=== PATIENT | female | born 1975 | race Caucasian/White ===

== ENCOUNTER 2017-01-12 17:29 | Inpatient (IN) | payer BC ==
[2017-01-12] VITALS (7 sets, daily range): BP systolic 95–117; BP diastolic 56–73
[~2017-01-12] VITALS: Ht 172.7 cm; Wt 85.5 kg
[~2017-01-12 17:29] MED LIST: ACDPT PO; ALPR.25T PO; AMOX1TAB63 PO; EST.1TD TD; FAMO20TA5 PO; HYDR-1231 PO; HYDR-3714 PO; HYDR1TAB PO; IBP800T PO; NAPR220C11 PO; NEURONTIN; OMEPRAZOLE; ONDA8TAB13 PO; OSLT75CRX PO; PREDNISONE; SERT50TA PO; TOPIRAMATE; TRAM50TA2 PO; ZOLOFT PO
[2017-01-12 17:46] LABS: BASOPHILS % (AUTO) 0 % (0-10); EOSINOPHILS # (AUTO) 0.2 10^3/uL (0.0-0.3); EOSINOPHILS % (AUTO) 2 % (0-10); LYMPHOCYTES # (AUTO) 2.9 X 10^3 (1.0-4.0); LYMPHOCYTES % (AUTO) 36 % (12-44); MEAN CORPUSCULAR HEMOGLOBIN 31 PG (25-34); MEAN CORPUSCULAR HGB CONC 34 G/DL (32-36); MEAN CORPUSCULAR VOLUME 91 FL (80-99); MONOCYTES # (AUTO) 0.5 X 10^3 (0.0-1.0); MONOCYTES % (AUTO) 6 % (0-12); NEUTROPHILS # (AUTO) 4.4 X 10^3 (1.8-7.8); NEUTROPHILS % (AUTO) 56 % (42-75); PLATELET COUNT 253 10^3/uL (130-400); RED BLOOD COUNT 4.07 10^6/uL (4.35-5.85); RED CELL DISTRIBUTION WIDTH 12.2 % (10.0-14.5); WHITE BLOOD COUNT 7.9 10^3/uL (4.3-11.0)
--- NOTE | 2017-01-12 17:55 | ED Trauma-Multisystem ---
General Chief Complaint: Trauma EMS/Air Arrival Activat Stated Complaint: SUICIDAL/NECK INJ Source of Information: Patient, EMS Exam Limitations: No Limitations History of Present Illness Time Seen by Provider: 17:30 Initial Comments Here by EMS with report of overdose and attempted hanging. Apparently the patient was found by her daughter with an electrical cord around her neck and barely breathing. She did take a cord of her neck. EMS was summoned. Patient was breathing afterwards but became increasingly drowsy. EMS did arrive and administered 2 mg of Narcan after patient was noted to have overdosed on up to 50 hydrocodone tablets of 5/325 and 10/325 doses. Patient states she was trying to end her pain. She was breathing better afterwards. Patient states that she was going to hang herself with the electrical cord but neither cord wouldn't hold said that she tried to tie tightly around her neck. This is how she was found. Patient states that she did not actually hang herself. There are no significant rene to her neck currently. Denies other injury. Occurred: Just Prior to Arrival (430 p.m.) Severity: Severe Associated Symptoms (Fall): No Abdominal Pain, No Chest Pain, Confusion, No Nausea/Vomiting, No Neck Pain, No Shortness of Air Allergies and Home Medications Allergies Coded Allergies: fluconazole (Verified Allergy, Mild, 07/05/12) morphine (Verified Allergy, Mild, 07/05/12) Uncoded Allergies: TAPE (Allergy, Mild, 07/05/12) Home Medications Alprazolam 0.25 Mg Tablet, 1 TAB PO HS PRN for ANXIETY, #0 (Reported) Hydrocodone Bit/Acetaminophen 1 Tab Tablet, 1 TAB PO Q6H PRN for PAIN, #10 Prescribed by: EARL MICHELLE on 01/06/15 0446 [Neurontin] , (Reported) [Omeprazole] , (Reported) [Prednisone] , (Reported) [Topiramate] , (Reported) [Zoloft] , 50 MG PO DAILY, (Reported) Constitutional: see HPI, No chills, No fever Eyes: No Symptoms Reported Ears: No Symptoms Reported Nose: No Symptoms Reported Mouth: No Symptoms Reported Throat: See HPI, No Hoarse, No Muffled, No Neck Stiffness Respiratory: no symptoms reported, No dyspnea on exertion, No short of breath, No wheezing Cardiovascular: No Symptoms Reported Gastrointestinal: no symptoms reported Genitourinary: no symptoms reported Skin: see HPI, No change in color, lesions (abrasions to the left arm) Psychiatric/Neurological: Anxiety, Depressed, Emotional Problems All Other Systems Reviewed Negative Unless Noted: Yes Past Ljhjprt-Qacvck-Qbatkz Hx Patient Social History Alcohol Use: Occasionally Uses Recreational Drug Use: No Smoking Status: Never a Smoker Immunizations Up To Date Date of Influenza Vaccine: Mar 15, 2014 Seasonal Allergies Seasonal Allergies: No Surgeries HX Surgeries: Yes (D AND C) Surgeries: Section, Gallbladder, Hysterectomy, Oophorectomy Respiratory Hx Respiratory Disorders: No Cardiovascular Hx Cardiac Disorders: No Cardiac Disorders: High Cholesterol Neurological Hx Neurological Disorders: Yes Neurological Disorders: Headaches /Migraines, Meningitis Reproductive System Hx Reproductive Disorders: Yes (CPP) Sexually Transmitted Disease: No 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 Genitourinary Hx Genitourinary Disorders: No Gastrointestinal Hx Gastrointestinal Disorders: Yes Gastrointestinal Disorders: Gall Bladder Disease Musculoskeletal Hx Musculoskeletal Disorders: No Endocrine Hx Endocrine Disorders: No HEENT HX ENT Disorders: No Loss of Vision: Denies Hearing Impairment: Denies Cancer Hx Cancer: No Psychosocial Hx Psychiatric Problems: Yes Behavioral Health Disorders: Suicide Attempts, Depression Integumentary HX Skin/Integumentary Disorder: No Blood Transfusions Hx Blood Disorders: Yes Adverse Reaction to a Blood Tr: No Reviewed Nursing Assessment Reviewed/Agree w Nursing PMH: Yes Family Medical History Significant Family History: No Pertinent Family Hx Family Medial History: Patient reports no known family medical history. Physical Exam General Appearance: No Apparent Distress, WD/WN Head: No Evidence of Injury Eyes: Bilateral Eye EOMI, Bilateral Eye Other (bilateral pupils 8 mm and unresponsive), Bilateral Eye PERRL Ears, Nose, Throat: No Evidence of ENT Injury, No Dental Injury Neck: Full Range of Motion, Normal Inspection, Non Tender, Supple Cardiovascular: Regular Rate, Rhythm, No Murmur Respiratory: Lungs Clear, Normal Breath Sounds Gastrointestinal: Non Tender, Soft Back: Normal Inspection, No CVA Tenderness, No Vertebral Tenderness Extremity: Normal Range of Motion, Non Tender Neurologic/Psychiatric: Alert, Oriented x3 Skin: Normal Color, Warm/Dry, Other (2 linear scratches to the left forearm. Initially there was a little bit of redness to the left side of the neck in a linear fashion that quickly resolved.) Epifanio Coma Score Best Eye Response (Epifanio): (4) Open Spontaneously Best Verbal Response (Barry): (5) Oriented Best Motor Response (Barry): (6) Obeys Commands Progress/Results/Core Measures Results/Orders Lab Results Laboratory Tests Test 01/12/17 17:34 01/12/17 18:09 Range/Units White Blood Count 7.9 4.3-11.0 10^3/uL Red Blood Count 4.07 L 4.35-5.85 10^6/uL Hemoglobin 12.7 11.5-16.0 G/DL Hematocrit 37 35-52 % Mean Corpuscular Volume 91 80-99 FL Mean Corpuscular Hemoglobin 31 25-34 PG Mean Corpuscular Hemoglobin Concent 34 32-36 G/DL Red Cell Distribution Width 12.2 10.0-14.5 % Platelet Count 253 130-400 10^3/uL Mean Platelet Volume 11.0 H 7.4-10.4 FL Neutrophils (%) (Auto) 56 42-75 % Lymphocytes (%) (Auto) 36 12-44 % Monocytes (%) (Auto) 6 0-12 % Eosinophils (%) (Auto) 2 0-10 % Basophils (%) (Auto) 0 0-10 % Neutrophils # (Auto) 4.4 1.8-7.8 X 10^3 Lymphocytes # (Auto) 2.9 1.0-4.0 X 10^3 Monocytes # (Auto) 0.5 0.0-1.0 X 10^3 Eosinophils # (Auto) 0.2 0.0-0.3 10^3/uL Basophils # (Auto) 0.0 0.0-0.1 10^3/uL Sodium Level 143 135-145 MMOL/L Potassium Level 3.6 3.6-5.0 MMOL/L Chloride Level 115 H 98-107 MMOL/L Carbon Dioxide Level 20 L 21-32 MMOL/L Anion Gap 8 5-14 MMOL/L Blood Urea Nitrogen 15 7-18 MG/DL Creatinine 0.82 0.60-1.30 MG/DL Estimat Glomerular Filtration Rate > 60 BUN/Creatinine Ratio 18 Glucose Level 93 70-105 MG/DL Calcium Level 8.4 L 8.5-10.1 MG/DL Magnesium Level 1.9 1.8-2.4 MG/DL Total Bilirubin 0.3 0.1-1.0 MG/DL Aspartate Amino Transf (AST/SGOT) 13 5-34 U/L Alanine Aminotransferase (ALT/SGPT) 15 0-55 U/L Alkaline Phosphatase 68 40-136 U/L Total Protein 6.6 6.4-8.2 GM/DL Albumin 3.8 3.2-4.5 GM/DL Amylase Level 47 25-125 U/L Lipase 21 8-78 U/L Serum Test, Qualitative NEGATIVE NEGATIVE Salicylates Level < 5.0 L 5.0-20.0 MG/DL Acetaminophen Level 54 *H 10-30 UG/ML Serum Alcohol < 10 <10 MG/DL Urine Color YELLOW Urine Clarity CLEAR Urine pH 7 5-9 Urine Specific [place] 1.005 L 1.016-1.022 Urine Protein NEGATIVE NEGATIVE Urine Glucose (UA) NEGATIVE NEGATIVE Urine Ketones NEGATIVE NEGATIVE Urine Nitrite NEGATIVE NEGATIVE Urine Bilirubin NEGATIVE NEGATIVE Urine Urobilinogen NORMAL NORMAL MG/DL Urine Leukocyte Esterase NEGATIVE NEGATIVE Urine RBC (Auto) NEGATIVE NEGATIVE Urine RBC NONE /HPF Urine WBC NONE /HPF Urine Squamous Epithelial Cells RARE /HPF Urine Crystals NONE /LPF Urine Bacteria FEW H /HPF Urine Casts NONE /LPF Urine Mucus NEGATIVE /LPF Urine Culture Indicated NO Urine Opiates Screen POSITIVE H NEGATIVE Urine Oxycodone Screen NEGATIVE NEGATIVE Urine Methadone Screen NEGATIVE NEGATIVE Urine Propoxyphene Screen NEGATIVE NEGATIVE Urine Barbiturates Screen NEGATIVE NEGATIVE Ur Tricyclic Antidepressants Screen NEGATIVE NEGATIVE Urine Phencyclidine Screen NEGATIVE NEGATIVE Urine Amphetamines Screen POSITIVE H NEGATIVE Urine Methamphetamines Screen NEGATIVE NEGATIVE Urine Benzodiazepines Screen NEGATIVE NEGATIVE Urine Cocaine Screen NEGATIVE NEGATIVE Urine Cannabinoids Screen NEGATIVE NEGATIVE My Orders Orders - ELIANE AGUDELO MD Acetaminophen (01/12/17 17:34) Alcohol (01/12/17 17:34) Amylase (01/12/17 17:34) Cbc With Automated Diff (01/12/17 17:34) Comprehensive Metabolic Panel (01/12/17 17:34) Drug Screen Stat (Urine) (01/12/17 17:34) Hcg,Qualitative Serum (01/12/17 17:34) Lipase (01/12/17 17:34) Magnesium (01/12/17 17:34) Salicylate (01/12/17 17:34) Ua Culture If Indicated (01/12/17 17:34) Chest 1 View, Ap/Pa Only (01/12/17 17:34) Ekg Tracing (01/12/17 17:34) Monitor-Rhythm Ecg Trace Only (01/12/17 17:34) Progress Note : Progress Note Seen and evaluated on arrival by EMS. Type II activation due to report of possible hanging. It does not appear that she actually hung herself but we will get trauma consult. I did discuss the case with Dr. Go at 1734. He will see patient in the ER. 1809: Labs reviewed. Dr. Go evaluating patient and will see patient in consult. 1830: I did discuss the case with Dr. Salazar and she accepts patient for admission. Dr. Go did see the patient in consult and has signed off as it does not appear that she hung herself. Dr. Salazar does accept the patient for admission, inpatient status. Patient will require 4 hour Tylenol level which will need to be drawn at 2030 tonight. Poison control will need to be contacted for further guidance. Patient may need Mucomyst dosing per poison control recommendations. Dr. Salazar agrees with plan. Family agrees with plan. ECG Initial ECG Impression Date: Jan 12, 2017 Initial ECG Impression Time: 17:57 Initial ECG Rate: 68 Initial ECG Rhythm: Normal Sinus Initial ECG Intervals: Normal Initial ECG Impression: Normal Initial ECG Comparisson: No Previous ECG Available Comment Sinus rhythm with normal axis. No evidence of ST elevation [place]. No previous available for comparison. Interpreted by me. Diagnostic Imaging Diagonstic Imaging: Xray Plain Films/CT/US/NM/MRI: chest Comments NAME: DOMINIQUE DENNEY [facility] REC#: [id number] PT STATUS: REG ER : 1975 PHYSICIAN: ELIANE AGUDELO MD ADMIT DATE: 01/12/17/ER Signed Date of Exam: 01/12/17 CHEST 1 VIEW, AP/PA ONLY INDICATION: Trauma. TECHNIQUE: Single view chest 5:54 PM. CORRELATION STUDY: 01/06/2015 FINDINGS: The heart size, mediastinal configuration and pulmonary vascularity are within normal limits. The lungs are clear with no consolidating infiltrate. There is no significant effusion or pneumothorax. IMPRESSION: 1. Stable, negative portable chest. Dictated by: Dictated on workstation # [id number] Dict: 01/12/17 1800 Trans: 01/12/17 1800 Interpreted by: HUSSAIN BUCKLEY DO Electronically signed by: HUSSAIN BUCKLEY DO 01/12/17 1800 Departure Communication Time/Spoke to Admitting Phy: 18:30 Time/Spoke to Consulting Physi: 17:34 Impression Impression: Primary Impression: Overdose by acetaminophen Qualified Codes: T39.1X2A - Poisoning by 4-aminophenol derivatives, intentional self-harm, initial encounter Additional Impressions: Overdose of opiate or related narcotic Qualified Codes: T40.602A - Poisoning by unspecified narcotics, intentional self-harm, initial encounter Suicide Qualified Codes: X83.8XXA - Intentional self-harm by other specified means, initial encounter Disposition: ADMITTED INPATIENT Condition: Stable Decision to Admit Reason: Admit from ER (General) Decision to Admit/Date: Jan 12, 2017 Time/Decision to Admit Time: 18:30 Departure-Patient Inst. Referrals: TRUNG KHAN DO (PCP) Primary Care Physician TIMBO GUILLEN (Family) Primary Care Physician ELIANE AGUDELO MD Jan 12, 2017 17:55
--- NOTE | 2017-01-12 18:03 | Diagnostic Imaging Report ---
INDICATION: Trauma. TECHNIQUE: Single view chest 5:54 PM. CORRELATION STUDY: 01/06/2015 FINDINGS: The heart size, mediastinal configuration and pulmonary vascularity are within normal limits. The lungs are clear with no consolidating infiltrate. There is no significant effusion or pneumothorax. IMPRESSION: 1. Stable, negative portable chest. Dictated by: Dictated on workstation # [id number]
[2017-01-12 18:05] LABS: ALANINE AMINOTRANSFERASE 15 U/L (0-55); ALBUMIN 3.8 GM/DL (3.2-4.5); ALCOHOL < 10 MG/DL (<10); AMYLASE 47 U/L (25-125); ANION GAP 8 MMOL/L (5-14); ASPARTATE AMINO TRANSFERASE 13 U/L (5-34); BILIRUBIN,TOTAL 0.3 MG/DL (0.1-1.0); BLOOD UREA NITROGEN 15 MG/DL (7-18); BUN/CREATININE RATIO 18; CALCIUM 8.4 MG/DL (8.5-10.1); CARBON DIOXIDE 20 MMOL/L (21-32); CHLORIDE 115 MMOL/L (98-107); CREATININE SERUM 0.82 MG/DL (0.60-1.30); GFR ESTIMATED > 60; GLUCOSE 93 MG/DL (70-105); LIPASE 21 U/L (8-78); MAGNESIUM 1.9 MG/DL (1.8-2.4); POTASSIUM 3.6 MMOL/L (3.6-5.0); SALICYLATE < 5.0 MG/DL (5.0-20.0); SODIUM 143 MMOL/L (135-145); TOTAL PROTEIN 6.6 GM/DL (6.4-8.2)
[2017-01-12 18:07] LABS: ACETAMINOPHEN 54 UG/ML (10-30)
[2017-01-12 18:16] LABS: BILIRUBIN,URINE NEGATIVE (NEGATIVE); KETONES,URINE NEGATIVE (NEGATIVE); LEUKOCYTE ESTERASE ,URINE NEGATIVE (NEGATIVE); NITRITE,URINE NEGATIVE (NEGATIVE); PH,URINE 7 (5-9); PROTEIN,URINE NEGATIVE (NEGATIVE); UROBILINOGEN,URINE NORMAL (NORMAL)
[2017-01-12 18:22] LABS: SQUAMOUS EPITHELIAL CELL,UR RARE /HPF
--- NOTE | 2017-01-12 18:40 | Consultation ---
History of Present Illness History of Present Illness Patient Consulted On(ines/time) 01/12/17 18:32 Date Seen by Provider: Jan 12, 2017 Time Seen by Provider: 18:32 History of Present Illness CC: Attempted suicide. Seen and evaluated in the Emergency Department. Patient is a 41 year old female who attempted suicide by taking " a lot of pain pills". She was using it to take away the pain for attempting to hang herself. Patient states she placed wire around her neck but realized it was going to likely break so then tried to make it tighter. She states she continued to take pain medication to continue to try and take away the pain. She was found in bed and brought by EMS to Emergency dept. At time of EMS arrival she was reported as unresponsive which she was given Narcan. In the ER she is alert and oriented. GCS 15. She had chest xray with no acute findings. On physical exam there are no signs of any trauma. Patient with family at bedside. Allergies and Home Medications Allergies Coded Allergies: fluconazole (Verified Allergy, Mild, 07/05/12) morphine (Verified Allergy, Mild, 07/05/12) Uncoded Allergies: TAPE (Allergy, Mild, 07/05/12) Home Medications Alprazolam 0.25 Mg Tablet, 1 TAB PO HS PRN for ANXIETY, #0 (Reported) Hydrocodone Bit/Acetaminophen 1 Tab Tablet, 1 TAB PO Q6H PRN for PAIN, #10 Prescribed by: EARL MICHELLE on 01/06/15 0446 [Neurontin] , (Reported) [Omeprazole] , (Reported) [Prednisone] , (Reported) [Topiramate] , (Reported) [Zoloft] , 50 MG PO DAILY, (Reported) Past Bmjmjbt-Weaglp-Jpxatt Hx Patient Social History Alcohol Use: Occasionally Uses Recreational Drug Use: No Smoking Status: Never a Smoker Recent Foreign Travel: No Contact w/Someone Who Travel: No Recent Infectious Disease Expo: No Immunizations Up To Date Date of Influenza Vaccine: Mar 15, 2014 Seasonal Allergies Seasonal Allergies: No Surgeries HX Surgeries: Yes (D AND C) Surgeries: Section, Gallbladder, Hysterectomy, Oophorectomy Respiratory Hx Respiratory Disorders: No Cardiovascular Hx Cardiac Disorders: No Cardiac Disorders: High Cholesterol Neurological Hx Neurological Disorders: Yes Neurological Disorders: Headaches /Migraines, Meningitis Reproductive System Hx Reproductive Disorders: Yes (CPP) Sexually Transmitted Disease: 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 Genitourinary Hx Genitourinary Disorders: No Gastrointestinal Hx Gastrointestinal Disorders: Yes Gastrointestinal Disorders: Gall Bladder Disease Musculoskeletal Hx Musculoskeletal Disorders: No Endocrine Hx Endocrine Disorders: No HEENT HX ENT Disorders: No Loss of Vision: Denies Hearing Impairment: Denies Cancer Hx Cancer: No Psychosocial Hx Psychiatric Problems: Yes Behavioral Health Disorders: Depression Integumentary HX Skin/Integumentary Disorder: No Blood Transfusions Hx Blood Disorders: Yes Adverse Reaction to a Blood Tr: No Family Medical History Significant Family History: No Pertinent Family Hx Family Medial History: Patient reports no known family medical history. Review of Systems-General Constitutional: no symptoms reported EENTM: no symptoms reported Respiratory: no symptoms reported Cardiovascular: no symptoms reported Gastrointestinal: no symptoms reported Genitourinary: no symptoms reported Musculoskeletal: no symptoms reported Skin: no symptoms reported Psychiatric/Neurological: Depressed Physical Exam-General Problems Physical Exam Vital Signs Capillary Refill : General Appearance: no apparent distress HEENT: PERRL/EOMI, normal ENT inspection Neck: non-tender, full range of motion, supple, normal inspection Respiratory: no respiratory distress, no accessory muscle use Cardiovascular: regular rate, rhythm Gastrointestinal: non tender, soft, no organomegaly, no pulsatile mass Rectal: deferred Back: normal inspection, no CVA tenderness, no vertebral tenderness Extremities: non-tender, normal inspection 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, no motor/sensory deficits, alert, oriented x 3, depressed affect Skin: normal color, warm/dry Data Review Labs Laboratory Tests 01/12/17 17:34: White Blood Count 7.9, Red Blood Count 4.07L, Hemoglobin 12.7, Hematocrit 37, Mean Corpuscular Volume 91, Mean Corpuscular Hemoglobin 31, Mean Corpuscular Hemoglobin Concent 34, Red Cell Distribution Width 12.2, Platelet Count 253, Mean Platelet Volume 11.0H, Neutrophils (%) (Auto) 56, Lymphocytes (%) (Auto) 36 , Monocytes (%) (Auto) 6, Eosinophils (%) (Auto) 2, Basophils (%) (Auto) 0, Neutrophils # (Auto) 4.4, Lymphocytes # (Auto) 2.9, Monocytes # (Auto) 0.5, Eosinophils # (Auto) 0.2, Basophils # (Auto) 0.0, Sodium Level 143, Potassium Level 3.6, Chloride Level 115H, Carbon Dioxide Level 20L, Anion Gap 8, Blood Urea Nitrogen 15, Creatinine 0.82, Estimat Glomerular Filtration Rate > 60, BUN/ Creatinine Ratio 18, Glucose Level 93, Calcium Level 8.4L, Magnesium Level 1.9, Total Bilirubin 0.3, Aspartate Amino Transf (AST/SGOT) 13, Alanine Aminotransferase (ALT/SGPT) 15, Alkaline Phosphatase 68, Total Protein 6.6, Albumin 3.8, Amylase Level 47, Lipase 21, Serum Test, Qualitative NEGATIVE, Salicylates Level < 5.0L, Acetaminophen Level 54*H, Serum Alcohol < 10 01/12/17 18:09: Urine Color YELLOW, Urine Clarity CLEAR, Urine pH 7, Urine Specific [place] 1.005L, Urine Protein NEGATIVE, Urine Glucose (UA) NEGATIVE, Urine Ketones NEGATIVE, Urine Nitrite NEGATIVE, Urine Bilirubin NEGATIVE, Urine Urobilinogen NORMAL, Urine Leukocyte Esterase NEGATIVE, Urine RBC (Auto) NEGATIVE, Urine RBC NONE, Urine WBC NONE, Urine Squamous Epithelial Cells RARE, Urine Crystals NONE , Urine Bacteria FEWH, Urine Casts NONE, Urine Mucus NEGATIVE, Urine Culture Indicated NO, Urine Opiates Screen POSITIVEH, Urine Oxycodone Screen NEGATIVE, Urine Methadone Screen NEGATIVE, Urine Propoxyphene Screen NEGATIVE, Urine Barbiturates Screen NEGATIVE, Ur Tricyclic Antidepressants Screen NEGATIVE, Urine Phencyclidine Screen NEGATIVE, Urine Amphetamines Screen POSITIVEH, Urine Methamphetamines Screen NEGATIVE, Urine Benzodiazepines Screen NEGATIVE, Urine Cocaine Screen NEGATIVE, Urine Cannabinoids Screen NEGATIVE Assessment/Plan Assessment/Plan Assessment/Plan suicide attempt, elevated acetaminophen level no physical signs of attempt by hanging patient being admitted to medicine to ICU no surgical issues will sign off, call if needed. RYDER MONIQUE DO Jan 12, 2017 18:40
[2017-01-12] MEDS: CATHETER FLUSH 10 ML SYR IV PRN (21:09)
[2017-01-12] MEDS: NS IV 1000 ML 1,000 ML IV SCH (21:09)
[2017-01-13] VITALS (22 sets, daily range): BP systolic 99–137; BP diastolic 57–81
[2017-01-13 04:12] LABS: BASOPHILS % (AUTO) 0 % (0-10); EOSINOPHILS % (AUTO) 0 % (0-10); LYMPHOCYTES # (AUTO) 1.3 X 10^3 (1.0-4.0); LYMPHOCYTES % (AUTO) 18 % (12-44); MEAN CORPUSCULAR HEMOGLOBIN 31 PG (25-34); MEAN CORPUSCULAR HGB CONC 33 G/DL (32-36); MEAN CORPUSCULAR VOLUME 92 FL (80-99); MEAN PLATELET VOLUME 11.3 FL (7.4-10.4); MONOCYTES # (AUTO) 0.1 X 10^3 (0.0-1.0); MONOCYTES % (AUTO) 2 % (0-12); NEUTROPHILS # (AUTO) 5.8 X 10^3 (1.8-7.8); NEUTROPHILS % (AUTO) 80 % (42-75); PLATELET COUNT 234 10^3/uL (130-400); RED BLOOD COUNT 4.05 10^6/uL (4.35-5.85); RED CELL DISTRIBUTION WIDTH 12.2 % (10.0-14.5); WHITE BLOOD COUNT 7.2 10^3/uL (4.3-11.0)
[2017-01-13 04:33] LABS: ALANINE AMINOTRANSFERASE 152 U/L (0-55); ALBUMIN 3.7 GM/DL (3.2-4.5); ANION GAP 8 MMOL/L (5-14); ASPARTATE AMINO TRANSFERASE 156 U/L (5-34); BILIRUBIN,TOTAL 0.6 MG/DL (0.1-1.0); BLOOD UREA NITROGEN 16 MG/DL (7-18); BUN/CREATININE RATIO 20; CALCIUM 8.3 MG/DL (8.5-10.1); CARBON DIOXIDE 19 MMOL/L (21-32); CHLORIDE 114 MMOL/L (98-107); GFR ESTIMATED > 60; GLUCOSE 108 MG/DL (70-105); MAGNESIUM 2.2 MG/DL (1.8-2.4); PHOSPHORUS 3.5 MG/DL (2.3-4.7); POTASSIUM 4.1 MMOL/L (3.6-5.0); SODIUM 141 MMOL/L (135-145); TOTAL PROTEIN 6.4 GM/DL (6.4-8.2)
[2017-01-13] MEDS: MAGNESIUM 1 GM/100 ML IVPB 100 ML IV SCH (06:14)
[2017-01-13] MEDS: POTASSIUM CL 10MEQ/50ML IVPB 50 ML IV SCH (06:14)
[2017-01-13] MEDS: KCL 20 MEQ TAB (K-DUR) PO SCH (06:14)
[2017-01-13] MEDS ORDERED: ACETYLCYSTEINE IV ONE ×6 (07:00→12:00)
[2017-01-13] MEDS ORDERED: D5W IV ONE ×6 (07:00→12:00)
[2017-01-13] MEDS ORDERED: NS IV 1000 ML 1,000 ML IV SCH (08:00)
--- NOTE | 2017-01-13 08:04 | Diagnostic Imaging Report ---
CHEST 1 VIEW, AP/PA ONLY Indication: Dyspnea Comparison: 01/12/2017 Findings: No focal airspace disease in the visualized lungs. Please note that the posterior lower lobes are poorly evaluated by portable radiography. No pleural effusion or pneumothorax. Normal cardiomediastinal silhouette. Impression: No acute cardiopulmonary process by portable radiography. Dictated by: Dictated on workstation # [id number]
[2017-01-13] MEDS: ONDANSETRON 4 MG/2 ML (SDV) Z0FRAN IVP PRN ×3 (08:11→22:56)
[2017-01-13] MEDS: CATHETER FLUSH 10 ML SYR IV PRN ×2 (08:11→22:56)
[2017-01-13 08:14] LABS: INR 1.1 (0.8-1.4); PROTHROMBIN TIME PATIENT 14.3 SEC (12.2-14.7)
[2017-01-13 08:18] LABS: ALANINE AMINOTRANSFERASE 146 U/L (0-55); ASPARTATE AMINO TRANSFERASE 120 U/L (5-34)
[2017-01-13] MEDS ORDERED: GABA600T2 PO (08:49)
[2017-01-13] MEDS ORDERED: TOPI100T11 PO ×2 (08:49→08:59)
[2017-01-13] MEDS ORDERED: MILN100T PO (08:49)
[2017-01-13] MEDS ORDERED: SERT25TA5 PO (08:49)
[2017-01-13] MEDS ORDERED: INDO50CA PO (08:49)
[2017-01-13] MEDS ORDERED: AMPH20CA PO (08:49)
[2017-01-13] MEDS ORDERED: ESTR1TAB27 PO (09:01)
[2017-01-13] MEDS ORDERED: OMEP40CA36 PO (09:01)
[2017-01-13] MEDS ORDERED: CYAN500T2 PO (09:01)
[2017-01-13] MEDS ORDERED: CYAN100088 PO (09:02)
[2017-01-13] MEDS ORDERED: PROMETHAZINE INJ 25 MG/ML (PHENERGAN) AMP IVP PRN (09:15)
[2017-01-13] MEDS: NS IV 1000 ML 1,000 ML IV SCH (10:09)
--- NOTE | 2017-01-13 10:28 | History & Physicial (CHS) ---
HPI History of Present Illness: History provided by patient and her . They report that yesterday they arrived home around 4 pm and after that, Jaida's states she and other family members found notes written to them by the patient indicating self-harm and she had locked herself in her bedroom, they went in and found her and called EMS. She was minimally responsive but did improve with narcan. She states she took about 50 hydrocodone/acetaminophen, some were hers and a few were her 's. She took her other home medications that day as scheduled and denies taking any extra. She also tied a cord around her neck with the intent of strangling herself. She has had suicidal ideation in the past but has not been this serious. She was just released from an inpatient Psychiatric hospitalization in November. She does not answer questions as to how she feels about not succeeding in harming herself or if she is still wanting to harm herself, but does say she would like to go back to [place] where she was prior. Exam Limitations: clinical condition Date seen by provider: Jan 13, 2017 Time Seen by Provider: 09:10 Attending Physician Elizabeth Salazar MD PCP Janet Meng DO Consult Date of Admission Jan 12, 2017 at 6:30 pm Home Medications Home Medications Reviewed patient Home Medication Reconciliation Form Allergies Coded Allergies: fluconazole (Verified Allergy, Mild, 07/05/12) morphine (Verified Allergy, Mild, 07/05/12) Uncoded Allergies: TAPE (Allergy, Mild, 07/05/12) [id number] Hx Patient Social History Alcohol Use: Occasionally Uses Recreational Drug Use: No Smoking Status: Never a Smoker Recent Foreign Travel: No Contact w/other who traveled: No Recent Infectious Disease Expo: No Physical Abuse Screen: No Sexual Abuse: No Immunizations Up To Date Date of Influenza Vaccine: Mar 15, 2014 Past Medical History PMHx: Depression Fibromyalgia GERD Chronic headaches ADHD PSurgHx: Hysterectomy Oophorectomy Appendectomy Cholecystectomy Ureter stretching Family Medical History Significant Family History: No Pertinent Family Hx Family History: Patient reports no known family medical history. Review of Systems (CHC) Constitutional: No fever EENTM: no symptoms reported Respiratory: no symptoms reported Cardiovascular: no symptoms reported Gastrointestinal: abdominal pain, nausea, vomiting Genitourinary: no symptoms reported Musculoskeletal: muscle pain Skin: no symptoms reported Psychiatric/Neurological: See HPI Reviewed Test Results Reviewed Test Results Lab Laboratory Tests Test 01/12/17 17:34 01/12/17 18:09 01/12/17 20:26 01/12/17 22:26 Range/Units White Blood Count 7.9 4.3-11.0 10^3/uL Red Blood Count 4.07 L 4.35-5.85 10^6/uL Hemoglobin 12.7 11.5-16.0 G/DL Hematocrit 37 35-52 % Mean Corpuscular Volume 91 80-99 FL Mean Corpuscular Hemoglobin 31 25-34 PG Mean Corpuscular Hemoglobin Concent 34 32-36 G/DL Red Cell Distribution Width 12.2 10.0-14.5 % Platelet Count 253 130-400 10^3/uL Mean Platelet Volume 11.0 H 7.4-10.4 FL Neutrophils (%) (Auto) 56 42-75 % Lymphocytes (%) (Auto) 36 12-44 % Monocytes (%) (Auto) 6 0-12 % Eosinophils (%) (Auto) 2 0-10 % Basophils (%) (Auto) 0 0-10 % Neutrophils # (Auto) 4.4 1.8-7.8 X 10^3 Lymphocytes # (Auto) 2.9 1.0-4.0 X 10^3 Monocytes # (Auto) 0.5 0.0-1.0 X 10^3 Eosinophils # (Auto) 0.2 0.0-0.3 10^3/uL Basophils # (Auto) 0.0 0.0-0.1 10^3/uL Sodium Level 143 135-145 MMOL/L Potassium Level 3.6 3.6-5.0 MMOL/L Chloride Level 115 H 98-107 MMOL/L Carbon Dioxide Level 20 L 21-32 MMOL/L Anion Gap 8 5-14 MMOL/L Blood Urea Nitrogen 15 7-18 MG/DL Creatinine 0.82 0.60-1.30 MG/DL Estimat Glomerular Filtration Rate > 60 BUN/Creatinine Ratio 18 Glucose Level 93 70-105 MG/DL Calcium Level 8.4 L 8.5-10.1 MG/DL Magnesium Level 1.9 1.8-2.4 MG/DL Total Bilirubin 0.3 0.1-1.0 MG/DL Aspartate Amino Transf (AST/SGOT) 13 5-34 U/L Alanine Aminotransferase (ALT/SGPT) 15 0-55 U/L Alkaline Phosphatase 68 40-136 U/L Total Protein 6.6 6.4-8.2 GM/DL Albumin 3.8 3.2-4.5 GM/DL Amylase Level 47 25-125 U/L Lipase 21 8-78 U/L Serum Test, Qualitative NEGATIVE NEGATIVE Salicylates Level < 5.0 L 5.0-20.0 MG/DL Acetaminophen Level 54 *H 81 #*H 93 #*H 10-30 UG/ML Serum Alcohol < 10 <10 MG/DL Urine Color YELLOW Urine Clarity CLEAR Urine pH 7 5-9 Urine Specific [place] 1.005 L 1.016-1.022 Urine Protein NEGATIVE NEGATIVE Urine Glucose (UA) NEGATIVE NEGATIVE Urine Ketones NEGATIVE NEGATIVE Urine Nitrite NEGATIVE NEGATIVE Urine Bilirubin NEGATIVE NEGATIVE Urine Urobilinogen NORMAL NORMAL MG/DL Urine Leukocyte Esterase NEGATIVE NEGATIVE Urine RBC (Auto) NEGATIVE NEGATIVE Urine RBC NONE /HPF Urine WBC NONE /HPF Urine Squamous Epithelial Cells RARE /HPF Urine Crystals NONE /LPF Urine Bacteria FEW H /HPF Urine Casts NONE /LPF Urine Mucus NEGATIVE /LPF Urine Culture Indicated NO Urine Opiates Screen POSITIVE H NEGATIVE Urine Oxycodone Screen NEGATIVE NEGATIVE Urine Methadone Screen NEGATIVE NEGATIVE Urine Propoxyphene Screen NEGATIVE NEGATIVE Urine Barbiturates Screen NEGATIVE NEGATIVE Ur Tricyclic Antidepressants Screen NEGATIVE NEGATIVE Urine Phencyclidine Screen NEGATIVE NEGATIVE Urine Amphetamines Screen POSITIVE H NEGATIVE Urine Methamphetamines Screen NEGATIVE NEGATIVE Urine Benzodiazepines Screen NEGATIVE NEGATIVE Urine Cocaine Screen NEGATIVE NEGATIVE Urine Cannabinoids Screen NEGATIVE NEGATIVE Test 01/13/17 00:46 01/13/17 03:45 01/13/17 07:55 Range/Units Acetaminophen Level 96 #*H 84 #*H 10-30 UG/ML White Blood Count 7.2 4.3-11.0 10^3/uL Red Blood Count 4.05 L 4.35-5.85 10^6/uL Hemoglobin 12.4 11.5-16.0 G/DL Hematocrit 37 35-52 % Mean Corpuscular Volume 92 80-99 FL Mean Corpuscular Hemoglobin 31 25-34 PG Mean Corpuscular Hemoglobin Concent 33 32-36 G/DL Red Cell Distribution Width 12.2 10.0-14.5 % Platelet Count 234 130-400 10^3/uL Mean Platelet Volume 11.3 H 7.4-10.4 FL Neutrophils (%) (Auto) 80 H 42-75 % Lymphocytes (%) (Auto) 18 12-44 % Monocytes (%) (Auto) 2 0-12 % Eosinophils (%) (Auto) 0 0-10 % Basophils (%) (Auto) 0 0-10 % Neutrophils # (Auto) 5.8 1.8-7.8 X 10^3 Lymphocytes # (Auto) 1.3 1.0-4.0 X 10^3 Monocytes # (Auto) 0.1 0.0-1.0 X 10^3 Eosinophils # (Auto) 0.0 0.0-0.3 10^3/uL Basophils # (Auto) 0.0 0.0-0.1 10^3/uL Sodium Level 141 135-145 MMOL/L Potassium Level 4.1 3.6-5.0 MMOL/L Chloride Level 114 H 98-107 MMOL/L Carbon Dioxide Level 19 L 21-32 MMOL/L Anion Gap 8 5-14 MMOL/L Blood Urea Nitrogen 16 7-18 MG/DL Creatinine 0.80 0.60-1.30 MG/DL Estimat Glomerular Filtration Rate > 60 BUN/Creatinine Ratio 20 Glucose Level 108 H 70-105 MG/DL Calcium Level 8.3 L 8.5-10.1 MG/DL Phosphorus Level 3.5 2.3-4.7 MG/DL Magnesium Level 2.2 1.8-2.4 MG/DL Total Bilirubin 0.6 0.1-1.0 MG/DL Aspartate Amino Transf (AST/SGOT) 156 H 120 H 5-34 U/L Alanine Aminotransferase (ALT/SGPT) 152 H 146 H 0-55 U/L Alkaline Phosphatase 90 40-136 U/L Total Protein 6.4 6.4-8.2 GM/DL Albumin 3.7 3.2-4.5 GM/DL Prothrombin Time 14.3 12.2-14.7 SEC INR Comment 1.1 0.8-1.4 Physical Exam-(CHC) Physical Exam Vital Signs VS - Last 72 Hours, by Label 01/12/17 01/12/17 01/12/17 01/12/17 18:40 19:00 19:12 19:30 Temp 97.9 Pulse 67 73 78 68 Resp 18 14 12 B/P (MAP) 117/60 111/63 Pulse Ox 100 97 99 O2 Delivery Room Air Room Air Room Air 01/12/17 01/12/17 01/12/17 01/12/17 20:00 20:30 21:00 22:00 Pulse 79 73 82 71 Resp 20 10 8 7 B/P (MAP) 95/56 107/65 107/68 111/69 Pulse Ox 94 93 95 97 O2 Delivery Room Air Room Air Room Air Room Air 01/12/17 01/12/17 01/13/17 01/13/17 22:25 23:00 00:00 01:00 Pulse 85 59 61 Resp 12 7 7 B/P (MAP) 110/73 112/78 122/76 Pulse Ox 98 100 100 100 O2 Delivery Room Air Room Air Room Air Room Air 01/13/17 01/13/17 01/13/17 01/13/17 01:00 02:00 02:00 02:35 Temp 98.0 Pulse 61 59 Resp 9 B/P (MAP) 114/73 Pulse Ox 100 100 O2 Delivery Room Air Room Air 01/13/17 01/13/17 01/13/17 01/13/17 03:00 04:00 05:00 06:00 Pulse 58 111 70 67 Resp 10 19 8 9 B/P (MAP) 106/69 110/69 99/59 100/65 Pulse Ox 100 99 100 100 O2 Delivery Room Air Room Air Room Air Room Air 01/13/17 01/13/17 01/13/17 06:46 07:00 08:00 Temp 97.2 Pulse 72 B/P (MAP) Pulse Ox 100 O2 Delivery Room Air Room Air Capillary Refill : Less Than 3 Seconds General Appearance: mild distress Respiratory: lungs clear, normal breath sounds Cardiovascular: regular rate, rhythm, no murmur Extremities: no pedal edema Neurologic/Psychiatric: alert, other (flat affect) Skin: normal color, warm/dry Assessment/Plan Assessment/Plan Admission Dx Intentional overdose Depression Fibromyalgia ADHD Plan Intentional overdose- with hydrocodone/apap -Acetaminophen levels followed and discussed with poison control, did not cross threshold for treatment, but this am had new elevation in AST/ALT, so N acetylcysteine started per protocol -Repeat LFTs decreasing, will recheck in 4 hours -Plan for re-admission to [place] when medically stable, probably tomorrow afternoon Depression- resume home sertraline, inpatient Psych recommendations as noted above Fibromyalgia- resume home gabapentin, indomethacin and milnapracin -Hold topiramate given already multi-drug regimen and to avoid oversedation ADHD- started on adderall at last Psych hospitalization, hold for now DVT ppx- SCDs Diagnosis/Problems: Clinical Quality Measures DVT/VTE Risk/Contraindication: Risk Factor Score Per Nursin RFS Level Per Nursing on Admit: 1=Low/No VTE PPX Copy Copies To 1: DARYL Nicole BETHANY N MD Jan 13, 2017 10:28 am
[2017-01-13 12:55] LABS: ACETAMINOPHEN 26 UG/ML (10-30); ALANINE AMINOTRANSFERASE 122 U/L (0-55); ALBUMIN 3.4 GM/DL (3.2-4.5); ANION GAP 9 MMOL/L (5-14); ASPARTATE AMINO TRANSFERASE 80 U/L (5-34); BILIRUBIN,TOTAL 0.4 MG/DL (0.1-1.0); BLOOD UREA NITROGEN 14 MG/DL (7-18); BUN/CREATININE RATIO 20; CALCIUM 7.6 MG/DL (8.5-10.1); CARBON DIOXIDE 19 MMOL/L (21-32); CHLORIDE 113 MMOL/L (98-107); CREATININE SERUM 0.71 MG/DL (0.60-1.30); GFR ESTIMATED > 60; GLUCOSE 135 MG/DL (70-105); POTASSIUM 3.3 MMOL/L (3.6-5.0); SODIUM 141 MMOL/L (135-145); TOTAL PROTEIN 5.9 GM/DL (6.4-8.2)
[2017-01-13] MEDS: CYANOCOBALAMIN 500 MCG TAB (VITAMIN B-12) PO SCH (14:12)
[2017-01-13] MEDS: GABAPENTIN 600 MG (NEURONTIN) TAB PO SCH ×2 (14:13→21:52)
[2017-01-13] MEDS: SERTRALINE 50 MG (ZOLOFT) TABLET PO SCH (14:13)
[2017-01-13] MEDS ORDERED: NON-FORMULARY MEDICATION 1 EA EA (Milnacipran HCl (Savella) 100 MG) PO SCH (21:00)
[2017-01-13] MEDS: INDOMETHACIN 25 MG (INDOCIN) CAP PO SCH (21:52)
[2017-01-14] VITALS (16 sets, daily range): BP systolic 102–124; BP diastolic 61–90
[2017-01-14 05:34] LABS: BASOPHILS % (AUTO) 1 % (0-10); EOSINOPHILS # (AUTO) 0.1 10^3/uL (0.0-0.3); EOSINOPHILS % (AUTO) 1 % (0-10); LYMPHOCYTES # (AUTO) 3.1 X 10^3 (1.0-4.0); LYMPHOCYTES % (AUTO) 36 % (12-44); MEAN CORPUSCULAR HEMOGLOBIN 31 PG (25-34); MEAN CORPUSCULAR HGB CONC 34 G/DL (32-36); MEAN CORPUSCULAR VOLUME 91 FL (80-99); MEAN PLATELET VOLUME 10.6 FL (7.4-10.4); MONOCYTES # (AUTO) 0.5 X 10^3 (0.0-1.0); MONOCYTES % (AUTO) 5 % (0-12); NEUTROPHILS % (AUTO) 57 % (42-75); PLATELET COUNT 267 10^3/uL (130-400); RED BLOOD COUNT 3.99 10^6/uL (4.35-5.85); RED CELL DISTRIBUTION WIDTH 12.7 % (10.0-14.5); WHITE BLOOD COUNT 8.6 10^3/uL (4.3-11.0)
[2017-01-14 05:42] LABS: INR 1.2 (0.8-1.4); PROTHROMBIN TIME PATIENT 14.6 SEC (12.2-14.7)
[2017-01-14 05:52] LABS: MAGNESIUM 1.9 MG/DL (1.8-2.4); PHOSPHORUS 1.3 MG/DL (2.3-4.7)
[2017-01-14 05:53] LABS: ALANINE AMINOTRANSFERASE 83 U/L (0-55); ALBUMIN 3.3 GM/DL (3.2-4.5); ANION GAP 9 MMOL/L (5-14); ASPARTATE AMINO TRANSFERASE 35 U/L (5-34); BILIRUBIN,TOTAL 0.3 MG/DL (0.1-1.0); BLOOD UREA NITROGEN 7 MG/DL (7-18); BUN/CREATININE RATIO 10; CALCIUM 8.1 MG/DL (8.5-10.1); CARBON DIOXIDE 18 MMOL/L (21-32); CHLORIDE 116 MMOL/L (98-107); CREATININE SERUM 0.73 MG/DL (0.60-1.30); GFR ESTIMATED > 60; GLUCOSE 100 MG/DL (70-105); POTASSIUM 2.9 MMOL/L (3.6-5.0); SODIUM 143 MMOL/L (135-145); TOTAL PROTEIN 5.7 GM/DL (6.4-8.2)
[2017-01-14] MEDS: MAGNESIUM 1 GM/100 ML IVPB 100 ML IV SCH (05:59)
[2017-01-14 06:04] LABS: ACETAMINOPHEN < 10 UG/ML (10-30)
[2017-01-14] MEDS: NS IV 1000 ML 1,000 ML IV SCH ×2 (06:23→11:35)
[2017-01-14] MEDS: KCL 20 MEQ TAB (K-DUR) PO SCH (06:24)
[2017-01-14] MEDS: POTASSIUM CL 10MEQ/50ML IVPB 50 ML IV SCH ×6 (06:25→11:08)
[2017-01-14] MEDS ORDERED: PANTOPRAZOLE 40 MG (PROTONIX) TAB PO SCH (07:00)
[2017-01-14] MEDS: ONDANSETRON 4 MG/2 ML (SDV) Z0FRAN IVP PRN (07:41)
[2017-01-14] MEDS ORDERED: ESTRADIOL 1 MG TAB (ESTRACE) PO SCH (09:00)
--- NOTE | 2017-01-14 11:30 | Discharge Summary ---
Diagnosis/Chief Complaint Date of Admission Jan 12, 2017 at 18:30 Date of Discharge Jan 14, 2017 Admission Diagnosis Admission Diagnosis Intentional overdose Depression Fibromyalgia ADHD Discharge Diagnosis Intentional overdose- with hydrocodone/apap -Acetaminophen levels followed and discussed with poison control, did not cross threshold for treatment, but this am had new elevation in AST/ALT, so N acetylcysteine started per protocol -LFTs continued to decrease (AST normal and ALT near normal) and acetaminophen level <10 on morning of d/c -Plan for re-admission to [place] now that medically stable Depression- resume home sertraline, inpatient Psych recommendations as noted above Fibromyalgia- resume home gabapentin, indomethacin and milnapracin -Held topiramate given already multi-drug regimen and to avoid oversedation ADHD- started on adderall at last Psych hospitalization, held for now Hypokalemia- replaced Chief Complaint/HPI Chief Complaint/HPI History provided by patient and her . They report that yesterday they arrived home around 4 pm and after that, Jaida's states she and other family members found notes written to them by the patient indicating self-harm and she had locked herself in her bedroom, they went in and found her and called EMS. She was minimally responsive but did improve with narcan. She states she took about 50 hydrocodone/acetaminophen, some were hers and a few were her 's. She took her other home medications that day as scheduled and denies taking any extra. She also tied a cord around her neck with the intent of strangling herself. She has had suicidal ideation in the past but has not been this serious. She was just released from an inpatient Psychiatric hospitalization in November. She does not answer questions as to how she feels about not succeeding in harming herself or if she is still wanting to harm herself, but does say she would like to go back to [place] where she was prior. Discharge Summary-Simple/Stand Consultations Discharge Physical Examination Allergies: Coded Allergies: fluconazole (Verified Allergy, Mild, 07/05/12) morphine (Verified Allergy, Mild, 07/05/12) Uncoded Allergies: TAPE (Allergy, Mild, 07/05/12) Vitals & I&Os Vital Sign - Last 12Hours Date Time Temp Pulse Resp B/P (MAP) Pulse Ox O2 Delivery O2 Flow Rate FiO2 01/14/17 10:00 93 10 123/76 98 Room Air 01/14/17 07:45 99.7 Intake and Output 01/14/17 00:00 Intake Total 880 ml Output Total 1800 ml Balance -920 ml General Appearance: Alert, No Acute Distress Respiratory: Clear to Auscultation, Normal Air Movement Cardiovascular: Regular Rate, No Murmurs Abdominal: Normal Bowel Sounds, Soft, No Tenderness Psych/Mental Status: Other (affect flat) Hospital Course See final discharge diagnosis. Labs Laboratory Tests Test 01/12/17 17:34 01/12/17 18:09 01/12/17 20:26 01/12/17 22:26 Range/Units White Blood Count 7.9 4.3-11.0 10^3/uL Red Blood Count 4.07 L 4.35-5.85 10^6/uL Hemoglobin 12.7 11.5-16.0 G/DL Hematocrit 37 35-52 % Mean Corpuscular Volume 91 80-99 FL Mean Corpuscular Hemoglobin 31 25-34 PG Mean Corpuscular Hemoglobin Concent 34 32-36 G/DL Red Cell Distribution Width 12.2 10.0-14.5 % Platelet Count 253 130-400 10^3/uL Mean Platelet Volume 11.0 H 7.4-10.4 FL Neutrophils (%) (Auto) 56 42-75 % Lymphocytes (%) (Auto) 36 12-44 % Monocytes (%) (Auto) 6 0-12 % Eosinophils (%) (Auto) 2 0-10 % Basophils (%) (Auto) 0 0-10 % Neutrophils # (Auto) 4.4 1.8-7.8 X 10^3 Lymphocytes # (Auto) 2.9 1.0-4.0 X 10^3 Monocytes # (Auto) 0.5 0.0-1.0 X 10^3 Eosinophils # (Auto) 0.2 0.0-0.3 10^3/uL Basophils # (Auto) 0.0 0.0-0.1 10^3/uL Sodium Level 143 135-145 MMOL/L Potassium Level 3.6 3.6-5.0 MMOL/L Chloride Level 115 H 98-107 MMOL/L Carbon Dioxide Level 20 L 21-32 MMOL/L Anion Gap 8 5-14 MMOL/L Blood Urea Nitrogen 15 7-18 MG/DL Creatinine 0.82 0.60-1.30 MG/DL Estimat Glomerular Filtration Rate > 60 BUN/Creatinine Ratio 18 Glucose Level 93 70-105 MG/DL Calcium Level 8.4 L 8.5-10.1 MG/DL Magnesium Level 1.9 1.8-2.4 MG/DL Total Bilirubin 0.3 0.1-1.0 MG/DL Aspartate Amino Transf (AST/SGOT) 13 5-34 U/L Alanine Aminotransferase (ALT/SGPT) 15 0-55 U/L Alkaline Phosphatase 68 40-136 U/L Total Protein 6.6 6.4-8.2 GM/DL Albumin 3.8 3.2-4.5 GM/DL Amylase Level 47 25-125 U/L Lipase 21 8-78 U/L Serum Test, Qualitative NEGATIVE NEGATIVE Salicylates Level < 5.0 L 5.0-20.0 MG/DL Acetaminophen Level 54 *H 81 #*H 93 #*H 10-30 UG/ML Serum Alcohol < 10 <10 MG/DL Urine Color YELLOW Urine Clarity CLEAR Urine pH 7 5-9 Urine Specific [place] 1.005 L 1.016-1.022 Urine Protein NEGATIVE NEGATIVE Urine Glucose (UA) NEGATIVE NEGATIVE Urine Ketones NEGATIVE NEGATIVE Urine Nitrite NEGATIVE NEGATIVE Urine Bilirubin NEGATIVE NEGATIVE Urine Urobilinogen NORMAL NORMAL MG/DL Urine Leukocyte Esterase NEGATIVE NEGATIVE Urine RBC (Auto) NEGATIVE NEGATIVE Urine RBC NONE /HPF Urine WBC NONE /HPF Urine Squamous Epithelial Cells RARE /HPF Urine Crystals NONE /LPF Urine Bacteria FEW H /HPF Urine Casts NONE /LPF Urine Mucus NEGATIVE /LPF Urine Culture Indicated NO Urine Opiates Screen POSITIVE H NEGATIVE Urine Oxycodone Screen NEGATIVE NEGATIVE Urine Methadone Screen NEGATIVE NEGATIVE Urine Propoxyphene Screen NEGATIVE NEGATIVE Urine Barbiturates Screen NEGATIVE NEGATIVE Ur Tricyclic Antidepressants Screen NEGATIVE NEGATIVE Urine Phencyclidine Screen NEGATIVE NEGATIVE Urine Amphetamines Screen POSITIVE H NEGATIVE Urine Methamphetamines Screen NEGATIVE NEGATIVE Urine Benzodiazepines Screen NEGATIVE NEGATIVE Urine Cocaine Screen NEGATIVE NEGATIVE Urine Cannabinoids Screen NEGATIVE NEGATIVE Test 01/13/17 00:46 01/13/17 03:45 01/13/17 07:55 01/13/17 12:15 Range/Units Acetaminophen Level 96 #*H 84 #*H 26 10-30 UG/ML White Blood Count 7.2 4.3-11.0 10^3/uL Red Blood Count 4.05 L 4.35-5.85 10^6/uL Hemoglobin 12.4 11.5-16.0 G/DL Hematocrit 37 35-52 % Mean Corpuscular Volume 92 80-99 FL Mean Corpuscular Hemoglobin 31 25-34 PG Mean Corpuscular Hemoglobin Concent 33 32-36 G/DL Red Cell Distribution Width 12.2 10.0-14.5 % Platelet Count 234 130-400 10^3/uL Mean Platelet Volume 11.3 H 7.4-10.4 FL Neutrophils (%) (Auto) 80 H 42-75 % Lymphocytes (%) (Auto) 18 12-44 % Monocytes (%) (Auto) 2 0-12 % Eosinophils (%) (Auto) 0 0-10 % Basophils (%) (Auto) 0 0-10 % Neutrophils # (Auto) 5.8 1.8-7.8 X 10^3 Lymphocytes # (Auto) 1.3 1.0-4.0 X 10^3 Monocytes # (Auto) 0.1 0.0-1.0 X 10^3 Eosinophils # (Auto) 0.0 0.0-0.3 10^3/uL Basophils # (Auto) 0.0 0.0-0.1 10^3/uL Sodium Level 141 141 135-145 MMOL/L Potassium Level 4.1 3.3 L 3.6-5.0 MMOL/L Chloride Level 114 H 113 H 98-107 MMOL/L Carbon Dioxide Level 19 L 19 L 21-32 MMOL/L Anion Gap 8 9 5-14 MMOL/L Blood Urea Nitrogen 16 14 7-18 MG/DL Creatinine 0.80 0.71 0.60-1.30 MG/DL Estimat Glomerular Filtration Rate > 60 > 60 BUN/Creatinine Ratio 20 20 Glucose Level 108 H 135 H 70-105 MG/DL Calcium Level 8.3 L 7.6 L 8.5-10.1 MG/DL Phosphorus Level 3.5 2.3-4.7 MG/DL Magnesium Level 2.2 1.8-2.4 MG/DL Total Bilirubin 0.6 0.4 0.1-1.0 MG/DL Aspartate Amino Transf (AST/SGOT) 156 H 120 H 80 H 5-34 U/L Alanine Aminotransferase (ALT/SGPT) 152 H 146 H 122 H 0-55 U/L Alkaline Phosphatase 90 74 40-136 U/L Total Protein 6.4 5.9 L 6.4-8.2 GM/DL Albumin 3.7 3.4 3.2-4.5 GM/DL Prothrombin Time 14.3 12.2-14.7 SEC INR Comment 1.1 0.8-1.4 Test 01/14/17 05:20 Range/Units White Blood Count 8.6 4.3-11.0 10^3/uL Red Blood Count 3.99 L 4.35-5.85 10^6/uL Hemoglobin 12.2 11.5-16.0 G/DL Hematocrit 36 35-52 % Mean Corpuscular Volume 91 80-99 FL Mean Corpuscular Hemoglobin 31 25-34 PG Mean Corpuscular Hemoglobin Concent 34 32-36 G/DL Red Cell Distribution Width 12.7 10.0-14.5 % Platelet Count 267 130-400 10^3/uL Mean Platelet Volume 10.6 H 7.4-10.4 FL Neutrophils (%) (Auto) 57 42-75 % Lymphocytes (%) (Auto) 36 12-44 % Monocytes (%) (Auto) 5 0-12 % Eosinophils (%) (Auto) 1 0-10 % Basophils (%) (Auto) 1 0-10 % Neutrophils # (Auto) 5.0 1.8-7.8 X 10^3 Lymphocytes # (Auto) 3.1 1.0-4.0 X 10^3 Monocytes # (Auto) 0.5 0.0-1.0 X 10^3 Eosinophils # (Auto) 0.1 0.0-0.3 10^3/uL Basophils # (Auto) 0.0 0.0-0.1 10^3/uL Prothrombin Time 14.6 12.2-14.7 SEC INR Comment 1.2 0.8-1.4 Sodium Level 143 135-145 MMOL/L Potassium Level 2.9 L 3.6-5.0 MMOL/L Chloride Level 116 H 98-107 MMOL/L Carbon Dioxide Level 18 L 21-32 MMOL/L Anion Gap 9 5-14 MMOL/L Blood Urea Nitrogen 7 7-18 MG/DL Creatinine 0.73 0.60-1.30 MG/DL Estimat Glomerular Filtration Rate > 60 BUN/Creatinine Ratio 10 Glucose Level 100 70-105 MG/DL Calcium Level 8.1 L 8.5-10.1 MG/DL Phosphorus Level 1.3 L 2.3-4.7 MG/DL Magnesium Level 1.9 1.8-2.4 MG/DL Total Bilirubin 0.3 0.1-1.0 MG/DL Aspartate Amino Transf (AST/SGOT) 35 H 5-34 U/L Alanine Aminotransferase (ALT/SGPT) 83 H 0-55 U/L Alkaline Phosphatase 67 40-136 U/L Total Protein 5.7 L 6.4-8.2 GM/DL Albumin 3.3 3.2-4.5 GM/DL Acetaminophen Level < 10 L 10-30 UG/ML Discharge Instructions to patient/family Please see electonic discharge instructions given to patient. Discharge Medications Reviewed and agree with Discharge Medication list on patient's Discharge Instruction sheet Clinical Quality Measures DVT/VTE Risk/Contraindication: Risk Factor Score Per Nursin RFS Level Per Nursing on Admit: 1=Low/No VTE PPX WESLEY CRUZ MD Jan 14, 2017 11:30
[2017-01-14] MEDS: INDOMETHACIN 25 MG (INDOCIN) CAP PO SCH (11:33)
[2017-01-14] MEDS: SERTRALINE 50 MG (ZOLOFT) TABLET PO SCH (11:34)
[2017-01-14] MEDS: GABAPENTIN 600 MG (NEURONTIN) TAB PO SCH (11:34)
[2017-01-14] MEDS: CYANOCOBALAMIN 500 MCG TAB (VITAMIN B-12) PO SCH (11:34)
[2017-01-14 12:09] LABS: ALANINE AMINOTRANSFERASE 87 U/L (0-55); ALBUMIN 3.8 GM/DL (3.2-4.5); ANION GAP 8 MMOL/L (5-14); ASPARTATE AMINO TRANSFERASE 32 U/L (5-34); BILIRUBIN,TOTAL 0.3 MG/DL (0.1-1.0); BLOOD UREA NITROGEN 5 MG/DL (7-18); BUN/CREATININE RATIO 6; CALCIUM 8.6 MG/DL (8.5-10.1); CARBON DIOXIDE 20 MMOL/L (21-32); CHLORIDE 116 MMOL/L (98-107); CREATININE SERUM 0.77 MG/DL (0.60-1.30); GFR ESTIMATED > 60; GLUCOSE 108 MG/DL (70-105); POTASSIUM 3.5 MMOL/L (3.6-5.0); SODIUM 144 MMOL/L (135-145); TOTAL PROTEIN 6.7 GM/DL (6.4-8.2)
--- NOTE | 2017-01-14 14:24 | Discharge Instructions ---
Discharge [facility] Discharge Medications Continued Medications: Cyanocobalamin (Vitamin B-12) (B-12) 1,000 Mcg Tablet 1000 MCG PO DAILY, TAB Dextroamphetamine/Amphetamine (Dextroamp-Amphet ER 20 mg Cap) 20 Mg Cap.er.24h 20 MG PO DAILY, CAP Estradiol (Estrace Tablet) 1 Mg Tablet 1 MG PO DAILY, TAB Gabapentin (Gabapentin) 600 Mg Tablet 600 MG PO TID, TAB Indomethacin (Indomethacin) 50 Mg Capsule 50 MG PO BID, CAP Milnacipran HCl (Savella) 100 Mg Tablet 100 MG PO BID, TAB Omeprazole (Omeprazole) 40 Mg Capsule.dr 40 MG PO DAILY, CAP Sertraline HCl (Sertraline HCl) 25 Mg Tablet 25 MG PO DAILY, TAB Topiramate (Topiramate) 100 Mg Tablet 100 MG PO DAILY, TAB Topiramate (Topiramate) 100 Mg Tablet 200 MG PO HS, TAB TAKES 2 (100MG) TABLETS Patient Instructions Goal/Follow Up Appt: Follow up at [facility] within a week after discharge from [place]. Activity & Diet Discharge Diet: No Restrictions Activity as Tolerated: Yes Copy Copies To 1: DARYL Nicole BETHANY N MD Jan 14, 2017 14:24
== END 2017-01-14 16:00 | DRG 918 ==
LOC: EDUNIT# 17:29 → ER 17:30 → ICU 18:30
PROVIDERS: ADMIT Family Medicine; ATTEND Family Medicine
DX: T40.2X2A Poisoning by other opioids, intentional self-harm, initial encounter (principal); F32.9 Major depressive disorder, single episode, unspecified; M79.7 Fibromyalgia; F90.9 Attention-deficit hyperactivity disorder, unspecified type; E87.6 Hypokalemia
CPT/HCPCS: 36415; 71010; 80053; 80306; 80320; 80329; 81000; 82150; 83690; 83735; 84100; 84450; 84460; 84703; 85025; 85610; 87081; 93005; 93041; 94760

== ENCOUNTER 2017-03-28 17:35 | Emergency (ER) | payer BC ==
[~2017-03-28] VITALS: Ht 172.7 cm; Wt 81.6 kg
[~2017-03-28 17:35] MED LIST changes: +AMPH20CA PO; +CYAN100088 PO; +CYAN500T2 PO; +ESTR1TAB27 PO; +GABA600T2 PO; +INDO50CA PO; +MILN100T PO; +OMEP40CA36 PO; +SERT25TA5 PO; +TOPI100T11 PO
--- OUTSIDE RECORDS SUMMARY | 2017-03-28 17:41 | XMS REPORT ---
Author TIMBO Doe Organization [employer] Address Unknown Phone Unavailable Care Team Providers Care Test Preparer Name Role Phone TIMBO GUILLEN CP Unavailable Allergies No Known Allergies Problems Problem Type Condition Code Onset Dates Condition Status Problem Depression F32.9 Active Problem Pseudotumor cerebri G93.2 Active Problem Fibromyalgia M79.7 Active Problem GERD (gastroesophageal reflux disease) K21.9 Active Problem Obesity E66.9 Active Problem Chronic headaches R51 Active Problem GERD with apnea K21.9 Active Medications Medication Code System Code Instructions Start Date End Date Status Dosage Phentermine HCl [facility] [address]-58 37.5 MG Orally Once a day Mar 26, 2015 1 tablet Omeprazole [facility] [id number] 40 TAKE ONE CAPSULE BY MOUTH DAILY Neurontin [facility] [id number] 300 TAKE ONE CAPSULE BY MOUTH THREE TIMES A DAY Savella [facility] [id number] 50 Orally Twice a day 1 tablet Topamax [facility] [address]-63 100 MG Orally Twice a day September 09, 2014 1 Tablet PO in am and 2 tablets at NOC Diamox Sequels [facility] [address]-19 500 MG Orally Once a day 1 capsule Hydrocodone-Acetaminophen [facility] [address]-73 5-325 MG Orally 3 times a day 1 tablet as needed Indomethacin [facility] [address]-89 50 MG Orally Twice a day 1 capsule with food Vital Signs Date/Time: October 12, 2015 Blood Pressure Systolic 114 mmHg Weight 208.6 lbs Height 68 in BMI 31.71 Index Blood Pressure Diastolic 78 mmHg Results No Known Results Summary Purpose [employer] Submission
--- OUTSIDE RECORDS SUMMARY | 2017-03-28 17:41 | XMS REPORT ---
Author TIMBO Doe [facility] [employer] Address Unknown Phone Unavailable Care Team Providers Care Service Center Specialist Name Role Phone TIMBO GUILLEN CP Unavailable Allergies No Known Allergies Problems Problem Type Condition Code Onset Dates Condition Status Problem Obesity E66.9 Active Problem Fibromyalgia M79.7 Active Problem Depression F32.9 Active Problem Urinary retention R33.9 Active Problem GERD with apnea K21.9 Active Problem GERD (gastroesophageal reflux disease) K21.9 Active Problem Pseudotumor cerebri G93.2 Active Problem Chronic headaches R51 Active Medications No Known Medications Results No Known Results Summary Purpose [employer] Submission
--- OUTSIDE RECORDS SUMMARY | 2017-03-28 17:41 | XMS REPORT ---
Author TIMBO Doe [facility] [employer] Address Unknown Phone Unavailable Care Team Providers Care Game Author Name Role Phone TIMBO GUILLEN CP Unavailable Allergies No Known Allergies Problems Problem Type Condition Code Onset Dates Condition Status Problem GERD (gastroesophageal reflux disease) K21.9 Active Problem Obesity E66.9 Active Problem Urinary retention R33.9 Active Problem Fibromyalgia M79.7 Active Problem Excess skin of abdominal wall L98.7 Active Problem Chronic headaches R51 Active Problem GERD with apnea K21.9 Active Problem Depression F32.9 Active Problem Pseudotumor cerebri G93.2 Active Medications No Known Medications Results No Known Results Summary Purpose [employer] Submission
--- OUTSIDE RECORDS SUMMARY | 2017-03-28 17:42 | XMS REPORT ---
Author STU Sahu [facility] eClinicalWorks Address Unknown Phone Unavailable Care Team Providers Care Automobile Repair Service Estimator Name Role Phone STU VASQUEZ CP Unavailable Allergies, Adverse Reactions, Alerts Substance Reaction Event Type Diflucan Info Not Available Drug Allergy Morphine Info Not Available Drug Allergy Cajun seasoning hives Non Drug Allergy Problems Problem Type Condition Code Onset Dates Condition Status Problem Chronic headaches R51 Active Problem GERD with apnea K21.9 Active Problem Pseudotumor cerebri G93.2 Active Assessment Facial rash R21 Active Problem GERD (gastroesophageal reflux disease) K21.9 Active Problem Obesity E66.9 Active Medications Medication Code System Code Instructions Start Date End Date Status Dosage Hydrocodone-Acetaminophen [facility] [address]-52 5-325 MG Orally every 6 hrs 1 tablet as needed Omeprazole [facility] 79214975581 40 TAKE ONE CAPSULE BY MOUTH DAILY Zoloft [facility] [address]-30 100 MG Orally Once a day January 10, 2015 1 tablet Topamax [facility] [address]-41 100 MG Orally Twice a day September 09, 2014 1 Tablet PO in am and 2 tablets at NOC Phentermine HCl [facility] [address]-29 37.5 MG Orally Once a day Mar 26, 2015 1 tablet Indomethacin [facility] [address]-86 50 MG Orally Twice a day 1 capsule with food Lotrisone [facility] [address]-09 1-0.05 % Externally Twice a day Jun 23, 2015 Jun 30, 2015 1 application to affected area Neurontin [facility] 87418131059 300 Three times a day TAKE ONE CAPSULE BY MOUTH THREE TIMES A DAY Zyrtec Allergy [facility] [address]-65 10 MG Orally Once a day May 20, 2015 Jul 19, 2015 1 capsule as needed Procedures Procedure Coding System Code Date Office Visit, Est Pt., Level 3 CPT-4 69510 Jun 23, 2015 Vital Signs Date/Time: Jun 23, 2015 Temperature 97.9 F Weight 238 lbs Height 68 in BMI 36.18 Index Blood Pressure Diastolic 64 mmHg Blood Pressure Systolic 120 mmHg Cardiac Monitoring Heart Rate 92 bpm Results No Known Results Summary Purpose eClinicalWorks Submission
--- OUTSIDE RECORDS SUMMARY | 2017-03-28 17:42 | XMS REPORT ---
Author TIMBO Doe [facility] eClinicalWorks Address Unknown Phone Unavailable Care Team Providers Care Field Evidence Technician Name Role Phone TIMBO GUILLEN CP Unavailable Allergies No Known Allergies Problems Problem Type Condition Code Onset Dates Condition Status Problem Obesity E66.9 Active Assessment Encounter for immunization Z23 Active Problem Fibromyalgia M79.7 Active Problem Depression F32.9 Active Problem Urinary retention R33.9 Active Problem GERD with apnea K21.9 Active Problem GERD (gastroesophageal reflux disease) K21.9 Active Problem Pseudotumor cerebri G93.2 Active Problem Chronic headaches R51 Active Medications No Known Medications Procedures Procedure Coding System Code Date SINGLE IMMUNIZATION ADMIN CPT-4 96699 Mar 19, 2016 FLUARIX QUAD P-FREE 3 AND UP .50 2015 CPT-4 69745 Mar 19, 2016 Results No Known Results Immunizations Vaccine Administration Date FLUARIX QUAD P-FREE 3 AND UP .50 2015Mar 19, 2016 Summary Purpose [employer] Submission
--- OUTSIDE RECORDS SUMMARY | 2017-03-28 17:42 | XMS REPORT ---
Author TIMBO Doe [facility] eClinicalWorks Address Unknown Phone Unavailable Care Team Providers Care Steamer Blocker Name Role Phone TIMBO GUILLEN CP Unavailable [...] headaches R51 Active Medications No Known Medications Vital Signs Date/Time: Apr 04, 2016 BMI 27.35 Index Weight 179.9 lbs Height 68 in Results No Known Results Summary Purpose eClinicalWorks Submission
--- OUTSIDE RECORDS SUMMARY | 2017-03-28 17:42 | XMS REPORT ---
Author TIMBO Doe [facility] eClinicalWorks Address Unknown Phone Unavailable Care Team Providers Care Plug Cutting Machine Operator Name Role Phone TIMBO GUILLEN CP Unavailable Allergies, Adverse Reactions, Alerts Substance Reaction Event Type Diflucan Info Not Available Drug Allergy Morphine Info Not Available Drug Allergy Cajun seasoning hives Non Drug Allergy Problems Problem Type Condition Code Onset Dates Condition Status Assessment Obesity E66.9 Active Assessment Pseudotumor cerebri G93.2 Active Assessment Chronic headaches R51 Active Problem Depression F32.9 Active Problem Pseudotumor cerebri G93.2 Active Problem Fibromyalgia M79.7 Active Problem GERD (gastroesophageal reflux disease) K21.9 Active Problem Obesity E66.9 Active Problem Chronic headaches R51 Active Problem GERD with apnea K21.9 Active Assessment Conjunctivitis H10.9 Active Assessment Depression F32.9 Active Assessment Fibromyalgia M79.7 Active Assessment GERD (gastroesophageal reflux disease) K21.9 Active Medications Medication Code System Code Instructions Start Date End Date Status Dosage Diamox Sequels [facility] [address]-02 500 MG Orally Once a day 1 capsule Neurontin [facility] 87815929749 300 Three times a day TAKE ONE CAPSULE BY MOUTH THREE TIMES A DAY Phentermine HCl [facility] [address]-62 37.5 MG Orally Once a day Mar 26, 2015 1 tablet Topamax [facility] [address]-59 100 MG Orally Twice a day September 09, 2014 1 Tablet PO in am and 2 tablets at NOC Tobramycin [facility] [address]-36 0.3 % Ophthalmic 3 times a day Jun 29, 2015 3 drop into affected eye Indomethacin [facility] [address]-93 50 MG Orally Twice a day 1 capsule with food Hydrocodone-Acetaminophen [facility] [address]-39 5-325 MG Orally every 6 hrs 1 tablet as needed Lotrisone [facility] [address]-96 1-0.05 % Externally Twice a day Jun 23, 2015 Jun 30, 2015 1 application to affected area Zoloft [facility] 26026606829 100 Orally Once a day 1 tablet Omeprazole [facility] 75039212518 40 Once a day TAKE ONE CAPSULE BY MOUTH DAILY Procedures Procedure Coding System Code Date Office Visit, Est Pt., Level 4 CPT-4 20857 Jun 29, 2015 Vital Signs Date/Time: Jun 29, 2015 Temperature 98.7 F Weight 237.8 lbs Height 68 in BMI 36.15 Index Blood Pressure Diastolic 82 mmHg Blood Pressure Systolic 124 mmHg Cardiac Monitoring Heart Rate 88 bpm Results No Known Results Summary Purpose eClinicalWorks Submission
--- OUTSIDE RECORDS SUMMARY | 2017-03-28 17:42 | XMS REPORT ---
Author TIMBO Doe [facility] eClinicalWorks Address Unknown Phone Unavailable Care Team Providers Care Leases And Land Supervisor Name Role Phone TIMBO GUILLEN CP Unavailable Allergies, Adverse Reactions, Alerts Substance Reaction Event Type Diflucan Info Not Available Drug Allergy Morphine Info Not Available Drug Allergy Cajun seasoning hives Non Drug Allergy Problems Problem Type Condition Code Onset Dates Condition Status Assessment Obesity E66.9 Active Problem Obesity E66.9 Active Assessment Fibromyalgia M79.7 Active Problem Fibromyalgia M79.7 Active Problem Depression F32.9 Active Problem Urinary retention R33.9 Active Problem GERD with apnea K21.9 Active Problem GERD (gastroesophageal reflux disease) K21.9 Active Problem Pseudotumor cerebri G93.2 Active Problem Chronic headaches R51 Active Assessment Chronic headaches R51 Active Assessment GERD with apnea K21.9 Active Assessment Pseudotumor cerebri G93.2 Active Assessment Urinary retention R33.9 Active Assessment Depression F32.9 Active Medications Medication Code System Code Instructions Start Date End Date Status Dosage Zofran ODT [facility] [address]-37 4 MG Orally every 8 hrs October 23, 2015 1 tablet on the tongue and allow to dissolve Topamax [facility] [address]-52 100 MG Orally Twice a day September 09, 2014 1 Tablet PO in am and 2 tablets at [facility] [address]-85 100 MG Orally 2 times a day 1 tablet Neurontin [facility] 87440932330 300 TAKE ONE CAPSULE BY MOUTH THREE TIMES A DAY Indomethacin [facility] [address]-46 50 mg Orally Twice a day 1 capsule with food Diamox Sequels [facility] [address]-25 500 MG Orally Once a day 1 capsule Omeprazole [facility] 40878258796 40 TAKE ONE CAPSULE BY MOUTH DAILY Hydrocodone-Acetaminophen [facility] [address]-32 5-325 MG Orally 3 times a day 1 tablet as needed Procedures Procedure Coding System Code Date URINALYSIS, AUTO, W/O SCOPE CPT-4 21671 Feb 01, 2016 URINE CULTURE/COLONY COUNT CPT-4 89313 Feb 01, 2016 Office Visit, Est Pt., Level 4 CPT-4 22918 Feb 01, 2016 THER/PROPH/DIAG INJ, SC/IM CPT-4 38617 Feb 01, 2016 TORADOL (IM) 60 MG/2ML (UP TO 15 MG) CPT-4 J1885 Feb 01, 2016 Vital Signs Date/Time: Feb 01, 2016 Cardiac Monitoring Heart Rate 90 bpm Weight 187 lbs Height 68 in BMI 28.43 Index Blood Pressure Diastolic 70 mmHg Blood Pressure Systolic 110 mmHg Results No Known Results Summary Purpose eClinicalWorks Submission
--- OUTSIDE RECORDS SUMMARY | 2017-03-28 17:42 | XMS REPORT ---
Author TIMBO Doe Organization eClinicalWorks Address Unknown Phone Unavailable Care Team Providers Care Finisher Wallboard And Plasterboard Name Role Phone TIMBO GUILLEN CP Unavailable Allergies No Known Allergies Problems Problem Type Condition Code Onset Dates Condition Status Problem Chronic headaches R51 Active Problem GERD with apnea K21.9 Active Problem Pseudotumor cerebri G93.2 Active Problem GERD (gastroesophageal reflux disease) K21.9 Active Problem Obesity E66.9 Active Medications No Known Medications Vital Signs Date/Time: May 25, 2015 Blood Pressure Systolic 138 mmHg Weight 244 lbs Height 68 in BMI 37.10 Index Blood Pressure Diastolic 82 mmHg Results No Known Results Summary Purpose eClinicalWorks Submission
--- OUTSIDE RECORDS SUMMARY | 2017-03-28 17:42 | XMS REPORT ---
Author TIMBO Doe Organization eClinicalWorks Address Unknown Phone Unavailable Care Team Providers Care Liquid Hydrogen Plant Operator Name Role Phone TIMBO GUILLEN CP Unavailable Allergies No Known Allergies Problems Problem Type Condition Code Onset Dates Condition Status Problem Chronic headaches R51 Active Problem GERD with apnea K21.9 Active Problem Pseudotumor cerebri G93.2 Active Problem GERD (gastroesophageal reflux disease) K21.9 Active Problem Obesity E66.9 Active Medications Medication Code System Code Instructions Start Date End Date Status Dosage Phentermine HCl [facility] [address]-63 37.5 MG Orally Once a day Mar 26, 2015 1 tablet Hydrocodone-Acetaminophen [facility] [address]-40 5-325 MG Orally every 6 hrs 1 tablet as needed Results No Known Results Summary Purpose eClinicalWorks Submission
--- OUTSIDE RECORDS SUMMARY | 2017-03-28 17:42 | XMS REPORT ---
Author TIMBO Doe Organization eClinicalWorks Address Unknown Phone Unavailable Care Team Providers Care Rn Supplemental Name Role Phone TIMBO GUILLEN CP Unavailable Allergies No Known Allergies Problems Problem Type Condition Code Onset Dates Condition Status Problem Chronic headaches R51 Active Problem GERD with apnea K21.9 Active Problem Pseudotumor cerebri G93.2 Active Problem GERD (gastroesophageal reflux disease) K21.9 Active Problem Obesity E66.9 Active Medications No Known Medications Results No Known Results Summary Purpose eClinicalWorks Submission
--- OUTSIDE RECORDS SUMMARY | 2017-03-28 17:42 | XMS REPORT ---
Author TIMBO Doe [facility] eClinicalWorks Address Unknown Phone Unavailable Care Team Providers Care Indoor Plant Technician Name Role Phone TIMBO GUILLEN CP [...] Active Problem Pseudotumor cerebri G93.2 Active Medications Medication Code System Code Instructions Start Date End Date Status Dosage Topamax [facility] [address]-56 100 MG Orally Twice a day September 09, 2014 1 Tablet PO in am and 2 tablets at NOC Results No Known Results Summary Purpose eClinicalWorks Submission
--- OUTSIDE RECORDS SUMMARY | 2017-03-28 17:42 | XMS REPORT ---
Author Author CALIN PRAKASH Organization eClinicalWorks Address Unknown Phone Unavailable Care Team Providers Care Box Finisher Name Role Phone CALIN PRAKASH CP Unavailable Allergies, Adverse Reactions, Alerts Substance Reaction Event Type Diflucan Info Not Available Drug Allergy Morphine Info Not Available Drug Allergy Cajun seasoning hives Non Drug Allergy Problems Problem Type Condition Code Onset Dates Condition Status Assessment Dysuria R30.0 Active Problem Depression F32.9 Active Problem Pseudotumor cerebri G93.2 Active Problem Fibromyalgia M79.7 Active Problem GERD (gastroesophageal reflux disease) K21.9 Active Problem Obesity E66.9 Active Problem Chronic headaches R51 Active Problem GERD with apnea K21.9 Active Medications Medication Code System Code Instructions Start Date End Date Status Dosage Diamox Sequels [facility] [address]-35 500 MG Orally Once a day [address] [facility] [address]-72 50 MG Orally Twice a day 1 capsule with food Bactrim DS [facility] [address]-61 800-160 MG Orally Twice a day October 16, 2015 October 23, [address] [facility] [address]-18 100 MG Orally Twice a day September 09, 2014 1 Tablet PO in am and 2 tablets at NOC Hydrocodone-Acetaminophen [facility] [address]-38 5-325 MG Orally 3 times a day 1 tablet as needed Omeprazole [facility] 90594942318 40 TAKE ONE CAPSULE BY MOUTH DAILY Phentermine HCl [facility] [address]-06 37.5 MG Orally Once a day Mar 26, [address] [facility] 81640070942 50 Orally Twice a day [address] [facility] 54217774206 300 TAKE ONE CAPSULE BY MOUTH THREE TIMES A DAY Procedures Procedure Coding System Code Date URINE CULTURE/COLONY COUNT CPT-4 29913 October 16, 2015 Office Visit, Est Pt., Level 3 CPT-4 13643 October 16, 2015 URINALYSIS, AUTO, W/O SCOPE CPT-4 28939 October 16, 2015 Vital Signs Date/Time: October 16, 2015 Temperature 98.6 F Weight 209.4 lbs Height 68 in BMI 31.84 Index Blood Pressure Diastolic 78 mmHg Blood Pressure Systolic 128 mmHg Cardiac Monitoring Heart Rate 76 bpm Results No Known Results Summary Purpose eClinicalWorks Submission
--- OUTSIDE RECORDS SUMMARY | 2017-03-28 17:42 | XMS REPORT ---
Author TIMBO Doe Organization eClinicalWorks Address Unknown Phone Unavailable Care Team Providers Care Uniforms Sales Representative Name Role Phone TIMBO GUILLEN CP Unavailable Allergies No Known Allergies Problems Problem Type Condition Code Onset Dates Condition Status Problem Chronic headaches R51 Active Problem GERD with apnea K21.9 Active Problem Pseudotumor cerebri G93.2 Active Problem GERD (gastroesophageal reflux disease) K21.9 Active Problem Obesity E66.9 Active Medications Medication Code System Code Instructions Start Date End Date Status Dosage Phentermine HCl [facility] [address]-87 37.5 MG Orally Once a day Mar 26, 2015 1 tablet Results No Known Results Summary Purpose eClinicalWorks Submission
--- OUTSIDE RECORDS SUMMARY | 2017-03-28 17:42 | XMS REPORT ---
Author TIMBO Doe [facility] eClinicalWorks Address Unknown Phone Unavailable Care Team Providers Care Offal Trimmer Name Role Phone TIMBO GUILLEN CP Unavailable Allergies No Known Allergies Problems Problem Type Condition Code Onset Dates Condition Status Problem Obesity E66.9 Active Problem Fibromyalgia M79.7 Active Problem Depression F32.9 Active Problem Urinary retention R33.9 Active Problem GERD with apnea K21.9 Active Problem GERD (gastroesophageal reflux disease) K21.9 Active Problem Pseudotumor cerebri G93.2 Active Problem Chronic headaches R51 Active Medications Medication Code System Code Instructions Start Date End Date Status Dosage Hydrocodone-Acetaminophen [facility] [address]-70 5-325 MG Orally 3 times a day 1 tablet as needed Results No Known Results Summary Purpose eClinicalWorks Submission
--- OUTSIDE RECORDS SUMMARY | 2017-03-28 17:43 | XMS REPORT ---
Author TIMBO Doe [facility] eClinicalWorks Address Unknown Phone Unavailable Care Team Providers Care Collar Fuser Name Role Phone TIMBO GUILLEN CP Unavailable Allergies No Known Allergies Problems Problem Type Condition Code Onset Dates Condition Status Problem Depression F32.9 Active Problem Pseudotumor cerebri G93.2 Active Problem Fibromyalgia M79.7 Active Problem GERD (gastroesophageal reflux disease) K21.9 Active Problem Obesity E66.9 Active Problem Chronic headaches R51 Active Problem GERD with apnea K21.9 Active Medications No Known Medications Results No Known Results Summary Purpose eClinicalWorks Submission
--- OUTSIDE RECORDS SUMMARY | 2017-03-28 17:43 | XMS REPORT ---
Author Author ELENO DENNIS Organization [facility] Address [address] [place] [address] Care Team Providers Care Stationary Engineer Name Role Phone ELENO DENNIS Unavailable PROBLEMS Type Condition ICD9-CM Code [id number] Code Onset Dates Condition Status SNOMED Code Problem Elevated LDL cholesterol level E78.00 Active 902999406 Problem Pseudotumor cerebri G93.2 Active 51725958 Problem GERD (gastroesophageal reflux disease) K21.9 Active 592253521 Problem Attention deficit hyperactivity disorder (ADHD), unspecified ADHD type F90.9 Active 257737496 Problem Urinary retention R33.9 Active 693517954 Problem Obesity E66.9 Active 332849649 Problem Chronic headaches R51 Active 135389987 Problem Fibromyalgia M79.7 Active 257041602 Problem Depression F32.9 Active 89225649 ALLERGIES Substance Reaction Event Type Date Status Diflucan Unknown Drug Allergy Aug, Active Morphine Unknown Drug Allergy Aug, Active Cajun seasoning hives Non Drug Allergy Aug, Active SOCIAL HISTORY Never Assessed PLAN OF CARE Activity Details Follow Up prn Reason: VITAL SIGNS Height 68 in 2016-08-29 Weight 176.4 lbs 2016-08-29 Temperature 99.2 degrees Fahrenheit 2016-08-29 Heart Rate 96 bpm 2016-08-29 Respiratory Rate 22 2016-08-29 BMI 26.82 kg/m2 2016-08-29 Blood pressure systolic 128 mmHg 2016-08-29 Blood pressure diastolic 82 mmHg 2016-08-29 MEDICATIONS Medication Instructions Dosage Frequency Start Date End Date Duration Status Amoxicillin 500 MG Orally every 12 hrs 1 capsule 12h Aug, Aug, 10 day(s) Active Neurontin 300 TAKE ONE CAPSULE BY MOUTH THREE TIMES A DAY Active Hydrocodone-Acetaminophen 5-325 MG Orally 3 times a day 1 tablet as needed 8h Active Indomethacin 50 mg Orally Twice a day 1 capsule with food 12h Active Savella 100 MG Orally 2 times a day 1 tablet 12h Active Indomethacin 50 TAKE ONE CAPSULE BY MOUTH TWICE A DAY WITH FOOD 30 Active Vitamin B-12 500 MCG Orally Once a day 1 tablet 24h Active Savella 100 TAKE ONE TABLET BY MOUTH TWICE A DAY 12h 30 Active Topamax 100 MG Orally Twice a day 1 Tablet PO in am and 2 tablets at NOC 12h Aug, 30 days Active Topamax 100 TAKE ONE TABLET BY MOUTH EVERY MORNING, AND TAKE TWO TABLETS BY MOUTH EVERY EVENING 20 Active Omeprazole 40 Orally Once a day TAKE ONE CAPSULE BY MOUTH DAILY 24h 30 Active Diamox Sequels 500 MG Orally Once a day 1 capsule 24h Active RESULTS Name Result Date Reference Range STREP A (IN HOUSE) 2016-08-29 STREP A negative Control + Lot # [id number] Exp date PROCEDURES Procedure Date Ordered Result Body Site STREP A ASSAY W/OPTIC August 29, 2016 IMMUNIZATIONS No Known Immunizations MEDICAL (GENERAL) HISTORY Type Description Date Medical History depression Medical History meningitis 2000 & 2010 Medical History psuedotumor cerebri Medical History fibromyalgia Medical History ADHD Surgical History Surgical History cholecystectomy Surgical History hysterectomy Surgical History appendectomy, ovaries and scar tissure removed 2013 Surgical History ureter stretch by Dr. Kuhn Hospitalization History surgeries Hospitalization History menangitis Hospitalization History childbirth Hospitalization History suicidal ideation
--- OUTSIDE RECORDS SUMMARY | 2017-03-28 17:43 | XMS REPORT ---
Author Author TIMBO GUILLEN [facility] Address [address] [place] [address] Care Team Providers Care Animal Anatomist Name Role Phone TIMBO GUILLEN Unavailable PROBLEMS Type Condition ICD9-CM Code [id number] Code Onset Dates Condition Status SNOMED Code Problem GERD (gastroesophageal reflux disease) K21.9 Active 204391212 Problem Obesity E66.9 Active 937798424 Problem Attention deficit hyperactivity disorder (ADHD), unspecified ADHD type F90.9 Active 118873382 Problem Urinary retention R33.9 Active 515065732 Problem Pseudotumor cerebri G93.2 Active 71502426 Problem Chronic headaches R51 Active 760119751 Problem Fibromyalgia M79.7 Active 181243188 Problem Depression F32.9 Active 363446377 ALLERGIES Unknown Allergies SOCIAL HISTORY No smoking Hx information available PLAN OF CARE VITAL SIGNS Height 68 in 2016-01-25 Weight 188 lbs 2016-01-25 BMI 28.58 kg/m2 2016-01-25 Blood pressure systolic 110 mmHg 2016-01-25 Blood pressure diastolic 80 mmHg 2016-01-25 MEDICATIONS Unknown Medications RESULTS No Results PROCEDURES No Known procedures IMMUNIZATIONS No Known Immunizations
--- OUTSIDE RECORDS SUMMARY | 2017-03-28 17:43 | XMS REPORT ---
Author Author TIMBO GUILLEN [facility] Address [address] [place] [address] Care Team Providers Care Shopper Name Role Phone JULIOCESAR GUILLENNETTE Unavailable PROBLEMS Type Condition ICD9-CM Code [id number] Code Onset Dates Condition Status SNOMED Code Problem Elevated LDL cholesterol level E78.00 Active 465609038 Problem Pseudotumor cerebri G93.2 Active 84180944 Problem GERD (gastroesophageal reflux disease) K21.9 Active 698108789 Problem Attention deficit hyperactivity disorder (ADHD), unspecified ADHD type F90.9 Active 829428073 Problem Urinary retention R33.9 Active 946321398 Problem Obesity E66.9 Active 028612171 Problem Chronic headaches R51 Active 058068393 Problem Fibromyalgia M79.7 Active 775594499 Problem Depression F32.9 Active 26320204 ALLERGIES Substance Reaction Event Type Date Status Diflucan Unknown Drug Allergy Aug, Active Morphine Unknown Drug Allergy Aug, Active Cajun seasoning hives Non Drug Allergy Aug, Active SOCIAL HISTORY Never Assessed PLAN OF CARE Activity Details Follow Up 3 Months Reason: VITAL SIGNS Height 68 in 2016-08-14 Weight 171.4 lbs 2016-08-14 Temperature 97.9 degrees Fahrenheit 2016-08-14 Heart Rate 84 bpm 2016-08-14 Respiratory Rate 22 2016-08-14 BMI 26.06 kg/m2 2016-08-14 Blood pressure systolic 128 mmHg 2016-08-14 Blood pressure diastolic 84 mmHg 2016-08-14 MEDICATIONS Medication Instructions Dosage Frequency Start Date End Date Duration Status Savella 100 TAKE ONE TABLET BY MOUTH TWICE A DAY 12h 30 Active Vitamin B-12 500 MCG Orally Once a day 1 tablet 24h Active Topamax 100 MG Orally Twice a day 1 Tablet PO in am and 2 tablets at NOC 12h Aug, 30 days Active Diamox Sequels 500 MG Orally Once a day 1 capsule 24h Active Neurontin 300 TAKE ONE CAPSULE BY MOUTH THREE TIMES A DAY Active Savella 100 MG Orally 2 times a day 1 tablet 12h Active Omeprazole 40 Orally Once a day TAKE ONE CAPSULE BY MOUTH DAILY 24h 30 Active Hydrocodone-Acetaminophen 5-325 MG Orally 3 times a day 1 tablet as needed 8h Active Topamax 100 TAKE ONE TABLET BY MOUTH EVERY MORNING, AND TAKE TWO TABLETS BY MOUTH EVERY EVENING 20 Active Indomethacin 50 mg Orally Twice a day 1 capsule with food 12h Active RESULTS No Results PROCEDURES No Known procedures IMMUNIZATIONS No Known Immunizations MEDICAL (GENERAL) HISTORY [...]
--- OUTSIDE RECORDS SUMMARY | 2017-03-28 17:43 | XMS REPORT ---
Author Author STU VASQUEZ [facility] eClinicalWorks Address Unknown Phone Unavailable Care Team Providers Care Change Control Manager Name Role Phone STU VASQUEZ CP Unavailable Allergies, Adverse Reactions, Alerts Substance Reaction Event Type Diflucan Info Not Available Drug Allergy Morphine Info Not Available Drug Allergy Cajun seasoning hives Non Drug Allergy Problems Problem Type Condition Code Onset Dates Condition Status Problem Chronic headaches R51 Active Problem GERD with apnea K21.9 Active Problem Pseudotumor cerebri G93.2 Active Assessment Acute pharyngitis, unspecified J02.9 Active Assessment Seasonal allergies J30.2 Active Problem GERD (gastroesophageal reflux disease) K21.9 Active Problem Obesity E66.9 Active Medications Medication Code System Code Instructions Start Date End Date Status Dosage Topamax [facility] [address]-98 100 MG Orally Twice a day September 09, 2014 1 Tablet PO in am and 2 tablets at NOC Zoloft [facility] [address]-42 100 MG Orally Once a day January 10, 2015 1 tablet Indomethacin [facility] [address]-05 50 MG Orally Twice a day 1 capsule with food Diamox Sequels [facility] [address]-81 500 MG Orally Once a day 1 capsule Neurontin [facility] 28477651410 300 Three times a day TAKE ONE CAPSULE BY MOUTH THREE TIMES A DAY Hydrocodone-Acetaminophen [facility] [address]-84 not defined Omeprazole [facility] [address]-15 40 MG Orally Once a day Mar 23, 2015 1 capsule Zyrtec Allergy [facility] [address]-14 10 MG Orally Once a day May 20, 2015 Jul 19, 2015 1 capsule as needed Phentermine HCl [facility] [address]-78 37.5 MG Orally Once a day Mar 26, 2015 1 tablet Procedures Procedure Coding System Code Date STREP A ASSAY W/OPTIC CPT-4 21401 May 20, 2015 Office Visit, Est Pt., Level 3 CPT-4 42160 May 20, 2015 Vital Signs Date/Time: May 20, 2015 Temperature 97.9 F Weight 242.6 lbs Height 68 in BMI 36.88 Index Blood Pressure Diastolic 72 mmHg Blood Pressure Systolic 110 mmHg Cardiac Monitoring Heart Rate 82 bpm Results Name Result Date Reference Range Unit Abnormality Flag STREP A (IN HOUSE) ----STREP A negative [id number] ----Control + [id number] ----Lot # [id number] ----Exp date [id number] Summary Purpose eClinicalWorks Submission
--- OUTSIDE RECORDS SUMMARY | 2017-03-28 17:43 | XMS REPORT ---
Author TIMBO Doe [facility] eClinicalWorks Address Unknown Phone Unavailable Care Team Providers Care Poultry Farm Manager Name Role Phone TIMBO GUILLEN CP Unavailable Allergies, Adverse Reactions, Alerts Substance Reaction Event Type Diflucan Info Not Available Drug Allergy Morphine Info Not Available Drug Allergy Cajun seasoning hives Non Drug Allergy Problems Problem Type Condition Code Onset Dates Condition Status Assessment GERD (gastroesophageal reflux disease) K21.9 Active Assessment Obesity E66.9 Active Assessment GERD with apnea K21.9 Active Problem Chronic headaches R51 Active Problem GERD with apnea K21.9 Active Problem Pseudotumor cerebri G93.2 Active Assessment Pseudotumor cerebri G93.2 Active Assessment Chronic headaches R51 Active Problem GERD (gastroesophageal reflux disease) K21.9 Active Problem Obesity E66.9 Active Medications Medication Code System Code Instructions Start Date End Date Status Dosage Indomethacin [facility] [address]-39 50 MG Orally Twice a day 1 capsule with food Zoloft [facility] [address]-29 100 MG Orally Once a day January 10, 2015 1 tablet Diamox Sequels [facility] [address]-28 500 MG Orally Once a day 1 capsule Omeprazole [facility] 44853982835 40 TAKE ONE CAPSULE BY MOUTH DAILY Omeprazole [facility] [address]-93 40 MG Orally Once a day Mar 23, 2015 1 capsule Neurontin [facility] 68709218822 300 Three times a day TAKE ONE CAPSULE BY MOUTH THREE TIMES A DAY Topamax [facility] [address]-49 100 MG Orally Twice a day September 09, 2014 1 Tablet PO in am and 2 tablets at NOC Phentermine HCl [facility] [address]-24 37.5 MG Orally Once a day Mar 26, 2015 1 tablet Procedures Procedure Coding System Code Date Office Visit, Est Pt., Level 3 CPT-4 36342 Apr 27, 2015 Vital Signs Date/Time: Apr 27, 2015 Temperature 98.1 F Weight 251 lbs Height 68 in BMI 38.16 Index Blood Pressure Diastolic 70 mmHg Blood Pressure Systolic 112 mmHg Cardiac Monitoring Heart Rate 80 bpm Results No Known Results Summary Purpose eClinicalWorks Submission
--- OUTSIDE RECORDS SUMMARY | 2017-03-28 17:43 | XMS REPORT ---
Author TIMBO Doe [facility] eClinicalWorks Address Unknown Phone Unavailable Care Team Providers Care It Infrastructure Manager Name Role Phone TIMBO GUILLEN CP Unavailable Allergies, Adverse Reactions, Alerts Substance Reaction Event Type Diflucan Info Not Available Drug Allergy Morphine Info Not Available Drug Allergy Cajun seasoning hives Non Drug Allergy Problems Problem Type Condition Code Onset Dates Condition Status Assessment Fibromyalgia M79.7 Active Assessment Obesity E66.9 Active Assessment Depression F32.9 Active Problem Depression F32.9 Active Problem Pseudotumor cerebri G93.2 Active Problem Fibromyalgia M79.7 Active Problem GERD (gastroesophageal reflux disease) K21.9 Active Problem Obesity E66.9 Active Problem Chronic headaches R51 Active Problem GERD with apnea K21.9 Active Assessment GERD with apnea K21.9 Active Assessment Chronic headaches R51 Active Assessment Pseudotumor cerebri G93.2 Active Medications Medication Code System Code Instructions Start Date End Date Status Dosage Omeprazole [facility] 51302200889 40 Orally Once a day TAKE ONE CAPSULE BY MOUTH DAILY Savella [facility] 22242469350 50 Orally Twice a day 1 tablet Hydrocodone-Acetaminophen [facility] [address]-00 5-325 MG Orally 3 times a day 1 tablet as needed Indomethacin [facility] [address]-04 50 MG Orally Twice a day 1 capsule with food Diamox Sequels [facility] [address]-84 500 MG Orally Once a day [address] [facility] [address]-95 100 MG Orally Twice a day September 09, 2014 1 Tablet PO in am and 2 tablets at NOC Phentermine HCl [facility] [address]-17 37.5 MG Orally Once a day Mar 26, [address] [facility] [address]-57 300 Three times a day TAKE ONE CAPSULE BY MOUTH THREE TIMES A DAY Procedures Procedure Coding System Code Date Office Visit, Est Pt., Level 4 CPT-4 93633 September 21, 2015 Vital Signs Date/Time: September 21, 2015 Temperature 98.2 F Weight 215.2 lbs Height 68 in BMI 32.72 Index Blood Pressure Diastolic 76 mmHg Blood Pressure Systolic 124 mmHg Cardiac Monitoring Heart Rate 104 bpm Results No Known Results Summary Purpose eClinicalWorks Submission
--- OUTSIDE RECORDS SUMMARY | 2017-03-28 17:43 | XMS REPORT ---
Author Author TIMBO GUILLEN Organization eClinicalWorks Address Unknown Phone Unavailable Care Team Providers Care Hair Mixer Name Role Phone TIMBO GUILLEN Unavailable Allergies No Known Allergies Problems Problem Type Condition ICD-9 Code Onset Dates Condition Status Problem Headache 784.0 Active Problem Abnormal weight gain 783.1 Active Problem GERD (gastroesophageal reflux disease) 530.81 Active Problem Pseudotumor cerebri syndrome 348.2 Active Problem Tick bite 919.4 Active Problem Obesity, unspecified 278.00 Active Problem Routine gynecological examination V72.31 Active Problem Other and unspecified ovarian cyst 620.2 Active Problem Unspecified breast screening V76.10 Active Medications No Known Medications Results No Known Results Summary Purpose eClinicalWorks Submission
--- OUTSIDE RECORDS SUMMARY | 2017-03-28 17:43 | XMS REPORT ---
Author TIMBO Doe [facility] eClinicalWorks Address Unknown Phone Unavailable Care Team Providers Care Ironer Hand Name Role Phone TIMBO GUILLEN CP Unavailable Allergies, Adverse Reactions, Alerts Substance Reaction Event Type Diflucan Info Not Available Drug Allergy Morphine Info Not Available Drug Allergy Cajun seasoning hives Non Drug Allergy Problems Problem Type Condition Code Onset Dates Condition Status Assessment Pseudotumor cerebri G93.2 Active Problem GERD (gastroesophageal reflux disease) K21.9 Active Problem Obesity E66.9 Active Problem Urinary retention R33.9 Active Problem Fibromyalgia M79.7 Active Problem Excess skin of abdominal wall L98.7 Active Problem Chronic headaches R51 Active Problem GERD with apnea K21.9 Active Problem Depression F32.9 Active Problem Pseudotumor cerebri G93.2 Active Assessment Urinary retention R33.9 Active Assessment Fibromyalgia M79.7 Active Assessment GERD (gastroesophageal reflux disease) K21.9 Active Assessment Excess skin of abdominal wall L98.7 Active Assessment Chronic headaches R51 Active Medications Medication Code System Code Instructions Start Date End Date Status Dosage Neurontin [facility] 47598719993 300 TAKE ONE CAPSULE BY MOUTH THREE TIMES A DAY Savella [facility] [address]-81 100 MG Orally 2 times a day 1 tablet Topamax [facility] [address]-23 100 MG Orally Twice a day September 09, 2014 1 Tablet PO in am and 2 tablets at NOC Omeprazole [facility] 99161806179 40 TAKE ONE CAPSULE BY MOUTH DAILY Hydrocodone-Acetaminophen [facility] [address]-74 5-325 MG Orally 3 times a day 1 tablet as needed Indomethacin [facility] [address]-49 50 mg Orally Twice a day 1 capsule with food Diamox Sequels [facility] [address]-63 500 MG Orally Once a day 1 capsule Vitamin B-12 [facility] [address]-05 500 MCG Orally Once a day 1 tablet Procedures Procedure Coding System Code Date Office Visit, Est Pt., Level 4 CPT-4 42444 Apr 25, 2016 Vital Signs Date/Time: Apr 25, 2016 Cardiac Monitoring Heart Rate 76 bpm Weight 177.6 lbs Height 68 in BMI 27.00 Index Blood Pressure Diastolic 64 mmHg Blood Pressure Systolic 100 mmHg Results No Known Results Summary Purpose eClinicalWorks Submission
--- OUTSIDE RECORDS SUMMARY | 2017-03-28 17:44 | XMS REPORT ---
Author TIMBO Doe Organization eClinicalWorks Address Unknown Phone Unavailable Care Team Providers Care Atm Mechanic Name Role Phone TIMBO GUILLEN CP Unavailable [...]
--- OUTSIDE RECORDS SUMMARY | 2017-03-28 17:44 | XMS REPORT ---
Author TIMBO Doe [facility] eClinicalWorks Address Unknown Phone Unavailable Care Team Providers Care Lumber Cutter Name Role Phone TIMBO GUILLEN CP Unavailable Allergies, Adverse Reactions, Alerts Substance Reaction Event Type Diflucan Info Not Available Drug Allergy Morphine Info Not Available Drug Allergy Cajun seasoning hives Non Drug Allergy Problems Problem Type Condition Code Onset Dates Condition Status Problem Chronic headaches R51 Active Problem GERD with apnea K21.9 Active Problem Pseudotumor cerebri G93.2 Active Assessment Vaginal itching L29.8 Active Assessment Dysuria R30.0 Active Problem GERD (gastroesophageal reflux disease) K21.9 Active Problem Obesity E66.9 Active Medications Medication Code System Code Instructions Start Date End Date Status Dosage Cipro [facility] [address]-82 500 MG Orally Twice a day Jun 01, 2015 Jun 08, 2015 1 tablet Neurontin [facility] 91470114857 300 Three times a day TAKE ONE CAPSULE BY MOUTH THREE TIMES A DAY Zoloft [facility] [address]-16 100 MG Orally Once a day January 10, 2015 1 tablet Zyrtec Allergy [facility] [address]-56 10 MG Orally Once a day May 20, 2015 Jul 19, 2015 1 capsule as needed Diamox Sequels [facility] [address]-96 500 MG Orally Once a day 1 capsule Indomethacin [facility] [address]-55 50 MG Orally Twice a day 1 capsule with food Topamax [facility] [address]-89 100 MG Orally Twice a day September 09, 2014 1 Tablet PO in am and 2 tablets at NOC Omeprazole [facility] [address]-37 40 MG Orally Once a day Mar 23, 2015 1 capsule Phentermine HCl [facility] [address]-98 37.5 MG Orally Once a day Mar 26, 2015 1 tablet Hydrocodone-Acetaminophen [facility] [address]-74 5-325 MG Orally every 6 hrs 1 tablet as needed Procedures Procedure Coding System Code Date TRICHOMONAS ASSAY W/OPTIC CPT-4 18371 Jun 01, 2015 No Charge CPT-4 07824 Jun 01, 2015 URINALYSIS, AUTO, W/O SCOPE CPT-4 38499 Jun 01, 2015 Office Visit, Est Pt., Level 3 CPT-4 90457 Jun 01, 2015 VENIPUNCT, ROUTINE* CPT-4 64335 Jun 01, 2015 URINE CULTURE/COLONY COUNT CPT-4 09496 Jun 01, 2015 SPECIMEN HANDLING CPT-4 48223 Jun 01, 2015 CULTURE, BACTERIA, OTHER CPT-4 96254 Jun 01, 2015 Vital Signs Date/Time: Jun 01, 2015 Temperature 98.4 F Weight 243.0 lbs Height 68 in BMI 36.94 Index Blood Pressure Diastolic 80 mmHg Blood Pressure Systolic 110 mmHg Cardiac Monitoring Heart Rate 92 bpm Results Name Result Date Reference Range Unit Abnormality Flag ROUTINE VENIPUNCTURE CULTURE, GENITAL ----Genital Culture, Routine Final report [id number] TRICHOMONAS (IN HOUSE) ----TRICHOMONAS Negative [id number] ----Control + [id number] ----Lot # [id number] ----Exp date [id number] UA LONG DIP (IN HOUSE) ----ASHOK Negative 20150601 ----GLU Negative 20150601 ----SG 1.010 20150601 ----KET Negative 20150601 ----pH 6.5 20150601 ----Protein Negative 20150601 ----BLO Negative [id number] ----NASREEN Trace 20150601 ----Color Yellow 20150601 ----Lot # [id number] ----Odor None [id number] ----Exp date [id number] ----URO 0.2 20150601 ----NIT Negative 20150601 ----Clarity Slightly Cloudy 20150601 ----Lot # [id number] ----Exp date [id number] CULTURE, URINE ----Result 1 No growth [id number] ----Urine Culture, Routine Final report [id number] Summary Purpose eClinicalWorks Submission
--- OUTSIDE RECORDS SUMMARY | 2017-03-28 17:44 | XMS REPORT ---
Author JUAN Robbins Organization eClinicalWorks Address Unknown Phone Unavailable Care Team Providers Care Willow Analyst Name Role Phone JUAN HINTON CP Unavailable Allergies No Known Allergies Problems Problem Type Condition Code Onset Dates Condition Status Assessment Depression F32.9 Active Problem Depression F32.9 Active Problem Pseudotumor cerebri G93.2 Active Problem Fibromyalgia M79.7 Active Problem GERD (gastroesophageal reflux disease) K21.9 Active Problem Obesity E66.9 Active Problem Chronic headaches R51 Active Problem GERD with apnea K21.9 Active Medications No Known Medications Procedures Procedure Coding System Code Date Psychotherapy, patient &/family, 30 minutes, established patient CPT-4 96394 Jul 27, 2015 Results No Known Results Summary Purpose eClinicalWorks Submission
--- OUTSIDE RECORDS SUMMARY | 2017-03-28 17:44 | XMS REPORT ---
Author TIMBO Doe [facility] eClinicalWorks Address Unknown Phone Unavailable Care Team Providers Care Supervisor Histology Name Role Phone TIMBO GUILLEN CP Unavailable Allergies, Adverse Reactions, Alerts Substance Reaction Event Type Diflucan Info Not Available Drug Allergy Morphine Info Not Available Drug Allergy Problems Problem Type Condition Code Onset Dates Condition Status Assessment GERD (gastroesophageal reflux disease) K21.9 Active Assessment Obesity E66.9 Active Assessment Fibromyalgia M79.7 Active Problem Chronic headaches R51 Active Problem GERD with apnea K21.9 Active Problem Pseudotumor cerebri G93.2 Active Assessment Pseudotumor cerebri G93.2 Active Assessment Chronic headaches R51 Active Problem GERD (gastroesophageal reflux disease) K21.9 Active Problem Obesity E66.9 Active Medications Medication Code System Code Instructions Start Date End Date Status Dosage Indomethacin [facility] [address]-82 50 MG Orally Twice a day 1 capsule with food Topamax [facility] [address]-30 100 MG Orally September 09, 2014 1 Tablet by Oral route 2 times per day Omeprazole [facility] [address]-96 40 MG Orally Once a day Mar 23, 2015 1 capsule Omeprazole [facility] 04400946062 40 TAKE ONE CAPSULE BY MOUTH DAILY Saxenda (Dose Escalation) [facility] 4084-3[address]-01 18 mg/3 mL Subcutaneous Once a day Mar 23, 2015 Jun 21, 2015 0.6 mg QD x 7 days, 1.2 mg QD x 7 days, 1.8 mg QD x 7 days, 2.4 mg QD x 7 days, then 3 mg QD (GOAL) Zoloft [facility] [address]-95 100 MG Orally Once a day January 10, 2015 1 tablet Neurontin [facility] 04740333563 300 Three times a day TAKE ONE CAPSULE BY MOUTH THREE TIMES A DAY Procedures Procedure Coding System Code Date Office Visit, Est Pt., Level 4 CPT-4 06207 Mar 23, 2015 Vital Signs Date/Time: Mar 23, 2015 Temperature 97.6 F Weight 257.7 lbs Height 68 in BMI 39.18 Index Blood Pressure Diastolic 86 mmHg Blood Pressure Systolic 118 mmHg Cardiac Monitoring Heart Rate 64 bpm Results No Known Results Summary Purpose eClinicalWorks Submission
--- OUTSIDE RECORDS SUMMARY | 2017-03-28 17:44 | XMS REPORT ---
Author TIMBO Doe Organization eClinicalWorks Address Unknown Phone Unavailable Care Team Providers Care Aluminum Boats Assembler Name Role Phone TIMBO GUILLEN CP Unavailable [...]
--- OUTSIDE RECORDS SUMMARY | 2017-03-28 17:44 | XMS REPORT ---
Author TIMBO Doe Organization eClinicalWorks Address Unknown Phone Unavailable Care Team Providers Care Roving Technician Name Role Phone TIMBO GUILLEN CP Unavailable Allergies No Known Allergies Problems Problem Type Condition Code Onset Dates Condition Status Problem Chronic headaches R51 Active Problem GERD with apnea K21.9 Active Problem Pseudotumor cerebri G93.2 Active Assessment Obesity, unspecified E66.9 Active Problem GERD (gastroesophageal reflux disease) K21.9 Active Problem Obesity E66.9 Active Medications Medication Code System Code Instructions Start Date End Date Status Dosage Phentermine HCl [facility] [address]-42 37.5 MG Orally Once a day Mar 26, 2015 1 tablet Vital Signs Date/Time: Jun 22, 2015 Blood Pressure Systolic 112 mmHg Weight 239.3 lbs Height 68 in BMI 36.38 Index Blood Pressure Diastolic 78 mmHg Results No Known Results Summary Purpose eClinicalWorks Submission
--- OUTSIDE RECORDS SUMMARY | 2017-03-28 17:44 | XMS REPORT ---
Author TIMBO Doe [facility] eClinicalWorks Address Unknown Phone Unavailable Care Team Providers Care Emergency Man Name Role Phone TIMBO GUILLEN CP Unavailable [...] Instructions Start Date End Date Status Dosage Savella [facility] [address]-87 100 MG Orally 2 times a day 1 tablet Results No Known Results Summary Purpose eClinicalWorks Submission
--- OUTSIDE RECORDS SUMMARY | 2017-03-28 17:44 | XMS REPORT ---
Author TIMBO Doe Organization eClinicalWorks Address Unknown Phone Unavailable Care Team Providers Care Finishing Room Supervisor Name Role Phone TIMBO GUILLEN CP [...]
--- OUTSIDE RECORDS SUMMARY | 2017-03-28 17:44 | XMS REPORT ---
Author TIMBO Doe [facility] eClinicalWorks Address Unknown Phone Unavailable Care Team Providers Care Brisket Puller Name Role Phone TIMBO GUILLEN CP Unavailable Allergies No Known Allergies Problems Problem Type Condition Code Onset Dates Condition Status Problem Chronic headaches R51 Active Problem GERD with apnea K21.9 Active Problem Pseudotumor cerebri G93.2 Active Problem GERD (gastroesophageal reflux disease) K21.9 Active Problem Obesity E66.9 Active Medications Medication Code System Code Instructions Start Date End Date Status Dosage Claudine [facility] [address]-99 0.5 % Externally Jun 11, 2015 as directed Results No Known Results Summary Purpose eClinicalWorks Submission
[2017-03-28] MEDS ORDERED: LORA10TA72 PO (17:54)
--- NOTE | 2017-03-28 18:12 | ED Upper Extremity ---
General Chief Complaint: Upper Extremity Stated Complaint: L HAND PAIN AFTER FALL Nursing Triage Note: AMBULATED TO ROOM 10 ET COMPLAINS OF LEFT WRIST/ELBOW PAIN AFTER FALLING WHILE SHAVING HER LEGS. Nursing Sepsis Screen: No Definite Risk Source: patient History of Present Illness Time seen by provider: 17:50 Initial Comments PT ARRIVES VIA POV PT STATES SHE WAS GETTING OUT OF THE BATHTUB AND SLIPPED AND FELL, LANDING ON HER LEFT ARM--OCCURRED IMMEDIATELY PRIOR TO ARRIVAL--LESS THAN 30 MINUTES AGO DID THEN END UP ON HER BUTTOCKS, BUT DOES NOT HAVE ANY BACK/BUTTOCK OR LEG PAIN DID NOT HIT HEAD AND NO LOSS OF CONSCIOUSNESS C/O PAIN TO LEFT ELBOW AND LEFT WRIST/PALM AREA NO PARESTHESIAS OR MOTOR DEFICITS NO PRIOR INJURY TO THIS ARM PT IS RIGHT HANDED PCP:LEO RAND Allergies and Home Medications Allergies Coded Allergies: fluconazole (Verified Allergy, Mild, 07/05/12) morphine (Verified Allergy, Mild, 07/05/12) Uncoded Allergies: TAPE (Allergy, Mild, 07/05/12) Home Medications Estradiol 1 Mg Tablet, 1 MG PO DAILY, (Reported) Loratadine 10 Mg Tab.rapdis, 10 MG PO DAILY, (Reported) Constitutional: no symptoms reported Respiratory: no symptoms reported Cardiovascular: no symptoms reported Gastrointestinal: no symptoms reported Genitourinary: no symptoms reported : No Control/STD Prophylaxis: Other (HYST) Musculoskeletal: see HPI, No back pain, No neck pain Skin: no symptoms reported Psychiatric/Neurological: No Symptoms Reported, Denies Numbness, Denies Paresthesia, Denies Tingling, Denies Weakness Past Nwfmief-Uzttnb-Ngyvcb Hx Patient Social History Alcohol Use: Rarely Uses Recreational Drug Use: No Smoking Status: Current Everyday Smoker Type Used: Cigarettes (IN PAST), Electronic/Vapor (NOW) Recent Foreign Travel: No Contact w/Someone Who Travel: No Recent Infectious Disease Expo: No Immunizations Up To Date Tetanus Booster (TDap): Unknown Date of Influenza Vaccine: Mar 15, 2014 Seasonal Allergies Seasonal Allergies: No Surgeries History of Surgeries: Yes (D AND C) Surgeries: Appendectomy, Section, Gallbladder, Hysterectomy, Oophorectomy Respiratory History of Respiratory Disorde: No Cardiovascular History of Cardiac Disorders: Yes Cardiac Disorders: High Cholesterol Neurological History of Neurological Disord: Yes (MENINGITIS X 2) Neurological Disorders: Headaches /Migraines, Meningitis Reproductive System Hx Reproductive Disorders: Yes (CPP) Sexually Transmitted Disease: No 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 ) Behavioral Health Disorders: Suicide Attempts, Depression Integumentary History of Skin or Integumenta: No Blood Transfusions History of Blood Disorders: Yes Adverse Reaction to a Blood Tr: No Family Medical History Significant Family History: No Pertinent Family Hx Family Medial History: Patient reports no known family medical history. Physical Exam Vital Signs Vital Sign - Last 12Hours 03/28/17 17:40 Temp 98.0 Pulse 85 Resp 18 B/P (MAP) 125/68 Pulse Ox 98 Capillary Refill : Less Than 3 Seconds General Appearance: WD/WN, no apparent distress Neck: normal inspection Cardiovascular: normal peripheral pulses, regular rate, rhythm Respiratory: chest non-tender, normal breath sounds Gastrointestinal: non tender, soft Back: normal inspection, no CVA tenderness, no vertebral tenderness Shoulder: normal inspection, non-tender, no evidence of injury, normal ROM Elbow/Forearm: normal ROM, Left (LEFT ELBOW WITH VERY SLIGHT ABRASION ( NO BLEEDING) AND BRUISING, NO SIGNIFICANT SWELLING. FULL ROM), bone tenderness, pain, soft tissue tenderness Wrist: Yes normal ROM, Yes bone tenderness (TENDERNESS TO ANTERIOR ASPECT OF LEFT WRIST, NO SWELLING ), Yes pain, Yes soft tissue tenderness Hand: normal ROM, Left (THENAR EMINENCE WITH MILD TENDERNESS, SLIGHT ERYTHEMA, NO SWELLING. 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 II-XII nml as tested, no motor/sensory deficits, alert, normal mood/affect, oriented x 3 Skin: normal color, tattoos/piercings (EXTENSIVE TATTOOS) Splinting and Joint Reduction : Arm Sling: [place] Progress/Results/Core Measures Results/Orders My Orders Orders - DEBO HAAS DO Forearm, Left, 2 Views (03/28/17 17:56) Elbow, Left, 3 Views (03/28/17 17:56) Hand, Left, 3 Views (03/28/17 17:56) Sling (03/28/17 18:39) Vital Signs/I&O Vital Sign - Last 12Hours 03/28/17 17:40 Temp 98.0 Pulse 85 Resp 18 B/P (MAP) 125/68 Pulse Ox 98 Blood Pressure Mean: 87 Progress Note : Progress Note PT DECLINES ANY MEDICATIONS--STATES SHE QUIT TAKING ALL OF HER MEDICATIONS IN DECEMBER AFTER SHE OVERDOSED AND DOES NOT WANT TO BE ON ANY MEDICATION OF ANY KIND. Diagnostic Imaging Comments XRAYS LEFT ELBOW--NO ACUTE PROCESS XRAYS LEFT FOREARM--NO ACUTE PROCESS XRAYS LEFT HAND--NO ACUTE PROCESS ALL PER RADIOLOGIST REPORTS @ 1835 Reviewed: Reviewed by Me Departure Impression Impression: Primary Impression: Status post fall Additional Impressions: LEFT ELBOW, FOREARM AND HAND CONTUSION Left wrist sprain Disposition: 01 HOME, SELF-CARE Condition: Stable Departure-Patient Inst. Referrals: RADHA EISENBERG DO (PCP) Primary Care Physician TIMBO GUILLEN (Family) Primary Care Physician Patient Instructions: How to Use a Shoulder Sling, Contusion (DC), Wrist Sprain (DC) Add. Discharge Instructions: ICE TO SORE AREAS AT 20 MINUTE INTERVALS SLING NEEDED FOR COMFORT OVER THE COUNTER ALEVE--2 PILLS A DAY-- NEEDED FOR PAIN ACTIVITIES TOLERATED FOLLOW UP WITH [facility] IN 1 WEEK IF NO BETTER All discharge instructions reviewed with patient and/or family. Voiced understanding. DEBO HAAS DO Mar 28, 2017 18:12
--- NOTE | 2017-03-28 18:30 | Diagnostic Imaging Report ---
INDICATION: Left forearm injury, pain. COMPARISON: None. FINDINGS: 2 views of left forearm demonstrate no fracture or dislocation. Articular surfaces are normal. No foreign body. IMPRESSION: Negative left forearm. Dictated by: Dictated on workstation # [id number]
--- NOTE | 2017-03-28 18:33 | Diagnostic Imaging Report ---
INDICATION: Left hand pain, injury. COMPARISON: None. EXAMINATION: Three views of the left hand were obtained. FINDINGS: No fracture or dislocation. Articular surfaces are normal. There is no foreign body. IMPRESSION: Negative left hand. Dictated by: Dictated on workstation # [id number]
--- NOTE | 2017-03-28 18:33 | Diagnostic Imaging Report ---
INDICATION: Left elbow injury. COMPARISON: None. FINDINGS: 3 views of left elbow demonstrate no fracture or dislocation. Articular surfaces are normal. There is no joint effusion. IMPRESSION: Negative left elbow. Dictated by: Dictated on workstation # [id number]
[2017-03-28 18:48] VITALS: BP 125/68
== END 2017-03-28 18:48 | disposition home or self-care (01) ==
LOC: EDUNIT# 17:35 → ER 17:37
DX: S63.502A Unspecified sprain of left wrist, initial encounter (principal); S53.402A Unspecified sprain of left elbow, initial encounter; E78.00 Pure hypercholesterolemia, unspecified; F32.9 Major depressive disorder, single episode, unspecified; F17.210 Nicotine dependence, cigarettes, uncomplicated; Z90.49 Acquired absence of other specified parts of digestive tract; Z91.5 Personal history of self-harm; Z90.710 Acquired absence of both cervix and uterus; W01.0XXA Fall on same level from slipping, tripping and stumbling without subsequent striking against object, initial encounter
CPT/HCPCS: 73080; 73090; 73130; 99282

== ENCOUNTER 2018-04-11 18:49 | Emergency (ER) | payer BC ==
[~2018-04-11] VITALS: Ht 172.7 cm; Wt 95.7 kg
[~2018-04-11 18:49] MED LIST changes: -INDO50CA PO; +INDO50CA11 PO; +LORA10TA72 PO
--- OUTSIDE RECORDS SUMMARY | 2018-04-11 18:55 | XMS REPORT ---
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 Name Role Phone CARDENASPOOJA Melendez Unavailable PROBLEMS Type Condition ICD9-CM Code NPH68-OR Code Onset Dates Condition Status SNOMED Code Problem Elevated LDL cholesterol level E78.00 Active 220633159 Problem Pseudotumor cerebri G93.2 Active 53438149 Problem GERD (gastroesophageal reflux disease) K21.9 Active 025813550 Problem Attention deficit hyperactivity disorder (ADHD), unspecified ADHD type F90.9 Active 870785296 Problem Urinary retention R33.9 Active 598483388 Problem Obesity E66.9 Active 008622875 Problem Chronic headaches R51 Active 441453481 Problem Fibromyalgia M79.7 Active 951061869 Problem Depression F32.9 Active 611586881 ALLERGIES No Information ENCOUNTERS Encounter Location Date Diagnosis [facility] [address] [address] 10 Mar, 2017 Acute middle ear effusion, bilateral H65.193 [facility] [place] [id number] [place] [address] 18789- 7646 14 Feb, 2017 Hospital discharge follow-up Z09 and Depression F32.9 [facility] [place] [id number] [place] [address] 34726- 6921 11 Feb, 2017 Hospital discharge follow-up Z09 and Depression F32.9 [facility] [place] [id number] [place] [address] 12857- 3408 Jan, [facility] [address] [id number] Jan, [facility] [id number] [place] [address]1680 Dec, [place] [id number] [place] [address] 52082- 1475 Dec, Attention deficit hyperactivity disorder (ADHD), unspecified ADHD type F90.9 [place] [address] 8[address]- 2719 Dec, Depression F32.9 and Fibromyalgia M79.7 [place] [address] [address]- [address] Dec, Depression F32.9 ; Chronic headaches R51 ; Fibromyalgia M79.7 ; GERD (gastroesophageal reflux disease) K21.9 ; Obesity E66.9 and Attention deficit hyperactivity disorder (ADHD), unspecified ADHD type F90.9 [place] [address] [address] 2059 Nov, [address] [address] Nov, [facility] [place] [address] [address] Sep, Gastroenteritis K52.[address] [address]- [address] Sep, Vaginal discharge N89.8 ; Possible exposure to STD Z20.2 and Vaginal candidiasis B37.3 [facility] [place] [address] [address] Aug, Sore throat J02.9 and Pharyngitis, unspecified etiology J02.[address] [address]- [address] Aug, Pseudotumor cerebri G93.2 ; GERD (gastroesophageal reflux disease) K21.9 ; Obesity E66.9 ; Depression F32.9 ; Urinary retention R33.9 ; Fibromyalgia M79.7 and Chronic headaches R51 [place] [id number] [place] [address] 99282- 2571 Apr, [place] [id number] [place] [address] 94256- 8969 Apr, [place] [id number] [place] [address] 18205- 3975 Apr, Pseudotumor cerebri G93.2 ; Chronic headaches R51 ; GERD ( gastroesophageal reflux disease) K21.9 ; Fibromyalgia M79.7 ; Urinary retention R33.9 and Excess skin of abdominal wall L98.7 [facility] [place] [id number] [place] [address] 29682- 0130 Mar, [place] [id number] [place] [address] 82847- 8649 Mar, [place] [address] [id number] [place] [id number] Mar, Encounter for immunization Z23 [place] [id number] [place] [address] 84856- 0794 Feb, [place] [id number] [place] [address] 72627- 5860 Feb, [place] [id number] [place] [address] 53625- 0184 Jan, Fibromyalgia M79.7 ; Obesity E66.9 ; Depression F32.9 ; Pseudotumor cerebri G93.2 ; GERD with apnea K21.9 ; Chronic headaches R51 and Urinary retention R33.9 [place] [id number] [place] [address] 60750- 9885 Jan, [place] [id number] [place] [address] 69384- 6405 Dec, Obesity E66.9 ; Fibromyalgia M79.7 ; Depression F32.9 ; Pseudotumor cerebri G93.2 ; Chronic headaches R51 and GERD (gastroesophageal reflux disease) K21.9 [facility] [place] [id number] [place] [address] 46840- 3898 Dec, [place] [id number] [place] [address] 74349- 6362 Nov, Fibromyalgia M79.7 ; Obesity E66.9 and Elevated cholesterol E78.0 [place] [address] 85312- 7865 17 Nov, 2015 Pseudotumor cerebri G93.2 ; Chronic headaches R51 ; Obesity E66.9 ; Fibromyalgia M79.7 ; GERD (gastroesophageal reflux disease) K21.9 and Elevated cholesterol E78.0 [place] [address] 36279- 2427 Nov, Obesity E66.9 [facility] [place] [address] 227[address] October, Nausea R11.0 and Urinary retention with incomplete bladder emptying R33.9 [place] [address] 16793- 0476 October, [facility] [address] [address] October, Dysuria R30.0 [place] [address] 79270- 6548 October, [place] [address] 21652- 5395 Sep, [place] [id number] [place] [address] 94228- 9537 Sep, Obesity E66.9 ; Depression F32.9 ; Fibromyalgia M79.7 ; Pseudotumor cerebri G93.2 ; Chronic headaches R51 and GERD with apnea K21.9 [place] [address] 20943- 6576 Aug, Pseudotumor cerebri G93.2 ; Chronic headaches R51 ; GERD ( gastroesophageal reflux disease) K21.9 ; Obesity E66.9 ; Fibromyalgia M79.7 and Depression F32.9 [place] [address] 2[address] 6918 Aug, [facility] [place] [id number] [place] [address] 06284- 3852 Aug, [facility] [place] [id number] [place] [address] 35673- 4466 Aug, [facility] [place] [id number] [place] [address] 76417- 9635 Jul, [facility] [place] [id number] [place] [address] 58574- 3240 Jul, [facility] [place] [id number] [place] [address] 19297- 6353 Jul, Depression F32.9 [facility] [place] [id number] [place] [address] 79683- 3478 Jul, Pseudotumor cerebri G93.2 ; Chronic headaches R51 ; GERD ( gastroesophageal reflux disease) K21.9 ; Obesity E66.9 ; Fibromyalgia M79.7 and Depression F32.9 [facility] [place] [id number] [place] [address] 96331- 1812 Jul, [facility] [place] [id number] [place] [address] 40022- 4128 Jul, [facility] [place] [id number] [place] [address] 00231- 8747 Jun, [facility] [place] [id number] [place] [address] 76946- 3367 Jun, Pseudotumor cerebri G93.2 ; Chronic headaches R51 ; Obesity E66.9 ; GERD (gastroesophageal reflux disease) K21.9 ; Fibromyalgia M79.7 ; Depression F32.9 and Conjunctivitis H10.9 [facility] [id number] [place] [address] 23168 -6966 Jun, Facial rash R21 [facility] [place] [id number] [place] [address] 94245- 2048 Jun, Obesity, unspecified E66.9 [facility] [place] [id number] [place] [address] 63998- 4629 May, [facility] [place] [id number] [place] [address] 57236- 7616 May, [facility] [place] [address] 16511- 1823 May, Vaginal itching L29.8 and Dysuria R30.0 [facility] [place] [address] 69837- 2966 May, [facility] [place] [address] 19530- 5845 May, [facility] IN [facility] [address] 79725 [address]63 06 May, 2015 Acute pharyngitis, unspecified J02.9 and Seasonal allergies J30.2 [facility] [place] [id number] [place] [address] 82540- 7786 Apr, Pseudotumor cerebri G93.2 ; Chronic headaches R51 ; Obesity E66.9 ; GERD with apnea K21.9 and GERD (gastroesophageal reflux disease) K21.9 [place] [id number] [place] [address] 21627- 0184 30 Mar, 2015 [place] [id number] [place] [address] 21914- 2762 Mar, [facility] [place] [id number] [place] [address] 38353- 3252 Mar, [facility] [place] [address] 88872- 9426 Mar, [facility] [place] [id number] [place] [address] 04390- 2141 09 Mar, 2015 Pseudotumor cerebri G93.2 ; Chronic headaches R51 ; Obesity E66.9 ; Fibromyalgia M79.7 and GERD (gastroesophageal reflux disease) K21.9 [facility] [place] [address] [address]- 6286 Jan, [facility] [place] [id number] [place] [address] 26981- 8073 Jan, Elevated liver enzymes 790.5 [facility] [place] [id number] [place] [address] 56770- 8695 Jan, Elevated liver enzymes 790.5 [facility] [place] [id number] [place] [address] 81944- 5432 Dec, Headache 784.0 ; Obesity, unspecified 278.00 ; Abnormal weight gain 783.1 ; GERD (gastroesophageal reflux disease) 530.81 and Depression 311 [facility] [place] [id number] [place] [address] 34309- 1842 Dec, Chronic headaches 784.0 [facility] [place] [id number] [place] [address] 47744- 7640 Dec, [facility] [place] [id number] [place] [address] 67583- 6881 Dec, [facility] [place] [id number] [place] [address] 78628- 4849 Dec, Headache 784.0 ; Obesity, unspecified 278.00 ; Tick bite 919.4 and GERD (gastroesophageal reflux disease) 530.81 [facility] [place] [address] [address]- 3406 Sep, [facility] [place] [id number] [place] [address] 43934- 9674 Sep, [facility] [place] [id number] [place] [address] 45944- 6694 Aug, [facility] [place] [address] [address]- 0437 Aug, [facility] [place] [id number] [place] [address] 62055- 6843 Aug, [facility] [place] [facility] [address] [id number] [place] [address]- 9940 18 Aug, 2014 [facility] [place] [facility] [address] [id number] [place] [address]- 9350 Aug, 2014 [facility] [place] [facility] [address] [id number] [place] [address]- 2095 Aug, 2014 [facility] [place] [facility] [address] [id number] [place] [address]- 5482 Aug, 2014 [facility] [place] [facility] [address] [id number] [place] [address]- 7719 Aug, [facility] [place] [facility] [address] [id number] [place] [address]- 0403 Jul, [facility] [place] [facility] [address] [id number] [place] [address]- 8962 Jul, [facility] [place] [facility] [address] [id number] [place] [address]- 5751 12 Feb, 2014 [facility] [place] [facility] [address] [id number] [place] [address]- 6602 Feb, [facility] [place] [facility] [address] [id number] [place] [address]- 7099 Feb, 2013 [facility] [place] [facility] [address] [id number] [place] [address]- 1407 11 Feb, 2013 [facility] [place] [facility] [address] [id number] [place] [address]- 2532 11 Feb, 2013 [facility] [place] [facility] [address] [id number] [place] [address]- 1714 11 Feb, 2013 [facility] [place] [facility] [address] [id number] [place] [address]- 6016 11 Feb, 2013 [facility] [place] [facility] [address] [id number] [place] [address]- 9957 03 Feb, 2013 [facility] [place] [facility] [id number] [address]- 9294 Feb, [facility] [place] [address]- 9133 Jun, [facility] [place] [id number] 3672 Jun, [facility] [place] [address]- 1570 May, [facility] [place] [address]- 7801 May, [facility] [place] [id number] [place] [address] 324731- 3797 May, [facility] [place] [address] [address]- 4955 May, [facility] [place] [address], [place] [address]- 8186 May, [facility] [place] [address] [address]- 6512 May, [facility] [place] [address]- [address]100 May, [facility] [place] [id number] [address]- 0785 May, [facility] [place] [id number] 0089 Mar, [facility] [place] [id number]- 3111 Mar, IMMUNIZATIONS No Known Immunizations SOCIAL HISTORY Never Assessed REASON FOR VISIT Lab (walk-in)--[facility] VITAL SIGNS MEDICATIONS No Known Medications RESULTS Name Result Date Reference Range THYROID ANALYZER 2017-02-26 TSH 1.360 0.450-4.500 A1C 2017-02-26 Hemoglobin A1c 5.0 4.8-5.6 CBC 2017-02-26 WBC 6.3 3.4-10.8 RBC 4.21 3.77-5.28 Hemoglobin 13.0 11.1-15.9 Hematocrit 39.5 34.0-46.6 MCV 94 79-97 MCH 30.9 26.6-33.0 MCHC 32.9 31.5-35.7 RDW 13.4 12.3-15.4 Platelets 296 150-379 Neutrophils 50 Lymphs 41 Monocytes 6 Eos 2 Basos 1 Neutrophils (Absolute) 3.2 1.4-7.0 Lymphs (Absolute) 2.6 0.7-3.1 Monocytes(Absolute) 0.4 0.1-0.9 Eos (Absolute) 0.1 0.0-0.4 Baso (Absolute) 0.0 0.0-0.2 Immature Granulocytes 0 Immature Grans (Abs) 0.0 0.0-0.1 LIPID PANEL 2017-02-26 Cholesterol, Total 192 100-199 Triglycerides 96 0-149 HDL Cholesterol 48 >39 VLDL Cholesterol Uzair 19 5-40 LDL Cholesterol Calc 125 0-99 CMP 2017-02-26 Glucose, Serum 82 65-99 BUN 10 6-24 Creatinine, Serum 0.72 0.57-1.00 eGFR If NonAfricn Am 105 >59 eGFR If Africn Am 121 >59 BUN/Creatinine Ratio 14 9-23 Sodium, Serum 143 134-144 Potassium, Serum 4.1 3.5-5.2 Chloride, Serum 102 96-106 Carbon Dioxide, Total 27 18-29 Calcium, Serum 9.0 8.7-10.2 Protein, Total, Serum 6.4 6.0-8.5 Albumin, Serum 3.9 3.5-5.5 Globulin, Total 2.5 1.5-4.5 A/G Ratio 1.6 1.2-2.2 Bilirubin, Total 0.5 0.0-1.2 Alkaline Phosphatase, S 68 39-117 AST (SGOT) 12 0-40 ALT (SGPT) 10 0-32 PROCEDURES Procedure Date Ordered Result Body Site ASSAY THYROID STIM HORMONE Feb 26, 2017 Hemoglobin Test Send Out 0 dollar Feb 26, 2017 LIPID PANEL Feb 26, 2017 COMPLETE CBC W/AUTO DIFF WBC Feb 26, 2017 VENIPUNCT, ROUTINE* Feb 26, 2017 COMPREHEN METABOLIC PANEL Feb 26, 2017 INSTRUCTIONS MEDICATIONS ADMINISTERED No Known Medications MEDICAL (GENERAL) HISTORY Type Description Date Medical [...]
--- OUTSIDE RECORDS SUMMARY | 2018-04-11 18:56 | XMS REPORT ---
Author Author THERESASUHASPOOJA [facility] Address [address] [place] [address] Care Team Providers Care Signal Processing Engineer Name Role Phone CARDENASPOOJA Melendez Unavailable PROBLEMS Type Condition ICD9-CM Code CLZ62-MQ Code Onset Dates Condition Status SNOMED Code Problem Elevated LDL cholesterol level E78.00 Active 459781662 Problem Pseudotumor cerebri G93.2 Active 35274096 Problem GERD (gastroesophageal reflux disease) K21.9 Active 578738824 Problem Attention deficit hyperactivity disorder (ADHD), unspecified ADHD type F90.9 Active 353321393 Problem Urinary retention R33.9 Active 627501469 Problem Obesity E66.9 Active 101025916 Problem Chronic headaches R51 Active 162392264 Problem Fibromyalgia M79.7 Active 689679010 Problem Depression F32.9 Active 297858591 ALLERGIES Substance Reaction Event Type Date Status Diflucan Unknown Drug Allergy Feb, Active Morphine Unknown Drug Allergy Feb, Active Cajun seasoning hives Non Drug Allergy Feb, Active ENCOUNTERS Encounter Location Date Diagnosis [facility] IN [facility] [id number], [place] [address] Mar, Acute middle ear effusion, bilateral H65.193 [facility] [address], [place] [address] 14 Feb, 2017 Hospital discharge follow-up Z09 and Depression F32.9 [facility] [address], [place] [address] 11 Feb, 2017 Hospital discharge follow-up Z09 and Depression F32.9 [facility] [address], [place] [address] Jan, [facility] [address] [place] [id number] [place] [id number] Jan, [facility] [address] [address] Dec, [place] [address] [address] Dec, Attention deficit hyperactivity disorder (ADHD), unspecified ADHD type F90.[address] [address] Dec, Depression F32.9 and Fibromyalgia M79.7 [place] [address] [address] Dec, Depression F32.9 ; Chronic headaches R51 ; Fibromyalgia M79.7 ; GERD (gastroesophageal reflux disease) K21.9 ; Obesity E66.9 and Attention deficit hyperactivity disorder (ADHD), unspecified ADHD type F90.[address] [address] Nov, [place] [address] [address] Nov, [facility] [place] [address] [address] Sep, Gastroenteritis K52.[address] [address] Sep, Vaginal discharge N89.8 ; Possible exposure to STD Z20.2 and Vaginal candidiasis B37.3 [facility] IN [place] [address] [address] Aug, Sore throat J02.9 and Pharyngitis, unspecified etiology J02.[address] [address] Aug, Pseudotumor cerebri G93.2 ; GERD (gastroesophageal reflux disease) K21.9 ; Obesity E66.9 ; Depression F32.9 ; Urinary retention R33.9 ; Fibromyalgia M79.7 and Chronic headaches R51 [facility] [address], [place] [address] Apr, [facility] [id number] [place] [address] Apr, [place] [id number] [place] [address] Apr, Pseudotumor cerebri G93.2 ; Chronic headaches R51 ; GERD ( gastroesophageal reflux disease) K21.9 ; Fibromyalgia M79.7 ; Urinary retention R33.9 and Excess skin of abdominal wall L98.7 [place] [address] [id number] [place] [address] Mar, [place] [address] [place] [id number] [place] [address] Mar, [facility] [id number] [place] [id number] Mar, Encounter for immunization Z23 [facility] [id number] [place] [address] Feb, [place] [address] [id number] [place] [address] Feb, [place] [address] [address] [id number] [place] [address] Jan, Fibromyalgia M79.7 ; Obesity E66.9 ; Depression F32.9 ; Pseudotumor cerebri G93.2 ; GERD with apnea K21.9 ; Chronic headaches R51 and Urinary retention R33.9 [facility] [id number] [place] [address] Jan, [facility] [id number] [place] [address] Dec, Obesity E66.9 ; Fibromyalgia M79.7 ; Depression F32.9 ; Pseudotumor cerebri G93.2 ; Chronic headaches R51 and GERD (gastroesophageal reflux disease) K21.9 [facility] [address] [place] [address] Dec, [facility] [id number] [place] [address] Nov, Fibromyalgia M79.7 ; Obesity E66.9 and Elevated cholesterol E78.0 [facility] [id number] [place] [address] Nov, Pseudotumor cerebri G93.2 ; Chronic headaches R51 ; Obesity E66.9 ; Fibromyalgia M79.7 ; GERD (gastroesophageal reflux disease) K21.9 and Elevated cholesterol E78.0 [place] [id number] [place] [address] Nov, Obesity E66.9 [facility] [id number] [place] [address] October, Nausea R11.0 and Urinary retention with incomplete bladder emptying R33.9 [place] [address] [id number] [place] [address] October, [facility] [id number] [place] [address] October, Dysuria R30.0 [facility] [address] [id number] [place] [address] October, [place] [address] [place] [address] [id number] [place] [address] Sep, [facility] [id number] [place] [address] Sep, Obesity E66.9 ; Depression F32.9 ; Fibromyalgia M79.7 ; Pseudotumor cerebri G93.2 ; Chronic headaches R51 and GERD with apnea K21.9 [facility] [id number] [place] [address] Aug, Pseudotumor cerebri G93.2 ; Chronic headaches R51 ; GERD ( gastroesophageal reflux disease) K21.9 ; Obesity E66.9 ; Fibromyalgia M79.7 and Depression F32.9 [facility] [id number] [place] [address] Aug, [facility] [id number] [place] [address] Aug, [facility] [address] [id number] [place] [address] 239[address]- 5[address] Aug, [facility] [address] [address] Jul, [facility] [address] [address] Jul, [facility] [address] [address] Jul, Depression F32.9 [facility] [address] [address] Jul, Pseudotumor cerebri G93.2 ; Chronic headaches R51 ; GERD ( gastroesophageal reflux disease) K21.9 ; Obesity E66.9 ; Fibromyalgia M79.7 and Depression F32.9 [facility] [id number] [place] [address]60[address] 28[address] Jul, [facility] [address] [id number] [place] [address] 39[address]- [address]120 Jul, [facility] [id number] [place] [address]00- 5647 Jun, [facility] [id number] [place] [address] 8[address]65- 8097 Jun, Pseudotumor cerebri G93.2 ; Chronic headaches R51 ; Obesity E66.9 ; GERD (gastroesophageal reflux disease) K21.9 ; Fibromyalgia M79.7 ; Depression F32.9 and Conjunctivitis H10.9 [facility] [id number] [place] [address] Jun, Facial rash R21 [facility] [id number] [place] [address] Jun, Obesity, unspecified E66.9 [facility] [id number] [place] [address]- 4[address] May, [facility] [address] [address] May, [facility] [address] [address] May, Vaginal itching L29.8 and Dysuria R30.0 [place] [address] [address] May, [facility] [address] [address] May, [facility] [address] [address] May, Acute pharyngitis, unspecified J02.9 and Seasonal allergies J30.2 [facility] [address] [address] Apr, Pseudotumor cerebri G93.2 ; Chronic headaches R51 ; Obesity E66.9 ; GERD with apnea K21.9 and GERD (gastroesophageal reflux disease) K21.9 [facility] [address] [id number] [place] [address] 47867- 5945 Mar, [facility] [address] [place] [address] [id number] [place] [address] 25539- 4257 Mar, [facility] [address] [address]- [address] Mar, [facility] [address] [address] Mar, [facility] [address] [address] Mar, Pseudotumor cerebri G93.2 ; Chronic headaches R51 ; Obesity E66.9 ; Fibromyalgia M79.7 and GERD (gastroesophageal reflux disease) K21.9 [facility] [id number] [place] [address] Jan, [facility] [address] [address] Jan, Elevated liver enzymes 790.5 [place] [address] [address]- [address] Jan, Elevated liver enzymes 790.5 [place] [address] [address] Dec, Headache 784.0 ; Obesity, unspecified 278.00 ; Abnormal weight gain 783.1 ; GERD (gastroesophageal reflux disease) 530.81 and Depression 311 [place] [address] [address] Dec, Chronic headaches 784.0 [place] [address] [address]- [address] Dec, [place] [address] [address]- 7368 Dec, [place] [address] [address] [id number] [place] [address]95- 3777 Dec, Headache 784.0 ; Obesity, unspecified 278.00 ; Tick bite 919.4 and GERD (gastroesophageal reflux disease) 530.81 [place] [address] [id number] [place] [address] 20744- 6371 Sep, [facility] [address] [address] Sep, [facility] [address] [id number] [place] [address] 53216- 2883 Aug, [place] [address] [address] Aug, [facility] [place] [facility] [address] [id number] [place] [address]- [address] 18 Aug, 2014 [facility] [place] [facility] [address] [id number] [place] [address]- 9916 18 Aug, 2014 [facility] [place] [facility] [address] [id number] [place] [address]- 7388 Aug, [facility] [place] [facility] [address] [id number] [place] [address]- 0227 13 Aug, 2014 [facility] [place] [facility] [address] [id number] [place] [address]- 8602 Aug, [facility] [place] [facility] [address] [id number] [place] [address]- 2644 Aug, [facility] [place] [facility] [address] [id number] [place] [address]- 3962 Jul, [facility] [place] [facility] [address] [id number] [place] [address]- 3658 Jul, [facility] [place] [facility] [address] [id number] [place] [address]- 9629 12 Feb, 2014 [facility] [place] [facility] [address] [id number] [place] [address]- 0472 Feb, [facility] [place] [facility] [address] [id number] [place] [address]- 4285 Feb, [facility] [place] [facility] [address] [id number] [place] [address]- 6090 11 Feb, 2014 [facility] [place] [facility] [address] [id number] [place] [address]- 0037 Feb, [facility] [place] [facility] [address] [id number] [place] [address]- 9790 Feb, [facility] [place] [facility] [address] [id number] [place] [address]- 4514 Feb, [facility] [place] [facility] [address] [facility] [id number] [address] 9[address] Feb, [facility] [address] [facility] [id number] [address]- 7575 Feb, [facility] [address] [facility] [id number] [place] [address]- 6558 Jun, [facility] [address] [facility] [id number], [place] [address]- 3642 Jun, [facility] [address] [facility] [id number] [place] May, [facility] [address] [facility] [id number] [place] [address] May, [facility] [address] [facility] [id number], [place] [address]- 0807 May, [facility] [address], [place] [address]- 25[address] May, [facility] [address] [facility] [id number], [place] [address]- 5[address] May, [facility] [address], [place] [address]- 1404 May, [facility] [address], [place] [address]- 8753 May, [facility] [id number] [address]- 0824 May, [facility] [address] [facility] [id number], [place] [address] 8649 Mar, [facility] [id number] Mar, IMMUNIZATIONS No Known Immunizations SOCIAL HISTORY Never Assessed REASON FOR VISIT Hospital f/u -- emily case, patient states she is here because wants to restart all her meds after after committing suicide back in 12/2016 PLAN OF CARE Activity Details Follow Up prn Reason: VITAL SIGNS Height 68 in 2017-02-23 Weight 172.4 lbs 2017-02-23 Temperature 98.0 degrees Fahrenheit 2017-02-23 Heart Rate 78 bpm 2017-02-23 Respiratory Rate 18 2017-02-23 BMI 26.21 kg/m2 2017-02-23 Blood pressure systolic 122 mmHg 2017-02-23 Blood pressure diastolic 70 mmHg 2017-02-23 MEDICATIONS Medication Instructions Dosage Frequency Start Date End Date Duration Status Estradiol 1 MG Orally Daily for Three Weeks, 1 Week off 1 tablet Active RESULTS No Results PROCEDURES No Known procedures INSTRUCTIONS MEDICATIONS ADMINISTERED No Known Medications MEDICAL [...]
--- OUTSIDE RECORDS SUMMARY | 2018-04-11 18:56 | XMS REPORT ---
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 Name Role Phone ELENO Harp Unavailable PROBLEMS Type Condition ICD9-CM Code INI35-FJ Code Onset Dates Condition Status SNOMED Code Problem Elevated LDL cholesterol level E78.00 Active 197352183 Problem Pseudotumor cerebri G93.2 Active 88717985 Problem GERD (gastroesophageal reflux disease) K21.9 Active 696866313 Problem Attention deficit hyperactivity disorder (ADHD), unspecified ADHD type F90.9 Active 494376395 Problem Urinary retention R33.9 Active 877326805 Problem Obesity E66.9 Active 515809638 Problem Chronic headaches R51 Active 628324447 Problem Fibromyalgia M79.7 Active 960270475 Problem Depression F32.9 Active 625797833 ALLERGIES Substance Reaction Event Type Date Status Diflucan Unknown Drug Allergy Mar, Active Morphine Unknown Drug Allergy Mar, Active Cajun seasoning hives Non Drug Allergy Mar, Active ENCOUNTERS Encounter Location Date Diagnosis [facility] [id number] [place] [address] 83860 -4720 Mar, Acute middle ear effusion, bilateral H65.193 [facility] [place] [address], [place] [address] 14 Feb, 2017 Hospital discharge follow-up Z09 and Depression F32.9 [facility] [place] [id number] [place] [address] 26640- 1083 11 Feb, 2017 Hospital discharge follow-up Z09 and Depression F32.9 [facility] [place] [address] [address] 08 Jan, 2017 [facility] [id number] [place] [address] [id number] Jan, [facility] WALK IN [facility] [id number] [place] [address] 30291 -0987 Dec, [place] [id number] [place] [address] 37247- 6564 Dec, Attention deficit hyperactivity disorder (ADHD), unspecified ADHD type F90.[address] [address]- 4252 Dec, Depression F32.9 and Fibromyalgia M79.7 [place] [id number] [place] [address] 85365- 6623 Dec, Depression F32.9 ; Chronic headaches R51 ; Fibromyalgia M79.7 ; GERD (gastroesophageal reflux disease) K21.9 ; Obesity E66.9 and Attention deficit hyperactivity disorder (ADHD), unspecified ADHD type F90.[address] [address]01- 1547 Nov, [place] [id number] [place] [address] 12909- 7276 Nov, [facility] [address] [place] [id number] [place] [address] 31294 -0962 Sep, Gastroenteritis K52.9 [place] [id number] [place] [address] 11898- 4774 Sep, Vaginal discharge N89.8 ; Possible exposure to STD Z20.2 and Vaginal candidiasis B37.3 [facility] [place] [id number] [place] [address] 68599 -6535 Aug, Sore throat J02.9 and Pharyngitis, unspecified etiology J02.9 [place] [id number] [place] [address] 30858- 5536 Aug, Pseudotumor cerebri G93.2 ; GERD (gastroesophageal reflux disease) K21.9 ; Obesity E66.9 ; Depression F32.9 ; Urinary retention R33.9 ; Fibromyalgia M79.7 and Chronic headaches R51 [place] [id number] [place] [address] 96033- 4619 Apr, [place] [id number] [place] [address] 32962- 4426 Apr, [place] [id number] [place] [address] 34084- 0650 Apr, Pseudotumor cerebri G93.2 ; Chronic headaches R51 ; GERD ( gastroesophageal reflux disease) K21.9 ; Fibromyalgia M79.7 ; Urinary retention R33.9 and Excess skin of abdominal wall L98.7 [place] [id number] [place] [address] 60770- 2269 Mar, [place] [id number] [place] [address] 96481- 2062 Mar, [facility] [id number] [place] [address] [id number] Mar, Encounter for immunization Z23 [place] [id number] [place] [address] 16204- 3288 Feb, [place] [address] 86106- 3797 Feb, [place] [id number] [place] [address] 58434- 0198 Jan, Fibromyalgia M79.7 ; Obesity E66.9 ; Depression F32.9 ; Pseudotumor cerebri G93.2 ; GERD with apnea K21.9 ; Chronic headaches R51 and Urinary retention R33.9 [facility] [place] [id number] [place] [address] 48681- 2994 Jan, [place] [address] 85179- 1159 Dec, Obesity E66.9 ; Fibromyalgia M79.7 ; Depression F32.9 ; Pseudotumor cerebri G93.2 ; Chronic headaches R51 and GERD (gastroesophageal reflux disease) K21.9 [place] [id number] [place] [address] 11855- 7540 Dec, [place] [address] 15448- 3299 Nov, Fibromyalgia M79.7 ; Obesity E66.9 and Elevated cholesterol E78.0 [place] [id number] [place] [address] 89789- 8146 Nov, Pseudotumor cerebri G93.2 ; Chronic headaches R51 ; Obesity E66.9 ; Fibromyalgia M79.7 ; GERD (gastroesophageal reflux disease) K21.9 and Elevated cholesterol E78.0 [place] [id number] [place] [address] 09004- 8674 Nov, Obesity E66.9 [facility] [id number] [place] [address] 53822 -4905 October, Nausea R11.0 and Urinary retention with incomplete bladder emptying R33.9 [place] [id number] [place] [address] 83267- 6025 October, [facility] [id number] [place] [address] 61385 -5178 October, Dysuria R30.0 [place] [id number] [place] [address] 03114- 9856 October, [place] [id number] [place] [address] 10619- 0328 Sep, [place] [id number] [place] [address] 90623- 1508 Sep, Obesity E66.9 ; Depression F32.9 ; Fibromyalgia M79.7 ; Pseudotumor cerebri G93.2 ; Chronic headaches R51 and GERD with apnea K21.9 [facility] [place] [id number] [place] [address] 23702- 9470 Aug, Pseudotumor cerebri G93.2 ; Chronic headaches R51 ; GERD ( gastroesophageal reflux disease) K21.9 ; Obesity E66.9 ; Fibromyalgia M79.7 and Depression F32.9 [facility] [place] [id number] [place] [address] 22469- 6577 Aug, [facility] [place] [id number] [place] [address] 25941- 8692 Aug, [facility] [place] [address] 29536- 5352 Aug, [facility] [place] [address] 28063- 1267 Jul, [facility] [place] [address] 22880- 6746 Jul, [facility] [place] [address] 43519- 4092 Jul, Depression F32.9 [facility] [place] [address] 78356- 4618 Jul, Pseudotumor cerebri G93.2 ; Chronic headaches R51 ; GERD ( gastroesophageal reflux disease) K21.9 ; Obesity E66.9 ; Fibromyalgia M79.7 and Depression F32.9 [facility] [place] [id number] [place] [address] 79526- 8245 Jul, [facility] [place] [id number] [place] [address] 73764- 1234 Jul, [facility] [place] [id number] [place] [address] 88942- 8648 Jun, [facility] [place] [id number] [place] [address] 62233- 5438 Jun, Pseudotumor cerebri G93.2 ; Chronic headaches R51 ; Obesity E66.9 ; GERD (gastroesophageal reflux disease) K21.9 ; Fibromyalgia M79.7 ; Depression F32.9 and Conjunctivitis H10.9 [facility] [id number] [place] [address] 84908 -1405 Jun, Facial rash R21 [facility] [place] [id number] [place] [address] 45980- 1415 Jun, Obesity, unspecified E66.9 [facility] [place] [id number] [place] [address] 20431- 4782 May, [facility] [place] [address] 46780- 7396 May, [facility] [place] [address] 93419- 2356 May, Vaginal itching L29.8 and Dysuria R30.0 [place] [address] 94498- 5845 May, [facility] [place] [address] 26547- 7837 May, [facility] [address] 15010 -0578 May, Acute pharyngitis, unspecified J02.9 and Seasonal allergies J30.2 [facility] [place] [address] 86993- 8518 Apr, Pseudotumor cerebri G93.2 ; Chronic headaches R51 ; Obesity E66.9 ; GERD with apnea K21.9 and GERD (gastroesophageal reflux disease) K21.9 [facility] [place] [id number] [place] [address] 11636- 7629 Mar, [facility] [place] [address] 99285- 3863 Mar, [facility] [place] [address] 49628- 8703 Mar, [facility] [place] [address] 50581- 5858 Mar, [facility] [place] [address] 30921- 4016 Mar, Pseudotumor cerebri G93.2 ; Chronic headaches R51 ; Obesity E66.9 ; Fibromyalgia M79.7 and GERD (gastroesophageal reflux disease) K21.9 [place] [id number] [place] [address] 92169- 5001 Jan, [place] [id number] [place] [address] 30996- 8119 Jan, Elevated liver enzymes 790.5 [place] [address] 77743- 0196 Jan, Elevated liver enzymes 790.5 [place] [address] 92020- 8879 Dec, Headache 784.0 ; Obesity, unspecified 278.00 ; Abnormal weight gain 783.1 ; GERD (gastroesophageal reflux disease) 530.81 and Depression 311 [place] [id number] [place] [address] 28369- 5062 Dec, Chronic headaches 784.0 [place] [id number] [place] [address] 94178- 6044 Dec, [place] [address] 47140- 0058 Dec, [place] [id number] [place] [address] 52049- 0618 Dec, Headache 784.0 ; Obesity, unspecified 278.00 ; Tick bite 919.4 and GERD (gastroesophageal reflux disease) 530.81 [place] [id number] [place] [address] 40228- 4260 Sep, [place] [address] 96972- 3090 Sep, [place] [id number] [place] [address] 45496- 4336 Aug, [place] [address] [place] [address]- 1484 28 Aug, 2014 [facility] [place] [facility] [address] [id number] [place] [address]- 1658 18 Aug, 2014 [facility] [place] [facility] [address] [id number] [place] [address]- 5005 18 Aug, 2014 [facility] [place] [facility] [address] [id number] [place] [address]- 8974 13 Aug, 2014 [facility] [place] [facility] [address] [id number] [place] [address]- 7075 13 Aug, 2014 [facility] [place] [facility] [address] [id number] [place] [address]- 2903 05 Aug, 2014 [facility] [place] [facility] [address] [id number] [place] [address]- 0912 05 Aug, 2014 [facility] [place] [facility] [address] [id number] [place] [address]- 0053 Jul, 2014 [facility] [place] [facility] [address] [id number] [place] [address]- 2681 Jul, 2014 [facility] [place] [facility] [address] [id number] [place] [address]- 6235 12 Feb, 2014 [facility] [place] [facility] [address] [id number] [place] [address]- 9639 Feb, 2013 [facility] [place] [facility] [address] [id number] [place] [address]- 0918 11 Feb, 2013 [facility] [place] [facility] [address] [id number] [place] [address]- 2540 11 Feb, 2013 [facility] [place] [facility] [address] [id number] [place] [address]- 6013 11 Feb, 2013 [facility] [place] [facility] [address] [id number] [place] [address]- 0673 11 Feb, 2013 [facility] [place] [facility] [address] [id number] [place] [address]- 6375 11 Feb, 2014 [facility] [place] [address] [facility] [id number] [address]- 2546 Feb, [facility] [place] [address] [facility] [id number] [address]- 2326 Feb, [facility] [place] [address] [facility] [id number] [address]- 7262 Jun, [facility] [place] [address] [facility] [id number] [address]- 8847 Jun, [facility] [place] [address] [facility] [id number] [address]- 2119 May, [facility] [place] [address] [facility] [id number] [place]- 5206 May, [facility] [place] [address] 9220 May, [facility] [place] [address] [address]- 6873 May, [facility] [place] [id number] [address]- 2218 May, [facility] [place] [address] [address]- 3877 May, [facility] [place] [id number] [address]- 8273 May, [facility] [place] [id number]- 9087 May, [facility] [place] [id number] [address]- 6788 Mar, [facility] [place] [id number]- 3433 Mar, IMMUNIZATIONS Vaccine Route Administration Date Status DEXAMETHASONE 4MG/ML (PER 1 MG) IM Intramuscular Mar 24, 2017 Administered DEPO MEDROL 40 MG/ML IM Intramuscular Mar 24, 2017 Administered SOCIAL HISTORY Never Assessed REASON FOR VISIT left earache since yesterday. pain comes and goes. [email or web address] PLAN OF CARE Activity Details Follow Up prn Reason: VITAL SIGNS Height 68 in 2017-03-24 Weight 182.4 lbs 2017-03-24 Temperature 98.3 degrees Fahrenheit 2017-03-24 Heart Rate 80 bpm 2017-03-24 Respiratory Rate 20 2017-03-24 BMI 27.73 kg/m2 2017-03-24 Blood pressure systolic 118 mmHg 2017-03-24 Blood pressure diastolic 74 mmHg 2017-03-24 MEDICATIONS Medication Instructions Dosage Frequency Start Date End Date Duration Status Estradiol 1 MG Orally Daily for Three Weeks, 1 Week off 1 tablet Active RESULTS No Results PROCEDURES Procedure Date Ordered Result Body Site DEPO MEDROL 40 MG/ML Mar 24, 2017 DEXAMETHASONE 4MG/ML (PER 1 MG) Mar 24, 2017 THER/PROPH/DIAG INJ, SC/IM Mar 24, 2017 INSTRUCTIONS MEDICATIONS ADMINISTERED No Known Medications [...]
--- OUTSIDE RECORDS SUMMARY | 2018-04-11 18:57 | XMS REPORT ---
Author Author VJ MARIN Organization [facility] Address [address] [place] [address] Care Team Providers Care Craps Manager Name Role Phone VJ MARIN Unavailable PROBLEMS Type Condition ICD9-CM Code HKE94-ZD Code Onset Dates Condition Status SNOMED Code Problem Elevated LDL cholesterol level E78.00 Active 155150032 Problem Pseudotumor cerebri G93.2 Active 01033877 Problem GERD (gastroesophageal reflux disease) K21.9 Active 954466204 Problem Attention deficit hyperactivity disorder (ADHD), unspecified ADHD type F90.9 Active 215867038 Problem Urinary retention R33.9 Active 697022744 Problem Obesity E66.9 Active 053485270 Problem Chronic headaches R51 Active 074655027 Problem Fibromyalgia M79.7 Active 242424145 Problem Depression F32.9 Active 153507704 ALLERGIES No Information ENCOUNTERS Encounter Location Date Diagnosis [facility] [id number] [place] [address] 70083 -0022 10 Mar, 2017 Acute middle ear effusion, bilateral H65.193 [facility] [id number] [place] [address] 14104- 9407 14 Feb, 2017 Hospital discharge follow-up Z09 and Depression F32.9 [facility] [id number] [place] [address] 75374- 3934 11 Feb, 2017 Hospital discharge follow-up Z09 and Depression F32.9 [facility] [id number] [place] [address] 67262- 4056 Jan, [facility] [place] [id number] [place] [address] [id number] Jan, [facility] [id number] [place] [address] 43217 -6383 Dec, [facility] [id number] [place] [address] 38624- 0646 Dec, Attention deficit hyperactivity disorder (ADHD), unspecified ADHD type F90.9 [place] [address] 87602- 1528 Dec, Depression F32.9 and Fibromyalgia M79.7 [place] [address] 11139- 0845 Dec, Depression F32.9 ; Chronic headaches R51 ; Fibromyalgia M79.7 ; GERD (gastroesophageal reflux disease) K21.9 ; Obesity E66.9 and Attention deficit hyperactivity disorder (ADHD), unspecified ADHD type F90.9 [place] [address] 61538- 1697 Nov, [place] [address] 57604- 0027 Nov, [facility] [address] 04499 -3810 Sep, Gastroenteritis K52.9 [place] [address] 57345- 6290 Sep, Vaginal discharge N89.8 ; Possible exposure to STD Z20.2 and Vaginal candidiasis B37.3 [facility] [place] [id number] [place] [address] 40016 -5862 Aug, Sore throat J02.9 and Pharyngitis, unspecified etiology J02.9 [place] [id number] [place] [address] 23640- 3316 Aug, Pseudotumor cerebri G93.2 ; GERD (gastroesophageal reflux disease) K21.9 ; Obesity E66.9 ; Depression F32.9 ; Urinary retention R33.9 ; Fibromyalgia M79.7 and Chronic headaches R51 [place] [id number] [place] [address] 13080- 6855 Apr, [place] [id number] [place] [address] 5336 Apr, [facility] [id number] [place] [address] 95672- 4078 Apr, Pseudotumor cerebri G93.2 ; Chronic headaches R51 ; GERD ( gastroesophageal reflux disease) K21.9 ; Fibromyalgia M79.7 ; Urinary retention R33.9 and Excess skin of abdominal wall L98.7 [facility] [id number] [place] [address] 67893- 8823 Mar, [facility] [id number] [place] [address] 73734- 6863 Mar, [place] [id number] [place] [address] [id number] Mar, Encounter for immunization Z23 [facility] [address] [place] [id number] [place] [address] 76943- 5477 Feb, [facility] [address] 59117- 2350 Feb, [facility] [id number] [place] [address] 52206- 6308 Jan, Fibromyalgia M79.7 ; Obesity E66.9 ; Depression F32.9 ; Pseudotumor cerebri G93.2 ; GERD with apnea K21.9 ; Chronic headaches R51 and Urinary retention R33.9 [facility] [id number] [place] [address] 41986- 7942 Jan, [facility] [id number] [place] [address] 99570- 7681 Dec, Obesity E66.9 ; Fibromyalgia M79.7 ; Depression F32.9 ; Pseudotumor cerebri G93.2 ; Chronic headaches R51 and GERD (gastroesophageal reflux disease) K21.9 [facility] [id number] [place] [address] 87742- 2142 Dec, [facility] [id number] [place] [address] 21718- 4132 Nov, Fibromyalgia M79.7 ; Obesity E66.9 and Elevated cholesterol E78.0 [place] [address] 79695- 4895 Nov, Pseudotumor cerebri G93.2 ; Chronic headaches R51 ; Obesity E66.9 ; Fibromyalgia M79.7 ; GERD (gastroesophageal reflux disease) K21.9 and Elevated cholesterol E78.0 [place] [address] 27784- 8703 Nov, Obesity E66.9 [facility] [place] [address] 28481 -9242 October, Nausea R11.0 and Urinary retention with incomplete bladder emptying R33.9 [place] [address] 09802- 1913 October, [facility] [address] 32098 -0089 October, Dysuria R30.0 [place] [address] 72898- 4973 October, [place] [address] 66803- 5702 Sep, [place] [address] 00917- 0837 Sep, Obesity E66.9 ; Depression F32.9 ; Fibromyalgia M79.7 ; Pseudotumor cerebri G93.2 ; Chronic headaches R51 and GERD with apnea K21.9 [place] [address] 05004- 6483 Aug, Pseudotumor cerebri G93.2 ; Chronic headaches R51 ; GERD ( gastroesophageal reflux disease) K21.9 ; Obesity E66.9 ; Fibromyalgia M79.7 and Depression F32.9 [place] [address] 52581- 0175 Aug, [facility] [id number] [place] [address] 17101- 0278 Aug, [facility] [id number] [place] [address] 09075- 6278 Aug, [facility] [id number] [place] [address] 57468- 2317 Jul, [facility] [address] 32624- 7583 Jul, [facility] [id number] [place] [address] 36937- 2046 Jul, Depression F32.9 [facility] [id number] [place] [address] 03804- 1660 Jul, Pseudotumor cerebri G93.2 ; Chronic headaches R51 ; GERD ( gastroesophageal reflux disease) K21.9 ; Obesity E66.9 ; Fibromyalgia M79.7 and Depression F32.9 [facility] [id number] [place] [address] 06238- 5699 Jul, [facility] [id number] [place] [address] 18622- 5466 Jul, [facility] [id number] [place] [address] 72394- 2841 Jun, [facility] [id number] [place] [address] 32980- 8682 Jun, Pseudotumor cerebri G93.2 ; Chronic headaches R51 ; Obesity E66.9 ; GERD (gastroesophageal reflux disease) K21.9 ; Fibromyalgia M79.7 ; Depression F32.9 and Conjunctivitis H10.9 [facility] [id number] [place] [address] 99095 -0752 Jun, Facial rash R21 [facility] [id number] [place] [address] 66185- 7828 Jun, Obesity, unspecified E66.9 [facility] [id number] [place] [address] 35068- 6803 May, [facility] [id number] [place] [address] 73304- 0414 May, [facility] [address] 95463- 2105 May, Vaginal itching L29.8 and Dysuria R30.0 [facility] [address] 12787- 0394 May, [facility] [address] 60283- 9112 May, [facility] [address] 41362 -5003 May, Acute pharyngitis, unspecified J02.9 and Seasonal allergies J30.2 [facility] [id number] [place] [address] 83786- 5752 Apr, Pseudotumor cerebri G93.2 ; Chronic headaches R51 ; Obesity E66.9 ; GERD with apnea K21.9 and GERD (gastroesophageal reflux disease) K21.9 [place] [id number] [place] [address] 54253- 4303 30 Mar, 2015 [place] [id number] [place] [address] 90254- 4694 14 Mar, 2015 [facility] [id number] [place] [address] 05845- 7931 Mar, [place] [address] 19172- 4131 Mar, [place] [address] 45961- 3523 09 Mar, 2015 Pseudotumor cerebri G93.2 ; Chronic headaches R51 ; Obesity E66.9 ; Fibromyalgia M79.7 and GERD (gastroesophageal reflux disease) K21.9 [facility] [address] [address]- 5995 Jan, [facility] [id number] [place] [address] 16395- 3465 Jan, Elevated liver enzymes 790.5 [facility] [id number] [place] [address] 06282- 7922 Jan, Elevated liver enzymes 790.5 [facility] [id number] [place] [address] 47972- 3055 Dec, Headache 784.0 ; Obesity, unspecified 278.00 ; Abnormal weight gain 783.1 ; GERD (gastroesophageal reflux disease) 530.81 and Depression 311 [facility] [id number] [place] [address] 55104- 9166 Dec, Chronic headaches 784.0 [facility] [id number] [place] [address] 09262- 4744 Dec, [facility] [id number] [place] [address] 90728- 0289 Dec, [facility] [id number] [place] [address] 57979- 0852 Dec, Headache 784.0 ; Obesity, unspecified 278.00 ; Tick bite 919.4 and GERD (gastroesophageal reflux disease) 530.81 [facility] [address] [address]- 6128 Sep, [facility] [id number] [place] [address] 12214- 2471 Sep, [facility] [id number] [place] [address] 99479- 5007 Aug, [facility] [id number] [place] [address] 76691- 7860 Aug, [facility] [id number] [place] [address] 96988- 5239 Aug, [facility] [place] [facility] [address] [id number] [place] [address]- 4795 18 Aug, 2014 [facility] [place] [facility] [address] [id number] [place] [address]- 9856 Aug, 2014 [facility] [place] [facility] [address] [id number] [place] [address]- 5563 Aug, 2014 [facility] [place] [facility] [address] [id number] [place] [address]- 6772 05 Aug, 2014 [facility] [place] [facility] [address] [id number] [place] [address]- 9309 Aug, 2014 [facility] [place] [facility] [address] [id number] [place] [address]- 7782 Jul, 2014 [facility] [place] [facility] [address] [id number] [place] [address]- 5278 Jul, 2014 [facility] [place] [facility] [address] [id number] [place] [address]- 8817 12 Feb, 2013 [facility] [place] [facility] [address] [id number] [place] [address]- 4317 11 Feb, 2013 [facility] [place] [facility] [address] [id number] [place] [address]- 3654 Feb, 2013 [facility] [place] [facility] [address] [id number] [place] [address]- 2130 11 Feb, 2013 [facility] [place] [facility] [address] [id number] [place] [address]- 8206 11 Feb, 2013 [facility] [place] [facility] [address] [id number] [place] [address]- 2544 11 Feb, 2013 [facility] [place] [facility] [address] [id number] [place] [address]- 2548 11 Feb, 2013 [facility] [place] [facility] [address] [id number] [place] [address]- 5082 03 Feb, 2013 [facility] [place] [facility] [address] [id number] 7519 Feb, [facility] [address] [place] [address]- 9750 Jun, [facility] [address]- 6056 Jun, [facility] [address] [place] [address]- 7446 May, [facility] [address] [place] [address] 31598- 2975 May, [facility] [id number] [place] [address] 72334- 8471 May, [facility] [address] [place] [address] 29827- 5335 May, [facility] [id number] [place] [address] 13425- 5376 May, [facility] [address] [place] [address]- 3764 May, [facility] [id number] [place] [address] 40182- 7654 May, [facility] [address] [place] [address]- 5810 May, [facility] [address] [place] [address]- 1841 Mar, [facility] [address] [place] [address]- 3008 Mar, IMMUNIZATIONS No Known Immunizations SOCIAL HISTORY Never Assessed REASON FOR VISIT PLAN OF CARE VITAL SIGNS MEDICATIONS Medication Instructions Dosage Frequency Start Date End Date Duration Status Adderall XR 20 mg Orally Once a day 1 capsule in the morning 24h 10 Nov, 2016 Active RESULTS No Results PROCEDURES No Known [...]
--- OUTSIDE RECORDS SUMMARY | 2018-04-11 18:57 | XMS REPORT ---
Author Author TIMBO Storm Organization [facility] Address [address] [place] [address] Care Team Providers Care Career Services Manager Name Role Phone TIMBO Storm Unavailable PROBLEMS Type Condition ICD9-CM Code ZAG56-IW Code Onset Dates Condition Status SNOMED Code Problem Elevated LDL cholesterol level E78.00 Active 020724371 Problem Pseudotumor cerebri G93.2 Active 65099803 Problem GERD (gastroesophageal reflux disease) K21.9 Active 312722708 Problem Attention deficit hyperactivity disorder (ADHD), unspecified ADHD type F90.9 Active 963490082 Problem Urinary retention R33.9 Active 813928100 Problem Obesity E66.9 Active 975469281 Problem Chronic headaches R51 Active 978314803 Problem Fibromyalgia M79.7 Active 771048863 Problem Depression F32.9 Active 888081860 ALLERGIES Substance Reaction Event Type Date Status Diflucan Unknown Drug Allergy Dec, Active Morphine Unknown Drug Allergy Dec, Active Cajun seasoning hives Non Drug Allergy Dec, Active ENCOUNTERS Encounter Location Date Diagnosis [facility] [address], [place] [address] Mar, Acute middle ear effusion, bilateral H65.193 [facility] [address], [place] [address] 14 Feb, 2017 Hospital discharge follow-up Z09 and Depression F32.9 [facility] [id number] [place] [address]127- 3144 11 Feb, 2017 Hospital discharge follow-up Z09 and Depression F32.9 [facility] [address], [place] [address] 08 Jan, 2017 [facility] [id number] [place] [id number] Jan, [facility] [id number] [place] [address]359 Dec, [place] [id number] [place] [address] 85628- 4490 Dec, Attention deficit hyperactivity disorder (ADHD), unspecified ADHD type F90.[address] [address] Dec, Depression F32.9 and Fibromyalgia M79.7 [place] [id number] [place] [address] 58616- 7249 Dec, Depression F32.9 ; Chronic headaches R51 ; Fibromyalgia M79.7 ; GERD (gastroesophageal reflux disease) K21.9 ; Obesity E66.9 and Attention deficit hyperactivity disorder (ADHD), unspecified ADHD type F90.9 [place] [id number] [place] [address] 50283- 3686 Nov, [place] [id number] [place] [address] 14721- 9104 Nov, [facility] [place] [id number] [place] [address]35 [address]9327 Sep, Gastroenteritis K52.9 [place] [id number] [place] [address] 47268- 0823 Sep, Vaginal discharge N89.8 ; Possible exposure to STD Z20.2 and Vaginal candidiasis B37.3 [facility] [place] [id number] [place] [address] 62942 -1805 Aug, Sore throat J02.9 and Pharyngitis, unspecified etiology J02.9 [place] [id number] [place] [address] 15832- 9200 Aug, Pseudotumor cerebri G93.2 ; GERD (gastroesophageal reflux disease) K21.9 ; Obesity E66.9 ; Depression F32.9 ; Urinary retention R33.9 ; Fibromyalgia M79.7 and Chronic headaches R51 [facility] [id number] [place] [address] 17612- 2195 Apr, [facility] [address] [address] Apr, [place] [id number] [place] [address] 27782- 8959 Apr, Pseudotumor cerebri G93.2 ; Chronic headaches R51 ; GERD ( gastroesophageal reflux disease) K21.9 ; Fibromyalgia M79.7 ; Urinary retention R33.9 and Excess skin of abdominal wall L98.7 [place] [id number] [place] [address] 83989- 6234 Mar, [place] [id number] [place] [address] 72779- 0037 Mar, [facility] [id number] [place] [id number] Mar, Encounter for immunization Z23 [facility] [id number] [place] [address] 17145- 9274 Feb, [place] [address] [address] Feb, [place] [id number] [place] [address] 75844- 8430 Jan, Fibromyalgia M79.7 ; Obesity E66.9 ; Depression F32.9 ; Pseudotumor cerebri G93.2 ; GERD with apnea K21.9 ; Chronic headaches R51 and Urinary retention R33.9 [facility] [id number] [place] [address] 76390- 1009 Jan, [place] [address] [address] 2303 Dec, Obesity E66.9 ; Fibromyalgia M79.7 ; Depression F32.9 ; Pseudotumor cerebri G93.2 ; Chronic headaches R51 and GERD (gastroesophageal reflux disease) K21.9 [place] [id number] [place] [address] 31260- 8084 Dec, [place] [address] 16743- 9661 Nov, Fibromyalgia M79.7 ; Obesity E66.9 and Elevated cholesterol E78.0 [place] [id number] [place] [address] 32574- 3802 Nov, Pseudotumor cerebri G93.2 ; Chronic headaches R51 ; Obesity E66.9 ; Fibromyalgia M79.7 ; GERD (gastroesophageal reflux disease) K21.9 and Elevated cholesterol E78.0 [place] [address] [address]- 5140 Nov, Obesity E66.9 [facility] [id number] [place] [address] 39135 -3985 October, Nausea R11.0 and Urinary retention with incomplete bladder emptying R33.9 [place] [id number] [place] [address] 60903- 4160 October, [facility] [address] [address] October, Dysuria R30.0 [place] [address] 85213- 7678 October, [place] [id number] [place] [address] 93916- 7449 Sep, [place] [id number] [place] [address] 47197- 6345 Sep, Obesity E66.9 ; Depression F32.9 ; Fibromyalgia M79.7 ; Pseudotumor cerebri G93.2 ; Chronic headaches R51 and GERD with apnea K21.9 [facility] [id number] [place] [address] 62176- 9746 Aug, Pseudotumor cerebri G93.2 ; Chronic headaches R51 ; GERD ( gastroesophageal reflux disease) K21.9 ; Obesity E66.9 ; Fibromyalgia M79.7 and Depression F32.9 [facility] [id number] [place] [address] 03857- 3538 Aug, [facility] [address] 57287- 7151 Aug, [facility] [address] [address]15- 2300 Aug, [facility] [address] 61391- 2728 Jul, [facility] [address] 91786- 1908 Jul, [facility] [address] 84760- 7119 Jul, Depression F32.9 [facility] [id number] [place] [address] 60044- 4012 Jul, Pseudotumor cerebri G93.2 ; Chronic headaches R51 ; GERD ( gastroesophageal reflux disease) K21.9 ; Obesity E66.9 ; Fibromyalgia M79.7 and Depression F32.9 [facility] [id number] [place] [address] 78449- 5073 Jul, [facility] [id number] [place] [address] 35444- 1001 Jul, [facility] [id number] [place] [address] 79694- 7973 Jun, [facility] [id number] [place] [address] 07285- 0977 Jun, Pseudotumor cerebri G93.2 ; Chronic headaches R51 ; Obesity E66.9 ; GERD (gastroesophageal reflux disease) K21.9 ; Fibromyalgia M79.7 ; Depression F32.9 and Conjunctivitis H10.9 [facility] [address] 63134 [address]2951 Jun, Facial rash R21 [facility] [id number] [place] [address] 22774- 9782 Jun, Obesity, unspecified E66.9 [facility] [id number] [place] [address] 97769- 7748 May, [facility] [address] 28440- 3451 May, [facility] [address] 49575- 8308 May, Vaginal itching L29.8 and Dysuria R30.0 [place] [address] 11143- 6158 May, [facility] [address] 62298- 1001 May, [facility] [id number] [place] [address] 05361 -4538 May, Acute pharyngitis, unspecified J02.9 and Seasonal allergies J30.2 [facility] [id number] [place] [address] 28718- 1329 Apr, Pseudotumor cerebri G93.2 ; Chronic headaches R51 ; Obesity E66.9 ; GERD with apnea K21.9 and GERD (gastroesophageal reflux disease) K21.9 [facility] [id number] [place] [address] 29026- 1908 Mar, [facility] [id number] [place] [address] 02166- 7069 Mar, [facility] [address] 53146- 0019 Mar, [facility] [id number] [place] [address] 33182- 7642 Mar, [facility] [address] 67239- 3549 Mar, Pseudotumor cerebri G93.2 ; Chronic headaches R51 ; Obesity E66.9 ; Fibromyalgia M79.7 and GERD (gastroesophageal reflux disease) K21.9 [facility] [id number] [place] [address] 43884- 1913 Jan, [facility] [id number] [place] [address] 77836- 0519 Jan, Elevated liver enzymes 790.5 [place] [id number] [place] [address] 25763- 8751 Jan, Elevated liver enzymes 790.5 [place] [id number] [place] [address] 63011- 6101 Dec, Headache 784.0 ; Obesity, unspecified 278.00 ; Abnormal weight gain 783.1 ; GERD (gastroesophageal reflux disease) 530.81 and Depression [address] [place] [id number] [place] [address] 44330- 4511 Dec, Chronic headaches 784.0 [place] [id number] [place] [address] 17198- 0202 Dec, [place] [id number] [place] [address] 95595- 4465 Dec, [place] [id number] [place] [address] 58329- 9352 Dec, Headache 784.0 ; Obesity, unspecified 278.00 ; Tick bite 919.4 and GERD (gastroesophageal reflux disease) 530.81 [place] [id number] [place] [address] 78680- 6958 Sep, [place] [address] 55319- 6267 Sep, [place] [id number] [place] [address] 11236- 5639 Aug, [place] [address] [place] [address]- 7829 28 Aug, 2014 [facility] [place] [facility] [address] [id number] [place] [address]- 5391 18 Aug, 2014 [facility] [place] [facility] [address] [id number] [place] [address]- 1052 18 Aug, 2014 [facility] [place] [facility] [address] [id number] [place] [address]- 9519 13 Aug, 2014 [facility] [place] [facility] [address] [id number] [place] [address]- 9270 13 Aug, 2014 [facility] [place] [facility] [address] [id number] [place] [address]- 0225 05 Aug, 2014 [facility] [place] [facility] [address] [id number] [place] [address]- 8596 05 Aug, 2014 [facility] [place] [facility] [address] [id number] [place] [address]- 8393 Jul, 2014 [facility] [place] [facility] [address] [id number] [place] [address]- 3402 Jul, 2014 [facility] [place] [facility] [address] [id number] [place] [address]- 2192 12 Feb, 2014 [facility] [place] [facility] [address] [id number] [place] [address]- 7498 Feb, 2013 [facility] [place] [facility] [address] [id number] [place] [address] 2548 Feb, 2013 [facility] [place] [facility] [address] [id number] [place] [address]- 2543 11 Feb, 2013 [facility] [place] [facility] [address] [id number] [place] [address] 2540 11 Feb, 2014 [facility] [place] [facility] [address] [id number] [place] [address]- 2543 Feb, 2013 [facility] [place] [facility] [address] [id number] [place] [address]- 2549 Feb, [facility] [address] [facility] [id number] [address]- 0353 Feb, [facility] [address] [facility] [id number], [place] [address]- 0947 Feb, [facility] [address] [facility] [id number], [place] [address]- 3045 Jun, [facility] [address] [facility] [id number], [place] [address]- 4622 Jun, [facility] [address] [facility] [id number], [place] [address]- 0487 May, [facility] [address] [facility] [id number] 7113 May, [facility] [address] 7984 May, [facility] [address], [place] [address]- 5415 May, [facility] [id number] [address]- 1840 May, [facility] [id number], [place] [address]- 4826 May, [facility] [id number], [place] [address]- 4620 May, [facility] [id number] [address]- 0264 May, [facility] [address] [facility] [id number], [place] [address]- 3780 Mar, [facility] [id number] 1618 Mar, IMMUNIZATIONS No Known Immunizations SOCIAL HISTORY Never Assessed REASON FOR VISIT [facility] f/u, discharged 11/21/16, Requesting refills on Savella and Indomethacin, zoloft, and adderall PLAN OF CARE Activity Details Follow Up 3 Months Reason:depression VITAL SIGNS Height 68 in 2016-12-15 Weight 173.3 lbs 2016-12-15 Temperature 98.4 degrees Fahrenheit 2016-12-15 Heart Rate 88 bpm 2016-12-15 Respiratory Rate 18 2016-12-15 BMI 26.35 kg/m2 2016-12-15 Blood pressure systolic 116 mmHg 2016-12-15 Blood pressure diastolic 74 mmHg 2016-12-15 MEDICATIONS Medication Instructions Dosage Frequency Start Date End Date Duration Status Savella 100 mg TAKE ONE TABLET BY MOUTH TWICE A DAY 12h 30 Active Indomethacin 50 mg Orally Twice a day 1 capsule with food 12h Active Neurontin 600 MG Orally Three times a day TAKE ONE CAPSULE BY MOUTH THREE TIMES A DAY 8h Active Hydrocodone-Acetaminophen 5-325 MG Orally 3 times a day 1 tablet as needed 8h Active Omeprazole 40 Orally Once a day TAKE ONE CAPSULE BY MOUTH DAILY 24h 30 Active Adderall XR 20 mg Orally Once a day 1 capsule in the morning 24h Nov, Active Vitamin B-12 500 MCG Orally Once a day 1 tablet 24h Active Zoloft 25 MG Orally Once a day 1 tablet 24h Active Topamax 100 mg Orally Twice a day 1 Tablet PO in am and 2 tablets at NOC 12h Aug, 30 days Active RESULTS No Results PROCEDURES No Known [...]
--- OUTSIDE RECORDS SUMMARY | 2018-04-11 18:58 | XMS REPORT ---
Author Author TIMBO GUILLEN Organization [facility] Address [address] [place] [address] Care Team Providers Care Lead Setter Name Role Phone TIMBO GUILLEN Unavailable PROBLEMS Type Condition ICD9-CM Code IID67-ZY Code Onset Dates Condition Status SNOMED Code Problem Elevated LDL cholesterol level E78.00 Active 697310996 Problem Pseudotumor cerebri G93.2 Active 66626341 Problem GERD (gastroesophageal reflux disease) K21.9 Active 428534778 Problem Attention deficit hyperactivity disorder (ADHD), unspecified ADHD type F90.9 Active 477022061 Problem Urinary retention R33.9 Active 367743749 Problem Obesity E66.9 Active 870215663 Problem Chronic headaches R51 Active 200807110 Problem Fibromyalgia M79.7 Active 241975858 Problem Depression F32.9 Active 946678009 ALLERGIES No Information SOCIAL HISTORY Never Assessed PLAN OF CARE VITAL SIGNS MEDICATIONS No Known Medications RESULTS No Results PROCEDURES No Known [...]
--- OUTSIDE RECORDS SUMMARY | 2018-04-11 19:00 | XMS REPORT | Continuity of Care Document ---
Author Author [facility] of [facility] of [facility] Address Unknown Phone Unavailable Allergies Active Description Code Type Severity Reaction Onset Reported/Identified Relationship to Patient Clinical Status Yes fluconazole [id number] Drug Allergy Mild N/A 07/05/2012 Yes morphine [id number] Drug Allergy Mild N/A 07/05/2012 Yes TAPE TAPE Mild N/ A 07/05/2012 Yes Diflucan Drug Allergy N/A N/A 08/10/2014 Yes morphine Drug Allergy N/A N/A 08/10/2014 Medications There is no data. Problems Date Dx Coded Attending Type Code Diagnosis Diagnosed By 07/06/2012 Ot 786.50 07/06/2012 Ot 786.52 05/24/2013 EISENBERG DO, RADHA K 278.00 OBESITY 05/24/2013 EISENBERG DO, RADHA K V72.31 CREMATOR EXAM, ROUTINE 05/24/2013 EISENBERG DO, RADHA K V76.10 BREAST CANCER SCREENING 05/24/2013 WHITE DDS, DAVID J 278.00 OBESITY 05/24/2013 WHITE DDS, DAVID J V72.31 CREMATOR EXAM, ROUTINE 05/24/2013 WHITE DDS, DAVID J V76.10 BREAST CANCER SCREENING 05/24/2013 PAUL BRITO, SUE A 278.00 OBESITY 05/24/2013 PAUL BRITO, SUE A V72.31 CREMATOR EXAM, ROUTINE 05/24/2013 PALU MILLERN, SUE A V76.10 BREAST CANCER SCREENING 05/24/2013 EISENBERG DO, RADHA K 278.00 OBESITY 05/24/2013 EISENBERG DO, RADHA K V72.31 CREMATOR EXAM, ROUTINE 05/24/2013 EISENBERG DO, RADHA K V76.10 BREAST CANCER SCREENING 05/24/2013 EISENBERG DO, RADHA K 278.00 OBESITY 05/24/2013 EISENBERG DO, RADHA K V72.31 CREMATOR EXAM, ROUTINE 05/24/2013 EISENBERG DO, RADHA K V76.10 BREAST CANCER SCREENING 05/25/2013 WHITE DDS, DAVID J V72.62 LABORATORY EXAMINATION ORDERED PART OF A ROUTINE GENERAL MEDICAL EXAMINATION 05/25/2013 SUE MILLER APRN V72.62 LABORATORY EXAMINATION ORDERED PART OF A ROUTINE GENERAL MEDICAL EXAMINATION 05/25/2013 ELGIN BAH ARDHA K V72.62 LABORATORY EXAMINATION ORDERED PART OF A ROUTINE GENERAL MEDICAL EXAMINATION 05/25/2013 ELGIN BAH RADHA K V72.62 LABORATORY EXAMINATION ORDERED PART OF A ROUTINE GENERAL MEDICAL EXAMINATION 02/15/2014 SUE MILLER APRN 620.2 OTHER AND UNSPECIFIED OVARIAN CYST 02/15/2014 ELGIN RADHA BAH 620.2 OTHER AND UNSPECIFIED OVARIAN CYST 02/15/2014 ELGIN BAHRADHA 620.2 OTHER AND UNSPECIFIED OVARIAN CYST 02/25/2014 EILEEN CLARK Ot 346.90 02/25/2014 EILEEN CLARK Ot 784.0 02/25/2014 EILEEN CLARK L Ot 789.00 05/09/2014 SUE MILLER APRN Ot 620.2 05/09/2014 SHAH DO, BERTIN C Ot 625.9 05/09/2014 SHAH DO, BERTIN C Ot V72.63 05/09/2014 SHAH DO, BERTIN C Ot V74.8 05/09/2014 SHAH DO, BERTIN C Ot 543.0 05/09/2014 SHAH DO, BERTIN C Ot 614.6 05/09/2014 SHAH DO, BERTIN C Ot 620.1 05/09/2014 SHAH DO, BERTIN C Ot 620.2 05/09/2014 SHAH DO, BERTIN C Ot 620.8 05/18/2014 PAUL SUEAVEL Webber APRN Ot 620.2 05/18/2014 SHAH DO, BERTIN C Ot 625.9 05/18/2014 SHAH DO, BERTIN C Ot V72.63 05/18/2014 SHAH DO, BERTIN C Ot V74.8 05/18/2014 SHAH DO, BERTIN C Ot 625.9 05/18/2014 SHAH DO, BERTIN C Ot V72.63 05/18/2014 SHAH DO, BERTIN C Ot V74.8 05/18/2014 ADRIEN VALENTIN Ot 620.2 05/18/2014 VALENTIN, ADRIEN E PILE HEADER Ot 789.00 05/18/2014 SUE MILLER HUMAN RESOURCE ADVISOR Ot 620.2 05/18/2014 VALENTIN, ADRIEN E PILE HEADER Ot 620.2 05/18/2014 VALENTIN, ADRIEN E PILE HEADER Ot 789.00 05/18/2014 VALENTIN, ADRIEN E PILE HEADER Ot 620.2 05/18/2014 VALENTIN, ADRIEN E PILE HEADER Ot 789.00 05/18/2014 SHAH DO, BERTIN C Ot 625.9 05/18/2014 SHAH DO, BERTIN C Ot V72.63 05/18/2014 SHAH DO, BERTIN C Ot V74.8 05/18/2014 SHAH DO, BERTIN C Ot 625.9 05/18/2014 SHAH DO, BERTIN C Ot V72.63 05/18/2014 SHAH DO, BERTIN C Ot V74.8 05/18/2014 SUE MILLER A HUMAN RESOURCE ADVISOR Ot 620.2 05/31/2014 SUE MILLER HUMAN RESOURCE ADVISOR Ot 620.2 05/31/2014 SHAH DO, BERTIN C Ot 625.9 05/31/2014 SHAH DO, BERTIN C Ot V72.63 05/31/2014 SHAH DO, BERTIN C Ot V74.8 05/31/2014 ANAYA MILLERIDI A HUMAN RESOURCE ADVISOR Ot 620.2 05/31/2014 VALENTIN, ADRIEN E PILE HEADER Ot 620.2 05/31/2014 VALENTIN, ADRIEN E PILE HEADER Ot 789.00 06/01/2014 VALENTIN, ADRIEN E PILE HEADER Ot 620.2 06/01/2014 VALENTIN, ADRIEN E PILE HEADER Ot 789.00 06/01/2014 ANAYA MILLERIDI A HUMAN RESOURCE ADVISOR Ot 620.2 06/01/2014 SHAH DO, BERTIN C Ot 625.9 06/01/2014 SHAH DO, BERTIN C Ot V72.63 06/01/2014 SHAH DO, BERTIN C Ot V74.8 06/13/2014 SHAH DO, BERTIN C Ot 625.9 06/13/2014 SHAH DO, BERTIN C Ot V72.63 06/13/2014 SHAH DO, BERTIN C Ot V74.8 06/14/2014 VALENTINMARCUS SANDOVALY E PILE HEADER Ot 620.2 06/14/2014 VALENTIN ADRIEN E PILE HEADER Ot 789.00 06/14/2014 SUE MILLER HUMAN RESOURCE ADVISOR Ot 620.2 06/14/2014 SHAH DO, BERTIN C Ot 625.9 06/14/2014 SHAH DO, BERTIN C Ot V72.63 06/14/2014 SHAH DO, BERTIN C Ot V74.8 06/30/2014 VALENTIN ADRIEN E PILE HEADER Ot 620.2 06/30/2014 VALENTIN ADRIEN E PILE HEADER Ot 789.00 06/30/2014 SUE MILLER HUMAN RESOURCE ADVISOR Ot 620.2 06/30/2014 SHAH DO, BERTIN C Ot 625.9 06/30/2014 SHAH DO, BERTIN C Ot V72.63 06/30/2014 SHAH DO, BERTIN C Ot V74.8 07/13/2014 SHAH DO, BERTIN C Ot 625.9 07/13/2014 SHAH DO, BERTIN C Ot V72.63 07/13/2014 SHAH DO, BERTIN C Ot V74.8 07/17/2014 SHAH DO, BERTIN C Ot 625.9 07/17/2014 SHAH DO, BERTIN C Ot V72.63 07/17/2014 SHAH DO, BERTIN C Ot V74.8 07/27/2014 VALENTINMARCUSY E PILE HEADER Ot 620.2 07/27/2014 VALENTIN ADRIEN E PILE HEADER Ot 789.00 07/27/2014 SUE MILLER HUMAN RESOURCE ADVISOR Ot 620.2 07/27/2014 SHAH DO, BERTIN C Ot 625.9 07/27/2014 SHAH DO, BERTIN C Ot V72.63 07/27/2014 SHAH DO, BERTIN C Ot V74.8 07/27/2014 MARCIA BARFIELD HUMAN RESOURCE ADVISOR Ot 487.1 FLU W RESP MANIFEST NEC 07/27/2014 MARCIA BARFIELD HUMAN RESOURCE ADVISOR Ot 780.60 FEVER, UNSPECIFIED 07/29/2014 DEBO HAAS DO Ot 034.0 STREP SORE THROAT 07/29/2014 DEBO HAAS DO Ot 349.0 LUMBAR PUNCTURE REACTION 07/29/2014 DEBO HAAS DO Ot 462 ACUTE PHARYNGITIS 08/10/2014 RADHA EISENBERG DO K 784.0 HEADACHE 09/09/2014 RADHA EISENBERG DO K 783.1 ABNORMAL WEIGHT GAIN 09/14/2014 Ot 473.9 09/14/2014 Ot 784.0 10/12/2014 VALENTIN, ADRIEN E PILE HEADER Ot 620.2 10/12/2014 VALENTIN, ADRIEN E PILE HEADER Ot 789.00 10/16/2014 Ot 473.9 10/16/2014 Ot 784.0 11/19/2014 Ot 473.9 11/19/2014 Ot 784.0 01/04/2015 Ot 473.9 01/04/2015 Ot 784.0 01/06/2015 Ot 473.9 01/06/2015 Ot 784.0 01/06/2015 MANJIT PATRICK, EARL Duncan Ot 786.50 CHEST PAIN NOS 01/06/2015 MANJIT PATRICK, EARL uDncan Ot 786.59 CHEST PAIN NEC 03/22/2015 Ot 473.9 03/22/2015 Ot 784.0 04/30/2015 VALENTIN ADRIEN E PILE HEADER Ot 620.2 04/30/2015 VALENTIN ADRIEN E PILE HEADER Ot 789.00 04/30/2015 SUE MILLER HUMAN RESOURCE ADVISOR Ot 620.2 04/30/2015 SHAH BERTIN BAH Ot 625.9 04/30/2015 SHAH DO BERTIN C Ot V72.63 04/30/2015 SHAH DO BERTIN C Ot V74.8 04/30/2015 VALENTIN ADRIEN E PILE HEADER Ot 620.2 04/30/2015 VALENTIN ADRIEN E PILE HEADER Ot 789.00 04/30/2015 SUE MILLER HUMAN RESOURCE ADVISOR Ot 620.2 04/30/2015 SHAH DO BERTIN C Ot 625.9 04/30/2015 PABLO BAH BERTIN C Ot V72.63 04/30/2015 KARINA SHAH DOA C Ot V74.8 09/19/2015 VALENTIN ADRIEN E PILE HEADER Ot 620.2 09/19/2015 VALENTIN, ADRIEN E PILE HEADER Ot 789.00 09/19/2015 SUE MILLER APRN Ot 620.2 09/19/2015 SHAHBERTIN Conte DO Ot 625.9 09/19/2015 BERTIN SHAH DO Ot V72.63 09/19/2015 BERTIN SHAH DO Ot V74.8 01/12/2017 Ot 473.9 CHRONIC SINUSITIS NOS 01/12/2017 Ot 784.0 HEADACHE 01/14/2017 ANTHONY PATRICK, WESLEY Stahl Ot E87.6 HYPOKALEMIA 01/14/2017 ANTHONY PATRICK, WESLEY Stahl Ot F32.9 MAJOR DEPRESSIVE DISORDER, SINGLE EPISOD 01/14/2017 WESLEY CRUZ MD Ot F90.9 ATTENTION-DEFICIT HYPERACTIVITY DISORDER 01/14/2017 ANTHONY PATRICK, WESLEY Stahl Ot M79.7 FIBROMYALGIA 01/14/2017 WESLEY CRUZ MD Ot 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.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, INTENTIONAL SE 03/28/2017 DEBO HAAS DO Ot E78.00 PURE HYPERCHOLESTEROLEMIA, UNSPECIFIED 03/28/2017 DEBO HAAS DO Ot F17.210 NICOTINE DEPENDENCE, CIGARETTES, UNCOMPL 03/28/2017 DEBO HAAS DO Ot F32.9 MAJOR DEPRESSIVE DISORDER, SINGLE EPISOD 03/28/2017 DEBO HAAS DO Ot M25.522 PAIN IN LEFT ELBOW 03/28/2017 DEBO HAAS DO Ot S53.402A UNSPECIFIED SPRAIN OF LEFT ELBOW, INITIA 03/28/2017 DEBO HAAS DO Ot S63.502A UNSPECIFIED SPRAIN OF LEFT WRIST, INITIA 03/28/2017 DEBO HAAS DO Ot W01.0XXA FALL SAME LEV FROM SLIP/TRIP W/O STRIKE 03/28/2017 DEBO HAAS DO Ot Z90.49 ACQUIRED ABSENCE OF OTHER SPECIFIED PART 03/28/2017 DEBO HAAS DO Ot Z90.710 ACQUIRED ABSENCE OF BOTH CERVIX AND UTER 03/28/2017 DEBO HAAS DO Ot Z91.5 PERSONAL HISTORY OF SELF-HARM Procedures Code Description [place] [address] ROUTINE VENIPUNCTURE 05/25/2013 33924 CBC 05/25/2013 59579 CMP 05/25/2013 67135 LIPID PANEL 05/25/20136566696 GFR CALC (RESULT ONLY) 05/25/2013 78684 A1C (RML) 05/25/2013 60848 TSH 05/25/2013 62366 US PELVIC COMPL (REFLEX CPT - 61560) 02/15/2014 44336 URINE DRUG SCREEN (IN-HOUSE ) 02/23/2014 Obstetric Via [facility] 02/24/2014 Results Test Result Range Genital Culture, Routine - 09/15/16 17:12 Genital Culture, Routine Note Complete blood count (CBC) with automated white blood cell (WBC) differential - 01/12/17 17:34 Blood leukocytes automated count (number/volume) 7.9 10*3/uL 4.3-11.0 Blood erythrocytes automated count (number/volume) 4.07 10*6/uL 4.35-5.85 Venous blood hemoglobin measurement (mass/volume) 12.7 g/dL 11.5-16.0 Blood hematocrit (volume fraction) 37 % 35-52 Automated erythrocyte mean corpuscular volume 91 [foz_us] 80-99 Automated erythrocyte mean corpuscular hemoglobin (mass per erythrocyte) 31 pg 25-34 Automated erythrocyte mean corpuscular hemoglobin concentration measurement ( mass/volume) 34 g/dL 32-36 Automated erythrocyte distribution width ratio 12.2 % 10.0-14.5 Automated blood platelet count (count/volume) 253 10*3/uL 130-400 Automated blood platelet mean volume measurement 11.0 [foz_us] 7.4-10.4 Automated blood neutrophils/100 leukocytes 56 % 42-75 Automated blood lymphocytes/100 leukocytes 36 % 12-44 Blood monocytes/100 leukocytes 6 % 0-12 Automated blood eosinophils/100 leukocytes 2 % 0-10 Automated blood basophils/100 leukocytes 0 % 0-10 Blood neutrophils automated count (number/volume) 4.4 10*3 1.8-7.8 Blood lymphocytes automated count (number/volume) 2.9 10*3 1.0-4.0 Blood monocytes automated count (number/volume) 0.5 10*3 0.0-1.0 Automated eosinophil count 0.2 10*3/uL 0.0-0.3 Automated blood basophil count (count/volume) 0.0 10*3/uL 0.0-0.1 Serum or plasma choriogonadotropin ( test) detection - 01/12/17 17:34 Serum or plasma choriogonadotropin ( test) detection NEGATIVE NEGATIVE Comprehensive metabolic panel - 01/12/17 17:34 Serum or plasma sodium measurement (moles/volume) 143 mmol/L 135-145 Serum or plasma potassium measurement (moles/volume) 3.6 mmol/L 3.6-5.0 Serum or plasma chloride measurement (moles/volume) 115 mmol/L 98-107 Carbon dioxide 20 mmol/L 21-32 Serum or plasma anion gap determination (moles/volume) 8 mmol/L 5-14 Serum or plasma urea nitrogen measurement (mass/volume) 15 mg/dL 7-18 Serum or plasma creatinine measurement (mass/volume) 0.82 mg/dL 0.60-1.30 Serum or plasma urea nitrogen/creatinine mass ratio 18 NRG Serum or plasma creatinine measurement with calculation of estimated glomerular filtration rate > NRG Serum or plasma glucose measurement (mass/volume) 93 mg/dL 70-105 Serum or plasma calcium measurement (mass/volume) 8.4 mg/dL 8.5-10.1 Serum or plasma total bilirubin measurement (mass/volume) 0.3 mg/dL 0.1-1.0 Serum or plasma alkaline phosphatase measurement (enzymatic activity/volume) 68 U/L 40-136 Serum or plasma aspartate aminotransferase measurement (enzymatic activity/ volume) 13 U/L 5-34 Serum or plasma alanine aminotransferase measurement (enzymatic activity/volume ) 15 U/L 0-55 Serum or plasma protein measurement (mass/volume) 6.6 g/dL 6.4-8.2 Serum or plasma albumin measurement (mass/volume) 3.8 g/dL 3.2-4.5 Magnesium - 01/12/17 17:34 Magnesium 1.9 mg/dL 1.8-2.4 Serum or plasma amylase measurement (enzymatic activity/volume) - 01/12/17 17: 34 Serum or plasma amylase measurement (enzymatic activity/volume) 47 U /L 25-125 Lipase - 01/12/17 17:34 Lipase 21 U/L 8-78 Serum or plasma salicylates measurement (mass/volume) - 01/12/17 17:34 Serum or plasma salicylates measurement (mass/volume) < mg/dL 5.0-20.0 Serum or plasma acetaminophen measurement (mass/volume) - 01/12/17 17:34 Serum or plasma acetaminophen measurement (mass/volume) 54 ug/mL 10-30 Serum or plasma ethanol measurement (mass/volume) - 01/12/17 17:34 Serum or plasma ethanol measurement (mass/volume) < mg/dL <10 Complete urinalysis with reflex to culture - 01/12/17 18:09 Urine color determination YELLOW NRG Urine clarity determination CLEAR NRG Urine pH measurement by test strip 7 5-9 Specific gravity of urine by test strip 1.005 1.016- 1.022 Urine protein assay by test strip, semi-quantitative NEGATIVE NEGATIVE Urine glucose detection by automated test strip NEGATIVE NEGATIVE Erythrocytes detection in urine sediment by light microscopy NEGATIVE NEGATIVE Urine ketones detection by automated test strip NEGATIVE NEGATIVE Urine nitrite detection by test strip NEGATIVE NEGATIVE Urine total bilirubin detection by test strip NEGATIVE NEGATIVE Urine urobilinogen measurement by automated test strip (mass/volume) NORMAL NORMAL Urine leukocyte esterase detection by dipstick NEGATIVE NEGATIVE Automated urine sediment erythrocyte count by microscopy (number/high power field) NONE NRG Automated urine sediment leukocyte count by microscopy (number/high power field ) NONE NRG Bacteria detection in urine sediment by light microscopy FEW NRG Squamous epithelial cells detection in urine sediment by light microscopy RARE NRG Crystals detection in urine sediment by light microscopy NONE NRG Casts detection in urine sediment by light microscopy NONE NRG Mucus detection in urine sediment by light microscopy NEGATIVE NRG Complete urinalysis with reflex to culture NO NRG Urine drug screening test - 01/12/17 18:09 Urine phencyclidine detection by screening method NEGATIVE NEGATIVE Urine benzodiazepines detection by screening method NEGATIVE NEGATIVE Urine cocaine detection NEGATIVE NEGATIVE Urine amphetamines detection by screening method POSITIVE NEGATIVE Urine methamphetamine detection by screening method NEGATIVE NEGATIVE Urine cannabinoids detection by screening method NEGATIVE NEGATIVE Urine opiates detection by screening method POSITIVE NEGATIVE Urine barbiturates detection NEGATIVE NEGATIVE Screening urine tricyclic antidepressants detection NEGATIVE NEGATIVE Urine methadone detection by screening method NEGATIVE NEGATIVE Urine oxycodone detection NEGATIVE NEGATIVE Urine propoxyphene detection NEGATIVE NEGATIVE Methicillin resistant Staphylococcus aureus (MRSA) screening culture - 19:15 Methicillin resistant Staphylococcus aureus (MRSA) screening culture NEG NRG Serum or plasma acetaminophen measurement (mass/volume) - 01/12/17 20:26 Serum or plasma acetaminophen measurement (mass/volume) 81 ug/mL 10-30 Serum or plasma acetaminophen measurement (mass/volume) - 01/12/17 22:26 Serum or plasma acetaminophen measurement (mass/volume) 93 ug/mL 10-30 Serum or plasma acetaminophen measurement (mass/volume) - 01/13/17 00:46 Serum or plasma acetaminophen measurement (mass/volume) 96 ug/mL 10-30 Complete blood count (CBC) with automated white blood cell (WBC) differential - 01/13/17 03:45 Blood leukocytes automated count (number/volume) 7.2 10*3/uL 4.3-11.0 Blood erythrocytes automated count (number/volume) 4.05 10*6/uL 4.35-5.85 Venous blood hemoglobin measurement (mass/volume) 12.4 g/dL 11.5-16.0 Blood hematocrit (volume fraction) 37 % 35-52 Automated erythrocyte mean corpuscular volume 92 [foz_us] 80-99 Automated erythrocyte mean corpuscular hemoglobin (mass per erythrocyte) 31 pg 25-34 Automated erythrocyte mean corpuscular hemoglobin concentration measurement ( mass/volume) 33 g/dL 32-36 Automated erythrocyte distribution width ratio 12.2 % 10.0-14.5 Automated blood platelet count (count/volume) 234 10*3/uL 130-400 Automated blood platelet mean volume measurement 11.3 [foz_us] 7.4-10.4 Automated blood neutrophils/100 leukocytes 80 % 42-75 Automated blood lymphocytes/100 leukocytes 18 % 12-44 Blood monocytes/100 leukocytes 2 % 0-12 Automated blood eosinophils/100 leukocytes 0 % 0-10 Automated blood basophils/100 leukocytes 0 % 0-10 Blood neutrophils automated count (number/volume) 5.8 10*3 1.8-7.8 Blood lymphocytes automated count (number/volume) 1.3 10*3 1.0-4.0 Blood monocytes automated count (number/volume) 0.1 10*3 0.0-1.0 Automated eosinophil count 0.0 10*3/uL 0.0-0.3 Automated blood basophil count (count/volume) 0.0 10*3/uL 0.0-0.1 Comprehensive metabolic panel - 01/13/17 03:45 Serum or plasma sodium measurement (moles/volume) 141 mmol/L 135-145 Serum or plasma potassium measurement (moles/volume) 4.1 mmol/L 3.6-5.0 Serum or plasma chloride measurement (moles/volume) 114 mmol/L 98-107 Carbon dioxide 19 mmol/L 21-32 Serum or plasma anion gap determination (moles/volume) 8 mmol/L 5-14 Serum or plasma urea nitrogen measurement (mass/volume) 16 mg/dL 7-18 Serum or plasma creatinine measurement (mass/volume) 0.80 mg/dL 0.60-1.30 Serum or plasma urea nitrogen/creatinine mass ratio 20 NRG Serum or plasma creatinine measurement with calculation of estimated glomerular filtration rate > NRG Serum or plasma glucose measurement (mass/volume) 108 mg/dL 70-105 Serum or plasma calcium measurement (mass/volume) 8.3 mg/dL 8.5-10.1 Serum or plasma total bilirubin measurement (mass/volume) 0.6 mg/dL 0.1-1.0 Serum or plasma alkaline phosphatase measurement (enzymatic activity/volume) 90 U/L 40-136 Serum or plasma aspartate aminotransferase measurement (enzymatic activity/ volume) 156 U/L 5-34 Serum or plasma alanine aminotransferase measurement (enzymatic activity/volume ) 152 U/L 0-55 Serum or plasma protein measurement (mass/volume) 6.4 g/dL 6.4-8.2 Serum or plasma albumin measurement (mass/volume) 3.7 g/dL 3.2-4.5 Serum or plasma phosphate measurement (mass/volume) - 01/13/17 03:45 Serum or plasma phosphate measurement (mass/volume) 3.5 mg/dL 2.3-4.7 Magnesium - 01/13/17 03:45 Magnesium 2.2 mg/dL 1.8-2.4 Serum or plasma acetaminophen measurement (mass/volume) - 01/13/17 03:45 Serum or plasma acetaminophen measurement (mass/volume) 84 ug/mL 10-30 PT panel in platelet poor plasma by coagulation assay - 01/13/17 07:55 Prothrombin time (PT) in platelet poor plasma by coagulation assay 14.3 s 12.2-14.7 INR in platelet poor plasma or blood by coagulation assay 1.1 0.8-1.4 Serum or plasma aspartate aminotransferase measurement (enzymatic activity/ volume) - 01/13/17 07:55 Serum or plasma aspartate aminotransferase measurement (enzymatic activity/ volume) 120 U/L 5-34 Serum or plasma alanine aminotransferase measurement (enzymatic activity/volume ) - 01/13/17 07:55 Serum or plasma alanine aminotransferase measurement (enzymatic activity/volume ) 146 U/L 0-55 Comprehensive metabolic panel - 01/13/17 12:15 Serum or plasma sodium measurement (moles/volume) 141 mmol/L 135-145 Serum or plasma potassium measurement (moles/volume) 3.3 mmol/L 3.6-5.0 Serum or plasma chloride measurement (moles/volume) 113 mmol/L 98-107 Carbon dioxide 19 mmol/L 21-32 Serum or plasma anion gap determination (moles/volume) 9 mmol/L 5-14 Serum or plasma urea nitrogen measurement (mass/volume) 14 mg/dL 7-18 Serum or plasma creatinine measurement (mass/volume) 0.71 mg/dL 0.60-1.30 Serum or plasma urea nitrogen/creatinine mass ratio 20 NRG Serum or plasma creatinine measurement with calculation of estimated glomerular filtration rate > NRG Serum or plasma glucose measurement (mass/volume) 135 mg/dL 70-105 Serum or plasma calcium measurement (mass/volume) 7.6 mg/dL 8.5-10.1 Serum or plasma total bilirubin measurement (mass/volume) 0.4 mg/dL 0.1-1.0 Serum or plasma alkaline phosphatase measurement (enzymatic activity/volume) 74 U/L 40-136 Serum or plasma aspartate aminotransferase measurement (enzymatic activity/ volume) 80 U/L 5-34 Serum or plasma alanine aminotransferase measurement (enzymatic activity/volume ) 122 U/L 0-55 Serum or plasma protein measurement (mass/volume) 5.9 g/dL 6.4-8.2 Serum or plasma albumin measurement (mass/volume) 3.4 g/dL 3.2-4.5 Serum or plasma acetaminophen measurement (mass/volume) - 01/13/17 12:15 Serum or plasma acetaminophen measurement (mass/volume) 26 ug/mL 10-30 Complete blood count (CBC) with automated white blood cell (WBC) differential - 01/14/17 05:20 Blood leukocytes automated count (number/volume) 8.6 10*3/uL 4.3-11.0 Blood erythrocytes automated count (number/volume) 3.99 10*6/uL 4.35-5.85 Venous blood hemoglobin measurement (mass/volume) 12.2 g/dL 11.5-16.0 Blood hematocrit (volume fraction) 36 % 35-52 Automated erythrocyte mean corpuscular volume 91 [foz_us] 80-99 Automated erythrocyte mean corpuscular hemoglobin (mass per erythrocyte) 31 pg 25-34 Automated erythrocyte mean corpuscular hemoglobin concentration measurement ( mass/volume) 34 g/dL 32-36 Automated erythrocyte distribution width ratio 12.7 % 10.0-14.5 Automated blood platelet count (count/volume) 267 10*3/uL 130-400 Automated blood platelet mean volume measurement 10.6 [foz_us] 7.4-10.4 Automated blood neutrophils/100 leukocytes 57 % 42-75 Automated blood lymphocytes/100 leukocytes 36 % 12-44 Blood monocytes/100 leukocytes 5 % 0-12 Automated blood eosinophils/100 leukocytes 1 % 0-10 Automated blood basophils/100 leukocytes 1 % 0-10 Blood neutrophils automated count (number/volume) 5.0 10*3 1.8-7.8 Blood lymphocytes automated count (number/volume) 3.1 10*3 1.0-4.0 Blood monocytes automated count (number/volume) 0.5 10*3 0.0-1.0 Automated eosinophil count 0.1 10*3/uL 0.0-0.3 Automated blood basophil count (count/volume) 0.0 10*3/uL 0.0-0.1 PT panel in platelet poor plasma by coagulation assay - 01/14/17 05:20 Prothrombin time (PT) in platelet poor plasma by coagulation assay 14.6 s 12.2-14.7 INR in platelet poor plasma or blood by coagulation assay 1.2 0.8-1.4 Serum or plasma phosphate measurement (mass/volume) - 01/14/17 05:20 Serum or plasma phosphate measurement (mass/volume) 1.3 mg/dL 2.3-4.7 Magnesium - 01/14/17 05:20 Magnesium 1.9 mg/dL 1.8-2.4 Comprehensive metabolic panel - 01/14/17 05:20 Serum or plasma sodium measurement (moles/volume) 143 mmol/L 135-145 Serum or plasma potassium measurement (moles/volume) 2.9 mmol/L 3.6-5.0 Serum or plasma chloride measurement (moles/volume) 116 mmol/L 98-107 Carbon dioxide 18 mmol/L 21-32 Serum or plasma anion gap determination (moles/volume) 9 mmol/L 5-14 Serum or plasma urea nitrogen measurement (mass/volume) 7 mg/dL 7-18 Serum or plasma creatinine measurement (mass/volume) 0.73 mg/dL 0.60-1.30 Serum or plasma urea nitrogen/creatinine mass ratio 10 NRG Serum or plasma creatinine measurement with calculation of estimated glomerular filtration rate > NRG Serum or plasma glucose measurement (mass/volume) 100 mg/dL 70-105 Serum or plasma calcium measurement (mass/volume) 8.1 mg/dL 8.5-10.1 Serum or plasma total bilirubin measurement (mass/volume) 0.3 mg/dL 0.1-1.0 Serum or plasma alkaline phosphatase measurement (enzymatic activity/volume) 67 U/L 40-136 Serum or plasma aspartate aminotransferase measurement (enzymatic activity/ volume) 35 U/L 5-34 Serum or plasma alanine aminotransferase measurement (enzymatic activity/volume ) 83 U/L 0-55 Serum or plasma protein measurement (mass/volume) 5.7 g/dL 6.4-8.2 Serum or plasma albumin measurement (mass/volume) 3.3 g/dL 3.2-4.5 Serum or plasma acetaminophen measurement (mass/volume) - 01/14/17 05:20 Serum or plasma acetaminophen measurement (mass/volume) < ug/mL 10-30 Comprehensive metabolic panel - 01/14/17 11:45 Serum or plasma sodium measurement (moles/volume) 144 mmol/L 135-145 Serum or plasma potassium measurement (moles/volume) 3.5 mmol/L 3.6-5.0 Serum or plasma chloride measurement (moles/volume) 116 mmol/L 98-107 Carbon dioxide 20 mmol/L 21-32 Serum or plasma anion gap determination (moles/volume) 8 mmol/L 5-14 Serum or plasma urea nitrogen measurement (mass/volume) 5 mg/dL 7-18 Serum or plasma creatinine measurement (mass/volume) 0.77 mg/dL 0.60-1.30 Serum or plasma urea nitrogen/creatinine mass ratio 6 NRG Serum or plasma creatinine measurement with calculation of estimated glomerular filtration rate > NRG Serum or plasma glucose measurement (mass/volume) 108 mg/dL 70-105 Serum or plasma calcium measurement (mass/volume) 8.6 mg/dL 8.5-10.1 Serum or plasma total bilirubin measurement (mass/volume) 0.3 mg/dL 0.1-1.0 Serum or plasma alkaline phosphatase measurement (enzymatic activity/volume) 75 U/L 40-136 Serum or plasma aspartate aminotransferase measurement (enzymatic activity/ volume) 32 U/L 5-34 Serum or plasma alanine aminotransferase measurement (enzymatic activity/volume ) 87 U/L 0-55 Serum or plasma protein measurement (mass/volume) 6.7 g/dL 6.4-8.2 Serum or plasma albumin measurement (mass/volume) 3.8 g/dL 3.2-4.5 CMP - 02/26/17 09:15 Glucose, Serum 82 mg/dL 65-99 BUN 10 mg/dL 6-24 Creatinine, Serum 0.72 mg/dL 0.57-1.00 eGFR If NonAfricn Am 105 mL/min/1.73 >59 eGFR If Africn Am 121 mL/min/1.73 >59 BUN/Creatinine Ratio 14 9-23 Sodium, Serum 143 mmol/L 134-144 Potassium, Serum 4.1 mmol/L 3.5-5.2 Chloride, Serum 102 mmol/L 96-106 Carbon Dioxide, Total 27 mmol/L 18-29 Calcium, Serum 9.0 mg/dL 8.7-10.2 Protein, Total, Serum 6.4 g/dL 6.0-8.5 Albumin, Serum 3.9 g/dL 3.5-5.5 Globulin, Total 2.5 g/dL 1.5-4.5 A/G Ratio 1.6 1.2-2.2 Bilirubin, Total 0.5 mg/dL 0.0-1.2 Alkaline Phosphatase, S 68 IU/L 39-117 AST (SGOT) 12 IU/L 0-40 ALT (SGPT) 10 IU/L 0-32 Encounters ACCT No. Visit Date/Time Discharge Status Pt. Type Provider Facility Loc./Unit Complaint [id number] 09/09/2014 10:18:00 09/09/2014 23:59:59 CLS Outpatient RADHA EISENBERG DO [id number] 02/23/2014 15:43:00 02/23/2014 23:59:59 CLS Outpatient RADHA EISENBERG DO [id number] 02/15/2014 14:05:00 02/15/2014 23:59:59 CLS Outpatient SUE MILLER APRN [id number] 06/01/2013 07:35:00 06/01/2013 23:59:59 CLS Outpatient DAVID GOLDSTEIN DDS [id number] 05/25/2013 07:46:00 05/25/2013 23:59:59 CLS Outpatient RADHA EISENBERG DO [id number] 09/18/2016 12:09:00 Document Registration [id number] 01/06/2015 02:01:20 ACT Document Registration [id number] 11/02/2015 10:05:01 ACT Unknown [id number] 03/24/2017 16:20:00 03/24/2017 23:59:59 CLS Outpatient TIMBO GUILLEN [facility] [id number] 02/26/2017 09:00:00 Document Registration [id number] 03/28/2017 17:37:00 03/28/2017 18:48:00 DIS Emergency DEBO HAAS DO Norma [facility] ER L HAND PAIN AFTER FALL [id number] 01/12/2017 18:30:00 01/14/2017 16:00:00 DIS Inpatient ANTHONY PATRICK, WESLEY Stahl [facility] ICU OVERDOSE HYDROCODONE/ ACETAMINOPHEN,SUICIDE [id number] 01/06/2015 02:05:00 01/06/2015 04:53:00 DIS Emergency MANJIT PATRICK, EARL Duncan [facility] ER CHEST PAIN [id number] 07/29/2014 10:39:00 07/29/2014 14:13:00 DIS Emergency WALDO BAH DEBO Norma [facility] ER HEADACHE FROM SPINAL TAP AND SORE THROAT [id number] 07/27/2014 19:31:00 07/27/2014 23:40:00 DIS Emergency MARCIA BARFIELD APRN [facility] ER FEVER [id number] 05/09/2014 08:53:00 05/09/2014 16:45:00 DIS Outpatient BERTIN SHAH DO [facility] SDC [id number] 05/02/2014 09:09:00 05/02/2014 23:59:59 CLS Outpatient BERTIN SHAH DO [facility] PREOP [id number] 02/25/2014 10:58:00 02/25/2014 13:15:00 DIS Emergency EILEEN CLARK [facility] ER [id number] 02/21/2014 13:26:00 02/21/2014 23:59:59 CLS Outpatient SUE MILLER APRN [facility] RAD [id number] 02/01/2014 14:17:00 02/01/2014 23:59:59 CLS Outpatient ADRIEN VALENTIN [facility] RAD [id number] 09/14/2014 14:49:00 Document Registration [id number] 07/05/2012 21:37:00 Document Registration
--- NOTE | 2018-04-11 19:09 | ED Headache ---
General Stated Complaint: HEADACHE Source: patient, family Exam Limitations: no limitations History of Present Illness Date Seen by Provider: Apr 11, 2018 Time Seen by Provider: 19:06 Initial Comments To ER per private vehicle with a headache that began this morning upon awakening. No fevers or chills. She reports a history of meningitis twice and since then she's had fairly persistent headaches. This was many years ago, greater than 10 years ago. No nausea yet but she does expect nausea to follow. She states that she has nausea quite a lot as a function of her fibromyalgia however. Timing/Duration: constant Severity/Quality: moderate Location: global Prior Headaches/Recent Trauma: frequent headaches Associated Symptoms: No confusion, No nausea/vomiting, No stiff neck Allergies and Home Medications Allergies Coded Allergies: fluconazole (Verified Allergy, Mild, 07/05/12) morphine (Verified Allergy, Mild, 07/05/12) gabapentin (Verified Adverse Reaction, Unknown, 04/11/18) topiramate (Verified Adverse Reaction, Unknown, 04/11/18) Uncoded Allergies: TAPE (Allergy, Mild, 07/05/12) Home Medications Estradiol 1 Mg Tablet, 1 MG PO DAILY, (Reported) Loratadine 10 Mg Tab.rapdis, 10 MG PO DAILY, (Reported) Patient Home Medication List Home Medication List Reviewed: Yes Review of Systems Review of Systems Constitutional: see HPI; No chills, No fever Eyes: No Symptoms Reported Ears, Nose, Mouth, Throat: no symptoms reported Respiratory: no symptoms reported Cardiovascular: no symptoms reported Genitourinary: no symptoms reported Musculoskeletal: no symptoms reported Skin: no symptoms reported Psychiatric/Neurological: See HPI, Headache Past Saaound-Vxbxii-Flxjqk Hx Patient Social History Type Used: Cigarettes, Electronic/Vapor Recent Foreign Travel: No Contact w/Someone Who Travel: No Immunizations Up To Date Tetanus Booster (TDap): Unknown Date of Influenza Vaccine: Mar 15, 2014 Seasonal Allergies Seasonal Allergies: No Past Medical History Surgeries: Yes (D AND C) Appendectomy, Section, Gallbladder, Hysterectomy, Oophorectomy Respiratory: No Cardiac: Yes High Cholesterol Neurological: Yes (MENINGITIS X 2) Headaches /Migraines, Meningitis Reproductive Disorders: Yes (CPP) 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 No Pertinent Family Hx Physical Exam Vital Signs Vital Signs - First Documented 04/11/18 19:00 Temp 97.7 Pulse 81 Resp 16 B/P (MAP) 130/91 (104) Pulse Ox 97 O2 Delivery Room Air Capillary Refill : Height, Weight, BMI Height: 5'8.00" Weight: 180lbs. 9.0oz. 81.305399gl; 27.2 BMI Method:Stated General Appearance: WD/WN, no apparent distress HEENT: normal ENT inspection, TMs normal Neck: non-tender, full range of motion Respiratory: normal breath sounds, no respiratory distress, no accessory muscle use Extremities: normal range of motion, non-tender Psychiatric: alert, oriented x 3 Crainal Nerves: normal hearing, normal speech, PERRL Skin: normal color, warm/dry Progress/Results/Core Measures Results/Orders My Orders Orders - MARCIA BARFIELD APRN Ketorolac Injection (Toradol Injection) (04/11/18 19:15) Diphenhydramine Injection (Benadryl Inje (04/11/18 19:15) Prochlorperazine Injection (Compazine In (04/11/18 19:15) Diphenhydramine Tablet (Benadryl Tablet) (04/11/18 19:15) Diphenhydramine Tablet (Benadryl Tablet) (04/11/18 19:11) Medications Given in ED Current Medications Medications Dose Ordered Sig/Latia Route Start Time Stop Time Status Last Admin Dose Admin Diphenhydramine HCl 50 mg ONCE ONCE PO 04/11/18 19:15 04/11/18 19:16 DC 04/11/18 19:14 50 MG Ketorolac Tromethamine 60 mg ONCE ONCE IM 04/11/18 19:15 04/11/18 19:16 DC 04/11/18 19:14 60 MG Prochlorperazine Edisylate 10 mg ONCE ONCE IM 04/11/18 19:15 04/11/18 19:16 DC 04/11/18 19:14 10 MG Vital Signs/I&O 04/11/18 19:00 Temp 97.7 Pulse 81 Resp 16 B/P (MAP) 130/91 (104) Pulse Ox 97 O2 Delivery Room Air Departure Communication (Admissions) 2003- she states that her body aches and pains are better at this time but her headache is only minimally improved. I'll order a Fioricet then discharge to home. Impression Primary Impression: Migraine Qualified Codes: G43.909 - Migraine, unspecified, not intractable, without status migrainosus Disposition: HOME, SELF-CARE Condition: Stable Departure-Patient Inst. Decision time for Depature: 19:09 Referrals: ARCELIA ARTEAGA MD (PCP/Family) Primary Care Physician Patient Instructions: Headache, Adult Add. Discharge Instructions: 1. Return to ER for any concerns 2. Follow-up with your doctor next week 3. MARCIA BARFIELD SENIOR ELECTRICAL DESIGN ENGINEER Apr 11, 2018 19:09
[2018-04-11] MEDS ORDERED: diphenhydrAMINE 25 MG TAB (BENADRYL) PO ONE ×2 (19:11→19:15)
[2018-04-11] MEDS ORDERED: PROCHLORPERAZINE 10 MG/2ML INJ (COMPAZINE) IM ONE (19:15)
[2018-04-11] MEDS ORDERED: diphenhydrAMINE 50 MG/ML INJ (BENADRYL) IM ONE (19:15)
[2018-04-11] MEDS ORDERED: KETOROLAC 60 MG/2 ML VIAL IM ONE (19:15)
[2018-04-11] MEDS ORDERED: CYCL10TA9 (19:19)
[2018-04-11] MEDS ORDERED: SUMA100T3 (19:19)
[2018-04-11] MEDS ORDERED: ACET/BUTAL/CAFF (FIORICET) TAB PO PRN (20:15)
[2018-04-11 20:19] VITALS: BP 139/85
== END 2018-04-11 20:19 | disposition home or self-care (01) ==
LOC: EDUNIT# 18:49 → ER 18:50
DX: G43.909 Migraine, unspecified, not intractable, without status migrainosus (principal); F32.9 Major depressive disorder, single episode, unspecified; Z88.6 Allergy status to analgesic agent; Z88.8 Allergy status to other drugs, medicaments and biological substances; Z90.49 Acquired absence of other specified parts of digestive tract; Z90.710 Acquired absence of both cervix and uterus
CPT/HCPCS: 99284

== ENCOUNTER → 2018-05-10 | Outpatient (CLI) | payer BC, OTHER ==
[~2018-05-10] MED LIST changes: +CYCL10TA9; +RT-ALBUTEROL SULF 2.5 MG/3 ML PRE-MIX VIAL INH ONE; +RT-ALBUTEROL SULF 2.5 MG/3 ML PRE-MIX VIAL ONE; +SUMA100T3
== END ==
LOC: RT 16:03
PROVIDERS: ATTEND Nurse Practitioner Family
DX: G47.10 Hypersomnia, unspecified (principal); F17.200 Nicotine dependence, unspecified, uncomplicated
CPT/HCPCS: 94060; 94726; 94729

== ENCOUNTER 2018-05-21 20:46 | Outpatient (CLI) | payer BC ==
[~2018-05-21 20:46] MED LIST changes: -RT-ALBUTEROL SULF 2.5 MG/3 ML PRE-MIX VIAL INH ONE; -RT-ALBUTEROL SULF 2.5 MG/3 ML PRE-MIX VIAL ONE
== END 2018-05-22 06:53 | disposition home or self-care (01) ==
LOC: SLEEP 20:46
PROVIDERS: ATTEND Nurse Practitioner Family
DX: G47.10 Hypersomnia, unspecified (principal); R06.83 Snoring; I48.0 Paroxysmal atrial fibrillation
CPT/HCPCS: 95810

== ENCOUNTER 2019-10-12 07:04 | Emergency (ER) | payer BC ==
[~2019-10-12] VITALS: Ht 172 cm; Wt 99.0 kg
[~2019-10-12 07:04] MED LIST changes: -AMPH20CA PO; -CYAN500T2 PO; +CYAN500T62 PO; +DEXT20CA4 PO; -GABA600T2 PO; +GBPN600T PO; -INDO50CA11 PO; +INDO50CA82 PO; +OMEP40CA27 PO; -OMEP40CA36 PO
--- OUTSIDE RECORDS SUMMARY | 2019-10-12 07:13 | XMS REPORT ---
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 Name Role Phone Migration, Doctor Unavailable Unavailable PROBLEMS Type Condition ICD9-CM Code IPP12-WF Code Onset Dates Condition S tatus SNOMED Code Problem Chronic headaches R51 Active 43 0622244 Problem Obesity E66.9 Active 093672252 Problem GERD (gastroesophageal reflux disease) K21.9 Active 632986381 Problem Seasonal allergic rhinitis due to pollen J30.1 Active 43386528 Problem Pseudotumor cerebri G93.2 Active 33281942 Problem Allergic rhinitis J30.9 Active 61 291317 Problem Elevated LDL cholesterol level E78.00 Active 744973274 Problem Fibromyalgia M79.7 Active 5725976 05 Problem Depression F32.9 Active 553092607 Problem Urinary retention R33.9 Active 26 9895037 Problem Attention deficit hyperactivity disorder (ADHD), unspecified ADHD type F90.9 Active 912259861 ALLERGIES No Information ENCOUNTERS Encounter Location Date Diagnosis [facility] [address] [facility] [id number] [address] [place] [id number] 05 Feb, 2019 Sore throat J02.9 and Allerg ic rhinitis J30.9 [facility] [address] [facility] [id number] [address] [place] [id number] 04 Nov, 2018 Sore throat J02.9 and Season al allergic rhinitis due to pollen J30.1 [facility] [address] [facility] [id number] [address] [place] [id number] October, Left arm pain M79.602 [facility] [address] [facility] [id number] [address] [place] [id number] 02 Aug, 2018 Pharyngitis due to other org anism J02.8 [facility] [address] [facility] [id number] [address] [place] [id number] 10 Mar, 2017 Acute middle ear effusion, b ilateral H65.193 [facility] [address] [facility] [id number] [address] [place] [id number] 14 Feb, 2017 Hospital discharge follow-up Z09 and Depression F32.9 [facility] [address] [facility] [id number] [address] [place] [id number] 11 Feb, 2017 Hospital discharge follow-up Z09 and Depression F32.9 [facility] [address] [facility] [id number] [address] [place] [id number] Jan, [facility] [address] [id number] [id number] Jan, [facility] [address] [facility] [id number] [address] [place] [id number] Dec, [facility] [place] [address] [place] [id number] [place] [phone] Dec, Attention deficit hyperactiv ity disorder (ADHD), unspecified ADHD type F90.9 [facility] [address] [facility] [id number] [address] [place] [phone] Dec, Depression F32.9 and Fibromy algia M79.7 [facility] [address] [facility] [id number] [address] [place] [phone] Dec, Depression F32.9 ; Chronic h eadaches R51 ; Fibromyalgia M79.7 ; GERD (gastroesophageal reflux disease) K21.9 ; Obesity E66.9 and Attention deficit hyperactivity disorder (ADHD), unspecified ADHD type F90.9 [facility] [address] [facility] [id number] [address] [place] [id number] Nov, [facility] [address] [facility] [id number] [address] [place] [id number] Nov, [facility] [address] [facility] [id number] [address] [place] [id number] Sep, Gastroenteritis K52.9 [facility] [address] [place] [id number] [address] [place] [id number] Sep, Vaginal discharge N89.8 ; Po ssible exposure to STD Z20.2 and Vaginal candidiasis B37.3 [facility] [address] [facility] [id number] [address] [place] [id number] Aug, Sore throat J02.9 and Pharyn gitis, unspecified etiology J02.9 [facility] [address] [facility] [id number] [address] [place] [id number] Aug, Pseudotumor cerebri G93.2 ; GERD (gastroesophageal reflux disease) K21.9 ; Obesity E66.9 ; Depression F32.9 ; Urinary retention R33.9 ; Fibromyalgia M79.7 and Chronic headaches R51 [facility] [address] [facility] [id number] [address] [place] [id number] Apr, [facility] [address] [place] [id number] [address] [place] [id number] Apr, [facility] [address] [place] [id number] [place] [phone] Apr, Pseudotumor cerebri G93.2 ; Chronic headaches R51 ; GERD (gastroesophageal reflux disease) K21.9 ; Fibromyalgia M79.7 ; Urinary retention R33.9 and Excess skin of abdominal wall L98.7 [facility] [address] [place] [id number] [address] [place] [phone] Mar, [facility] [address] [facility] [id number] [address] [place] [phone] Mar, [facility] [address] [id number] [place] [id number] Mar, Encounter for immunization Z23 [facility] [address] [facility] [id number] [address] [place] [phone] Feb, [facility] [address] [facility] [id number] [address] [place] [phone] Feb, [facility] [address] [place] [id number] [address] [place] [phone] Jan, Fibromyalgia M79.7 ; Obesity E66.9 ; Depression F32.9 ; Pseudotumor cerebri G93.2 ; GERD with apnea K21.9 ; Chronic headaches R51 and Urinary retention R33.9 [facility] [address] [place] [id number] [place] [phone] Jan, [place] [address] [id number] Dec, Obesity E66.9 ; Fibromyalgia M79.7 ; Depression F32.9 ; Pseudotumor cerebri G93.2 ; Chronic headaches R51 and GERD (gastroesophageal reflux disease) K21.9 [facility] [place] [address] [place] [id number] [place] [phone] Dec, [place] [address] [id number] Nov, Fibromyalgia M79.7 ; Obesity E66.9 and Elevated cholesterol E78.0 [place] [address] [address] Nov, Pseudotumor cerebri G93.2 ; Chronic headaches R51 ; Obesity E66.9 ; Fibromyalgia M79.7 ; GERD (gastroesophageal reflux disease) K21.9 and Elevated cholesterol E78.0 [place] [address] [id number] Nov, Obesity E66.9 [facility] [address] [place] [id number] [place] [phone] October, Nausea R11.0 and Urinary ret ention with incomplete bladder emptying R33.9 [place] [address] [id number] October, [facility] [address] [place] [id number] [place] [phone] October, Dysuria R30.0 [place] [address] [id number] October, [facility] [address] [facility] [id number] [address] [place] [phone] Sep, [facility] [address] [facility] [id number] [address] [place] [id number] Sep, Obesity E66.9 ; Depression F 32.9 ; Fibromyalgia M79.7 ; Pseudotumor cerebri G93.2 ; Chronic headaches R51 and GERD with apnea K21.9 [facility] [address] [facility] [id number] [address] [place] [phone] Aug, Pseudotumor cerebri G93.2 ; Chronic headaches R51 ; GERD (gastroesophageal reflux disease) K21.9 ; Obesity E66.9 ; Fibromyalgia M79.7 and Depression F32.9 [facility] [address] [facility] [id number] [address] [place] [phone] Aug, [facility] [address] [facility] [id number] [address] [place] [phone] Aug, [facility] [address] [facility] [id number] [address] [place] [phone] Aug, [facility] [address] [facility] [id number] [address] [place] [phone] Jul, [facility] [address] [facility] [id number] [address] [place] [phone] Jul, [facility] [address] [facility] [id number] [address] [place] [id number] Jul, Depression F32.9 [facility] [address] [facility] [id number] [address] [place] [phone] Jul, Pseudotumor cerebri G93.2 ; Chronic headaches R51 ; GERD (gastroesophageal reflux disease) K21.9 ; Obesity E66.9 ; Fibromyalgia M79.7 and Depression F32.9 [facility] [address] [facility] [id number] [address] [place] [phone] Jul, [facility] [address] [id number] Jul, [facility] [address] [id number] Jun, [facility] [address] [id number] Jun, Pseudotumor cerebri G93.2 ; Chronic headaches R51 ; Obesity E66.9 ; GERD (gastroesophageal reflux disease) K21.9 ; Fibromyalgia M79.7 ; Depression F32.9 and Conjunctivitis H10.9 [facility] [address] [address] Jun, Facial rash R21 [place] [address] [id number] Jun, Obesity, unspecified E66.9 [place] [address] [id number] May, [facility] [address] [id number] May, [place] [address] [phone] May, Vaginal itching L29.8 and Dy suria R30.0 [place] [address] [id number] May, [facility] [address] [address] May, [facility] [address] [id number] 06 May, 2015 Acute pharyngitis, unspecifi ed J02.9 and Seasonal allergies J30.2 [facility] [address] [id number] 13 Apr, 2015 Pseudotumor cerebri G93.2 ; Chronic headaches R51 ; Obesity E66.9 ; GERD with apnea K21.9 and GERD (gastroesophageal reflux disease) K21.9 [facility] [address] [place] [id number] [place] [phone] Mar, [facility] [address] [place] [id number] [address] [place] [id number] Mar, [facility] [address] [address] Mar, [facility] [address] [place] [id number] [place] [phone] Mar, [facility] [address] [address] Mar, Pseudotumor cerebri G93.2 ; Chronic headaches R51 ; Obesity E66.9 ; Fibromyalgia M79.7 and GERD (gastroesophageal reflux disease) K21.9 [facility] [address] [id number] Jan, [facility] [address] [address] Jan, Elevated liver enzymes 790.5 [place] [address] [place] [id number] [place] [id number] Jan, Elevated liver enzymes 790.5 [place] [address] [place] [id number] [place] [id number] Dec, Headache 784.0 ; Obesity, un specified 278.00 ; Abnormal weight gain 783.1 ; GERD (gastroesophageal reflux disease) 530.81 and Depression 311 [facility] [address] [place] [id number] [place] [id number] Dec, Chronic headaches 784.0 [facility] [address] [place] [id number] [place] [phone] Dec, [facility] [address] [place] [id number] [place] [phone] Dec, [facility] [address] [id number] [address] [place] [id number] Dec, Headache 784.0 ; Obesity, un specified 278.00 ; Tick bite 919.4 and GERD (gastroesophageal reflux disease) 530.81 [facility] [address] [id number] [address] [place] [id number] Sep, [facility] [address] [id number] [address] [place] [phone] Sep, [facility] [address] [id number] [address] [place] [phone] Aug, [facility] [address] [id number] [address] [place] [phone] Aug, [facility] [address] [id number] [address] [place] [phone] Aug, [facility] [address] [id number] [address] [place] [phone] Aug, [facility] [address] [id number] [address] [place] [id number] Aug, [facility] [address] [id number] [address] [place] [id number] Aug, [facility] [address] [id number] [address] [place] [phone] Aug, [facility] [address] [id number] [address] [place] [phone] Aug, [facility] [address] [id number] [address] [place] [phone] Jul, [facility] [address] [id number] [address] [place] [phone] Jul, [facility] [address] [id number] [address] [place] [phone] Feb, [facility] [address] [id number] [address] [place] [place] [id number] 11 Feb, 2013 [facility] [address] [id number] [address] [place] [address], [place] [id number] 11 Feb, 2013 [facility] [address] [id number] [address] [place] [address], [place] [address] Feb, 2013 [facility] [address] [id number] [address] [place] [address], [place] [address] Feb, 2013 [facility] [address] [id number] [address] [place] [address], [place] [address] Feb, 2013 [facility] [address] [id number] [address] [place] [address], [place] [address] Feb, [facility] [address] [id number] [address] [place] [address], [place] [address] Feb, [facility] [address] [id number] [address] [place] [address], [place] [address] Feb, [facility] [address] [id number] [address] [place] [address], [place] [address] Jun, [facility] [address] [id number] [address] [place] [address], [place] [address] Jun, [facility] [address] [id number] [address] [place] [address], [place] [address] May, [facility] [address] [id number] [address] [place] [address], [place] [address] May, [facility] [address] [id number] [address] [place] [address], [place] [address] May, [facility] [address] [id number] [address] [place] [address], [place] [address] May, [facility] [address] [id number] [address] [place] [address], [place] [address] May, [facility] [address] [id number] [address] [place] [address], [place] [address] May, [facility] [address] [id number] [address] [place] [phone] May, [facility] [address] [facility] [id number] [address] [place] [phone] May, [facility] [address] [facility] [id number] [address] [place] [phone] Mar, [facility] [address] [facility] [id number] [address] [place] [phone] Mar, IMMUNIZATIONS No Known Immunizations SOCIAL HISTORY Never Assessed REASON FOR VISIT PLAN OF CARE VITAL SIGNS Height 68 in 2014-08-10 Weight 265.2 lbs 2014-08-10 Temperature 97.9 degrees Fahrenheit 2014-08-10 Heart Rate 80 bpm 2014-08-10 Respiratory Rate 18 2014-08-10 Blood pressure systolic 118 mmHg 2014-08-10 Blood pressure diastolic 64 mmHg 2014-08-10 MEDICATIONS No Known Medications RESULTS No Results PROCEDURES No Known procedures INSTRUCTIONS MEDICATIONS ADMINISTERED No Known Medications MEDICAL (GENERAL) HISTORY Type Description Date Medical History depression Medical History meningitis 2000 & 2010 Medical History psuedotumor cerebri Medical History fibromyalgia Medical History ADHD Surgical History Surgical History cholecystectomy Surgical History hysterectomy Surgical History appendectomy, ovaries and scar tissure r emoved 2013 Surgical History ureter stretch by Dr. Kuhn Hospitalization History surgeries Hospitalization History menangitis Hospitalization History childbirth Hospitalization History suicidal ideation
--- OUTSIDE RECORDS SUMMARY | 2019-10-12 07:13 | XMS REPORT ---
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 Name Role Phone SUE Corona Unavailable PROBLEMS Type Condition ICD9-CM Code [id number] Code Onset Dates Condition S tatus SNOMED Code Problem GERD (gastroesophageal reflux disease) K21.9 Active 528933849 Problem Pseudotumor cerebri G93.2 Active 78805679 Problem Chronic headaches R51 Active 43 1667655 Problem Attention deficit hyperactivity disorder (ADHD), unspecified ADHD type F90.9 Active 940615042 Problem Elevated LDL cholesterol level E78.00 Active 927809359 Problem Seasonal allergic rhinitis due to pollen J30.1 Active 09900334 Problem Obesity E66.9 Active 409271626 Problem Depression F32.9 Active 331743917 Problem Fibromyalgia M79.7 Active 8759317 05 Problem Urinary retention R33.9 Active 26 [id number] ALLERGIES No Information ENCOUNTERS Encounter Location Date Diagnosis [facility] [address] [address] 04 Nov, 2018 Sore throat J02.9 and Season al allergic rhinitis due to pollen J30.1 [facility] [address] [place] [id number] [address] [place] [address] October, Left arm pain M79.602 [facility] [address] [id number] [address] [place] [address] Aug, Pharyngitis due to other org anism J02.8 [facility] [address] [id number] [address] [place] [address] 10 Mar, 2017 Acute middle ear effusion, b ilateral H65.193 [facility] [address] [id number] [address] [place] [address] 14 Feb, 2017 Hospital discharge follow-up Z09 and Depression F32.9 [place] [address] [address] 11 Feb, 2017 Hospital discharge follow-up Z09 and Depression F32.9 [facility] [address] [id number] [address] [place] [address] Jan, [facility] [address] [id number] Jan, [facility] WALK IN [facility] [id number] [place] [address] Dec, [place] [address] [address] Dec, Attention deficit hyperactiv ity disorder (ADHD), unspecified ADHD type F90.9 [place] [address] [address] Dec, Depression F32.9 and Fibromy algia M79.7 [place] [address] [address] Dec, Depression F32.9 ; Chronic h eadaches R51 ; Fibromyalgia M79.7 ; GERD (gastroesophageal reflux disease) K21.9 ; Obesity E66.9 and Attention deficit hyperactivity disorder (ADHD), unspecified ADHD type F90.9 [facility] [address] [place] [address] Nov, [place] [address] [place] [id number] [address] [place] [address] Nov, [facility] WALK IN [facility] [address] [id number] [address] [place] [address] Sep, Gastroenteritis K52.9 [facility] [id number] [address] [place] [address] Sep, Vaginal discharge N89.8 ; Po ssible exposure to STD Z20.2 and Vaginal candidiasis B37.3 [facility] [address] [facility] [id number] [address] [place] [id number] 17 Aug, 2016 Sore throat J02.9 and Pharyn gitis, unspecified etiology J02.9 [facility] [address] [facility] [id number] [address] [place] [id number] Aug, Pseudotumor cerebri G93.2 ; GERD (gastroesophageal reflux disease) K21.9 ; Obesity E66.9 ; Depression F32.9 ; Urinary retention R33.9 ; Fibromyalgia M79.7 and Chronic headaches R51 [facility] [address] [facility] [id number] [address] [place] [address] Apr, [facility] [id number] [address] [place] [id number] Apr, [facility] [id number] [place] [address] Apr, Pseudotumor cerebri G93.2 ; Chronic headaches R51 ; GERD (gastroesophageal reflux disease) K21.9 ; Fibromyalgia M79.7 ; Urinary retention R33.9 and Excess skin of abdominal wall L98.7 [facility] [address] [facility] [id number] [address] [place] [phone] Mar, [facility] [address] [facility] [id number] [address] [place] [address] Mar, [place] [address] [place] [id number] [place] [id number] Mar, Encounter for immunization Z23 [facility] [address] [facility] [id number] [address] [place] [address] Feb, [facility] [address] [place] [id number] [address] [place] [address] Feb, [facility] [address] [facility] [id number] [address] [place] [address] Jan, Fibromyalgia M79.7 ; Obesity E66.9 ; Depression F32.9 ; Pseudotumor cerebri G93.2 ; GERD with apnea K21.9 ; Chronic headaches R51 and Urinary retention R33.9 [place] [address] [address] Jan, [facility] [address] [address] Dec, Obesity E66.9 ; Fibromyalgia M79.7 ; Depression F32.9 ; Pseudotumor cerebri G93.2 ; Chronic headaches R51 and GERD (gastroesophageal reflux disease) K21.9 [place] [address] [address] Dec, [place] [address] [address] Nov, Fibromyalgia M79.7 ; Obesity E66.9 and Elevated cholesterol E78.0 [place] [address] [address] Nov, Pseudotumor cerebri G93.2 ; Chronic headaches R51 ; Obesity E66.9 ; Fibromyalgia M79.7 ; GERD (gastroesophageal reflux disease) K21.9 and Elevated cholesterol E78.0 [place] [address] [address] Nov, Obesity E66.9 [facility] WALK IN [facility] [address] [address] October, Nausea R11.0 and Urinary ret ention with incomplete bladder emptying R33.9 [facility] [address] [address] October, [facility] [address] [address] October, Dysuria R30.0 [place] [address] [address] October, [facility] [address] [address] Sep, [facility] [address] [facility] [id number] [address] [place] [address] Sep, Obesity E66.9 ; Depression F 32.9 ; Fibromyalgia M79.7 ; Pseudotumor cerebri G93.2 ; Chronic headaches R51 and GERD with apnea K21.9 [facility] [address] [facility] [id number] [address] [place] [address] Aug, Pseudotumor cerebri G93.2 ; Chronic headaches R51 ; GERD (gastroesophageal reflux disease) K21.9 ; Obesity E66.9 ; Fibromyalgia M79.7 and Depression F32.9 [facility] [address] [facility] [id number] [address] [place] [address] Aug, [facility] [address] [facility] [id number] [address] [place] [address] Aug, [facility] [address] [facility] [id number] [address] [place] [phone] Aug, [facility] [address] [facility] [id number] [address] [place] [address] Jul, [facility] [address] [facility] [id number] [address] [place] [address] Jul, [facility] [address] [facility] [id number] [address] [place] [id number] Jul, Depression F32.9 [facility] [address] [facility] [id number] [address] [place] [address] Jul, Pseudotumor cerebri G93.2 ; Chronic headaches R51 ; GERD (gastroesophageal reflux disease) K21.9 ; Obesity E66.9 ; Fibromyalgia M79.7 and Depression F32.9 [facility] [address] [facility] [id number] [address] [place] [phone] Jul, [facility] [address] [facility] [id number] [address] [place] [address] Jul, [place] [address] [address] Jun, [place] [address] [address] Jun, Pseudotumor cerebri G93.2 ; Chronic headaches R51 ; Obesity E66.9 ; GERD (gastroesophageal reflux disease) K21.9 ; Fibromyalgia M79.7 ; Depression F32.9 and Conjunctivitis H10.9 [facility] WALK IN [facility] [address] [address] 09 Jun, 2015 Facial rash R21 [address] [address] Jun, Obesity, unspecified E66.9 [place] [address] [address] May, [place] [address] [address] May, [place] [address] [address] May, Vaginal itching L29.8 and Dy suria R30.[address] [address] May, [address] [address] May, [facility] WALK IN [facility] [address] [address] 06 May, 2015 Acute pharyngitis, unspecifi ed J02.9 and Seasonal allergies J30.[address] [address] 13 Apr, 2015 Pseudotumor cerebri G93.2 ; Chronic headaches R51 ; Obesity E66.9 ; GERD with apnea K21.9 and GERD (gastroesophageal reflux disease) K21.9 [place] [address] [place] [id number] [place] [address] Mar, [facility] [address] [address] Mar, [facility] [address] [place] [place] [id number] [place] [address] Mar, [facility] [address] [address] Mar, [facility] [address] [address] Mar, Pseudotumor cerebri G93.2 ; Chronic headaches R51 ; Obesity E66.9 ; Fibromyalgia M79.7 and GERD (gastroesophageal reflux disease) K21.9 [place] [address] [address] Jan, [facility] [address] [address] Jan, Elevated liver enzymes 790.5 [place] [address] [address] Jan, Elevated liver enzymes 790.5 [place] [address] [address] Dec, Headache 784.0 ; Obesity, un specified 278.00 ; Abnormal weight gain 783.1 ; GERD (gastroesophageal reflux disease) 530.81 and Depression 311 [facility] [address] [place] [id number] [address] [place] [address] Dec, Chronic headaches 784.0 [place] [address] [place] [id number] [place] [address] Dec, [facility] [address] [address] [id number] [place] [address] Dec, [facility] [address] [address] Dec, Headache 784.0 ; Obesity, un specified 278.00 ; Tick bite 919.4 and GERD (gastroesophageal reflux disease) 530.81 [facility] [address] [id number] [address] [place] [address] 14 Sep, 2014 [facility] [address] [id number] [address] [place] [address] Sep, [facility] [address] [id number] [address] [place] [address] Aug, [facility] [address] [id number] [address] [place] [address] Aug, [facility] [address] [id number] [address] [place] [address] Aug, [facility] [address] [id number] [address] [place] [address] Aug, [facility] [address] [id number] [address] [place] [address] Aug, [facility] [address] [id number] [address] [place] [address] Aug, [facility] [address] [id number] [address] [place] [address] Aug, [facility] [address] [id number] [address] [place] [address] Aug, [facility] [address] [id number] [address] [place] [address] Jul, [facility] [address] [id number] [address] [place] [address] Jul, [facility] [address] [id number] [address] [place] [address] Feb, [facility] [address] [id number] [address] [place] [phone] Feb, [facility] [address] [id number] [address] [place] [address] 11 Feb, 2013 [facility] [address] [id number] [address] [place] [address], [place] [address] 11 Feb, 2013 [facility] [address] [id number] [address] [place] [address], [place] [address] 11 Feb, 2013 [facility] [address] [id number] [address] [place] [address], [place] [address] Feb, 2013 [facility] [address] [id number] [address] [place] [address], [place] [address] Feb, 2013 [facility] [address] [id number] [address] [place] [address], [place] [address] Feb, [facility] [address] [id number] [address] [place] [address], [place] [address] Feb, [facility] [address] [id number] [address] [place] [address], [place] [address] Jun, [facility] [address] [id number] [address] [place] [address], [place] [address] Jun, [facility] [address] [id number] [address] [place] [address], [place] [address] May, [facility] [address] [id number] [address] [place] [address], [place] [address] 17 May, 2013 [facility] [address] [id number] [address] [place] [address], [place] [address] May, [facility] [address] [id number] [address] [place] [address], [place] [address] May, [facility] [address] [id number] [address] [place] [address], [place] [address] May, [facility] [address] [id number] [address] [place] [address], [place] [address] May, [facility] [address] [id number] [address] [place] [address], [place] [address] May, [facility] [address] [id number] [place] [address] May, [facility] [address] [facility] [id number] [address] [place] [address] 13 Mar, 2012 [facility] [address] [facility] [id number] [address] [place] [address] 13 Mar, 2012 IMMUNIZATIONS No Known Immunizations SOCIAL HISTORY Never Assessed REASON FOR VISIT PLAN OF CARE VITAL SIGNS MEDICATIONS No Known Medications RESULTS No Results PROCEDURES Procedure Date Ordered Result Body Site DRUG SCREEN, QUALITATE/MULTI Feb 23, 2014 INSTRUCTIONS MEDICATIONS ADMINISTERED No Known Medications MEDICAL [...]
--- OUTSIDE RECORDS SUMMARY | 2019-10-12 07:13 | XMS REPORT ---
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 Name Role Phone SUE Corona Unavailable PROBLEMS Type Condition ICD9-CM Code BBB58-NB Code Onset Dates Condition S tatus SNOMED Code Problem Chronic headaches R51 Active 43 7559314 Problem Obesity E66.9 Active 026215904 Problem GERD (gastroesophageal reflux disease) K21.9 Active 747949226 Problem Seasonal allergic rhinitis due to pollen J30.1 Active 98652042 Problem Pseudotumor cerebri G93.2 Active 72817616 Problem Allergic rhinitis J30.9 Active 61 749707 Problem Elevated LDL cholesterol level E78.00 Active 086118216 Problem Fibromyalgia M79.7 Active 1149460 05 Problem Depression F32.9 Active 092811664 Problem Urinary retention R33.9 Active 26 7171212 Problem Attention deficit hyperactivity disorder (ADHD), unspecified ADHD type F90.9 Active 422176155 ALLERGIES No Information ENCOUNTERS Encounter Location Date Diagnosis [facility] [id number] [place] [id number] Feb, Sore throat J02.9 and Allerg ic rhinitis J30.9 [facility] [id number] [place] [id number] Nov, Sore throat J02.9 and Season al allergic rhinitis due to pollen J30.1 [facility] [id number] [place] [address] October, Left arm pain M79.602 [facility] [id number] [place] [address] Aug, Pharyngitis due to other org anism J02.8 [facility] [id number] [place] [id number] 10 Mar, 2017 Acute middle ear effusion, b ilateral H65.193 [facility] [address] [facility] [id number] [address] [place] [phone] 14 Feb, 2017 Hospital discharge follow-up Z09 and Depression F32.9 [place] [id number] [place] [id number] 11 Feb, 2017 Hospital discharge follow-up Z09 and Depression F32.9 [place] [id number] [place] [address] Jan, [facility] [address] [id number] Jan, [facility] [id number] [address] [place] [address] Dec, [place] [address] [id number] Dec, Attention deficit hyperactiv ity disorder (ADHD), unspecified ADHD type F90.9 [place] [address] [address] Dec, Depression F32.9 and Fibromy algia M79.7 [place] [id number] [place] [phone] Dec, Depression F32.9 ; Chronic h eadaches R51 ; Fibromyalgia M79.7 ; GERD (gastroesophageal reflux disease) K21.9 ; Obesity E66.9 and Attention deficit hyperactivity disorder (ADHD), unspecified ADHD type F90.9 [facility] [address] [id number] [address] [place] [id number] Nov, [facility] [id number] [place] [address] Nov, [facility] [id number] [address] [place] [address] Sep, Gastroenteritis K52.9 [facility] [address] [facility] [id number] [address] [place] [id number] Sep, Vaginal discharge N89.8 ; Po ssible exposure to STD Z20.2 and Vaginal candidiasis B37.3 [facility] [address] [facility] [id number] [address] [place] [id number] Aug, Sore throat J02.9 and Pharyn gitis, unspecified etiology J02.9 [facility] [id number] [place] [id number] Aug, Pseudotumor cerebri G93.2 ; GERD (gastroesophageal reflux disease) K21.9 ; Obesity E66.9 ; Depression F32.9 ; Urinary retention R33.9 ; Fibromyalgia M79.7 and Chronic headaches R51 [place] [id number] [place] [address] Apr, [facility] [address] [id number] [address] [place] [address] Apr, [facility] [address] [address] Apr, Pseudotumor cerebri G93.2 ; Chronic headaches R51 ; GERD (gastroesophageal reflux disease) K21.9 ; Fibromyalgia M79.7 ; Urinary retention R33.9 and Excess skin of abdominal wall L98.7 [place] [id number] [place] [id number] Mar, [place] [address] [facility] [id number] [address] [place] [address] Mar, [facility] [address] [facility] [id number] [place] [id number] Mar, Encounter for immunization Z23 [place] [address] [facility] [id number] [address] [place] [address] Feb, [place] [id number] [place] [address] Feb, [place] [address] [address] Jan, Fibromyalgia M79.7 ; Obesity E66.9 ; Depression F32.9 ; Pseudotumor cerebri G93.2 ; GERD with apnea K21.9 ; Chronic headaches R51 and Urinary retention R33.[address] [address] Jan, [address] [address] Dec, Obesity E66.9 ; Fibromyalgia M79.7 ; Depression F32.9 ; Pseudotumor cerebri G93.2 ; Chronic headaches R51 and GERD (gastroesophageal reflux disease) K21.[address] [address] Dec, [address] [address] Nov, Fibromyalgia M79.7 ; Obesity E66.9 and Elevated cholesterol E78.[address] [address] Nov, Pseudotumor cerebri G93.2 ; Chronic headaches R51 ; Obesity E66.9 ; Fibromyalgia M79.7 ; GERD (gastroesophageal reflux disease) K21.9 and Elevated cholesterol E78.[address] [address] Nov, Obesity E66.9 [facility] [address] [address] October, Nausea R11.0 and Urinary ret ention with incomplete bladder emptying R33.[address] [address] October, [facility] [address] [address] October, Dysuria R30.0 [facility] [address] [facility] [id number] [address] [place] [phone] October, [facility] [address] [facility] [id number] [address] [place] [phone] Sep, [facility] [address] [facility] [id number] [address] [place] [address] Sep, Obesity E66.9 ; Depression F 32.9 ; Fibromyalgia M79.7 ; Pseudotumor cerebri G93.2 ; Chronic headaches R51 and GERD with apnea K21.9 [facility] [address] [facility] [id number] [address] [place] [phone] Aug, Pseudotumor cerebri G93.2 ; Chronic headaches R51 ; GERD (gastroesophageal reflux disease) K21.9 ; Obesity E66.9 ; Fibromyalgia M79.7 and Depression F32.9 [facility] [address] [facility] [id number] [address] [place] [address] Aug, [facility] [address] [facility] [id number] [address] [place] [address] Aug, [facility] [address] [facility] [id number] [address] [place] [id number] Aug, [facility] [address] [facility] [id number] [address] [place] [address] Jul, [facility] [address] [facility] [id number] [address] [place] [address] Jul, [facility] [address] [facility] [id number] [address] [place] [address] Jul, Depression F32.9 [facility] [address] [facility] [id number] [address] [place] [address] Jul, Pseudotumor cerebri G93.2 ; Chronic headaches R51 ; GERD (gastroesophageal reflux disease) K21.9 ; Obesity E66.9 ; Fibromyalgia M79.7 and Depression F32.9 [facility] [address] [id number] 10 Jul, 2015 [facility] [address] [address] Jul, [facility] [address] [address] Jun, [facility] [address] [address] Jun, Pseudotumor cerebri G93.2 ; Chronic headaches R51 ; Obesity E66.9 ; GERD (gastroesophageal reflux disease) K21.9 ; Fibromyalgia M79.7 ; Depression F32.9 and Conjunctivitis H10.9 [facility] [address] [address] 09 Jun, 2015 Facial rash R21 [place] [address] [address] Jun, Obesity, unspecified E66.9 [facility] [address] [address] May, [place] [address] [address] May, [place] [address] [address] May, Vaginal itching L29.8 and Dy suria R30.0 [facility] [address] [address] May, [facility] [address] [address] May, [facility] [address] [address] 06 May, 2015 Acute pharyngitis, unspecifi ed J02.9 and Seasonal allergies J30.2 [facility] [address] [address] Apr, Pseudotumor cerebri G93.2 ; Chronic headaches R51 ; Obesity E66.9 ; GERD with apnea K21.9 and GERD (gastroesophageal reflux disease) K21.9 [facility] [address] [facility] [id number] [address] [place] [address] Mar, [facility] [id number] [place] [phone] Mar, [facility] [id number] [place] [phone] Mar, [facility] [id number] [place] [address] Mar, [facility] [id number] [place] [address] Mar, Pseudotumor cerebri G93.2 ; Chronic headaches R51 ; Obesity E66.9 ; Fibromyalgia M79.7 and GERD (gastroesophageal reflux disease) K21.9 [facility] [id number] [place] [address] Jan, [facility] [id number] [place] [address] Jan, Elevated liver enzymes 790.5 [place] [id number] [place] [phone] Jan, Elevated liver enzymes 790.5 [facility] [id number] [place] [address] Dec, Headache 784.0 ; Obesity, un specified 278.00 ; Abnormal weight gain 783.1 ; GERD (gastroesophageal reflux disease) 530.81 and Depression 311 [facility] [id number] [place] [address] Dec, Chronic headaches 784.0 [facility] [id number] [place] [address] Dec, [place] [address] [id number] [address] [place] [address] Dec, [facility] [address] [facility] [id number] [address] [place] [address] Dec, Headache 784.0 ; Obesity, un specified 278.00 ; Tick bite 919.4 and GERD (gastroesophageal reflux disease) 530.81 [facility] [address] [id number] [address] [place] [address] Sep, [facility] [address] [id number] [address] [place] [address] Sep, [facility] [address] [id number] [address] [place] [address] Aug, [facility] [address] [facility] [id number] [address] [place] [address] Aug, [facility] [address] [id number] [address] [place] [address] Aug, [facility] [address] [id number] [address] [place] [address] Aug, [facility] [address] [id number] [address] [place] [address] Aug, [facility] [address] [facility] [id number] [address] [place] [phone] Aug, [facility] [address] [id number] [address] [place] [address] Aug, [facility] [address] [id number] [address] [place] [phone] Aug, [facility] [address] [id number] [address] [place] [address] Jul, [facility] [address] [id number] [address] [place] [address] Jul, [facility] [address] [id number] [address] [place] [id number] 12 Feb, 2013 [facility] [address] [id number] [facility] [place] [address] 11 Feb, 2013 [facility] [address] [id number] [address] [place] [address], [place] [address] 11 Feb, 2013 [facility] [address] [id number] [address] [place] [address], [place] [address] 11 Feb, 2013 [facility] [address] [id number] [address] [place] [address], [place] [address] 11 Feb, 2013 [facility] [address] [id number] [address] [place] [address], [place] [address] Feb, 2013 [facility] [address] [id number] [address] [place] [address], [place] [address] Feb, 2013 [facility] [address] [id number] [address] [place] [address], [place] [address] Feb, [facility] [address] [id number] [address] [place] [address], [place] [address] Feb, [facility] [address] [id number] [address] [place] [address], [place] [address] Jun, [facility] [address] [id number] [address] [place] [address], [place] [address] 30 Jun, 2013 [facility] [address] [id number] [address] [place] [address], [place] [address] 17 May, 2013 [facility] [address] [id number] [address] [place] [address], [place] [address] 17 May, 2013 [facility] [address] [id number] [address] [place] [address], [place] [address] May, [facility] [address] [id number] [address] [place] [address], [place] [address] May, [facility] [address] [id number] [address] [place] [address], [place] [address] May, [facility] [address] [id number] [address] [place] [address] May, [facility] [address] [facility] [id number] [address] [place] [address] May, [facility] [address] [facility] [id number] [address] [place] [address] May, [facility] [address] [facility] [id number] [address] [place] [address] Mar, [facility] [address] [facility] [id number] [address] [place] [address] Mar, IMMUNIZATIONS No Known Immunizations SOCIAL HISTORY Never Assessed REASON FOR VISIT PLAN OF CARE VITAL SIGNS MEDICATIONS Unknown Medications RESULTS No Results PROCEDURES [...]
--- OUTSIDE RECORDS SUMMARY | 2019-10-12 07:13 | XMS REPORT ---
Author Author [employer] Organization [employer] Address [address] [address] Care Team Prov[address] Care [address] Reporter Name Role Phone TIMBO GUILLEN Unavailable Unavailable STU VASQUEZ Unavailable Unavailable JUAN HINTON Unavailable Unavailable CALIN PRAKASH Unavailable Unavailable [facility] Unavailable TRUNG KHAN Unavailable BERTIN SHAH Unavailable RADHA EISENBERG Unavailable TIMBO GUILLEN Unavailable TIMBO GUILLEN Unavailable CARDENASPOOJA Melendez Unavailable CARDENAS POOJA Unavailable JANA HAAS DO Unavailable Unavailable ARCELIA ARTEAGA Unavailable ARCELIA ARTEAGA Unavailable Migration, Doctor Unavailable Unavailable DELIA MARTINEZ APRN Unavailable Unavailable Migration, Doctor Unavailable Unavailable TIMBO Storm Unavailable Unavailable Migration, Doctor Unavailable Unavailable zzHEIMAN, SUE Unavailable Migration, Doctor Unavailable Unavailable Migration, Doctor Unavailable Unavailable Migration, Doctor Unavailable Unavailable Migration, Doctor Unavailable Unavailable zzHEIMAN, SUE Unavailable zzHEIMAN, SUE Unavailable zzHEIMAN, SUE Unavailable Migration, Doctor Unavailable Unavailable WESLEY CRUZ Unavailable zzHEIMAN, SUE Unavailable Allergies Normalized Allergy Reported Date of Reaction(s) Care Provider Facility Allergy Type classification allergen Allergy Onset Drug Allergy Anti-Epileptic gabapentin 04-11-2018 - GabapentinJANA DO Not Available (20 sources.) Agents Translations: Topiramate (60827) Translations: [ topiramate, [ Propensity Gabapentin, to adverse Topiramate] reactions] Medications Medication Ingredient Drug Dose Dates Status Sig Sig Care Class(es) (Normalized) (Original) Provid er no Amoxicillin no 07-29-19 Complete no Amoxicillin/ Jana K information /Clavulanat information 15 - d information Cl avulanate [place] (2 e Potassium 01-07-20 Potassium (no sources.) (Augmentin 15 (Augmentin phone) Xr Xr 1000-62.5 1000-62.5 Tab) 1 Tab) 1 Tab.sr .12 H Tab.sr .12 Tab.sr.12h, H 1 EachOral Tab.sr.12h, Twice A Day 1 EachOral 07/29/14 Discontinued 24 hr Amphetamine Central 03-28-20 Complete no Dextroamphet (no amphetamine aspartate / Nervous 17 d information amine/ Amphet phone) aspartate 5 Amphetamine System amine mg / Sulfate / Stimulant (Dextroamp-A amphetamine Dextroamphe mphet Er 20 sulfate 5 tamine Mg Cap) 20 mg / saccharate Mg dextroamphe / Cap.er.24h, tamine Dextroamphe 20 Mg Oral saccharate tamine Daily 5 mg / Sulfate Discontinued dextroamphe tamine sulfate 5 mg extended release oral capsule (1 source.) SUMAtriptan SUMAtriptan Serotonin-1 100 mg Complete no Sumat riptan (no 100 mg oral b and d information Succinate phone) tablet (2 Serotonin-1 100 Mg sources.) d Receptor Tablet NOT Agonist APPLICABLE Problems Active Problems Problem Normalized Date of Normalized Normalized Provider Fac ility Classification Problem(s) Problem Problem Problem Sta tus Onset/Resoluti Duration on Residual Acquired Episodic Active JANA WALDO , DO Not Avai lable codes; absence of (21305) unclassified both cervix (5 sources.) and uterus Other upper Allergic Chronic Active [facility] it respiratory rhinitis [facility] disease (4 Translations: [place] sources.) [ Allergic [place] ([address]) rhinitis] Other upper Allergic Chronic Active [facility] respiratory rhinitis due [facility] disease (12 to pollen of [place] sources.) Translations: [place] (62807) [ Seasonal allergic rhinitis due to pollen] Other upper Allergic Chronic Active [facility] respiratory rhinitis due [facility] disease (12 to pollen of [place] sources.) Translations: [place] (71155) [ - Seasonal allergic rhinitis due to pollen J30.1] Other upper Allergic Chronic Active SUE jones respiratory rhinitis, [facility] disease (4 unspecified of [place] sources.) Translations: [place] () [ - Allergic rhinitis J30.9] Allergic Allergy status Episodic Active MARCIA BARFIELD Not A vailable reactions (9 to analgesic (92344) sources.) agent status Translations: [ ALLERGY STATUS TO OTH DRUG/MEDS/BIOL SUB] Attention-defi Attention-defi Chronic Active WESLEY ANTHONY Not Available cit conduct MD iliana (74940) and disruptive hyperactivity behavior disorder, disorders (20 unspecified sources.) type Translations: [ - Attention deficit hyperactivity disorder (ADHD), unspecified ADHD type F90.9] Other nervous Benign Chronic Active [facility] system intracranial [facility] disorders (14 hypertension of [place] sources.) Translations: [place] () [ Pseudotumor cerebri] Other skin Excessive and Episodic Active WESLEY ANTHONY Com munity disorders (2 redundant skin [address] [facility] sources.) and of [facility] subcutaneous [place] (71049) tissue Translations: [ - Excess skin of abdominal wall L98.7] Other Fibromyalgia Episodic Active [facility] connective Translations: [facility] tissue disease [ of [facility] (13 sources.) Fibromyalgia] [place] () Headache, Headache Episodic Active MARCIA BARFIELD Not Availab le including Translations: (65455) migraine (9 [ MIGRAINE, sources.) UNSP, NOT INTRACTABLE, WITHOUT] Substance-rela Nicotine Chronic Active JANA WALDO , DO Not Available moiz disorders dependence, (62120) (6 sources.) cigarettes, uncomplicated Translations: [ NICOTINE DEPENDENCE, UNSPECIFIED, UNCOMP] Other Obesity Chronic Active [facility] nutritional; Translations: [facility] Center endocrine; and [ Obesity] of [facility] metabolic [place] (78722) disorders (14 sources.) Other Obesity, Chronic Active [facility] nutritional; unspecified [facility] endocrine; and Translations: of [facility] metabolic [ - Obesity, [place] (92012) disorders (20 unspecified sources.) 278.00] Other Pain in left Episodic Active [facility] connective arm [facility] tissue disease Translations: of [facility] (13 sources.) [ - Left arm [place] (66762) pain M79.602] Cardiac Paroxysmal Chronic Active DELIA Not Availab le dysrhythmias atrial JUAN (13458) (5 sources.) fibrillation Other Raised low Episodic Active [facility] nutritional; density Migration [facility] Center endocrine; and lipoprotein of [facility] metabolic cholesterol [place] (71316) disorders (12 Translations: sources.) [ Elevated LDL cholesterol level] Other Raised low Chronic Active WESLEY ANTHONY Communi ty nutritional; density [address] [facility] Center endocrine; and lipoprotein of [facility] metabolic cholesterol [place] (99779) disorders (2 Translations: sources.) [ Elevated LDL cholesterol level] Other lower Snoring Episodic Active DELIA Not Availab le respiratory JUAN (69665) disease (5 sources.) Other upper Unspecified Chronic Active ERAL SHAW Not Available respiratory [place]itis , [place] ([address]873) infections (1 (chronic) source.) Past or Other Problems Problem Normalized Date of Normalized Normalized Provider Fac ility Classification Problem(s) Problem Problem Problem Sta tus Onset/Resoluti Duration on Residual Acquired Episodic Completed JANA HAAS , DO Not Avai lable codes; absence of (56934) unclassified other (2 sources.) specified parts of digestive tract External cause Fall on same no information no information JANA HAAS DO Not Available codes: Fall (2 level from (08407) sources.) slipping, tripping and stumbling without subsequent striking against object, initial encounter Adverse Fever, Episodic Completed MARCIA BARFIELD Not Availab le effects of unspecified (12914) medical drugs (1 source.) Residual Hypersomnia, no information no information DELIA Not Available codes; unspecified JUAN (63978) unclassified (9 sources.) Fluid and Hypokalemia Episodic Completed WESLEY CRUZ Not Av ailable electrolyte MD (16854) disorders (4 sources.) Influenza (1 Influenza with Episodic Completed MARCIA BARFIELD No t Available source.) other (83026) respiratory manifestations Other Pain in left Episodic Completed JANA HAAS DO Not Available non-traumatic elbow (84621) joint disorders (2 sources.) Suicide and Personal Episodic Completed JANA HAAS , DO Not Av ailable intentional history of (55232) self-inflicted self-harm injury (2 sources.) Suicide and Poisoning by no information no information WESLEY CRUZ Not Available intentional other opioids, MD (63150) self-inflicted intentional injury (4 self-harm, sources.) initial encounter Disorders of Pure no information no information JANA HAAS , DO Not Available lipid hypercholester (57929) metabolism (2 olemia, sources.) unspecified Complications Reaction to Episodic Completed JANA HAAS , DO N ot Available of surgical spinal or (86363) procedures or lumbar medical care puncture (1 source.) Procedures Procedure Normalized Procedure Procedure Result Performer Facility Date 02-23-2014 Drug screen, no information no name (no phone) Filement qualitate/multi Center [facility] (98072) 08-25-2014 Mri brain brain stem no information no name (no malena ne) [facility] w/o w/contrast [facility] (88588) 02-15-2014 Us pelvic nonobstetric no information no name (no p natanael) [facility] real-time image [facility] (32240) Immunizations The data below is from unstructured sources No Known Immunizations No Known Immunizations No Known Immunizations No Known Immunizations No Known Immunizations No Known Immunizations No Known Immunizations No Known Immunizations No Known Immunizations No Known Immunizations No Known Immunizations No Known Immunizations No Known Immunizations No Known Immunizations No Known Immunizations No Known Immunizations No Known Immunizations No Known Immunizations No Known Immunizations No Known Immunizations No Known Immunizations No Known Immunizations No Known Immunizations No Known Immunizations No Known Immunizations No Known Immunizations No Known Immunizations No Known Immunizations No Known Immunizations No Known Immunizations No Known Immunizations No Known Immunizations No Known Immunizations No Known Immunizations No Known Immunizations Results Test Name Value Interpretation Reference Range Date Time Fa cility (Normalized) (Normalized) (Medline Reference) No panel information on 2019-02-17 Exp date no information (no code) [facility] (65657) No panel information on 2018-11-16 Exp date no information (no code) [facility] (94248) No panel information on 2016-09-18 Bacteria Note (no code) 09-18-2016 Not Available identified Aer 12:53-0400 (81883) cx Nom (Genital specimen) Vital Signs Vital Sign Value Interpretation Reference Date Time Care Prov ider Facility (Normalized) (Normalized) Range Body height 172.72 cm (no code) cm 02-15-2014 SUE Vargas [facility] 15:050400 41240 [facility] (34925) Body 97.7 [degF] (no code) 97.8 - 99.0 09-09-2014 [facility] Temperature [degF] 11:180400 [facility] (58756) Body 98 [degF] (no code) 97.8 - 99.0 08-17-2014 [facility] Temperature [degF] 16:37-0500 [facility] (71427) Body 97.9 [degF] (no code) 97.8 - 99.0 08-10-2014 [facility] Temperature [degF] 16:100500 [facility] (73737) Body 98.6 [degF] (no code) 97.8 - 99.0 02-15-2014 SUE Se[facility] temperature [degF] 15:0 92411 [facility] (57925) Body weight 119.32 kg (no code) kg 09-09-2014 [facility] 11:180400 [facility] (35327) Body weight 120.32 kg (no code) kg 08-17-2014 [facility] 16:370500 [facility] (50426) Body weight 120.29 kg (no code) kg 08-10-2014 [facility] 16:0500 [facility] (81394) Body weight 115.67 kg (no code) kg 02-15-2014 SUE Vargas [facility] 15:050400 82904 [facility] (01379) Height 172.72 cm (no code) cm 09-09-2014 [facility] 11:180400 [facility] (49244) Height 172.72 cm (no code) cm 08-17-2014 [facility] 16:370500 [facility] (40292) Height 172.72 cm (no code) cm 08-10-2014 [facility] 16:10-0500 [facility] (44429) Interventions No Information Plan of Treatment The data below is from unstructured sources Discharge Date 01/14/17 4:00pm Disposition 65 XFER TO PSYCH HOSP/UN IT Instructions/Education Provided Suic jim Prevention Prescriptions See Medication Section Care Plan and Goals See Discharge In structions Section Activity Details Follow Up 3 Months Reason: Discharge Date 03/28/17 6:48pm Disposition 01 HOME, SELF-CARE Condition at Discharge Stable Instructions/Education Provided Wris t Sprain (DC) Contusion (DC) How to Use a Shoulder Sling Prescriptions See Medication Section Referrals RADHA EISENBERG DO Order Date: Primary Care Physician Address: [facility] [place], [place] [address] TIMBO GUILLEN Order Date: Primary Care Physician Address: [facility] [address] [place] [address] Additional Instructions/Education IC E TO SORE AREAS AT 20 MINUTE INTERVALS SLING NEEDED FOR COMFORT OVER THE COUNTER ALEVE--2 PILLS A DAY-- NEEDED FOR PAIN ACTIVITIES TOLERATED FOLLOW UP WITH [facility] IN 1 WEEK IF NO BETTER All discharge instructions reviewed with patient and/or family. Voiced understanding. Activity Details Follow Up prn Reason: Discharge Date 04/11/18 8:19pm Disposition 01 HOME, SELF-CARE Condition at Discharge Stable Instructions/Education Provided Head ache, Adult Prescriptions See Medication Section Referrals ARCELIA ARTEAGA MD Order Date: Primary Care Physician Address: [address] [place] [address], [address] [place] [address] [id number] Additional Instructions/Education 1. Return to ER for any concerns 2. Follow-up with your doctor next week 3. Discharge Date 05/22/18 6:53am Prescriptions See Medication Section Goals No Information Social History No Information Functional Status The data below is from unstructured sources Query Response Date Kevin rded Patient Orientation Person Place Time Situation July 29, 2014 11:24am Comprehension Ability Understands Co ncepts July 29, 2014 11:24am Query Response Date Kevin rded Comprehension Ability Understands Co ncepts April 11, 2018 7:00pm Mental Status No Information Encounters Encounter Normalized Encounter Encounter Diagnosis Care Provi juani Organization Date Type 11-16-2018 (WALK-IN) Walk-In Care Acute pharyngitis, ISRA G ILREATH (no [facility] - unspecified phone) CARE (no phone) 11-16-2018 - 11-16-2018 10-25-2018 (WALK-IN) Walk-In Care Pain in left arm RONNA STOCK (no [facility] - phone) CARE (no phone) 10-25-2018 - 10-25-2018 08-14-2018 (WALK-IN) Walk-In Care Acute pharyngitis due EUFEMIA Goodwin TOMAS (no [facility] - to other specified phone) CARE (no ph one) 08-14-2018 organisms - 08-14-2018 05-26-2019 [facility] Acute upper CALIN HEIN (no [facility] - CARE respiratory infection, phone) CAR E (no phone) 05-26-2019 unspecified - 05-26-2019 02-17-2019 [facility] Acute pharyngitis, ELIZABETH Duncan (no [facility] - CARE unspecified phone) CARE (no phone ) 02-17-2019 - 02-17-2019 04-11-2018 Emergency department no information MARCIA Fraga APRN BA MARIAMA no organization name - patient visit Work Phone: (no phone) 04-11-2018 01-12-2017 Emergency department no information no name (no malena ne) no organization name patient visit (no phone) 07-27-2014 Emergency department no information no name (no malena ne) no organization name - patient visit (no phone) 07-28-2014 09-15-2019 Encounter by computer no information CALIN CUNNINGHAMLLANA (no [facility] - link phone) CARE (no phone) 09-15-2019 - 09-15-2019 09-14-2019 Encounter by computer no information CALINCLOTILDE CUNNINGHAMHEIN (no [facility] link phone) CARE (no phone) 04-11-2018 Patient encounter no information no name (no phone) no organization name (no phone) 02-17-2019 Patient encounter no information no name (no phone) no organization name procedure (no phone) 11-16-2018 Patient encounter no information no name (no phone) no organization name procedure (no phone) 11-16-2018 Patient encounter no information no name (no phone) no organization name procedure (no phone) 10-25-2018 Patient encounter no information no name (no phone) no organization name procedure (no phone) 08-14-2018 Patient encounter no information no name (no phone) no organization name procedure (no phone) 05-21-2018 Patient encounter no information DELIA E TAXI DANCER no organization name - procedure JUAN Work Phone: (no phone) 05-22-2018 05-10-2018 Patient encounter no information DELIA E TAXI DANCER no organization name procedure JUAN Work Phone: (no phone) 01-12-2017 Patient encounter no information no name (no phone) no organization name - procedure (no phone) 01-14-2017 08-29-2014 Patient encounter no information no name (no phone) no organization name procedure (no phone) Medical Equipment No Information Payers Normalized Payer Value [facility] [id number] ([id number]) History general Narrative - Reported Note Type Note Facility History general Narrative - Reported Type Medical depression History Medical meningitis 2000 & 2010 History Medical psuedotumor cerebri History Medical fibromyalgia History Medical ADHD History Surgical History Surgical cholecystectomy History Surgical hysterectomy History Surgical appendectomy, ovaries and scar tissure removed 2013 History Surgical ureter stretch by Dr. Kuhn History Hospitaliz surgeries ation History Hospitaliz menangitis ation History Hospitaliz childbirth ation History Hospitaliz suicidal ideation ation History [facility] ([id number]) Summary Purpose eClinicalWorks SubmissioneClinicalWorks SubmissioneClinicalWorks SubmissioneClinicalWorks SubmissioneClinicalWorks SubmissioneClinicalWorks SubmissioneClinicalWorks SubmissioneClinicalWorks SubmissioneClinicalWorks SubmissioneClinicalWorks SubmissioneClinicalWorks SubmissioneClinicalWorks SubmissioneClinicalWorks SubmissioneClinicalWorks SubmissioneClinicalWorks SubmissioneClinicalWorks SubmissioneClinicalWorks SubmissioneClinicalWorks SubmissioneClinicalWorks SubmissioneClinicalWorks SubmissioneClinicalWorks SubmissioneClinicalWorks SubmissioneClinicalWorks SubmissioneClinicalWorks SubmissioneClinicalWorks SubmissioneClinicalWorks SubmissioneClinicalWorks SubmissioneClinicalWorks Submission Advance Directives Directive Response Recor ded Date/Time Advance Directives No 10:05am Health Care Power of Fire Crew Worker No 05/09/14 10:05am Organ Donor Yes 05/09/14 10:05am Resuscitation Status Full Code 05/09/14 10:05am Directive Response Recor ded Date/Time Advance Directives No 2:14am Health Care Power of Fire Crew Worker No 01/06/15 2:14am Organ Donor Yes 01/06/15 2:14am Resuscitation Status Full Code 01/06/15 2:14am Directive Response Recor ded Date/Time Advance Directives No 8:07pm Health Care Power of Fire Crew Worker No 07/27/14 8:07pm Organ Donor Yes 07/27/14 8:07pm Resuscitation Status Full Code 07/27/14 8:07pm Directive Response Recor ded Date/Time Advance Directives No 10:51am Health Care Power of Fire Crew Worker No 07/29/14 10:51am Organ Donor Yes 07/29/14 10:51am Resuscitation Status Full Code 07/29/14 10:51am Directive Response Recor ded Date/Time Advance Directives No 11:06am Organ Donor Yes 02/25/14 11:06am Resuscitation Status Full Code 02/25/14 11:06am Directive Response Recor ded Date/Time Advance Directives No 7:00pm Health Care Power of Fire Crew Worker No 01/12/17 7:00pm Organ Donor Yes 01/12/17 7:00pm Resuscitation Status Full Code 01/12/17 7:00pm Directive Response Recor ded Date/Time Advance Directives No 5:49pm Health Care Power of Fire Crew Worker No 01/12/17 7:00pm Organ Donor Yes 01/12/17 7:00pm Resuscitation Status Full Code 03/28/17 5:49pm Directive Response Recor ded Date/Time Advance Directives No 7:00pm Health Care Power of Fire Crew Worker No 04/11/18 7:00pm Organ Donor Yes 04/11/18 7:00pm Resuscitation Status Full Code 04/11/18 7:00pm Directive Response Recor ded Date/Time Advance Directives No 7:00pm Health Care Power of Fire Crew Worker No 04/11/18 7:00pm Organ Donor Yes 04/11/18 7:00pm Discharge Instructions No hospital discharge instructions.No hospital discharge instructions.No hospital discharge instructions.No hospital discharge instructions.No hospital discharge instructions. Patient Instructions Physician Instructions Goal/Follow Up Appt: Follow up at [facility] within a week after discharge from [place]. Discharge Diet: No Restrictions Activity as Tolerated: Yes Care Plan Goal:: Follow up at [facility] within a week after discharge from [place]. No hospital discharge instruction information available.No hospital discharge i nstruction information available.No hospital discharge instruction information a vailable. Chief Complaint and Reason for Visit Chief Complaint Head/Cervical Proble ms Reason for Visit Migraine Additional Source Comments This clinical document has been generated using [employer] software that has been certified by the Office of the National Coordinator for Health Information Technology (ONC 15.99.04.3023.Diam.31.00.0.619350) and the National Committee for Engineer Design And Construction (NCQA, as an eMeasure certified technology). FOR RECORDS PERTAINING TO PATIENTS WHO ARE OR HAVE BEEN ENROLLED IN A CHEMICAL D EPENDENCY/SUBSTANCE ABUSE PROGRAM, SOME INFORMATION MAY BE OMITTED. This clinica l summary was aggregated from multiple sources. Caution should be exercised in using it in the provision of clinical care. This summary normalizes information from multiple sources, and as a consequence, information in this document may ma terially change the coding, format and clinical context of patient data. In alpesh tion, data may be omitted in some cases. CLINICAL DECISIONS SHOULD BE BASED ON T HE PRIMARY CLINICAL RECORDS. [employer] provides no warranty or guara ntee of the accuracy or completeness of information in this document.The followi ng information is based on time limited clinical information UNRECOGNIZED CONTENT PROVIDED BELOW FOR UNRECOGNIZED SECTION MEDICAL (GENERAL) HISTORY Type Description Date Medical History depression Medical History meningitis 2000 & 2010 Medical History psuedotumor cerebri Medical History fibromyalgia Medical History ADHD Surgical History Surgical History cholecystectomy Surgical History hysterectomy Surgical History appendectomy, ovari es and scar tissure removed 2013 Surgical History ureter stretch by Yovanny Kuhn Hospitalization History surgeries Hospitalization History menangitis Hospitalization History childbirth Hospitalization History suicidal ideation UNRECOGNIZED CONTENT PROVIDED BELOW FOR UNRECOGNIZED SECTION REASON FOR [place]ISIT [id number] [place]
--- OUTSIDE RECORDS SUMMARY | 2019-10-12 07:13 | XMS REPORT ---
Author Author Jaida Corona Organization [facility] Address [address] [place] [address] Care Team Providers Care Multifocal Button Grinder Name Role Phone SUE Corona Unavailable PROBLEMS Type Condition ICD9-CM Code OLR69-FE Code Onset Dates Condition S tatus SNOMED Code Problem Chronic headaches R51 Active 43 7135731 Problem Obesity E66.9 Active 591226841 Problem GERD (gastroesophageal reflux disease) K21.9 Active 079500902 Problem Seasonal allergic rhinitis due to pollen J30.1 Active 78194602 Problem Pseudotumor cerebri G93.2 Active 75016331 Problem Allergic rhinitis J30.9 Active 61 629357 Problem Elevated LDL cholesterol level E78.00 Active 064825081 Problem Fibromyalgia M79.7 Active 2724778 05 Problem Depression F32.9 Active 527336921 Problem Urinary retention R33.9 Active 26 5871449 Problem Attention deficit hyperactivity disorder (ADHD), unspecified ADHD type F90.9 Active 159008159 ALLERGIES No Information ENCOUNTERS Encounter Location Date Diagnosis [facility] [address] [facility] [id number] [address] [place] [phone] Sep, [facility] [address] [facility] [id number] [address] [place] [phone] Sep, [facility] [address] [facility] [id number] [address] [place] [phone] Sep, [facility] [address] [facility] [id number] [address] [place] [phone] May, Viral upper respiratory trac t infection J06.9 [facility] [address] [facility] [id number] [address] [place] [phone] 05 Feb, 2019 Sore throat J02.9 and Allerg ic rhinitis J30.9 [facility] [address] [place] [id number] [address] [place] [phone] 04 Nov, 2018 Sore throat J02.9 and Season al allergic rhinitis due to pollen J30.1 [facility] [address] [place] [id number] [address] [place] [id number] 13 Oct, 2018 Left arm pain M79.602 [facility] [place] [address] [address] 02 Aug, 2018 Pharyngitis due to other org anism J02.8 [facility] [place] [address] [address] 10 Mar, 2017 Acute middle ear effusion, b ilateral H65.193 [place] [address] [address] 14 Feb, 2017 Hospital discharge follow-up Z09 and Depression F32.9 [place] [address] [address] 11 Feb, 2017 Hospital discharge follow-up Z09 and Depression F32.9 [place] [address] [address] Jan, [facility] [address] [id number] Jan, [facility] WALK IN [facility] [address] [address] Dec, [place] [address] [address] Dec, Attention deficit hyperactiv ity disorder (ADHD), unspecified ADHD type F90.9 [place] [address] [address] Dec, Depression F32.9 and Fibromy algia M79.7 [place] [address] [address] Dec, Depression F32.9 ; Chronic h eadaches R51 ; Fibromyalgia M79.7 ; GERD (gastroesophageal reflux disease) K21.9 ; Obesity E66.9 and Attention deficit hyperactivity disorder (ADHD), unspecified ADHD type F90.9 [place] [address] [address] Nov, [place] [address] [address] Nov, [facility] WALK IN [facility] [address] [address] Sep, Gastroenteritis K52.[address] [address] Sep, Vaginal discharge N89.8 ; Po ssible exposure to STD Z20.2 and Vaginal candidiasis B37.3 [facility] [place] [address] [address] Aug, Sore throat J02.9 and Pharyn gitis, unspecified etiology J02.9 [place] [address] [address] Aug, Pseudotumor cerebri G93.2 ; GERD (gastroesophageal reflux disease) K21.9 ; Obesity E66.9 ; Depression F32.9 ; Urinary retention R33.9 ; Fibromyalgia M79.7 and Chronic headaches R51 [place] [address] [address] Apr, [place] [address] [address] Apr, [address] [address] Apr, Pseudotumor cerebri G93.2 ; Chronic headaches R51 ; GERD (gastroesophageal reflux disease) K21.9 ; Fibromyalgia M79.7 ; Urinary retention R33.9 and Excess skin of abdominal wall L98.7 [place] [address] [address] [place] [id number] [place] [phone] Mar, [facility] [address] [facility] [id number] [address] [place] [phone] Mar, [facility] Derek W [place] [id number] HERMAN[place] [id number] Mar, Encounter for immunization Z23 [facility] [address] [place] [phone] Feb, [facility] [address] [address] Feb, [place] [address] [address] Jan, Fibromyalgia M79.7 ; Obesity E66.9 ; Depression F32.9 ; Pseudotumor cerebri G93.2 ; GERD with apnea K21.9 ; Chronic headaches R51 and Urinary retention R33.9 [place] [address] [address] Jan, [place] [address] [address] Dec, Obesity E66.9 ; Fibromyalgia M79.7 ; Depression F32.9 ; Pseudotumor cerebri G93.2 ; Chronic headaches R51 and GERD (gastroesophageal reflux disease) K21.9 [place] [address] [address] [place] [id number] [address] [place] [phone] Dec, [place] [address] [address] Nov, Fibromyalgia M79.7 ; Obesity E66.9 and Elevated cholesterol E78.0 [place] [address] [address] Nov, Pseudotumor cerebri G93.2 ; Chronic headaches R51 ; Obesity E66.9 ; Fibromyalgia M79.7 ; GERD (gastroesophageal reflux disease) K21.9 and Elevated cholesterol E78.0 [place] [address] [address] 10 Nov, 2015 Obesity E66.9 [facility] [address] [address] 10 Oct, 2015 Nausea R11.0 and Urinary ret ention with incomplete bladder emptying R33.9 [facility] [address] [address] October, [facility] [address] [address] October, Dysuria R30.0 [place] [address] [address] October, [facility] [address] [address] Sep, [facility] [address] [address] Sep, Obesity E66.9 ; Depression F 32.9 ; Fibromyalgia M79.7 ; Pseudotumor cerebri G93.2 ; Chronic headaches R51 and GERD with apnea K21.9 [place] [address] [address] Aug, Pseudotumor cerebri G93.2 ; Chronic headaches R51 ; GERD (gastroesophageal reflux disease) K21.9 ; Obesity E66.9 ; Fibromyalgia M79.7 and Depression F32.9 [facility] [address] [address] Aug, [facility] [address] [address] Aug, [facility] [address] [address] Aug, [facility] [address] [address] Jul, [facility] [address] [facility] [id number] [address] [place] [phone] Jul, [facility] [address] [place] [id number] [place] [address] Jul, Depression F32.9 [facility] [address] [place] [id number] [address] [place] [phone] Jul, Pseudotumor cerebri G93.2 ; Chronic headaches R51 ; GERD (gastroesophageal reflux disease) K21.9 ; Obesity E66.9 ; Fibromyalgia M79.7 and Depression F32.9 [facility] [address] [facility] [id number] [place] [phone] Jul, [place] [address] [address] Jul, [place] [address] [address] Jun, [facility] [address] [address] Jun, Pseudotumor cerebri G93.2 ; Chronic headaches R51 ; Obesity E66.9 ; GERD (gastroesophageal reflux disease) K21.9 ; Fibromyalgia M79.7 ; Depression F32.9 and Conjunctivitis H10.9 [facility] [address] [place] [id number] [address] [place] [phone] Jun, Facial rash R21 [facility] [address] [place] [id number] [address] [place] [phone] Jun, Obesity, unspecified E66.9 [facility] [address] [place] [id number] [address] [place] [phone] May, [facility] [address] [place] [id number] [place] [phone] May, [facility] [address] [place] [id number] [place] [address] May, Vaginal itching L29.8 and Dy suria R30.0 [facility] [address] [facility] [id number] [address] [place] [phone] May, [facility] [address] [facility] [id number] [address] [place] [phone] May, [facility] [address] [facility] [id number] [address] [place] [phone] May, Acute pharyngitis, unspecifi ed J02.9 and Seasonal allergies J30.2 [facility] [address] [facility] [id number] [address] [place] [phone] Apr, Pseudotumor cerebri G93.2 ; Chronic headaches R51 ; Obesity E66.9 ; GERD with apnea K21.9 and GERD (gastroesophageal reflux disease) K21.9 [facility] [address] [facility] [id number] [address] [place] [phone] Mar, [facility] [address] [facility] [id number] [address] [place] [phone] Mar, [facility] [address] [facility] [id number] [address] [place] [phone] Mar, [facility] [address] [facility] [id number] [address] [place] [phone] Mar, [facility] [address] [facility] [id number] [address] [place] [phone] Mar, Pseudotumor cerebri G93.2 ; Chronic headaches R51 ; Obesity E66.9 ; Fibromyalgia M79.7 and GERD (gastroesophageal reflux disease) K21.9 [facility] [address] [facility] [id number] [address] [place] [id number] Jan, [facility] [address] [facility] [id number] [address] [place] [phone] Jan, Elevated liver enzymes 790.5 [facility] [address] [facility] [id number] [address] [place] [phone] Jan, Elevated liver enzymes 790.5 [facility] [address] [id number] [address] [place] [phone] Dec, Headache 784.0 ; Obesity, un specified 278.00 ; Abnormal weight gain 783.1 ; GERD (gastroesophageal reflux disease) 530.81 and Depression 311 [facility] [address] [facility] [id number] [address] [place] [phone] Dec, Chronic headaches 784.0 [facility] [address] [id number] [address] [place] [phone] Dec, [facility] [address] [facility] [id number] [address] [place] [phone] Dec, [facility] [address] [facility] [id number] [address] [place] [id number] Dec, Headache 784.0 ; Obesity, un specified 278.00 ; Tick bite 919.4 and GERD (gastroesophageal reflux disease) 530.81 [facility] [address] [facility] [id number] [address] [place] [phone] Sep, [facility] [address] [facility] [id number] [address] [place] [phone] Sep, [facility] [address] [facility] [id number] [address] [place] [phone] Aug, [facility] [address] [facility] [id number] [address] [place] [phone] Aug, [facility] [address] [facility] [id number] [address] [place] [phone] Aug, [facility] [address] [facility] [id number] [address] [place] [phone] Aug, [facility] [address] [facility] [id number] [address] [place] [phone] Aug, [facility] [address] [facility] [id number] [address] [place] [phone] Aug, [facility] [address] [id number] [facility] [address] 05 Aug, 2014 [facility] [address] [id number] [address] [place] [address], [place] [address] Aug, 2014 [facility] [address] [id number] [address] [place] [address], [place] [address] Jul, 2014 [facility] [address] [id number] [address] [place] [address], [place] [address] Jul, 2014 [facility] [address] [id number] [address] [place] [address], [place] [address] 12 Feb, 2013 [facility] [address] [id number] [address] [place] [address], [place] [address] Feb, 2013 [facility] [address] [id number] [address] [place] [address], [place] [address] Feb, 2013 [facility] [address] [id number] [address] [place] [address], [place] [address] Feb, 2013 [facility] [address] [id number] [address] [place] [address], [place] [address] 11 Feb, 2013 [facility] [address] [id number] [address] [place] [address], [place] [address] Feb, 2013 [facility] [address] [id number] [address] [place] [address], [place] [address] 11 Feb, 2013 [facility] [address] [id number] [address] [place] [address], [place] [address] Feb, 2013 [facility] [address] [id number] [address] [place] [address], [place] [address] Feb, 2013 [facility] [address] [id number] [address] [place] [address], [place] [address] Jun, [facility] [address] [id number] [address] [place] [address], [place] [address] Jun, [facility] [address] [id number] [address] [place] [address], [place] [address] May, [facility] [address] [id number] [address] [place] [phone] May, [facility] [address] [id number] [address] [place] [phone] May, [facility] [address] [id number] [address] [place] [phone] May, [facility] [address] [id number] [address] [place] [phone] May, [facility] [address] [id number] [address] [place] [phone] May, [facility] [address] [id number] [address] [place] [phone] May, [facility] [address] [id number] [address] [place] [id number] May, [facility] [address] [id number] [address] [place] [phone] Mar, [facility] [address] [id number] [address] [place] [phone] Mar, IMMUNIZATIONS No Known Immunizations SOCIAL HISTORY Never Assessed REASON FOR VISIT PLAN OF CARE VITAL SIGNS Height 68 in 2014-02-15 Weight 255 lbs 2014-02-15 Temperature 98.6 degrees Fahrenheit 2014-02-15 Heart Rate 84 bpm 2014-02-15 Respiratory Rate 20 2014-02-15 Blood pressure systolic 130 mmHg 2014-02-15 Blood pressure diastolic 78 mmHg 2014-02-15 MEDICATIONS Unknown Medications RESULTS No Results PROCEDURES Procedure Date Ordered Result Body Site US EXAM, PELVIC, COMPLETE Feb 15, 2014 INSTRUCTIONS MEDICATIONS ADMINISTERED No Known Medications [...]
--- OUTSIDE RECORDS SUMMARY | 2019-10-12 07:13 | XMS REPORT ---
Author Author Jaida CRUZ Organization [facility] Address [address] [place] [address] Care Team Providers Care Iv Therapy Nurse Name Role Phone ANTHONYWESLEY MARK Unavailable PROBLEMS Type Condition ICD9-CM Code PCZ66-QT Code Onset Dates Condition S tatus SNOMED Code Problem Chronic headaches R51 Active 43 2767280 Problem Obesity E66.9 Active 153898626 Problem GERD (gastroesophageal reflux disease) K21.9 Active 257013004 Problem Seasonal allergic rhinitis due to pollen J30.1 Active 14285213 Problem Pseudotumor cerebri G93.2 Active 52403283 Problem Allergic rhinitis J30.9 Active 61 847663 Problem Elevated LDL cholesterol level E78.00 Active 853763402 Problem Fibromyalgia M79.7 Active 1587176 05 Problem Depression F32.9 Active 056219786 Problem Urinary retention R33.9 Active 26 5730937 Problem Attention deficit hyperactivity disorder (ADHD), unspecified ADHD type F90.9 Active [id number] ALLERGIES No Information ENCOUNTERS Encounter Location Date Diagnosis [facility] [id number] [place] [address] May, Viral upper respiratory trac t infection J06.9 [facility] [id number] [address] [place] [id number] 05 Feb, 2019 Sore throat J02.9 and Allerg ic rhinitis J30.9 [facility] [id number] [place] [address] 04 Nov, 2018 Sore throat J02.9 and Season al allergic rhinitis due to pollen J30.1 [facility] [id number] [address] [place] [address] October, Left arm pain M79.602 [facility] [address] [id number] [address] [place] [address] Aug, Pharyngitis due to other org anism J02.8 [facility] [place] [id number] [place] [address] 10 Mar, 2017 Acute middle ear effusion, b ilateral H65.193 [place] [address] [address] 14 Feb, 2017 Hospital discharge follow-up Z09 and Dep ression F32.9 [place] [address] [address] 11 Feb, 2017 Hospital discharge follow-up Z09 and Dep ression F32.9 [place] [address] [address] Jan, [facility] [id number] [place] [id number] Jan, [facility] [place] [id number] [place] [address] Dec, [place] [address] [address] Dec, Attention deficit hyperactivity disorder (ADHD), unspecified ADHD type F90.9 [place] [address] [address] Dec, Depression F32.9 and Fibromyalgia M79.7 [place] [address] [address] Dec, Depression F32.9 ; Chronic headaches R51 ; Fibromyalgia M79.7 ; GERD (gastroesophageal reflux disease) K21.9 ; Obesity E66.9 and Attention deficit hyperactivity disorder (ADHD), unspecified ADHD type F90.9 [place] [address] [address] Nov, [place] [address] [address] Nov, [facility] [address] [id number] [address] [address] Sep, Gastroenteritis K52.9 [place] [address] [address] Sep, Vaginal discharge N89.8 ; Possible expos ure to STD Z20.2 and Vaginal candidiasis B37.3 [facility] [address] [id number] [address] [address] Aug, Sore throat J02.9 and Pharyn gitis, unspecified etiology J02.9 [place] [address] [address] Aug, Pseudotumor cerebri G93.2 ; GERD (gastro esophageal reflux disease) K21.9 ; Obesity E66.9 ; Depression F32.9 ; Urinary retention R33.9 ; Fibromyalgia M79.7 and Chronic headaches R51 [place] [address] [address] Apr, [place] [address] [address] Apr, [place] [address] [address] Apr, Pseudotumor cerebri G93.2 ; Chronic head aches R51 ; GERD (gastroesophageal reflux disease) K21.9 ; Fibromyalgia M79.7 ; Urinary retention R33.9 and Excess skin of abdominal wall L98.7 [place] [address] [address] Mar, [place] [address] [address] Mar, [address] [place] [id number] Mar, Encounter for immunization Z23 [place] [address] [address] Feb, [place] [address] [address] Feb, [place] [address] [address] Jan, Fibromyalgia M79.7 ; Obesity E66.9 ; Dep ression F32.9 ; Pseudotumor cerebri G93.2 ; GERD with apnea K21.9 ; Chronic headaches R51 and Urinary retention R33.9 [place] [address] [address] Jan, [place] [address] [address] Dec, Obesity E66.9 ; Fibromyalgia M79.7 ; Dep ression F32.9 ; Pseudotumor cerebri G93.2 ; Chronic headaches R51 and GERD (gastroesophageal reflux disease) K21.9 [place] [address] [address] Dec, [place] [address] [address] Nov, Fibromyalgia M79.7 ; Obesity E66.9 and E levated cholesterol E78.[address] [address] Nov, Pseudotumor cerebri G93.2 ; Chronic head aches R51 ; Obesity E66.9 ; Fibromyalgia M79.7 ; GERD (gastroesophageal reflux disease) K21.9 and Elevated cholesterol E78.0 [place] [address] [address] Nov, Obesity E66.9 [facility] IN [address] [address] October, Nausea R11.0 and Urinary ret ention with incomplete bladder emptying R33.[address] [address] October, [facility] IN [facility] [address] [place] [address] October, Dysuria R30.0 [facility] [address] [address] October, [facility] [address] [address] Sep, [place] [address] [address] Sep, Obesity E66.9 ; Depression F32.9 ; Fibro myalgia M79.7 ; Pseudotumor cerebri G93.2 ; Chronic headaches R51 and GERD with apnea K21.9 [place] [address] [address] Aug, Pseudotumor cerebri G93.2 ; Chronic head aches R51 ; GERD (gastroesophageal reflux disease) K21.9 ; Obesity E66.9 ; Fibromyalgia M79.7 and Depression F32.9 [place] [address] [address] Aug, [place] [address] [address] Aug, [place] [address] [address] Aug, [place] [address] [address] Jul, [place] [address] [address] Jul, [facility] [address] [address] Jul, Depression F32.9 [facility] [address] [address] Jul, Pseudotumor cerebri G93.2 ; Chronic head aches R51 ; GERD (gastroesophageal reflux disease) K21.9 ; Obesity E66.9 ; Fibromyalgia M79.7 and Depression F32.9 [facility] [address] [address] 10 Jul, 2015 [facility] [address] [address] Jul, [place] [address] [address] Jun, [place] [address] [address] Jun, Pseudotumor cerebri G93.2 ; Chronic head aches R51 ; Obesity E66.9 ; GERD (gastroesophageal reflux disease) K21.9 ; Fibromyalgia M79.7 ; Depression F32.9 and Conjunctivitis H10.9 [facility] [id number] [place] [address] 09 Jun, 2015 Facial rash R21 [place] [address] [address] 08 Jun, 2015 Obesity, unspecified E66.9 [place] [address] [address] May, [place] [address] [address] May, [place] [address] [address] 18 May, 2015 Vaginal itching L29.8 and Dysuria R30.0 [place] [address] [address] May, [place] [address] [address] May, [facility] [address] [facility] [id number] [address] [place] [address] 06 May, 2015 Acute pharyngitis, unspecifi ed J02.9 and Seasonal allergies J30.2 [place] [address] [address] 13 Apr, 2015 Pseudotumor cerebri G93.2 ; Chronic head aches R51 ; Obesity E66.9 ; GERD with apnea K21.9 and GERD (gastroesophageal reflux disease) K21.9 [facility] [address] [address] Mar, [facility] [address] [address] Mar, [facility] [address] [address] Mar, [facility] [address] [address] Mar, [facility] [address] [address] Mar, Pseudotumor cerebri G93.2 ; Chronic head aches R51 ; Obesity E66.9 ; Fibromyalgia M79.7 and GERD (gastroesophageal reflux disease) K21.9 [place] [address] [address] Jan, [facility] [address] [address] Jan, Elevated liver enzymes 790.5 [place] [address] [address] Jan, Elevated liver enzymes 790.5 [place] [address] [address] Dec, Headache 784.0 ; Obesity, unspecified 27 8.00 ; Abnormal weight gain 783.1 ; GERD (gastroesophageal reflux disease) 530.81 and Depression [address] [place] [address] [address] Dec, Chronic headaches 784.0 [place] [address] [address] Dec, [facility] [address] [address] Dec, [facility] [address] [address] Dec, Headache 784.0 ; Obesity, unspecified 27 8.00 ; Tick bite 919.4 and GERD (gastroesophageal reflux disease) 530.81 [facility] [id number] [place] [address] 14 Sep, 2014 [facility] [id number] [place] [address] Sep, [facility] [id number] [place] [address] Aug, [facility] [id number] [place] [address] Aug, [facility] [address] [address] Aug, [facility] [id number] [place] [address] Aug, [facility] [address] [address] Aug, [facility] [id number] [place] [address] Aug, [facility] [id number] [place] [address] Aug, [facility] [id number] [place] [address] Aug, [facility] [id number] [place] [address] Jul, [facility] [id number] [place] [address] Jul, [facility] [id number] [place] [address] Feb, [facility] [id number] [place] [address] Feb, [facility] [id number] [place] [address] Feb, [facility] [id number] [facility] [place] [address] 11 Feb, 2013 [facility] [address] [facility] [id number] [place] [address] 11 Feb, 2013 [facility] [address] [facility] [id number] [place] [address] Feb, 2013 [facility] [address] [id number] [place] [address] Feb, [facility] [address] [id number] [place] [address] Feb, [facility] [address] [id number] [place] [address] Feb, [facility] [address] [id number] [place] [address] Jun, [facility] [address] [id number] [place] [address] Jun, [facility] [address] [id number] [place] [address] May, [facility] [address] [id number] [place] [address] 17 May, 2013 [facility] [address] [id number] [place] [address] May, [facility] [address] [id number] [place] [address] May, [facility] [address] [id number] [place] [address] 10 May, 2013 [facility] [address] [id number] [place] [address] 10 May, 2013 [facility] [address] [id number] [place] [address] 10 May, 2013 [facility] [address] [id number] [place] [address] 10 May, 2013 [facility] [address] [id number] [place] [address] 13 Mar, 2012 [facility] [address] [facility] [id number] [place] [address] 13 Mar, 2012 IMMUNIZATIONS No Known Immunizations [...]
--- OUTSIDE RECORDS SUMMARY | 2019-10-12 07:14 | XMS REPORT ---
Author Author Jaida Manzanares Doctor Organization [facility] Address Unknown Phone Unavailable Care Team Providers Care Recruiting Assistant Name Role Phone Migration, Doctor Unavailable Unavailable PROBLEMS Type Condition ICD9-CM Code HFP39-BT Code Onset Dates Condition S tatus SNOMED Code Problem GERD (gastroesophageal reflux disease) K21.9 Active 128521727 Problem Pseudotumor cerebri G93.2 Active 58573573 Problem Chronic headaches R51 Active 43 2451460 Problem Attention deficit hyperactivity disorder (ADHD), unspecified ADHD type F90.9 Active 383204402 Problem Elevated LDL cholesterol level E78.00 Active 082476210 Problem Seasonal allergic rhinitis due to pollen J30.1 Active 53410772 Problem Obesity E66.9 Active 527278763 Problem Depression F32.9 Active 378592705 Problem Fibromyalgia M79.7 Active 0541802 05 Problem Urinary retention R33.9 Active 26 9591263 ALLERGIES No Information ENCOUNTERS Encounter Location Date Diagnosis [facility] [address] [address] 04 Nov, 2018 Sore throat J02.9 and Season al allergic rhinitis due to pollen J30.1 [facility] [address] [address] October, Left arm pain M79.602 [facility] [address] [place] [id number] [address] [place] [address] 02 Aug, 2018 Pharyngitis due to other org anism J02.8 [facility] [address] [address] 10 Mar, 2017 Acute middle ear effusion, b ilateral H65.193 [facility] [address] [address] 14 Feb, 2017 Hospital discharge follow-up Z09 and Depression F32.9 [facility] [address] [address] Feb, Hospital discharge follow-up Z09 and Depression F32.9 [place] [address] [address] Jan, [facility] [place] [address] [id number] Jan, [facility] [address] [address] Dec, [place] [address] [address] Dec, Attention deficit hyperactiv ity disorder (ADHD), unspecified ADHD type F90.9 [place] [address] [address] Dec, Depression F32.9 and Fibromy algia M79.7 [place] [address] [address] Dec, Depression F32.9 ; Chronic h eadaches R51 ; Fibromyalgia M79.7 ; GERD (gastroesophageal reflux disease) K21.9 ; Obesity E66.9 and Attention deficit hyperactivity disorder (ADHD), unspecified ADHD type F90.9 [place] [address] [address] Nov, [place] [address] [address] Nov, [facility] [address] [address] Sep, Gastroenteritis K52.9 [place] [address] [address] Sep, Vaginal discharge N89.8 ; Po ssible exposure to STD Z20.2 and Vaginal candidiasis B37.3 [facility] [address] [address] 17 Aug, 2016 Sore throat J02.9 and Pharyn gitis, unspecified etiology J02.9 [facility] [address] [facility] [id number] [address] [place] [address] Aug, Pseudotumor cerebri G93.2 ; GERD (gastroesophageal reflux disease) K21.9 ; Obesity E66.9 ; Depression F32.9 ; Urinary retention R33.9 ; Fibromyalgia M79.7 and Chronic headaches R51 [facility] [address] [facility] [id number] [address] [place] [address] Apr, [facility] [address] [facility] [id number] [address] [place] [address] Apr, [facility] [address] [facility] [id number] [address] [place] [address] Apr, Pseudotumor cerebri G93.2 ; Chronic headaches R51 ; GERD (gastroesophageal reflux disease) K21.9 ; Fibromyalgia M79.7 ; Urinary retention R33.9 and Excess skin of abdominal wall L98.7 [facility] [address] [facility] [id number] [address] [place] [address] Mar, [facility] [address] [facility] [id number] [address] [place] [address] Mar, [place] [address] [address] [facility] [id number] [place] [id number] Mar, Encounter for immunization Z23 [facility] [address] [facility] [id number] [address] [place] [address] Feb, [facility] [address] [facility] [id number] [address] [place] [address] Feb, [facility] [address] [facility] [id number] [address] [place] [address] Jan, Fibromyalgia M79.7 ; Obesity E66.9 ; Depression F32.9 ; Pseudotumor cerebri G93.2 ; GERD with apnea K21.9 ; Chronic headaches R51 and Urinary retention R33.9 [place] [address] [place] [id number] [address] [place] [address] Jan, [facility] [address] [address] Dec, Obesity E66.9 ; Fibromyalgia M79.7 ; Depression F32.9 ; Pseudotumor cerebri G93.2 ; Chronic headaches R51 and GERD (gastroesophageal reflux disease) K21.9 [facility] [address] [place] [id number] [place] [phone] Dec, [facility] [address] [place] [id number] [place] [address] Nov, Fibromyalgia M79.7 ; Obesity E66.9 and Elevated cholesterol E78.0 [place] [address] [address] 17 Nov, 2015 Pseudotumor cerebri G93.2 ; Chronic headaches R51 ; Obesity E66.9 ; Fibromyalgia M79.7 ; GERD (gastroesophageal reflux disease) K21.9 and Elevated cholesterol E78.0 [facility] [address] [address] Nov, Obesity E66.9 [facility] [address] [place] [id number] [place] [phone] October, Nausea R11.0 and Urinary ret ention with incomplete bladder emptying R33.9 [facility] [id number] [place] [address] October, [facility] [address] [place] [id number] [address] [place] [phone] October, Dysuria R30.0 [place] [address] [place] [id number] [place] [phone] October, [facility] [address] [place] [id number] [place] [phone] Sep, [facility] [address] [place] [address] Sep, Obesity E66.9 ; Depression F 32.9 ; Fibromyalgia M79.7 ; Pseudotumor cerebri G93.2 ; Chronic headaches R51 and GERD with apnea K21.9 [facility] [address] [facility] [id number] [address] [place] [address] Aug, Pseudotumor cerebri G93.2 ; Chronic headaches R51 ; GERD (gastroesophageal reflux disease) K21.9 ; Obesity E66.9 ; Fibromyalgia M79.7 and Depression F32.9 [facility] [address] [facility] [id number] [address] [place] [address] Aug, [facility] [address] [facility] [id number] [address] [place] [phone] Aug, [facility] [address] [facility] [id number] [address] [place] [phone] Aug, [facility] [address] [facility] [id number] [address] [place] [phone] Jul, [facility] [address] [facility] [id number] [address] [place] [phone] Jul, [facility] [address] [facility] [id number] [address] [place] [address] Jul, Depression F32.9 [facility] [address] [facility] [id number] [address] [place] [address] Jul, Pseudotumor cerebri G93.2 ; Chronic headaches R51 ; GERD (gastroesophageal reflux disease) K21.9 ; Obesity E66.9 ; Fibromyalgia M79.7 and Depression F32.9 [facility] [address] [facility] [id number] [address] [place] [phone] Jul, [facility] [address] [facility] [id number] [address] [place] [phone] Jul, [facility] [address] [place] [id number] [address] [place] [address] Jun, [facility] [address] [address] Jun, Pseudotumor cerebri G93.2 ; Chronic headaches R51 ; Obesity E66.9 ; GERD (gastroesophageal reflux disease) K21.9 ; Fibromyalgia M79.7 ; Depression F32.9 and Conjunctivitis H10.9 [facility] [address] [address] Jun, Facial rash R21 [place] [address] [address] Jun, Obesity, unspecified E66.9 [place] [address] [address] May, [place] [address] [address] May, [place] [address] [address] May, Vaginal itching L29.8 and Dy suria R30.0 [place] [address] [address] May, [place] [address] [address] May, [facility] [address] [address] May, Acute pharyngitis, unspecifi ed J02.9 and Seasonal allergies J30.2 [place] [address] [address] Apr, Pseudotumor cerebri G93.2 ; Chronic headaches R51 ; Obesity E66.9 ; GERD with apnea K21.9 and GERD (gastroesophageal reflux disease) K21.9 [place] [address] [address] Mar, [place] [address] [place] [id number] [address] [place] [address] Mar, [facility] [address] [address] Mar, [facility] [address] [address] Mar, [facility] [address] [address] Mar, Pseudotumor cerebri G93.2 ; Chronic headaches R51 ; Obesity E66.9 ; Fibromyalgia M79.7 and GERD (gastroesophageal reflux disease) K21.9 [place] [address] [address] Jan, [facility] [address] [address] Jan, Elevated liver enzymes 790.5 [place] [address] [address] Jan, Elevated liver enzymes 790.5 [place] [address] [address] Dec, Headache 784.0 ; Obesity, un specified 278.00 ; Abnormal weight gain 783.1 ; GERD (gastroesophageal reflux disease) 530.81 and Depression 311 [place] [address] [address] Dec, Chronic headaches 784.0 [facility] [address] [place] [id number] [address] [place] [phone] Dec, [place] [address] [address] Dec, [facility] [address] [address] Dec, Headache 784.0 ; Obesity, un specified 278.00 ; Tick bite 919.4 and GERD (gastroesophageal reflux disease) 530.81 [facility] [address] [id number] [address] [place] [address], [place] [address] 14 Sep, 2014 [facility] [address] [id number] [address] [place] [address], [place] [address] 13 Sep, 2014 [facility] [address] [id number] [address] [place] [address], [place] [address] 28 Aug, 2014 [facility] [address] [id number] [address] [place] [address], [place] [address] Aug, [facility] [address] [id number] [address] [place] [address], [place] [address] Aug, [facility] [address] [id number] [address] [place] [address], [place] [address] 18 Aug, 2014 [facility] [address] [id number] [address] [place] [address], [place] [address] Aug, [facility] [address] [id number] [address] [place] [phone] Aug, [facility] [address] [id number] [address] [place] [address], [place] [address] Aug, [facility] [address] [id number] [address] [place] [phone] Aug, [facility] [address] [id number] [address] [place] [address] Jul, [facility] [address] [id number] [address] [place] [phone] Jul, [facility] [address] [id number] [address] [place] [address], [place] [address] Feb, [facility] [address] [id number] [address] [place] [address] Feb, [facility] [address] [id number] [address] [place] [phone] Feb, [facility] [address] [id number] [address] [place] [id number] 11 Feb, 2013 [facility] [address] [id number] [address] [place] [address], [place] [address] 11 Feb, 2013 [facility] [address] [id number] [address] [place] [address], [place] [address] 11 Feb, 2014 [facility] [address] [id number] [address] [place] [address], [place] [address] 11 Feb, 2014 [facility] [address] [id number] [address] [place] [address], [place] [address] Feb, [facility] [address] [id number] [address] [place] [address], [place] [address] Feb, [facility] [address] [id number] [address] [place] [address], [place] [address] Jun, [facility] [address] [id number] [address] [place] [address], [place] [address] Jun, [facility] [address] [id number] [address] [place] [address], [place] [address] May, [facility] [address] [id number] [address] [place] [address], [place] [address] May, [facility] [address] [id number] [address] [place] [address], [place] [address] May, [facility] [address] [id number] [address] [place] [address], [place] [address] May, [facility] [address] [id number] [address] [place] [address], [place] [address] 10 May, 2013 [facility] [address] [id number] [address] [place] [address], [place] [address] May, [facility] [address] [id number] [address] [place] [address], [place] [address] May, [facility] [address] [id number] [address] [place] [address], [place] [address] May, [facility] [address] [facility] [id number] [address] [place] [address] Mar, [facility] [address] [facility] [id number] [address] [place] [address] Mar, IMMUNIZATIONS No Known Immunizations SOCIAL HISTORY [...]
--- OUTSIDE RECORDS SUMMARY | 2019-10-12 07:14 | XMS REPORT ---
Author Author Jaida Corona Organization [facility] Address [address] [place] [address] Care Team Providers Care Direct Marketing Manager Name Role Phone SUE Corona Unavailable PROBLEMS Type Condition ICD9-CM Code UEX97-MP Code Onset Dates Condition S tatus SNOMED Code Problem GERD (gastroesophageal reflux disease) K21.9 Active 667730043 Problem Pseudotumor cerebri G93.2 Active 01505181 Problem Chronic headaches R51 Active 43 7128580 Problem Attention deficit hyperactivity disorder (ADHD), unspecified ADHD type F90.9 Active 094307614 Problem Elevated LDL cholesterol level E78.00 Active 993476287 Problem Seasonal allergic rhinitis due to pollen J30.1 Active 31694443 Problem Obesity E66.9 Active 195177824 Problem Depression F32.9 Active 348142067 Problem Fibromyalgia M79.7 Active 9350633 05 Problem Urinary retention R33.9 Active 26 2801301 ALLERGIES No Information ENCOUNTERS Encounter Location Date Diagnosis [facility] [address] [id number] 04 Nov, 2018 Sore throat J02.9 and Season al allergic rhinitis due to pollen J30.1 [facility] [address] [place] [place] [id number] [address] [place] [phone] October, Left arm pain M79.602 [facility] [address] [id number] [address] [place] [phone] Aug, Pharyngitis due to other org anism J02.8 [facility] [address] [id number] [address] [place] [id number] 10 Mar, 2017 Acute middle ear effusion, b ilateral H65.193 [facility] [id number] [address] [place] [phone] 14 Feb, 2017 Hospital discharge follow-up Z09 and Depression F32.9 [place] [address] [address] 11 Feb, 2017 Hospital discharge follow-up Z09 and Depression F32.9 [facility] [id number] [address] [place] [phone] Jan, [facility] [address] [id number] Jan, [facility] [id number] [place] [phone] Dec, [place] [address] [address] Dec, Attention deficit hyperactiv ity disorder (ADHD), unspecified ADHD type F90.9 [place] [address] [address] Dec, Depression F32.9 and Fibromy algia M79.7 [place] [address] [address] Dec, Depression F32.9 ; Chronic h eadaches R51 ; Fibromyalgia M79.7 ; GERD (gastroesophageal reflux disease) K21.9 ; Obesity E66.9 and Attention deficit hyperactivity disorder (ADHD), unspecified ADHD type F90.9 [facility] [address] [place] [phone] Nov, [place] [address] [place] [id number] [address] [place] [phone] Nov, [facility] [id number] [address] [place] [phone] Sep, Gastroenteritis K52.9 [facility] [id number] [address] [place] [phone] Sep, Vaginal discharge N89.8 ; Po ssible exposure to STD Z20.2 and Vaginal candidiasis B37.3 [facility] [address] [facility] [id number] [address] [place] [id number] 17 Aug, 2016 Sore throat J02.9 and Pharyn gitis, unspecified etiology J02.9 [facility] [address] [facility] [id number] [address] [place] [phone] Aug, Pseudotumor cerebri G93.2 ; GERD (gastroesophageal reflux disease) K21.9 ; Obesity E66.9 ; Depression F32.9 ; Urinary retention R33.9 ; Fibromyalgia M79.7 and Chronic headaches R51 [facility] [address] [facility] [id number] [address] [place] [phone] Apr, [facility] [id number] [address] [place] [phone] Apr, [facility] [id number] [place] [phone] Apr, Pseudotumor cerebri G93.2 ; Chronic headaches R51 ; GERD (gastroesophageal reflux disease) K21.9 ; Fibromyalgia M79.7 ; Urinary retention R33.9 and Excess skin of abdominal wall L98.7 [facility] [address] [facility] [id number] [address] [place] [phone] Mar, [facility] [address] [facility] [id number] [address] [place] [phone] Mar, [place] [address] [place] [id number] [place] [id number] Mar, Encounter for immunization Z23 [facility] [address] [facility] [id number] [address] [place] [phone] Feb, [facility] [address] [address] [id number] [address] [place] [phone] Feb, [facility] [address] [facility] [id number] [address] [place] [phone] Jan, Fibromyalgia M79.7 ; Obesity E66.9 ; Depression F32.9 ; Pseudotumor cerebri G93.2 ; GERD with apnea K21.9 ; Chronic headaches R51 and Urinary retention R33.9 [place] [address] [address] Jan, [facility] [address] [address] Dec, Obesity E66.9 ; Fibromyalgia M79.7 ; Depression F32.9 ; Pseudotumor cerebri G93.2 ; Chronic headaches R51 and GERD (gastroesophageal reflux disease) K21.9 [place] [address] [address] Dec, [place] [address] [address] Nov, Fibromyalgia M79.7 ; Obesity E66.9 and Elevated cholesterol E78.0 [place] [address] [address] Nov, Pseudotumor cerebri G93.2 ; Chronic headaches R51 ; Obesity E66.9 ; Fibromyalgia M79.7 ; GERD (gastroesophageal reflux disease) K21.9 and Elevated cholesterol E78.0 [place] [address] [address] Nov, Obesity E66.9 [facility] [address] [address] October, Nausea R11.0 and Urinary ret ention with incomplete bladder emptying R33.9 [facility] [address] [address] October, [facility] [address] [address] October, Dysuria R30.0 [place] [address] [address] October, [facility] [address] [address] Sep, [facility] [address] [facility] [id number] [address] [place] [phone] Sep, Obesity E66.9 ; Depression F 32.9 ; Fibromyalgia M79.7 ; Pseudotumor cerebri G93.2 ; Chronic headaches R51 and GERD with apnea K21.9 [facility] [address] [facility] [id number] [address] [place] [phone] Aug, Pseudotumor cerebri G93.2 ; Chronic headaches R51 ; GERD (gastroesophageal reflux disease) K21.9 ; Obesity E66.9 ; Fibromyalgia M79.7 and Depression F32.9 [facility] [address] [facility] [id number] [address] [place] [phone] Aug, [facility] [address] [facility] [id number] [address] [place] [phone] Aug, [facility] [address] [facility] [id number] [address] [place] [phone] Aug, [facility] [address] [facility] [id number] [address] [place] [phone] Jul, [facility] [address] [facility] [id number] [address] [place] [phone] Jul, [facility] [address] [facility] [id number] [address] [place] [phone] Jul, Depression F32.9 [facility] [address] [facility] [id number] [address] [place] [phone] Jul, Pseudotumor cerebri G93.2 ; Chronic headaches R51 ; GERD (gastroesophageal reflux disease) K21.9 ; Obesity E66.9 ; Fibromyalgia M79.7 and Depression F32.9 [facility] [address] [facility] [id number] [address] [place] [phone] Jul, [facility] [address] [facility] [id number] [address] [place] [phone] Jul, [place] [address] [address] Jun, [place] [address] [address] Jun, Pseudotumor cerebri G93.2 ; Chronic headaches R51 ; Obesity E66.9 ; GERD (gastroesophageal reflux disease) K21.9 ; Fibromyalgia M79.7 ; Depression F32.9 and Conjunctivitis H10.9 [facility] [address] [address] 09 Jun, 2015 Facial rash R21 [address] [address] Jun, Obesity, unspecified E66.9 [place] [address] [address] May, [place] [address] [address] May, [place] [address] [address] May, Vaginal itching L29.8 and Dy suria R30.[address] [address] May, [address] [address] May, [facility] [address] [address] 06 May, 2015 Acute pharyngitis, unspecifi ed J02.9 and Seasonal allergies J30.[address] [address] 13 Apr, 2015 Pseudotumor cerebri G93.2 ; Chronic headaches R51 ; Obesity E66.9 ; GERD with apnea K21.9 and GERD (gastroesophageal reflux disease) K21.9 [place] [address] [place] [id number] [address] [place] [phone] Mar, [facility] [address] [address] Mar, [facility] [id number] [place] [phone] Mar, [facility] [address] [address] Mar, [facility] [address] [address] Mar, Pseudotumor cerebri G93.2 ; Chronic headaches R51 ; Obesity E66.9 ; Fibromyalgia M79.7 and GERD (gastroesophageal reflux disease) K21.9 [place] [address] [address] Jan, [facility] [address] [address] Jan, Elevated liver enzymes 790.5 [place] [address] [address] Jan, Elevated liver enzymes 790.5 [place] [address] [address] Dec, Headache 784.0 ; Obesity, un specified 278.00 ; Abnormal weight gain 783.1 ; GERD (gastroesophageal reflux disease) 530.81 and Depression 311 [facility] [address] [place] [id number] [address] [place] [phone] Dec, Chronic headaches 784.0 [place] [address] [place] [id number] [place] [phone] Dec, [facility] [address] [id number] [place] [phone] Dec, [facility] [address] [address] Dec, Headache 784.0 ; Obesity, un specified 278.00 ; Tick bite 919.4 and GERD (gastroesophageal reflux disease) 530.81 [facility] [address] [id number] [address] [place] [id number] 14 Sep, 2014 [facility] [address] [id number] [address] [place] [phone] Sep, [facility] [address] [id number] [address] [place] [phone] Aug, [facility] [address] [id number] [address] [place] [phone] Aug, [facility] [address] [id number] [address] [place] [phone] Aug, [facility] [address] [id number] [address] [place] [phone] Aug, [facility] [address] [id number] [address] [place] [phone] Aug, [facility] [address] [id number] [address] [place] [phone] Aug, [facility] [address] [id number] [address] [place] [phone] Aug, [facility] [address] [id number] [address] [place] [phone] Aug, [facility] [address] [id number] [address] [place] [phone] Jul, [facility] [address] [id number] [address] [place] [phone] Jul, [facility] [address] [id number] [address] [place] [phone] Feb, [facility] [address] [id number] [address] [place] [phone] Feb, [facility] [address] [id number] [address] [place] [phone] 11 Feb, 2013 [facility] [address] [id number] [address] [place] [address], [place] [id number] 11 Feb, 2013 [facility] [address] [id number] [address] [place] [address], [place] [id number] 11 Feb, 2013 [facility] [address] [id number] [address] [place] [address], [place] [id number] Feb, 2013 [facility] [address] [id number] [address] [place] [address], [place] [id number] Feb, 2013 [facility] [address] [id number] [address] [place] [address], [place] [id number] Feb, [facility] [address] [id number] [address] [place] [address], [place] [id number] Feb, [facility] [address] [id number] [address] [place] [address], [place] [id number] Jun, [facility] [address] [id number] [address] [place] [address], [place] [id number] Jun, [facility] [address] [id number] [address] [place] [address], [place] [id number] May, [facility] [address] [id number] [address] [place] [address], [place] [id number] 17 May, 2013 [facility] [address] [id number] [address] [place] [address], [place] [id number] May, [facility] [address] [id number] [address] [place] [address], [place] [id number] May, [facility] [address] [id number] [address] [place] [address], [place] [id number] May, [facility] [address] [id number] [address] [place] [address], [place] [id number] May, [facility] [address] [id number] [address] [place] [address], [place] [id number] May, [facility] [address] [id number] [address] [place] [id number] May, [facility] [address] [facility] [id number] [address] [place] [phone] Mar, [facility] [address] [facility] [id number] [address] [place] [phone] Mar, IMMUNIZATIONS No Known Immunizations SOCIAL HISTORY [...]
--- OUTSIDE RECORDS SUMMARY | 2019-10-12 07:14 | XMS REPORT ---
Author Author Jaida Corona Organization [facility] Address [address] [place] [address] Care Team Providers Care Overweaver Name Role Phone SUE Corona Unavailable PROBLEMS Type Condition ICD9-CM Code FOC76-TM Code Onset Dates Condition S tatus SNOMED Code Problem GERD (gastroesophageal reflux disease) K21.9 Active 773570790 Problem Pseudotumor cerebri G93.2 Active 35634682 Problem Chronic headaches R51 Active 43 8214118 Problem Attention deficit hyperactivity disorder (ADHD), unspecified ADHD type F90.9 Active 280899218 Problem Elevated LDL cholesterol level E78.00 Active 975617730 Problem Seasonal allergic rhinitis due to pollen J30.1 Active 21756559 Problem Obesity E66.9 Active 600435261 Problem Depression F32.9 Active 488596637 Problem Fibromyalgia M79.7 Active 1345684 05 Problem Urinary retention R33.9 Active 26 0437262 ALLERGIES No Information ENCOUNTERS Encounter Location Date Diagnosis [facility] [address] [address] 04 Nov, 2018 Sore throat J02.9 and Season al allergic rhinitis due to pollen J30.1 [facility] [address] [id number] [address] [place] [address] October, Left arm pain M79.602 [facility] [address] [id number] [address] [place] [phone] Aug, Pharyngitis due to other org anism J02.8 [facility] [address] [id number] [address] [place] [id number] 10 Mar, 2017 Acute middle ear effusion, b ilateral H65.193 [facility] [address] [id number] [address] [place] [phone] 14 Feb, 2017 Hospital discharge follow-up Z09 and Depression F32.9 [place] [address] [address] 11 Feb, 2017 Hospital discharge follow-up Z09 and Depression F32.9 [facility] [address] [id number] [address] [place] [phone] Jan, [facility] [address] [id number] Jan, [facility] [id number] [place] [phone] Dec, [place] [address] [address] Dec, Attention deficit hyperactiv ity disorder (ADHD), unspecified ADHD type F90.9 [place] [address] [address] Dec, Depression F32.9 and Fibromy algia M79.7 [place] [address] [address] Dec, Depression F32.9 ; Chronic h eadaches R51 ; Fibromyalgia M79.7 ; GERD (gastroesophageal reflux disease) K21.9 ; Obesity E66.9 and Attention deficit hyperactivity disorder (ADHD), unspecified ADHD type F90.9 [facility] [id number] [place] [phone] Nov, [place] [address] [address] [id number] [address] [place] [phone] Nov, [facility] [address] [id number] [address] [place] [phone] Sep, Gastroenteritis K52.9 [facility] [id number] [place] [phone] Sep, Vaginal discharge N89.8 ; Po ssible exposure to STD Z20.2 and Vaginal candidiasis B37.3 [facility] [address] [facility] [id number] [place] [id number] 17 Aug, 2016 Sore throat J02.9 and Pharyn gitis, unspecified etiology J02.9 [facility] [address] [facility] [id number] [place] [phone] Aug, Pseudotumor cerebri G93.2 ; GERD (gastroesophageal reflux disease) K21.9 ; Obesity E66.9 ; Depression F32.9 ; Urinary retention R33.9 ; Fibromyalgia M79.7 and Chronic headaches R51 [facility] [address] [facility] [id number] [place] [phone] Apr, [facility] [id number] [address] [place] [phone] Apr, [facility] [id number] [place] [address] Apr, Pseudotumor cerebri G93.2 ; Chronic headaches R51 ; GERD (gastroesophageal reflux disease) K21.9 ; Fibromyalgia M79.7 ; Urinary retention R33.9 and Excess skin of abdominal wall L98.7 [facility] [address] [facility] [id number] [place] [phone] Mar, [facility] [address] [facility] [id number] [place] [phone] Mar, [place] [address] [place] [id number] [place] [id number] Mar, Encounter for immunization Z23 [facility] [address] [facility] [id number] [place] [phone] Feb, [facility] [address] [id number] [place] [phone] Feb, [facility] [address] [facility] [id number] [place] [phone] Jan, Fibromyalgia M79.7 ; Obesity E66.9 ; Depression F32.9 ; Pseudotumor cerebri G93.2 ; GERD with apnea K21.9 ; Chronic headaches R51 and Urinary retention R33.9 [place] [address] [address] Jan, [facility] [address] [address] Dec, Obesity E66.9 ; Fibromyalgia M79.7 ; Depression F32.9 ; Pseudotumor cerebri G93.2 ; Chronic headaches R51 and GERD (gastroesophageal reflux disease) K21.9 [place] [address] [address] Dec, [place] [address] [address] Nov, Fibromyalgia M79.7 ; Obesity E66.9 and Elevated cholesterol E78.0 [place] [address] [address] Nov, Pseudotumor cerebri G93.2 ; Chronic headaches R51 ; Obesity E66.9 ; Fibromyalgia M79.7 ; GERD (gastroesophageal reflux disease) K21.9 and Elevated cholesterol E78.0 [place] [address] [address] Nov, Obesity E66.9 [facility] [address] [address] October, Nausea R11.0 and Urinary ret ention with incomplete bladder emptying R33.9 [facility] [address] [address] October, [facility] [address] [address] October, Dysuria R30.0 [place] [address] [address] October, [facility] [address] [address] Sep, [facility] [address] [facility] [id number] [place] [phone] Sep, Obesity E66.9 ; Depression F 32.9 ; Fibromyalgia M79.7 ; Pseudotumor cerebri G93.2 ; Chronic headaches R51 and GERD with apnea K21.9 [facility] [address] [facility] [id number] [place] [phone] Aug, Pseudotumor cerebri G93.2 ; Chronic headaches R51 ; GERD (gastroesophageal reflux disease) K21.9 ; Obesity E66.9 ; Fibromyalgia M79.7 and Depression F32.9 [facility] [address] [facility] [id number] [place] [phone] Aug, [facility] [address] [facility] [id number] [place] [address] Aug, [facility] [address] [facility] [id number] [place] [phone] Aug, [facility] [address] [facility] [id number] [place] [phone] Jul, [facility] [address] [facility] [id number] [place] [phone] Jul, [facility] [address] [facility] [id number] [place] [address] Jul, Depression F32.9 [facility] [address] [facility] [id number] [place] [address] Jul, Pseudotumor cerebri G93.2 ; Chronic headaches R51 ; GERD (gastroesophageal reflux disease) K21.9 ; Obesity E66.9 ; Fibromyalgia M79.7 and Depression F32.9 [facility] [address] [facility] [id number] [place] [phone] Jul, [facility] [address] [facility] [id number] [place] [address] Jul, [place] [address] [address] Jun, [place] [address] [address] Jun, Pseudotumor cerebri G93.2 ; Chronic headaches R51 ; Obesity E66.9 ; GERD (gastroesophageal reflux disease) K21.9 ; Fibromyalgia M79.7 ; Depression F32.9 and Conjunctivitis H10.9 [facility] [address] [address] 09 Jun, 2015 Facial rash R21 [address] [address] Jun, Obesity, unspecified E66.9 [place] [address] [address] May, [place] [address] [address] May, [place] [address] [address] May, Vaginal itching L29.8 and Dy suria R30.[address] [address] May, [address] [address] May, [facility] [address] [address] 06 May, 2015 Acute pharyngitis, unspecifi ed J02.9 and Seasonal allergies J30.[address] [address] 13 Apr, 2015 Pseudotumor cerebri G93.2 ; Chronic headaches R51 ; Obesity E66.9 ; GERD with apnea K21.9 and GERD (gastroesophageal reflux disease) K21.9 [place] [address] [place] [id number] [place] [address] Mar, [facility] [address] [address] Mar, [facility] [id number] [place] [address] Mar, [facility] [address] [address] Mar, [facility] [address] [address] Mar, Pseudotumor cerebri G93.2 ; Chronic headaches R51 ; Obesity E66.9 ; Fibromyalgia M79.7 and GERD (gastroesophageal reflux disease) K21.9 [place] [address] [address] Jan, [facility] [address] [address] Jan, Elevated liver enzymes 790.5 [place] [address] [address] Jan, Elevated liver enzymes 790.5 [place] [address] [address] Dec, Headache 784.0 ; Obesity, un specified 278.00 ; Abnormal weight gain 783.1 ; GERD (gastroesophageal reflux disease) 530.81 and Depression 311 [facility] [address] [place] [address] [id number] [address] [place] [address] Dec, Chronic headaches 784.0 [place] [address] [address] [id number] [place] [address] Dec, [facility] [id number] [place] [address] Dec, [facility] [address] [address] Dec, Headache 784.0 ; Obesity, un specified 278.00 ; Tick bite 919.4 and GERD (gastroesophageal reflux disease) 530.81 [facility] [address] [id number] [address] [place] [address] 14 Sep, 2014 [facility] [address] [id number] [address] [place] [address] Sep, [facility] [address] [id number] [address] [place] [address] Aug, [facility] [address] [id number] [address] [place] [phone] Aug, [facility] [address] [id number] [address] [place] [address] Aug, [facility] [address] [id number] [address] [place] [phone] Aug, [facility] [address] [id number] [address] [place] [phone] Aug, [facility] [address] [id number] [address] [place] [phone] Aug, [facility] [address] [id number] [address] [place] [address] Aug, [facility] [address] [id number] [address] [place] [phone] Aug, [facility] [address] [id number] [address] [place] [phone] Jul, [facility] [address] [id number] [address] [place] [phone] Jul, [facility] [address] [id number] [address] [place] [phone] Feb, [facility] [address] [id number] [address] [place] [phone] Feb, [facility] [address] [id number] [address] [place] [phone] 11 Feb, 2013 [facility] [address] [id number] [address] [address], [place] [address] 11 Feb, 2013 [facility] [address] [id number] [address] [place] [address], [place] [address] 11 Feb, 2013 [facility] [address] [id number] [address] [place] [address], [place] [address] Feb, 2013 [facility] [address] [id number] [address] [place] [address], [place] [address] Feb, 2013 [facility] [address] [id number] [address] [address], [place] [address] Feb, [facility] [address] [id number] [address] [place] [address], [place] [address] Feb, [facility] [address] [id number] [address] [place] [address], [place] [address] Jun, [facility] [address] [id number] [address] [place] [address], [place] [address] Jun, [facility] [address] [id number] [address] [place] [address], [place] [address] May, [facility] [address] [id number] [address] [place] [address], [place] [address] 17 May, 2013 [facility] [address] [id number] [address] [place] [address], [place] [address] May, [facility] [address] [id number] [address] [place] [address], [place] [address] May, [facility] [address] [id number] [address] [place] [address], [place] [address] May, [facility] [address] [id number] [address] [place] [address], [place] [address] May, [facility] [address] [id number] [address] [place] [address], [place] [address] May, [facility] [address] [id number] [address] [place] [phone] May, [facility] [address] [facility] [id number] [place] [phone] Mar, [facility] [address] [facility] [id number] [place] [address] Mar, IMMUNIZATIONS No Known Immunizations SOCIAL HISTORY [...]
--- OUTSIDE RECORDS SUMMARY | 2019-10-12 07:14 | XMS REPORT ---
Author Author Jaida Manzanares Doctor Organization [facility] Address Unknown Phone Unavailable Care Team Providers Care Binder Cutter Hand Name Role Phone Migration, Doctor Unavailable Unavailable PROBLEMS Type Condition ICD9-CM Code PQD50-VP Code Onset Dates Condition S tatus SNOMED Code Problem GERD (gastroesophageal reflux disease) K21.9 Active 911651979 Problem Pseudotumor cerebri G93.2 Active 08464139 Problem Chronic headaches R51 Active 43 6156668 Problem Attention deficit hyperactivity disorder (ADHD), unspecified ADHD type F90.9 Active 872278478 Problem Elevated LDL cholesterol level E78.00 Active 823247752 Problem Seasonal allergic rhinitis due to pollen J30.1 Active 48845602 Problem Obesity E66.9 Active 229820221 Problem Depression F32.9 Active 006994431 Problem Fibromyalgia M79.7 Active 6703950 05 Problem Urinary retention R33.9 Active 26 7881808 ALLERGIES No Information ENCOUNTERS Encounter Location Date Diagnosis [facility] [address] [address] 04 Nov, 2018 Sore throat J02.9 and Season al allergic rhinitis due to pollen J30.1 [facility] [address] [address] October, Left arm pain M79.602 [facility] [address] [place] [id number] [address] [place] [address] 02 Aug, 2018 Pharyngitis due to other org anism J02.8 [facility] [address] [address] 10 Mar, 2017 Acute middle ear effusion, b ilateral H65.193 [facility] [address] [address] 14 Feb, 2017 Hospital discharge follow-up Z09 and Depression F32.9 [facility] [address] [address] Feb, Hospital discharge follow-up Z09 and Depression F32.9 [place] [address] [address] Jan, [facility] [address] [id number] Jan, [facility] [address] [address] Dec, [place] [address] [address] Dec, Attention deficit hyperactiv ity disorder (ADHD), unspecified ADHD type F90.9 [place] [address] [address] Dec, Depression F32.9 and Fibromy algia M79.7 [place] [address] [address] Dec, Depression F32.9 ; Chronic h eadaches R51 ; Fibromyalgia M79.7 ; GERD (gastroesophageal reflux disease) K21.9 ; Obesity E66.9 and Attention deficit hyperactivity disorder (ADHD), unspecified ADHD type F90.9 [place] [address] [address] Nov, [place] [address] [address] Nov, [facility] [address] [address] Sep, Gastroenteritis K52.9 [place] [address] [address] Sep, Vaginal discharge N89.8 ; Po ssible exposure to STD Z20.2 and Vaginal candidiasis B37.3 [facility] [address] [address] 17 Aug, 2016 Sore throat J02.9 and Pharyn gitis, unspecified etiology J02.9 [facility] [address] [facility] [id number] [address] [place] [address] Aug, Pseudotumor cerebri G93.2 ; GERD (gastroesophageal reflux disease) K21.9 ; Obesity E66.9 ; Depression F32.9 ; Urinary retention R33.9 ; Fibromyalgia M79.7 and Chronic headaches R51 [facility] [address] [facility] [id number] [address] [place] [address] Apr, [facility] [address] [facility] [id number] [address] [place] [address] Apr, [facility] [address] [facility] [id number] [address] [place] [address] Apr, Pseudotumor cerebri G93.2 ; Chronic headaches R51 ; GERD (gastroesophageal reflux disease) K21.9 ; Fibromyalgia M79.7 ; Urinary retention R33.9 and Excess skin of abdominal wall L98.7 [facility] [address] [facility] [id number] [address] [place] [address] Mar, [facility] [address] [facility] [id number] [address] [place] [address] Mar, [place] [address] [facility] [id number] [place] [id number] Mar, Encounter for immunization Z23 [facility] [address] [facility] [id number] [address] [place] [address] Feb, [facility] [address] [facility] [id number] [address] [place] [address] Feb, [facility] [address] [facility] [id number] [address] [place] [address] Jan, Fibromyalgia M79.7 ; Obesity E66.9 ; Depression F32.9 ; Pseudotumor cerebri G93.2 ; GERD with apnea K21.9 ; Chronic headaches R51 and Urinary retention R33.9 [place] [address] [place] [id number] [address] [place] [address] Jan, [facility] [address] [address] Dec, Obesity E66.9 ; Fibromyalgia M79.7 ; Depression F32.9 ; Pseudotumor cerebri G93.2 ; Chronic headaches R51 and GERD (gastroesophageal reflux disease) K21.9 [facility] [address] [place] [id number] [place] [address] Dec, [facility] [address] [place] [id number] [place] [address] Nov, Fibromyalgia M79.7 ; Obesity E66.9 and Elevated cholesterol E78.0 [place] [address] [address] 17 Nov, 2015 Pseudotumor cerebri G93.2 ; Chronic headaches R51 ; Obesity E66.9 ; Fibromyalgia M79.7 ; GERD (gastroesophageal reflux disease) K21.9 and Elevated cholesterol E78.0 [facility] [address] [address] Nov, Obesity E66.9 [facility] [address] [place] [id number] [place] [address] October, Nausea R11.0 and Urinary ret ention with incomplete bladder emptying R33.9 [facility] [id number] [place] [address] October, [facility] [address] [place] [id number] [address] [place] [address] October, Dysuria R30.0 [place] [address] [place] [id number] [place] [address] October, [facility] [address] [place] [id number] [place] [phone] Sep, [facility] [address] [place] [address] Sep, Obesity E66.9 ; Depression F 32.9 ; Fibromyalgia M79.7 ; Pseudotumor cerebri G93.2 ; Chronic headaches R51 and GERD with apnea K21.9 [facility] [address] [facility] [id number] [address] [place] [address] Aug, Pseudotumor cerebri G93.2 ; Chronic headaches R51 ; GERD (gastroesophageal reflux disease) K21.9 ; Obesity E66.9 ; Fibromyalgia M79.7 and Depression F32.9 [facility] [address] [facility] [id number] [address] [place] [address] Aug, [facility] [address] [facility] [id number] [address] [place] [address] Aug, [facility] [address] [facility] [id number] [address] [place] [address] Aug, [facility] [address] [facility] [id number] [address] [place] [address] Jul, [facility] [address] [facility] [id number] [address] [place] [address] Jul, [facility] [address] [facility] [id number] [address] [place] [address] Jul, Depression F32.9 [facility] [address] [facility] [id number] [address] [place] [address] Jul, Pseudotumor cerebri G93.2 ; Chronic headaches R51 ; GERD (gastroesophageal reflux disease) K21.9 ; Obesity E66.9 ; Fibromyalgia M79.7 and Depression F32.9 [facility] [address] [facility] [id number] [address] [place] [address] Jul, [facility] [address] [facility] [id number] [address] [place] [address] Jul, [facility] [address] [place] [id number] [address] [place] [address] Jun, [facility] [address] [address] Jun, Pseudotumor cerebri G93.2 ; Chronic headaches R51 ; Obesity E66.9 ; GERD (gastroesophageal reflux disease) K21.9 ; Fibromyalgia M79.7 ; Depression F32.9 and Conjunctivitis H10.9 [facility] [address] [address] Jun, Facial rash R21 [place] [address] [address] Jun, Obesity, unspecified E66.9 [place] [address] [address] May, [place] [address] [address] May, [place] [address] [address] May, Vaginal itching L29.8 and Dy suria R30.0 [place] [address] [address] May, [place] [address] [address] May, [facility] [address] [address] May, Acute pharyngitis, unspecifi ed J02.9 and Seasonal allergies J30.2 [place] [address] [address] Apr, Pseudotumor cerebri G93.2 ; Chronic headaches R51 ; Obesity E66.9 ; GERD with apnea K21.9 and GERD (gastroesophageal reflux disease) K21.9 [place] [address] [address] Mar, [place] [address] [place] [id number] [address] [place] [address] Mar, [facility] [address] [address] Mar, [facility] [address] [address] Mar, [facility] [address] [address] Mar, Pseudotumor cerebri G93.2 ; Chronic headaches R51 ; Obesity E66.9 ; Fibromyalgia M79.7 and GERD (gastroesophageal reflux disease) K21.9 [place] [address] [address] Jan, [facility] [address] [address] Jan, Elevated liver enzymes 790.5 [place] [address] [address] Jan, Elevated liver enzymes 790.5 [place] [address] [address] Dec, Headache 784.0 ; Obesity, un specified 278.00 ; Abnormal weight gain 783.1 ; GERD (gastroesophageal reflux disease) 530.81 and Depression 311 [place] [address] [address] Dec, Chronic headaches 784.0 [facility] [address] [place] [id number] [address] [place] [address] Dec, [place] [address] [address] Dec, [facility] [address] [address] Dec, Headache 784.0 ; Obesity, un specified 278.00 ; Tick bite 919.4 and GERD (gastroesophageal reflux disease) 530.81 [facility] [address] [id number] [address] [place] [address], [place] [address] 14 Sep, 2014 [facility] [address] [id number] [address] [place] [address], [place] [address] 13 Sep, 2014 [facility] [address] [id number] [address] [place] [address], [place] [address] 28 Aug, 2014 [facility] [address] [id number] [address] [place] [address], [place] [address] Aug, [facility] [address] [id number] [address] [place] [address], [place] [address] Aug, [facility] [address] [id number] [address] [place] [address], [place] [address] 18 Aug, 2014 [facility] [address] [id number] [address] [place] [address], [place] [address] Aug, [facility] [address] [id number] [address] [place] [address] Aug, [facility] [address] [id number] [address] [place] [address], [place] [address] Aug, [facility] [address] [id number] [address] [place] [address] Aug, [facility] [address] [id number] [address] [place] [address] Jul, [facility] [address] [id number] [address] [place] [address] Jul, [facility] [address] [id number] [address] [place] [address], [place] [address] Feb, [facility] [address] [id number] [address] [place] [address] Feb, [facility] [address] [id number] [address] [place] [address] Feb, [facility] [address] [id number] [address] [place] [address] 11 Feb, 2013 [facility] [address] [id number] [address] [place] [address], [place] [address] 11 Feb, 2013 [facility] [address] [id number] [address] [place] [address], [place] [address] 11 Feb, 2014 [facility] [address] [id number] [address] [place] [address], [place] [address] 11 Feb, 2014 [facility] [address] [id number] [address] [place] [address], [place] [address] Feb, [facility] [address] [id number] [address] [place] [address], [place] [address] Feb, [facility] [address] [id number] [address] [place] [address], [place] [address] Jun, [facility] [address] [id number] [address] [place] [address], [place] [address] Jun, [facility] [address] [id number] [address] [place] [address], [place] [address] May, [facility] [address] [id number] [address] [place] [address], [place] [address] May, [facility] [address] [id number] [address] [place] [address], [place] [address] May, [facility] [address] [id number] [address] [place] [address], [place] [address] May, [facility] [address] [id number] [address] [place] [address], [place] [address] 10 May, 2013 [facility] [address] [id number] [address] [place] [address], [place] [address] May, [facility] [address] [id number] [address] [place] [address], [place] [address] May, [facility] [address] [id number] [address] [place] [address], [place] [address] May, [facility] [address] [facility] [id number] [address] [address] Mar, [facility] [address] [facility] [id number] [address] [place] [address] Mar, IMMUNIZATIONS No Known Immunizations SOCIAL HISTORY Never Assessed REASON FOR VISIT PLAN OF CARE VITAL SIGNS Height 68 in 2014-09-09 Weight 263.06 lbs 2014-09-09 Temperature 97.7 degrees Fahrenheit 2014-09-09 Heart Rate 80 bpm 2014-09-09 Respiratory Rate 20 2014-09-09 Blood pressure systolic 100 mmHg 2014-09-09 Blood pressure diastolic 72 mmHg 2014-09-09 MEDICATIONS No Known Medications RESULTS No Results [...]
--- OUTSIDE RECORDS SUMMARY | 2019-10-12 07:14 | XMS REPORT ---
Author Author Jaida Manzanares Doctor Organization [facility] Address Unknown Phone Unavailable Care Team Providers Care Chlorine Cells Operator Name Role Phone Migration, Doctor Unavailable Unavailable PROBLEMS Type Condition ICD9-CM Code OGH55-SV Code Onset Dates Condition S tatus SNOMED Code Problem GERD (gastroesophageal reflux disease) K21.9 Active 230451307 Problem Pseudotumor cerebri G93.2 Active 68447054 Problem Chronic headaches R51 Active 43 0705325 Problem Attention deficit hyperactivity disorder (ADHD), unspecified ADHD type F90.9 Active 553079585 Problem Elevated LDL cholesterol level E78.00 Active 640817685 Problem Seasonal allergic rhinitis due to pollen J30.1 Active 59525121 Problem Obesity E66.9 Active 760673091 Problem Depression F32.9 Active 013825920 Problem Fibromyalgia M79.7 Active 2667381 05 Problem Urinary retention R33.9 Active 26 1092169 ALLERGIES No Information ENCOUNTERS Encounter Location Date Diagnosis [facility] [address] [address] 04 Nov, 2018 Sore throat J02.9 and Season al allergic rhinitis due to pollen J30.1 [facility] [address] [address] October, Left arm pain M79.602 [facility] [address] [place] [id number] [address] [place] [address] 02 Aug, 2018 Pharyngitis due to other org anism J02.8 [facility] [address] [address] 10 Mar, 2017 Acute middle ear effusion, b ilateral H65.193 [facility] [address] [address] 14 Feb, 2017 Hospital discharge follow-up Z09 and Depression F32.9 [facility] [address] [address] Feb, Hospital discharge follow-up Z09 and Depression F32.9 [place] [address] [address] Jan, [facility] [address] [id number] Jan, [facility] [address] [address] Dec, [place] [address] [address] Dec, Attention deficit hyperactiv ity disorder (ADHD), unspecified ADHD type F90.9 [place] [address] [address] Dec, Depression F32.9 and Fibromy algia M79.7 [place] [address] [address] Dec, Depression F32.9 ; Chronic h eadaches R51 ; Fibromyalgia M79.7 ; GERD (gastroesophageal reflux disease) K21.9 ; Obesity E66.9 and Attention deficit hyperactivity disorder (ADHD), unspecified ADHD type F90.9 [place] [address] [address] Nov, [place] [address] [address] Nov, [facility] [address] [address] Sep, Gastroenteritis K52.9 [place] [address] [address] Sep, Vaginal discharge N89.8 ; Po ssible exposure to STD Z20.2 and Vaginal candidiasis B37.3 [facility] [address] [address] 17 Aug, 2016 Sore throat J02.9 and Pharyn gitis, unspecified etiology J02.9 [facility] [address] [facility] [id number] [address] [place] [address] Aug, Pseudotumor cerebri G93.2 ; GERD (gastroesophageal reflux disease) K21.9 ; Obesity E66.9 ; Depression F32.9 ; Urinary retention R33.9 ; Fibromyalgia M79.7 and Chronic headaches R51 [facility] [address] [facility] [id number] [address] [place] [address] Apr, [facility] [address] [facility] [id number] [address] [place] [address] Apr, [facility] [address] [facility] [id number] [address] [place] [address] Apr, Pseudotumor cerebri G93.2 ; Chronic headaches R51 ; GERD (gastroesophageal reflux disease) K21.9 ; Fibromyalgia M79.7 ; Urinary retention R33.9 and Excess skin of abdominal wall L98.7 [facility] [address] [facility] [id number] [address] [place] [address] Mar, [facility] [address] [facility] [id number] [address] [place] [address] Mar, [place] [address] [facility] [id number] [place] [id number] Mar, Encounter for immunization Z23 [facility] [address] [facility] [id number] [address] [place] [phone] Feb, [facility] [address] [facility] [id number] [address] [place] [address] Feb, [facility] [address] [facility] [id number] [address] [place] [address] Jan, Fibromyalgia M79.7 ; Obesity E66.9 ; Depression F32.9 ; Pseudotumor cerebri G93.2 ; GERD with apnea K21.9 ; Chronic headaches R51 and Urinary retention R33.9 [place] [address] [place] [id number] [address] [place] [address] Jan, [facility] [address] [address] Dec, Obesity E66.9 ; Fibromyalgia M79.7 ; Depression F32.9 ; Pseudotumor cerebri G93.2 ; Chronic headaches R51 and GERD (gastroesophageal reflux disease) K21.9 [facility] [address] [place] [id number] [place] [address] Dec, [facility] [address] [place] [id number] [place] [address] Nov, Fibromyalgia M79.7 ; Obesity E66.9 and Elevated cholesterol E78.0 [place] [address] [address] 17 Nov, 2015 Pseudotumor cerebri G93.2 ; Chronic headaches R51 ; Obesity E66.9 ; Fibromyalgia M79.7 ; GERD (gastroesophageal reflux disease) K21.9 and Elevated cholesterol E78.0 [facility] [address] [address] Nov, Obesity E66.9 [facility] [address] [place] [id number] [place] [address] October, Nausea R11.0 and Urinary ret ention with incomplete bladder emptying R33.9 [facility] [id number] [place] [address] October, [facility] [address] [place] [id number] [address] [place] [address] October, Dysuria R30.0 [place] [address] [place] [id number] [place] [address] October, [facility] [address] [place] [id number] [place] [address] Sep, [facility] [address] [place] [address] Sep, Obesity E66.9 ; Depression F 32.9 ; Fibromyalgia M79.7 ; Pseudotumor cerebri G93.2 ; Chronic headaches R51 and GERD with apnea K21.9 [facility] [address] [facility] [id number] [address] [place] [address] Aug, Pseudotumor cerebri G93.2 ; Chronic headaches R51 ; GERD (gastroesophageal reflux disease) K21.9 ; Obesity E66.9 ; Fibromyalgia M79.7 and Depression F32.9 [facility] [address] [facility] [id number] [address] [place] [address] Aug, [facility] [address] [facility] [id number] [address] [place] [phone] Aug, [facility] [address] [facility] [id number] [address] [place] [phone] Aug, [facility] [address] [facility] [id number] [address] [place] [phone] Jul, [facility] [address] [facility] [id number] [address] [place] [phone] Jul, [facility] [address] [facility] [id number] [address] [place] [address] Jul, Depression F32.9 [facility] [address] [facility] [id number] [address] [place] [address] Jul, Pseudotumor cerebri G93.2 ; Chronic headaches R51 ; GERD (gastroesophageal reflux disease) K21.9 ; Obesity E66.9 ; Fibromyalgia M79.7 and Depression F32.9 [facility] [address] [facility] [id number] [address] [place] [address] Jul, [facility] [address] [facility] [id number] [address] [place] [address] Jul, [facility] [address] [place] [id number] [address] [place] [phone] Jun, [facility] [address] [address] Jun, Pseudotumor cerebri G93.2 ; Chronic headaches R51 ; Obesity E66.9 ; GERD (gastroesophageal reflux disease) K21.9 ; Fibromyalgia M79.7 ; Depression F32.9 and Conjunctivitis H10.9 [facility] [address] [address] Jun, Facial rash R21 [place] [address] [address] Jun, Obesity, unspecified E66.9 [place] [address] [address] May, [place] [address] [address] May, [place] [address] [address] May, Vaginal itching L29.8 and Dy suria R30.0 [place] [address] [address] May, [place] [address] [address] May, [facility] [address] [address] May, Acute pharyngitis, unspecifi ed J02.9 and Seasonal allergies J30.2 [place] [address] [address] Apr, Pseudotumor cerebri G93.2 ; Chronic headaches R51 ; Obesity E66.9 ; GERD with apnea K21.9 and GERD (gastroesophageal reflux disease) K21.9 [place] [address] [address] Mar, [place] [address] [place] [id number] [address] [place] [address] Mar, [facility] [address] [address] Mar, [facility] [address] [address] Mar, [facility] [address] [address] Mar, Pseudotumor cerebri G93.2 ; Chronic headaches R51 ; Obesity E66.9 ; Fibromyalgia M79.7 and GERD (gastroesophageal reflux disease) K21.9 [place] [address] [address] Jan, [facility] [address] [address] Jan, Elevated liver enzymes 790.5 [place] [address] [address] Jan, Elevated liver enzymes 790.5 [place] [address] [address] Dec, Headache 784.0 ; Obesity, un specified 278.00 ; Abnormal weight gain 783.1 ; GERD (gastroesophageal reflux disease) 530.81 and Depression 311 [place] [address] [address] Dec, Chronic headaches 784.0 [facility] [address] [place] [id number] [address] [place] [address] Dec, [place] [address] [address] Dec, [facility] [address] [address] Dec, Headache 784.0 ; Obesity, un specified 278.00 ; Tick bite 919.4 and GERD (gastroesophageal reflux disease) 530.81 [facility] [address] [id number] [address] [place] [address], [place] [address] 14 Sep, 2014 [facility] [address] [id number] [address] [place] [address], [place] [address] 13 Sep, 2014 [facility] [address] [id number] [address] [place] [address], [place] [address] 28 Aug, 2014 [facility] [address] [id number] [address] [place] [address], [place] [address] Aug, [facility] [address] [id number] [address] [place] [address], [place] [address] Aug, [facility] [address] [id number] [address] [place] [address], [place] [address] 18 Aug, 2014 [facility] [address] [id number] [address] [place] [address], [place] [address] Aug, [facility] [address] [id number] [address] [place] [phone] Aug, [facility] [address] [id number] [address] [place] [address], [place] [address] Aug, [facility] [address] [id number] [address] [place] [phone] Aug, [facility] [address] [id number] [address] [place] [phone] Jul, [facility] [address] [id number] [address] [place] [phone] Jul, [facility] [address] [id number] [address] [place] [address], [place] [address] Feb, [facility] [address] [id number] [address] [place] [phone] Feb, [facility] [address] [id number] [address] [place] [address] Feb, [facility] [address] [id number] [address] [place] [phone] 11 Feb, 2013 [facility] [address] [id number] [address] [place] [address], [place] [address] 11 Feb, 2013 [facility] [address] [id number] [address] [place] [address], [place] [address] 11 Feb, 2014 [facility] [address] [id number] [address] [place] [address], [place] [address] 11 Feb, 2014 [facility] [address] [id number] [address] [place] [address], [place] [address] Feb, [facility] [address] [id number] [address] [place] [address], [place] [address] Feb, [facility] [address] [id number] [address] [place] [address], [place] [address] Jun, [facility] [address] [id number] [address] [place] [address], [place] [address] Jun, [facility] [address] [id number] [address] [place] [address], [place] [address] May, [facility] [address] [id number] [address] [place] [address], [place] [address] May, [facility] [address] [id number] [address] [place] [address], [place] [address] May, [facility] [address] [id number] [address] [place] [address], [place] [address] May, [facility] [address] [id number] [address] [place] [address], [place] [address] 10 May, 2013 [facility] [address] [id number] [address] [place] [address], [place] [address] May, [facility] [address] [id number] [address] [place] [address], [place] [address] May, [facility] [address] [id number] [address] [place] [address], [place] [address] May, [facility] [address] [facility] [id number] [address] [address] Mar, [facility] [address] [facility] [id number] [address] [address] Mar, IMMUNIZATIONS No Known Immunizations SOCIAL HISTORY Never Assessed REASON FOR VISIT PLAN OF CARE VITAL SIGNS MEDICATIONS No Known Medications RESULTS No Results PROCEDURES Procedure Date Ordered Result Body Site MRI BRAIN W/O&W DYE August 25, 2014 INSTRUCTIONS MEDICATIONS ADMINISTERED No Known Medications [...]
--- OUTSIDE RECORDS SUMMARY | 2019-10-12 07:14 | XMS REPORT ---
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 Name Role Phone Migration, Doctor Unavailable Unavailable PROBLEMS Type Condition ICD9-CM Code PFT71-IC Code Onset Dates Condition S tatus SNOMED Code Problem GERD (gastroesophageal reflux disease) K21.9 Active 686530895 Problem Pseudotumor cerebri G93.2 Active 24963699 Problem Chronic headaches R51 Active 43 7606551 Problem Attention deficit hyperactivity disorder (ADHD), unspecified ADHD type F90.9 Active 415031159 Problem Elevated LDL cholesterol level E78.00 Active 974657742 Problem Seasonal allergic rhinitis due to pollen J30.1 Active 53103348 Problem Obesity E66.9 Active 048208261 Problem Depression F32.9 Active 094995089 Problem Fibromyalgia M79.7 Active 9062128 05 Problem Urinary retention R33.9 Active 26 4388830 ALLERGIES No Information ENCOUNTERS Encounter Location Date Diagnosis [facility] [address] [address] 04 Nov, 2018 Sore throat J02.9 and Season al allergic rhinitis due to pollen J30.1 [facility] [address] [address] October, Left arm pain M79.602 [facility] [address] [place] [id number] [place] [address] 02 Aug, 2018 Pharyngitis due to other org anism J02.8 [facility] [address] [address] 10 Mar, 2017 Acute middle ear effusion, b ilateral H65.193 [facility] [address] [address] 14 Feb, 2017 Hospital discharge follow-up Z09 and Depression F32.9 [facility] [address] [address] Feb, Hospital discharge follow-up Z09 and Depression F32.9 [place] [address] [address] Jan, [facility] [address] [id number] Jan, [facility] [address] [address] Dec, [place] [address] [address] Dec, Attention deficit hyperactiv ity disorder (ADHD), unspecified ADHD type F90.9 [place] [address] [address] Dec, Depression F32.9 and Fibromy algia M79.7 [place] [address] [address] Dec, Depression F32.9 ; Chronic h eadaches R51 ; Fibromyalgia M79.7 ; GERD (gastroesophageal reflux disease) K21.9 ; Obesity E66.9 and Attention deficit hyperactivity disorder (ADHD), unspecified ADHD type F90.9 [place] [address] [address] Nov, [place] [address] [address] Nov, [facility] [address] [address] Sep, Gastroenteritis K52.9 [place] [address] [address] Sep, Vaginal discharge N89.8 ; Po ssible exposure to STD Z20.2 and Vaginal candidiasis B37.3 [facility] [address] [address] 17 Aug, 2016 Sore throat J02.9 and Pharyn gitis, unspecified etiology J02.9 [facility] [address] [facility] [id number] [place] [address] Aug, Pseudotumor cerebri G93.2 ; GERD (gastroesophageal reflux disease) K21.9 ; Obesity E66.9 ; Depression F32.9 ; Urinary retention R33.9 ; Fibromyalgia M79.7 and Chronic headaches R51 [facility] [address] [facility] [id number] [place] [address] Apr, [facility] [address] [facility] [id number] [place] [address] Apr, [facility] [address] [facility] [id number] [place] [address] Apr, Pseudotumor cerebri G93.2 ; Chronic headaches R51 ; GERD (gastroesophageal reflux disease) K21.9 ; Fibromyalgia M79.7 ; Urinary retention R33.9 and Excess skin of abdominal wall L98.7 [facility] [address] [facility] [id number] [place] [address] Mar, [facility] [address] [facility] [id number] [place] [address] Mar, [place] [address] [facility] [id number] [place] [id number] Mar, Encounter for immunization Z23 [facility] [address] [facility] [id number] [place] [address] Feb, [facility] [address] [facility] [id number] [place] [address] Feb, [facility] [address] [facility] [id number] [place] [address] Jan, Fibromyalgia M79.7 ; Obesity E66.9 ; Depression F32.9 ; Pseudotumor cerebri G93.2 ; GERD with apnea K21.9 ; Chronic headaches R51 and Urinary retention R33.9 [place] [address] [place] [id number] [place] [address] Jan, [facility] [address] [address] Dec, Obesity E66.9 ; Fibromyalgia M79.7 ; Depression F32.9 ; Pseudotumor cerebri G93.2 ; Chronic headaches R51 and GERD (gastroesophageal reflux disease) K21.9 [facility] [address] [place] [id number] [place] [address] Dec, [facility] [address] [place] [id number] [place] [address] Nov, Fibromyalgia M79.7 ; Obesity E66.9 and Elevated cholesterol E78.0 [place] [address] [address] 17 Nov, 2015 Pseudotumor cerebri G93.2 ; Chronic headaches R51 ; Obesity E66.9 ; Fibromyalgia M79.7 ; GERD (gastroesophageal reflux disease) K21.9 and Elevated cholesterol E78.0 [facility] [address] [address] Nov, Obesity E66.9 [facility] [address] [place] [id number] [place] [address] October, Nausea R11.0 and Urinary ret ention with incomplete bladder emptying R33.9 [facility] [address] [place] [address] October, [facility] [address] [place] [id number] [address] [place] [address] October, Dysuria R30.0 [place] [address] [place] [id number] [place] [address] October, [facility] [address] [place] [id number] [place] [address] Sep, [facility] [address] [place] [address] Sep, Obesity E66.9 ; Depression F 32.9 ; Fibromyalgia M79.7 ; Pseudotumor cerebri G93.2 ; Chronic headaches R51 and GERD with apnea K21.9 [facility] [address] [facility] [id number] [place] [address] Aug, Pseudotumor cerebri G93.2 ; Chronic headaches R51 ; GERD (gastroesophageal reflux disease) K21.9 ; Obesity E66.9 ; Fibromyalgia M79.7 and Depression F32.9 [facility] [address] [facility] [id number] [place] [address] Aug, [facility] [address] [facility] [id number] [place] [address] Aug, [facility] [address] [facility] [id number] [place] [address] Aug, [facility] [address] [facility] [id number] [place] [address] Jul, [facility] [address] [facility] [id number] [place] [address] Jul, [facility] [address] [facility] [id number] [place] [address] Jul, Depression F32.9 [facility] [address] [facility] [id number] [place] [address] Jul, Pseudotumor cerebri G93.2 ; Chronic headaches R51 ; GERD (gastroesophageal reflux disease) K21.9 ; Obesity E66.9 ; Fibromyalgia M79.7 and Depression F32.9 [facility] [address] [facility] [id number] [place] [address] Jul, [facility] [address] [facility] [id number] [place] [address] Jul, [facility] [address] [place] [id number] [address] [place] [address] Jun, [facility] [address] [address] Jun, Pseudotumor cerebri G93.2 ; Chronic headaches R51 ; Obesity E66.9 ; GERD (gastroesophageal reflux disease) K21.9 ; Fibromyalgia M79.7 ; Depression F32.9 and Conjunctivitis H10.9 [facility] [address] [address] Jun, Facial rash R21 [place] [address] [address] Jun, Obesity, unspecified E66.9 [place] [address] [address] May, [place] [address] [address] May, [place] [address] [address] May, Vaginal itching L29.8 and Dy suria R30.0 [place] [address] [address] May, [place] [address] [address] May, [facility] [address] [address] May, Acute pharyngitis, unspecifi ed J02.9 and Seasonal allergies J30.2 [place] [address] [address] Apr, Pseudotumor cerebri G93.2 ; Chronic headaches R51 ; Obesity E66.9 ; GERD with apnea K21.9 and GERD (gastroesophageal reflux disease) K21.9 [place] [address] [address] Mar, [place] [address] [place] [id number] [place] [address] Mar, [facility] [address] [address] Mar, [facility] [address] [address] Mar, [facility] [address] [address] Mar, Pseudotumor cerebri G93.2 ; Chronic headaches R51 ; Obesity E66.9 ; Fibromyalgia M79.7 and GERD (gastroesophageal reflux disease) K21.9 [place] [address] [address] Jan, [facility] [address] [address] Jan, Elevated liver enzymes 790.5 [place] [address] [address] Jan, Elevated liver enzymes 790.5 [place] [address] [address] Dec, Headache 784.0 ; Obesity, un specified 278.00 ; Abnormal weight gain 783.1 ; GERD (gastroesophageal reflux disease) 530.81 and Depression 311 [place] [address] [address] Dec, Chronic headaches 784.0 [facility] [address] [place] [id number] [address] [place] [address] Dec, [place] [address] [address] Dec, [facility] [address] [address] Dec, Headache 784.0 ; Obesity, un specified 278.00 ; Tick bite 919.4 and GERD (gastroesophageal reflux disease) 530.81 [facility] [address] [id number] [address] [place] [address], [place] [address] 14 Sep, 2014 [facility] [address] [id number] [address] [place] [address], [place] [address] 13 Sep, 2014 [facility] [address] [id number] [address] [place] [address], [place] [address] 28 Aug, 2014 [facility] [address] [id number] [address] [place] [address], [place] [address] Aug, [facility] [address] [id number] [address] [place] [address], [place] [address] Aug, [facility] [address] [id number] [address] [place] [address], [place] [address] 18 Aug, 2014 [facility] [address] [id number] [address] [place] [address], [place] [address] Aug, [facility] [address] [id number] [address] [place] [phone] Aug, [facility] [address] [id number] [address] [place] [address], [place] [address] Aug, [facility] [address] [id number] [address] [place] [phone] Aug, [facility] [address] [id number] [address] [place] [phone] Jul, [facility] [address] [id number] [address] [place] [address] Jul, [facility] [address] [id number] [address] [place] [address], [place] [address] Feb, [facility] [address] [id number] [address] [place] [address] Feb, [facility] [address] [id number] [address] [place] [address] Feb, [facility] [address] [id number] [address] [place] [address] 11 Feb, 2013 [facility] [address] [id number] [address] [place] [address], [place] [address] 11 Feb, 2013 [facility] [address] [id number] [address] [place] [address], [place] [address] 11 Feb, 2014 [facility] [address] [id number] [address] [place] [address], [place] [address] 11 Feb, 2014 [facility] [address] [id number] [address] [place] [address], [place] [address] Feb, [facility] [address] [id number] [address] [place] [address], [place] [address] Feb, [facility] [address] [id number] [address] [place] [address], [place] [address] Jun, [facility] [address] [id number] [address] [place] [address], [place] [address] Jun, [facility] [address] [id number] [address] [place] [address], [place] [address] May, [facility] [address] [id number] [address] [place] [address], [place] [address] May, [facility] [address] [id number] [address] [place] [address], [place] [address] May, [facility] [address] [id number] [address] [place] [address], [place] [address] May, [facility] [address] [id number] [address] [place] [address], [place] [address] 10 May, 2013 [facility] [address] [id number] [address] [place] [address], [place] [address] May, [facility] [address] [id number] [address] [place] [address], [place] [address] May, [facility] [address] [id number] [address] [place] [address], [place] [address] May, [facility] [address] [facility] 2001 [id number] [address] [address] Mar, [facility] [address] [facility] [id number] [place] [address] Mar, IMMUNIZATIONS No Known Immunizations SOCIAL HISTORY Never Assessed REASON FOR VISIT PLAN OF CARE VITAL SIGNS Height 68 in 2014-08-17 Weight 265.25 lbs 2014-08-17 Temperature 98 degrees Fahrenheit 2014-08-17 Heart Rate 89 bpm 2014-08-17 Respiratory Rate 20 2014-08-17 Blood pressure systolic 130 mmHg 2014-08-17 Blood pressure diastolic 65 mmHg 2014-08-17 MEDICATIONS No Known Medications RESULTS No Results [...]
--- OUTSIDE RECORDS SUMMARY | 2019-10-12 07:15 | XMS REPORT ---
Author Author Jaida Manzanares Doctor Organization [facility] Address Unknown Phone Unavailable Care Team Providers Care Food And Nutrition Professor Name Role Phone Migration, Doctor Unavailable Unavailable PROBLEMS Type Condition ICD9-CM Code FNK60-LU Code Onset Dates Condition S tatus SNOMED Code Problem Elevated LDL cholesterol level E78.00 Active 900377882 Problem GERD (gastroesophageal reflux disease) K21.9 Active 318769726 Problem Pseudotumor cerebri G93.2 Active 99678095 Problem Urinary retention R33.9 Active 26 9135356 Problem Attention deficit hyperactivity disorder (ADHD), unspecified ADHD type F90.9 Active 515481568 Problem Chronic headaches R51 Active 43 4074648 Problem Obesity E66.9 Active 535013343 Problem Depression F32.9 Active 842963825 Problem Fibromyalgia M79.7 Active 9782815 05 ALLERGIES No Information ENCOUNTERS Encounter Location Date Diagnosis [facility] [id number] [place] [phone] October, Left arm pain M79.602 [facility] [id number] [place] [id number] 02 Aug, 2018 Pharyngitis due to other org anism J02.8 [facility] [id number] [place] [phone] 10 Mar, 2017 Acute middle ear effusion, b ilateral H65.193 [facility] [place] [id number] [place] [id number] 14 Feb, 2017 Hospital discharge follow-up Z09 and Depression F32.9 [facility] [place] [id number] [place] [phone] 11 Feb, 2017 Hospital discharge follow-up Z09 and Depression F32.9 [facility] [place] [id number] [place] [phone] Jan, [facility] [id number] [place] [id number] Jan, [facility] [address] [id number] Dec, [facility] [place] [address] [address] Dec, Attention deficit hyperactiv ity disorder (ADHD), unspecified ADHD type F90.9 [facility] [place] [address] [address] Dec, Depression F32.9 and Fibromy algia M79.7 [place] [address] [address] Dec, Depression F32.9 ; Chronic h eadaches R51 ; Fibromyalgia M79.7 ; GERD (gastroesophageal reflux disease) K21.9 ; Obesity E66.9 and Attention deficit hyperactivity disorder (ADHD), unspecified ADHD type F90.9 [facility] [place] [address] [address] Nov, [place] [address] [id number] Nov, [facility] [address] [id number] Sep, Gastroenteritis K52.9 [place] [address] [address] Sep, Vaginal discharge N89.8 ; Po ssible exposure to STD Z20.2 and Vaginal candidiasis B37.3 [facility] [place] [address] [address] Aug, Sore throat J02.9 and Pharyn gitis, unspecified etiology J02.9 [facility] [place] [address] [id number] Aug, Pseudotumor cerebri G93.2 ; GERD (gastroesophageal reflux disease) K21.9 ; Obesity E66.9 ; Depression F32.9 ; Urinary retention R33.9 ; Fibromyalgia M79.7 and Chronic headaches R51 [facility] [place] [address] [facility] [id number] [address] [place] [id number] Apr, [facility] [place] [address] [facility] [id number] [address] [place] [phone] Apr, [facility] [place] [address] [facility] [id number] [address] [place] [id number] Apr, Pseudotumor cerebri G93.2 ; Chronic headaches R51 ; GERD (gastroesophageal reflux disease) K21.9 ; Fibromyalgia M79.7 ; Urinary retention R33.9 and Excess skin of abdominal wall L98.7 [facility] [place] [address] [facility] [id number] [address] [place] [phone] Mar, [facility] [place] [address] [facility] [id number] [address] [place] [phone] Mar, [facility] [address] [id number] [place], [facility] [id number] Mar, Encounter for immunization Z23 [facility] [place] [address] [facility] [id number] [address] [place] [phone] Feb, [facility] [place] [address] [facility] [id number] [address] [place] [phone] Feb, [facility] [place] [address] [facility] [id number] [address] [place] [phone] Jan, Fibromyalgia M79.7 ; Obesity E66.9 ; Depression F32.9 ; Pseudotumor cerebri G93.2 ; GERD with apnea K21.9 ; Chronic headaches R51 and Urinary retention R33.9 [facility] [place] [address] [facility] [id number] [address] [place] [phone] Jan, [facility] [place] [address] [facility] [id number] [address] [place] [phone] Dec, Obesity E66.9 ; Fibromyalgia M79.7 ; Depression F32.9 ; Pseudotumor cerebri G93.2 ; Chronic headaches R51 and GERD (gastroesophageal reflux disease) K21.9 [place] [address] [address] Dec, [place] [address] [address] Nov, Fibromyalgia M79.7 ; Obesity E66.9 and Elevated cholesterol E78.0 [place] [address] [address] Nov, Pseudotumor cerebri G93.2 ; Chronic headaches R51 ; Obesity E66.9 ; Fibromyalgia M79.7 ; GERD (gastroesophageal reflux disease) K21.9 and Elevated cholesterol E78.0 [place] [address] [address] Nov, Obesity E66.9 [facility] [place] [address] [address] October, Nausea R11.0 and Urinary ret ention with incomplete bladder emptying R33.9 [place] [address] [address] October, [facility] [place] [address] [address] October, Dysuria R30.0 [place] [address] [address] October, [place] [address] [address] Sep, [place] [address] [address] Sep, Obesity E66.9 ; Depression F 32.9 ; Fibromyalgia M79.7 ; Pseudotumor cerebri G93.2 ; Chronic headaches R51 and GERD with apnea K21.9 [place] [address] [place] [id number] [place] [phone] 11 Aug, 2015 Pseudotumor cerebri G93.2 ; Chronic headaches R51 ; GERD (gastroesophageal reflux disease) K21.9 ; Obesity E66.9 ; Fibromyalgia M79.7 and Depression F32.9 [facility] [place] [address] [facility] [id number] [address] [place] [id number] 08 Aug, 2015 [facility] [place] [address] [facility] [id number] [address] [place] [phone] Aug, [facility] [place] [address] [facility] [id number] [address] [place] [phone] Aug, [facility] [place] [address] [facility] [id number] [address] [place] [phone] Jul, [facility] [place] [address] [facility] [id number] [address] [place] [id number] Jul, [facility] [place] [address] [facility] [id number] [address] [place] [phone] Jul, Depression F32.9 [facility] [place] [address] [facility] [id number] [address] [place] [phone] Jul, Pseudotumor cerebri G93.2 ; Chronic headaches R51 ; GERD (gastroesophageal reflux disease) K21.9 ; Obesity E66.9 ; Fibromyalgia M79.7 and Depression F32.9 [facility] [place] [address] [facility] [id number] [address] [place] [phone] Jul, [facility] [place] [address] [facility] [id number] [address] [place] [phone] Jul, [facility] [place] [address] [facility] [id number] [address] [place] [phone] Jun, [facility] [place] [address] [facility] [id number] [address] [place] [phone] Jun, Pseudotumor cerebri G93.2 ; Chronic headaches R51 ; Obesity E66.9 ; GERD (gastroesophageal reflux disease) K21.9 ; Fibromyalgia M79.7 ; Depression F32.9 and Conjunctivitis H10.9 [facility] [address] [address] Jun, Facial rash R21 [facility] [place] [address] [address] 08 Jun, 2015 Obesity, unspecified E66.9 [facility] [place] [address] [address] May, [facility] [place] [address] [address] May, [place] [address] [address] May, Vaginal itching L29.8 and Dy suria R30.[address] [address] May, [place] [address] [address] May, [facility] [address] [address] May, Acute pharyngitis, unspecifi ed J02.9 and Seasonal allergies J30.[address] [address] Apr, Pseudotumor cerebri G93.2 ; Chronic headaches R51 ; Obesity E66.9 ; GERD with apnea K21.9 and GERD (gastroesophageal reflux disease) K21.9 [place] [address] [address] Mar, [place] [address] [address] Mar, [place] [address] [address] Mar, [place] [address] [address] Mar, [facility] [place] [address] [address] Mar, Pseudotumor cerebri G93.2 ; Chronic headaches R51 ; Obesity E66.9 ; Fibromyalgia M79.7 and GERD (gastroesophageal reflux disease) K21.9 [facility] [place] [address] [address] Jan, [facility] [place] [address] [address] Jan, Elevated liver enzymes 790.5 [place] [address] [address] Jan, Elevated liver enzymes 790.5 [place] [address] [address] Dec, Headache 784.0 ; Obesity, un specified 278.00 ; Abnormal weight gain 783.1 ; GERD (gastroesophageal reflux disease) 530.81 and Depression 311 [place] [address] [address] Dec, Chronic headaches 784.0 [facility] [place] [address] [address] Dec, [facility] [place] [address] [address] Dec, [facility] [place] [address] [address] Dec, Headache 784.0 ; Obesity, un specified 278.00 ; Tick bite 919.4 and GERD (gastroesophageal reflux disease) 530.81 [facility] [place] [address] [address] Sep, [facility] [place] [address] [address] Sep, [facility] [address] [id number] [address] [place] [address], [place] [address] Aug, [facility] [address] [id number] [address] [place] [address], [place] [address] 28 Aug, 2014 [facility] [address] [id number] [address] [place] [address], [place] [address] 18 Aug, 2014 [facility] [address] [id number] [address] [place] [address], [place] [address] 18 Aug, 2014 [facility] [address] [id number] [address] [place] [address], [place] [address] Aug, [facility] [address] [id number] [address] [place] [address], [place] [address] Aug, [facility] [address] [id number] [address] [place] [address], [place] [address] Aug, [facility] [address] [id number] [address] [place] [address], [place] [address] Aug, [facility] [address] [id number] [address] [place] [address], [place] [address] Jul, [facility] [address] [id number] [address] [place] [address], [place] [address] Jul, [facility] [address] [id number] [address] [place] [address], [place] [address] 12 Feb, 2014 [facility] [address] [id number] [address] [place] [address], [place] [address] Feb, [facility] [address] [id number] [address] [place] [address], [place] [address] Feb, [facility] [address] [id number] [address] [place] [address], [place] [address] Feb, [facility] [address] [id number] [address] [place] [address], [place] [address] Feb, [facility] [address] [id number] [address] [place] [phone] Feb, [facility] [address] [id number] [address] [place] [address], [place] [address] Feb, [facility] [address] [id number] [address] [place] [phone] Feb, [facility] [address] [id number] [address] [place] [phone] Feb, [facility] [address] [id number] [address] [place] [phone] Jun, [facility] [address] [id number] [address] [place] [address], [place] [address] Jun, [facility] [address] [id number] [address] [place] [phone] May, [facility] [address] [id number] [address] [place] [phone] May, [facility] [address] [id number] [address] [place] [phone] May, [facility] [address] [id number] [address] [place] [phone] May, [facility] [address] [id number] [address] [place] [phone] May, [facility] [address] [id number] [address] [place] [phone] May, [facility] [address] [id number] [address] [place] [phone] May, [facility] [address] [id number] [address] [place] [phone] May, [facility] [address] [id number] [address] [place] [phone] Mar, [facility] [address] [id number] [address] [place] [phone] Mar, IMMUNIZATIONS No Known Immunizations SOCIAL HISTORY Never Assessed REASON FOR VISIT [facility] PLAN OF CARE VITAL SIGNS MEDICATIONS No [...]
--- OUTSIDE RECORDS SUMMARY | 2019-10-12 07:15 | XMS REPORT ---
Author Author Jaida Manzanares Doctor Organization [facility] Address Unknown Phone Unavailable Care Team Providers Care Hospital Admitting Clerk Name Role Phone Migration, Doctor Unavailable Unavailable PROBLEMS Type Condition ICD9-CM Code DEV26-EM Code Onset Dates Condition S tatus SNOMED Code Problem Elevated LDL cholesterol level E78.00 Active 523041544 Problem GERD (gastroesophageal reflux disease) K21.9 Active 116349225 Problem Pseudotumor cerebri G93.2 Active 10192656 Problem Urinary retention R33.9 Active 26 9539019 Problem Attention deficit hyperactivity disorder (ADHD), unspecified ADHD type F90.9 Active 601330170 Problem Chronic headaches R51 Active 43 2062950 Problem Obesity E66.9 Active 559193008 Problem Depression F32.9 Active 551817829 Problem Fibromyalgia M79.7 Active 7939500 05 ALLERGIES No Information ENCOUNTERS Encounter Location Date Diagnosis [facility] WALK IN [facility] [id number] [place] [phone] Aug, Pharyngitis due to other org anism J02.8 [facility] WALK IN [facility] [id number] [place] [id number] 10 Mar, 2017 Acute middle ear effusion, b ilateral H65.193 [facility] [id number] [place] [phone] 14 Feb, 2017 Hospital discharge follow-up Z09 and Depression F32.9 [facility] [id number] [place] [address] 11 Feb, 2017 Hospital discharge follow-up Z09 and Depression F32.9 [facility] [id number] [place] [phone] 08 Jan, 2017 [facility] [id number] [place] [id number] Jan, [facility] IN [facility] [address] [id number] Dec, [place] [address] [address] Dec, Attention deficit hyperactiv ity disorder (ADHD), unspecified ADHD type F90.9 [place] [address] [address] Dec, Depression F32.9 and Fibromy algia M79.7 [place] [address] [address] Dec, Depression F32.9 ; Chronic h eadaches R51 ; Fibromyalgia M79.7 ; GERD (gastroesophageal reflux disease) K21.9 ; Obesity E66.9 and Attention deficit hyperactivity disorder (ADHD), unspecified ADHD type F90.9 [place] [address] [address] Nov, [place] [address] [address] Nov, [address] [address] Sep, Gastroenteritis K52.[address] [address] Sep, Vaginal discharge N89.8 ; Po ssible exposure to STD Z20.2 and Vaginal candidiasis B37.3 [facility] [place] [address] [address] Aug, Sore throat J02.9 and Pharyn gitis, unspecified etiology J02.[address] [address] Aug, Pseudotumor cerebri G93.2 ; GERD (gastroesophageal reflux disease) K21.9 ; Obesity E66.9 ; Depression F32.9 ; Urinary retention R33.9 ; Fibromyalgia M79.7 and Chronic headaches R51 [facility] [address] [facility] [id number] [address] [place] [phone] Apr, [facility] [address] [facility] [id number] [address] [place] [phone] Apr, [facility] [address] [facility] [id number] [address] [place] [phone] Apr, Pseudotumor cerebri G93.2 ; Chronic headaches R51 ; GERD (gastroesophageal reflux disease) K21.9 ; Fibromyalgia M79.7 ; Urinary retention R33.9 and Excess skin of abdominal wall L98.7 [place] [address] [facility] [id number] [address] [place] [id number] Mar, [place] [address] [facility] [id number] [address] [place] [id number] Mar, [facility] [address] [facility] [id number] [place] [id number] Mar, Encounter for immunization Z23 [facility] [address] [facility] [id number] [address] [place] [phone] Feb, [facility] [address] [facility] [id number] [address] [place] [phone] Feb, [place] [address] [facility] [id number] [address] [place] [phone] Jan, Fibromyalgia M79.7 ; Obesity E66.9 ; Depression F32.9 ; Pseudotumor cerebri G93.2 ; GERD with apnea K21.9 ; Chronic headaches R51 and Urinary retention R33.9 [facility] [address] [facility] [id number] [address] [place] [phone] Jan, [facility] [address] [facility] [id number] [address] [place] [phone] Dec, Obesity E66.9 ; Fibromyalgia M79.7 ; Depression F32.9 ; Pseudotumor cerebri G93.2 ; Chronic headaches R51 and GERD (gastroesophageal reflux disease) K21.9 [facility] [address] [id number] [address] [place] [phone] Dec, [facility] [id number] [place] [phone] Nov, Fibromyalgia M79.7 ; Obesity E66.9 and Elevated cholesterol E78.0 [facility] [address] [id number] [place] [phone] Nov, Pseudotumor cerebri G93.2 ; Chronic headaches R51 ; Obesity E66.9 ; Fibromyalgia M79.7 ; GERD (gastroesophageal reflux disease) K21.9 and Elevated cholesterol E78.0 [place] [id number] [place] [phone] Nov, Obesity E66.9 [facility] WALK IN [facility] [address] [id number] [place] [phone] October, Nausea R11.0 and Urinary ret ention with incomplete bladder emptying R33.9 [facility] [address] [id number] [place] [phone] October, [facility] WALK IN [facility] [id number] [place] [phone] October, Dysuria R30.0 [place] [id number] [place] [phone] October, [place] [id number] [place] [phone] Sep, [facility] [address] [id number] [address] [place] [phone] Sep, Obesity E66.9 ; Depression F 32.9 ; Fibromyalgia M79.7 ; Pseudotumor cerebri G93.2 ; Chronic headaches R51 and GERD with apnea K21.9 [facility] [address] [facility] [id number] [address] [place] [phone] Aug, Pseudotumor cerebri G93.2 ; Chronic headaches R51 ; GERD (gastroesophageal reflux disease) K21.9 ; Obesity E66.9 ; Fibromyalgia M79.7 and Depression F32.9 [facility] [address] [phone] Aug, [facility] [id number] [place] [phone] Aug, [facility] [address] [address] Aug, [facility] [id number] [place] [phone] Jul, [facility] [address] [address] Jul, [facility] [address] [address] Jul, Depression F32.9 [facility] [address] [address] Jul, Pseudotumor cerebri G93.2 ; Chronic headaches R51 ; GERD (gastroesophageal reflux disease) K21.9 ; Obesity E66.9 ; Fibromyalgia M79.7 and Depression F32.9 [facility] [address] [address] Jul, [facility] [address] [id number] Jul, [facility] [address] [address] Jun, [facility] [address] [address] Jun, Pseudotumor cerebri G93.2 ; Chronic headaches R51 ; Obesity E66.9 ; GERD (gastroesophageal reflux disease) K21.9 ; Fibromyalgia M79.7 ; Depression F32.9 and Conjunctivitis H10.9 [facility] WALK IN [facility] [address] [id number] Jun, Facial rash R21 [facility] [address] [facility] [id number] [place] [phone] Jun, Obesity, unspecified E66.9 [facility] [address] [id number] [address] [place] [phone] May, [facility] [address] [address] May, [facility] [address] [id number] May, Vaginal itching L29.8 and Dy suria R30.0 [facility] [address] [address] May, [facility] [address] [address] May, [facility] WALK IN [facility] [address] [address] May, Acute pharyngitis, unspecifi ed J02.9 and Seasonal allergies J30.2 [facility] [address] [address] Apr, Pseudotumor cerebri G93.2 ; Chronic headaches R51 ; Obesity E66.9 ; GERD with apnea K21.9 and GERD (gastroesophageal reflux disease) K21.9 [facility] [address] [address] Mar, [facility] [address] [address] Mar, [facility] [address] [address] Mar, [facility] [address] [address] Mar, [facility] [address] [place] [address] Mar, Pseudotumor cerebri G93.2 ; Chronic headaches R51 ; Obesity E66.9 ; Fibromyalgia M79.7 and GERD (gastroesophageal reflux disease) K21.9 [facility] [address] [address] Jan, [facility] [address] [address] Jan, Elevated liver enzymes 790.5 [facility] [address] [address] Jan, Elevated liver enzymes 790.5 [place] [address] [address] Dec, Headache 784.0 ; Obesity, un specified 278.00 ; Abnormal weight gain 783.1 ; GERD (gastroesophageal reflux disease) 530.81 and Depression 311 [facility] [address] [address] Dec, Chronic headaches 784.0 [place] [address] [address] Dec, [facility] [address] [address] Dec, [facility] [address] [address] Dec, Headache 784.0 ; Obesity, un specified 278.00 ; Tick bite 919.4 and GERD (gastroesophageal reflux disease) 530.81 [facility] [address] [address] Sep, [facility] [address] [address] Sep, [facility] [address] [address] Aug, [facility] [address] [id number] [address] [place] [address], [place] [address] 28 Aug, 2014 [facility] [address] [id number] [address] [place] [address], [place] [address] 18 Aug, 2014 [facility] [address] [id number] [address] [place] [address], [place] [address] 18 Aug, 2014 [facility] [address] [id number] [address] [place] [address], [place] [address] 13 Aug, 2014 [facility] [address] [id number] [address] [place] [address], [place] [address] 13 Aug, 2014 [facility] [address] [id number] [address] [place] [address], [place] [address] 05 Aug, 2014 [facility] [address] [id number] [address] [place] [address], [place] [address] 05 Aug, 2014 [facility] [address] [id number] [address] [place] [address], [place] [address] 26 Jul, 2014 [facility] [address] [id number] [address] [place] [address], [place] [address] 26 Jul, 2014 [facility] [address] [id number] [address] [place] [address], [place] [address] 12 Feb, 2014 [facility] [address] [id number] [address] [place] [address], [place] [address] 11 Feb, 2013 [facility] [address] [id number] [address] [place] [address], [place] [address] 11 Feb, 2013 [facility] [address] [id number] [address] [place] [address], [place] [address] 11 Feb, 2013 [facility] [address] [id number] [address] [place] [address], [place] [address] 11 Feb, 2013 [facility] [address] [id number] [address] [place] [address], [place] [address] 11 Feb, 2013 [facility] [address] [id number] [address] [place] [address], [place] [address] Feb, [facility] [address] [id number] [address] [place] [phone] Feb, [facility] [address] [id number] [address] [place] [phone] Feb, [facility] [address] [id number] [address] [place] [phone] Jun, [facility] [address] [id number] [address] [place] [phone] Jun, [facility] [address] [id number] [address] [place] [id number] May, [facility] [address] [id number] [address] [place] [phone] May, [facility] [address] [id number] [address] [place] [phone] May, [facility] [address] [id number] [address] [place] [phone] May, [facility] [address] [id number] [address] [place] [phone] May, [facility] [address] [id number] [address] [place] [phone] May, [facility] [address] [id number] [address] [place] [phone] May, [facility] [address] [id number] [address] [place] [phone] May, [facility] [address] [id number] [address] [place] [phone] Mar, [facility] [address] [id number] [address] [place] [id number] Mar, IMMUNIZATIONS No Known Immunizations SOCIAL HISTORY Never Assessed REASON FOR VISIT EMR-[facility] [place] PLAN OF CARE VITAL SIGNS MEDICATIONS Unknown [...]
--- OUTSIDE RECORDS SUMMARY | 2019-10-12 07:15 | XMS REPORT ---
Author Author Jaida Manzanares Doctor Organization [facility] Address Unknown Phone Unavailable Care Team Providers Care Back Maker Name Role Phone Migration, Doctor Unavailable Unavailable PROBLEMS Type Condition ICD9-CM Code [id number] Code Onset Dates Condition S tatus SNOMED Code Problem GERD (gastroesophageal reflux disease) K21.9 Active 202361409 Problem Pseudotumor cerebri G93.2 Active 22863921 Problem Chronic headaches R51 Active 43 0120904 Problem Attention deficit hyperactivity disorder (ADHD), unspecified ADHD type F90.9 Active 046691549 Problem Elevated LDL cholesterol level E78.00 Active 935938857 Problem Seasonal allergic rhinitis due to pollen J30.1 Active 72025617 Problem Obesity E66.9 Active 664811463 Problem Depression F32.9 Active 462920348 Problem Fibromyalgia M79.7 Active 2406492 05 Problem Urinary retention R33.9 Active 26 7554698 ALLERGIES Substance Reaction Event Type Date Status Diflucan Unknown Drug Allergy Sep, Active Morphine Unknown Drug Allergy Sep, Active ENCOUNTERS Encounter Location Date Diagnosis [facility] [id number] [place] [phone] 04 Nov, 2018 Sore throat J02.9 and Season al allergic rhinitis due to pollen J30.1 [facility] [address] [id number] [address] [place] [phone] October, Left arm pain M79.602 [facility] [id number] [place] [phone] 02 Aug, 2018 Pharyngitis due to other org anism J02.8 [facility] [address] [id number] [address] [place] [phone] 10 Mar, 2017 Acute middle ear effusion, b ilateral H65.193 [facility] [address] [id number] [address] [place] [id number] 14 Feb, 2017 Hospital discharge follow-up Z09 and Depression F32.9 [facility] [address] [facility] [id number] [address] [place] [phone] 11 Feb, 2017 Hospital discharge follow-up Z09 and Depression F32.9 [facility] [address] [facility] [id number] [address] [place] [phone] Jan, [facility] [place] [id number] [place] [id number] Jan, [facility] [address] [facility] [id number] [address] [place] [phone] Dec, [place] [id number] [place] [phone] Dec, Attention deficit hyperactiv ity disorder (ADHD), unspecified ADHD type F90.9 [place] [id number] [address] [place] [phone] Dec, Depression F32.9 and Fibromy algia M79.7 [place] [address] [facility] [id number] [address] [place] [phone] Dec, Depression F32.9 ; Chronic h eadaches R51 ; Fibromyalgia M79.7 ; GERD (gastroesophageal reflux disease) K21.9 ; Obesity E66.9 and Attention deficit hyperactivity disorder (ADHD), unspecified ADHD type F90.9 [facility] [address] [facility] [id number] [address] [place] [phone] Nov, [facility] [address] [facility] [id number] [address] [place] [phone] Nov, [facility] [id number] [address] [place] [phone] Sep, Gastroenteritis K52.9 [facility] [address] [facility] [id number] [address] [place] [phone] Sep, Vaginal discharge N89.8 ; Po ssible exposure to STD Z20.2 and Vaginal candidiasis B37.3 [facility] [address] [facility] [id number] [address] [place] [phone] 17 Aug, 2016 Sore throat J02.9 and Pharyn gitis, unspecified etiology J02.9 [facility] [address] [facility] [id number] [address] [place] [phone] Aug, Pseudotumor cerebri G93.2 ; GERD (gastroesophageal reflux disease) K21.9 ; Obesity E66.9 ; Depression F32.9 ; Urinary retention R33.9 ; Fibromyalgia M79.7 and Chronic headaches R51 [facility] [address] [facility] [id number] [address] [place] [phone] Apr, [facility] [address] [facility] [id number] [address] [place] [phone] Apr, [facility] [address] [facility] [id number] [address] [place] [phone] Apr, Pseudotumor cerebri G93.2 ; Chronic headaches R51 ; GERD (gastroesophageal reflux disease) K21.9 ; Fibromyalgia M79.7 ; Urinary retention R33.9 and Excess skin of abdominal wall L98.7 [facility] [address] [facility] [id number] [address] [place] [phone] Mar, [facility] [address] [facility] [id number] [address] [place] [phone] Mar, [place] [address] [facility] [id number] [place] [id number] Mar, Encounter for immunization Z23 [facility] [address] [facility] [id number] [address] [place] [phone] Feb, [facility] [address] [facility] [id number] [address] [place] [phone] Feb, [facility] [address] [facility] [id number] [address] [place] [phone] Jan, Fibromyalgia M79.7 ; Obesity E66.9 ; Depression F32.9 ; Pseudotumor cerebri G93.2 ; GERD with apnea K21.9 ; Chronic headaches R51 and Urinary retention R33.9 [facility] [id number] [place] [address] Jan, [facility] [id number] [place] [phone] 15 Dec, 2015 Obesity E66.9 ; Fibromyalgia M79.7 ; Depression F32.9 ; Pseudotumor cerebri G93.2 ; Chronic headaches R51 and GERD (gastroesophageal reflux disease) K21.9 [place] [id number] [place] [phone] Dec, [place] [address] [phone] Nov, Fibromyalgia M79.7 ; Obesity E66.9 and Elevated cholesterol E78.0 [place] [address] [id number] 17 Nov, 2015 Pseudotumor cerebri G93.2 ; Chronic headaches R51 ; Obesity E66.9 ; Fibromyalgia M79.7 ; GERD (gastroesophageal reflux disease) K21.9 and Elevated cholesterol E78.0 [place] [address] [phone] Nov, Obesity E66.9 [facility] [address] [phone] October, Nausea R11.0 and Urinary ret ention with incomplete bladder emptying R33.9 [facility] [id number] [place] [phone] October, [facility] [address] [phone] October, Dysuria R30.0 [place] [id number] [place] [phone] October, [facility] [address] [phone] Sep, [facility] [address] [facility] [id number] [address] [place] [phone] Sep, Obesity E66.9 ; Depression F 32.9 ; Fibromyalgia M79.7 ; Pseudotumor cerebri G93.2 ; Chronic headaches R51 and GERD with apnea K21.9 [facility] [address] [facility] [id number] [address] [place] [phone] Aug, Pseudotumor cerebri G93.2 ; Chronic headaches R51 ; GERD (gastroesophageal reflux disease) K21.9 ; Obesity E66.9 ; Fibromyalgia M79.7 and Depression F32.9 [facility] [address] [facility] [id number] [address] [place] [phone] Aug, [facility] [address] [facility] [id number] [address] [place] [phone] Aug, [facility] [address] [facility] [id number] [address] [place] [phone] Aug, [facility] [address] [facility] [id number] [address] [place] [phone] Jul, [facility] [address] [facility] [id number] [address] [place] [phone] Jul, [facility] [address] [facility] [id number] [address] [place] [phone] Jul, Depression F32.9 [facility] [address] [facility] [id number] [address] [place] [phone] Jul, Pseudotumor cerebri G93.2 ; Chronic headaches R51 ; GERD (gastroesophageal reflux disease) K21.9 ; Obesity E66.9 ; Fibromyalgia M79.7 and Depression F32.9 [facility] [address] [facility] [id number] [address] [place] [phone] Jul, [facility] [address] [facility] [id number] [address] [place] [phone] Jul, [facility] [address] [address] Jun, [place] [address] [address] Jun, Pseudotumor cerebri G93.2 ; Chronic headaches R51 ; Obesity E66.9 ; GERD (gastroesophageal reflux disease) K21.9 ; Fibromyalgia M79.7 ; Depression F32.9 and Conjunctivitis H10.9 [facility] [address] [address] Jun, Facial rash R21 [place] [address] [address] Jun, Obesity, unspecified E66.9 [place] [address] [id number] May, [place] [address] [address] May, [place] [address] [address] May, Vaginal itching L29.8 and Dy suria R30.0 [place] [address] [address] May, [place] [address] [address] May, [facility] [address] [phone] 06 May, 2015 Acute pharyngitis, unspecifi ed J02.9 and Seasonal allergies J30.2 [place] [address] [address] Apr, Pseudotumor cerebri G93.2 ; Chronic headaches R51 ; Obesity E66.9 ; GERD with apnea K21.9 and GERD (gastroesophageal reflux disease) K21.9 [place] [address] [place] [address] Mar, [facility] [address] [address] Mar, [facility] [address] [address] Mar, [facility] [address] [address] Mar, [facility] [address] [address] Mar, Pseudotumor cerebri G93.2 ; Chronic headaches R51 ; Obesity E66.9 ; Fibromyalgia M79.7 and GERD (gastroesophageal reflux disease) K21.9 [facility] [address] [address] Jan, [facility] [address] [address] Jan, Elevated liver enzymes 790.5 [place] [address] [address] Jan, Elevated liver enzymes 790.5 [place] [address] [address] Dec, Headache 784.0 ; Obesity, un specified 278.00 ; Abnormal weight gain 783.1 ; GERD (gastroesophageal reflux disease) 530.81 and Depression 311 [facility] [id number] [place] [address] Dec, Chronic headaches 784.0 [facility] [address] [address] Dec, [facility] [address] [address] Dec, [facility] [address] [address] Dec, Headache 784.0 ; Obesity, un specified 278.00 ; Tick bite 919.4 and GERD (gastroesophageal reflux disease) 530.81 [facility] [address] [id number] [address] [place] [phone] 14 Sep, 2014 [facility] [address] [id number] [address] [place] [phone] Sep, [facility] [address] [id number] [address] [place] [phone] Aug, [facility] [address] [id number] [address] [place] [phone] Aug, [facility] [address] [id number] [address] [place] [phone] Aug, [facility] [address] [id number] [address] [place] [id number] Aug, [facility] [address] [id number] [address] [place] [phone] Aug, [facility] [address] [id number] [address] [place] [phone] Aug, [facility] [address] [id number] [address] [place] [phone] Aug, [facility] [address] [id number] [address] [place] [phone] Aug, [facility] [address] [id number] [address] [place] [phone] Jul, [facility] [address] [id number] [address] [place] [phone] Jul, [facility] [address] [id number] [address] [place] [phone] Feb, [facility] [address] [id number] [address] [place] [phone] Feb, [facility] [address] [id number] [address] [place] [id number] 11 Feb, 2014 [facility] [address] [id number] [facility] [place] [address] 11 Feb, 2014 [facility] [address] [id number] [address] [place] [address], [place] [address] 11 Feb, 2014 [facility] [address] [id number] [address] [place] [address], [place] [address] Feb, [facility] [address] [id number] [address] [place] [address], [place] [address] Feb, [facility] [address] [id number] [address] [place] [address], [place] [address] Feb, [facility] [address] [id number] [address] [place] [address], [place] [address] Feb, [facility] [address] [id number] [address] [place] [address], [place] [address] Jun, [facility] [address] [id number] [address] [place] [address], [place] [address] Jun, [facility] [address] [id number] [address] [place] [address], [place] [address] May, [facility] [address] [id number] [address] [place] [address], [place] [address] 17 May, 2013 [facility] [address] [id number] [address] [place] [address], [place] [address] May, [facility] [place] [facility] [address] [id number] [address] [place] [address], [place] [address] May, [facility] [address] [id number] [address] [place] [address], [place] [address] May, [facility] [address] [id number] [address] [place] [address], [place] [address] May, [facility] [address] [id number] [address] [place] [address], [place] [address] May, [facility] [address] [id number] [address] [place] [phone] May, [facility] [address] [facility] [id number] [address] [place] [phone] Mar, [facility] [address] [facility] [id number] [address] [place] [address] Mar, IMMUNIZATIONS No Known Immunizations SOCIAL HISTORY Never Assessed REASON FOR VISIT EMR-[facility] PLAN OF CARE VITAL SIGNS MEDICATIONS Medication Instructions Dosage Frequency Start Date End Date Duration S tatus Topamax 50 mg 1 Tablet by Oral route 2 times per day Aug, Active Zoloft 50 mg take 1 tablet (50 mg) by oral route once daily May, Active RESULTS No Results PROCEDURES No Known [...]
--- OUTSIDE RECORDS SUMMARY | 2019-10-12 07:16 | XMS REPORT | Continuity of Care Document ---
Demographics Preferred Language Unknown Marital Status Unknown Uatsdin Affiliation Unknown Race Unknown Ethnic Group Unknown Author Organization Unknown Address Unknown Phone Unavailable Allergies Active Description Code Type Severity Reaction Onset Reported/Identified Relationship to Patient Clinical Status Yes fluconazole [id number] Drug Aller gy Mild N/A 07/05/2012 Yes morphine [id number] Drug Allergy Mild N/A 07/05/2012 Yes TAPE TAPE Mild N/A 07/05/2012 Yes Diflucan Drug Allergy N/A N/A 08/10/2014 Yes morphine Drug Allergy N/A N/A 08/10/2014 Yes gabapentin [id number] Drug Allerg y Unknown N/A 04/11/2018 Yes topiramate [id number] Drug Allerg y Unknown N/A 04/11/2018 Medications There is no data. Problems Date Dx Coded Attending Type Code Diagnosis Diagnosed By 07/06/2012 Ot 786.50 07/06/2012 Ot 786.52 05/24/2013 EISENBERG DO, RADHA K 278.00 OBESITY 05/24/2013 EISENBERG DO, RADHA K V72.31 UMBRELLA REPAIRER EXAM, ROUTINE 05/24/2013 EISENBERG , RADHA K V76.10 BREAST CANCER SCREENING 05/24/2013 WHITE DDS, DAVID J 278.00 OBESITY 05/24/2013 WHITE DDS, DAVID J V72.31 UMBRELLA REPAIRER EXAM, ROUTINE 05/24/2013 WHITE DDS, DAVID J V76.10 BREAST CANCER SCREENING 05/24/2013 PAUL BRITO SUE A 278.00 OBESITY 05/24/2013 PAUL BRITO SUE A V72.31 UMBRELLA REPAIRER EXAM, ROUTINE 05/24/2013 PAUL BRITO SUE A V76.10 BREAST CANCER SCREENING 05/24/2013 EISENBERG DO, RADHA K 278.00 OBESITY 05/24/2013 EISENBERG DO, RADHA K V72.31 UMBRELLA REPAIRER EXAM, ROUTINE 05/24/2013 EISENBERG DO, RADHA K V76.10 BREAST CANCER SCREENING 05/24/2013 EISENBERG DO, RADHA K 278.00 OBESITY 05/24/2013 EISENBERG DO, RADHA K V72.31 UMBRELLA REPAIRER EXAM, ROUTINE 05/24/2013 EISENBERG DO, RADHA K V76.10 BREAST CANCER SCREENING 05/25/2013 TRISTON CARLIES, DAVID Fraga V72.62 LABORATORY EXAMINATION ORDERED PART O F A ROUTINE GENERAL MEDICAL EXAMINATION 05/25/2013 SUE MILLER APRN V72.62 LABORATORY EXAMINATION ORDERED PART O F A ROUTINE GENERAL MEDICAL EXAMINATION 05/25/2013 ELGIN RADHA BAH V72.62 LABORATORY EXAMINATION ORDERED PART OF A ROUTINE GENERAL MEDICAL EXAMINATION 05/25/2013 ELGIN BAHRADHA V72.62 LABORATORY EXAMINATION ORDERED PART OF A ROUTINE GENERAL MEDICAL EXAMINATION 02/15/2014 SUE MILLER APRN 62 0.2 OTHER AND UNSPECIFIED OVARIAN CYST 02/15/2014 EISENBERG RADHA BAH 620.2 OTHER AND UNSPECIFIED OVARIAN CYST 02/15/2014 EISENBERG RADHA BAH 620.2 OTHER AND UNSPECIFIED OVARIAN CYST 02/25/2014 EILEEN CLARK Ot 346.90 02/25/2014 EILEEN CLARK Ot 784.0 02/25/2014 EILEEN CLARK L Ot 789.00 05/09/2014 SUE MILLER FOUR ROLL CALENDER OPERATOR Ot 620.2 05/09/2014 SHAH DO, BERTIN C Ot 625.9 05/09/2014 SHAH DO, BERTIN C Ot V72.6 3 05/09/2014 SHAH DO, BERTIN C Ot V74.8 05/09/2014 SHAH DO, BERTIN C Ot 543.0 05/09/2014 SHAH DO, BERTIN C Ot 614.6 05/09/2014 SHAH DO, BERTIN C Ot 620.1 05/09/2014 SHAH DO, BERTIN C Ot 620.2 05/09/2014 SHAH DO, BERTIN C Ot 620.8 05/18/2014 PAUL SUE A FOUR ROLL CALENDER OPERATOR Ot 620.2 05/18/2014 SHAH DO, BERTIN C Ot 625.9 05/18/2014 SHAH DO, BERTIN C Ot V72.6 3 05/18/2014 SHAH DO, BERTIN C Ot V74.8 05/18/2014 SHAH DO, BERTIN C Ot 625.9 05/18/2014 SHAH DO, BERTIN C Ot V72.6 3 05/18/2014 SHAH DO, BERTIN C Ot V74.8 05/18/2014 VALENTIN, ADRIEN E BAND DIRECTOR Ot 620.2 05/18/2014 VALENTIN, ADRIEN E BAND DIRECTOR Ot 789.00 05/18/2014 ANAYA MILLERIDI A FOUR ROLL CALENDER OPERATOR Ot 620.2 05/18/2014 VALENTIN, ADRIEN E BAND DIRECTOR Ot 620.2 05/18/2014 VALENTIN, ADRIEN E BAND DIRECTOR Ot 789.00 05/18/2014 VALENTIN, ADRIEN E BAND DIRECTOR Ot 620.2 05/18/2014 VALENTIN, ADRIEN E BAND DIRECTOR Ot 789.00 05/18/2014 SHAH DO, BERTIN C Ot 625.9 05/18/2014 SHAH DO, BERTIN C Ot V72.6 3 05/18/2014 SHAH DO, BERTIN C Ot V74.8 05/18/2014 SHAH DO, BERTIN C Ot 625.9 05/18/2014 SHAH DO, BERTIN C Ot V72.6 3 05/18/2014 SHAH DO, BERTIN C Ot V74.8 05/18/2014 ANAYA MILLERIDI A FOUR ROLL CALENDER OPERATOR Ot 620.2 05/31/2014 ANAYA MILLERIDI A FOUR ROLL CALENDER OPERATOR Ot 620.2 05/31/2014 SHAH DO, BERTIN C Ot 625.9 05/31/2014 SHAH DO, BERTIN C Ot V72.6 3 05/31/2014 SHAH DO, BERTIN C Ot V74.8 05/31/2014 PAUL SUE A FOUR ROLL CALENDER OPERATOR Ot 620.2 05/31/2014 VALENTIN, ADRIEN E BAND DIRECTOR Ot 620.2 05/31/2014 VALENTIN, ADRIEN E BAND DIRECTOR Ot 789.00 06/01/2014 VALENTIN, ADRIEN E BAND DIRECTOR Ot 620.2 06/01/2014 VALENTIN, ADRIEN E BAND DIRECTOR Ot 789.00 06/01/2014 PAUL SUE A FOUR ROLL CALENDER OPERATOR Ot 620.2 06/01/2014 SHAH DO, BERTIN C Ot 625.9 06/01/2014 SHAH DO, BERTIN C Ot V72.6 3 06/01/2014 SHAH DO, BERTIN C Ot V74.8 06/13/2014 SHAH DO, BERTIN C Ot 625.9 06/13/2014 SHAH DO, BERTIN C Ot V72.6 3 06/13/2014 SHAH DO, BERTIN C Ot V74.8 06/14/2014 VALENTIN ADRIEN E BAND DIRECTOR Ot 620.2 06/14/2014 VALENTIN ADRIEN E BAND DIRECTOR Ot 789.00 06/14/2014 SUE MILLER FOUR ROLL CALENDER OPERATOR Ot 620.2 06/14/2014 SHAH DO, BERTIN C Ot 625.9 06/14/2014 SAHH DO, BERTIN C Ot V72.6 3 06/14/2014 SHAH DO, BERTIN C Ot V74.8 06/30/2014 HOMERO ADRIEN E BAND DIRECTOR Ot 620.2 06/30/2014 VALENTIN ADRIEN E BAND DIRECTOR Ot 789.00 06/30/2014 SUE MILLER FOUR ROLL CALENDER OPERATOR Ot 620.2 06/30/2014 SHAH DO, BERTIN C Ot 625.9 06/30/2014 SHAH DO, BERTIN C Ot V72.6 3 06/30/2014 SHAH DO, BERTIN C Ot V74.8 07/13/2014 SHAH DO, BERTIN C Ot 625.9 07/13/2014 SHAH DO, BERTIN C Ot V72.6 3 07/13/2014 SHAH DO, BERTIN C Ot V74.8 07/17/2014 SHAH DO, BERTIN C Ot 625.9 07/17/2014 SHAH DO, BERTIN C Ot V72.6 3 07/17/2014 SHAH DO, BERTIN C Ot V74.8 07/27/2014 VALENTIN ADRIEN E BAND DIRECTOR Ot 620.2 07/27/2014 VALENTIN ADRIEN E BAND DIRECTOR Ot 789.00 07/27/2014 SUE MILLER FOUR ROLL CALENDER OPERATOR Ot 620.2 07/27/2014 SHAH DO, BERTIN C Ot 625.9 07/27/2014 SHAH DO, BERTIN C Ot V72.6 3 07/27/2014 SHAH DO, BERTIN C Ot V74.8 07/27/2014 MARCIA BARFIELD FOUR ROLL CALENDER OPERATOR Ot 487 .1 FLU W RESP MANIFEST NEC 07/27/2014 MARCIA BARFIELD FOUR ROLL CALENDER OPERATOR Ot 780.60 FEVER, UNSPECIFIED 07/29/2014 DEBO HAAS DO Ot 034.0 STREP SORE THROAT 07/29/2014 DEBO HAAS DO Ot 349.0 LUMBAR PUNCTURE REACTION 07/29/2014 DEBO HAAS DO Ot 462 ACUTE PHARYNGITIS 08/10/2014 RADHA EISENBERG DO 784.0 HEADACHE 09/09/2014 RADHA EISENBERG DO 783.1 ABNORMAL WEIGHT GAIN 09/14/2014 Ot 473.9 09/14/2014 Ot 784.0 10/12/2014 ADRIEN VALENTIN E BAND DIRECTOR Ot 620.2 10/12/2014 VALENTIN ADRIEN E BAND DIRECTOR Ot 789.00 10/16/2014 Ot 473.9 10/16/2014 Ot 784.0 11/19/2014 Ot 473.9 11/19/2014 Ot 784.0 01/04/2015 Ot 473.9 01/04/2015 Ot 784.0 01/06/2015 Ot 473.9 01/06/2015 Ot 784.0 01/06/2015 MANJIT PATRICK, EARL T Ot 786.50 CHEST PAIN NOS 01/06/2015 EARL SARAVIA MD T Ot 786.59 CHEST PAIN NEC 03/22/2015 Ot 473.9 03/22/2015 Ot 784.0 04/30/2015 SUPA VALENTINCEY E BAND DIRECTOR Ot 620.2 04/30/2015 VALENTIN, ADRIEN E BAND DIRECTOR Ot 789.00 04/30/2015 SUE MILLER FOUR ROLL CALENDER OPERATOR Ot 620.2 04/30/2015 SHAH KARINA BAHA C Ot 625.9 04/30/2015 SHAH KARINA BAHA C Ot V72.6 3 04/30/2015 PERU DO BERTIN C Ot V74.8 04/30/2015 HOMERO ADRIEN E BAND DIRECTOR Ot 620.2 04/30/2015 HOMERO ADRIEN E BAND DIRECTOR Ot 789.00 04/30/2015 SUE MILLER FOUR ROLL CALENDER OPERATOR Ot 620.2 04/30/2015 SHAH DO BERTIN C Ot 625.9 04/30/2015 SHAH DO BERTIN C Ot V72.6 3 04/30/2015 SHAH DO BERTIN C Ot V74.8 09/19/2015 VALENTIN, ADRIEN E BAND DIRECTOR Ot 620.2 09/19/2015 VALENTIN, ADRIEN E BAND DIRECTOR Ot 789.00 09/19/2015 SUE MILLER DARYL Ot 620.2 09/19/2015 SHAH BERTIN BAH Ot 625.9 09/19/2015 SHAH BERTIN BAH Ot V72.6 3 09/19/2015 SHAH BERTIN BAH C Ot V74.8 01/12/2017 Ot 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 01/12/2017 Ot 784.0 HEAD ACHE 01/14/2017 ANTHONY PATRICK, WESLEY Stahl Ot E87 .6 HYPOKALEMIA 01/14/2017 ANTHONY PATRICK, WESLEY Stahl Ot F32 .9 MAJOR DEPRESSIVE DISORDER, SINGLE EPISOD 01/14/2017 ANTHONY PATRICK, WESLEY Stahl Ot F90 .9 ATTENTION-DEFICIT HYPERACTIVITY DISORDER 01/14/2017 ANTHONY PATRICK, WESLEY Stahl Ot M79 .7 FIBROMYALGIA 01/14/2017 ANTHONY PATRICK, WESLEY Stahl Ot 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.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, INTENTIONAL SE 03/28/2017 DEBO HAAS DO Ot E78.00 PURE HYPERCHOLESTEROLEMIA, UNSPECIFIED 03/28/2017 DEBO HAAS DO Ot F17.210 NICOTINE DEPENDENCE, CIGARETTES, UNCOMPL 03/28/2017 DEBO HAAS DO Ot F32.9 MAJOR DEPRESSIVE DISORDER, SINGLE EPISOD 03/28/2017 DEBO HAAS DO Ot M25.522 PAIN IN LEFT ELBOW 03/28/2017 DEBO HAAS DO Ot S53.402 A UNSPECIFIED SPRAIN OF LEFT ELBOW, INITIA 03/28/2017 DEBO HAAS DO Ot S63.502 A UNSPECIFIED SPRAIN OF LEFT WRIST, INITIA 03/28/2017 DEBO HAAS DO Ot W01.0XX A FALL SAME LEV FROM SLIP/TRIP W/O STRIKE 03/28/2017 DEBO HAAS DO Ot Z90.49 ACQUIRED ABSENCE OF OTHER SPECIFIED PART 03/28/2017 DEBO HAAS DO Ot Z90.710 ACQUIRED ABSENCE OF BOTH CERVIX AND UTER 03/28/2017 DEBO HAAS DO Ot Z91.5 PERSONAL HISTORY OF SELF-HARM 04/11/2018 MARCIA BARFIELD APRN Ot F32 .9 MAJOR DEPRESSIVE DISORDER, SINGLE EPISOD 04/11/2018 MARCIA BARFIELD APRN Ot G43.909 MIGRAINE, UNSP, NOT INTRACTABLE, WITHOUT 04/11/2018 MARCIA BARFIELD APRN Ot R51 HEADACHE 04/11/2018 MARCIA BARFIELD APRN Ot Z88 .6 ALLERGY STATUS TO ANALGESIC AGENT STATUS 04/11/2018 MARCIA BARFIELD APRN Ot Z88 .8 ALLERGY STATUS TO OTH DRUG/MEDS/BIOL SUB 04/11/2018 MARCIA BARFIELD APRN Ot Z90.49 ACQUIRED ABSENCE OF OTHER SPECIFIED PART 04/11/2018 MARCIA BARFIELD APRN Ot Z90.710 ACQUIRED ABSENCE OF BOTH CERVIX AND UTER 04/13/2018 MARCIA BARFIELD APRN Ot F32 .9 MAJOR DEPRESSIVE DISORDER, SINGLE EPISOD 04/13/2018 MARCIA BARFIELD APRN Ot G43.909 MIGRAINE, UNSP, NOT INTRACTABLE, WITHOUT 04/13/2018 MARCIA BARFIELD APRN Ot R51 HEADACHE 04/13/2018 MARCIA BARFIELD APRN Ot Z88 .6 ALLERGY STATUS TO ANALGESIC AGENT STATUS 04/13/2018 MARCIA BARFIELD APRN Ot Z88 .8 ALLERGY STATUS TO OTH DRUG/MEDS/BIOL SUB 04/13/2018 MARCIA BARFIELD APRN Ot Z90.49 ACQUIRED ABSENCE OF OTHER SPECIFIED PART 04/13/2018 MARCIA BARFIELD APRN Ot Z90.710 ACQUIRED ABSENCE OF BOTH CERVIX AND UTER 05/11/2018 DELIA MARTINEZ E FOUR ROLL CALENDER OPERATOR Ot F17.200 NICOTINE DEPENDENCE, UNSPECIFIED, UNCOMP 05/11/2018 DELPHINE MARTINEZINE E FOUR ROLL CALENDER OPERATOR Ot G47.10 HYPERSOMNIA, UNSPECIFIED 05/22/2018 JUAN DELIA E FOUR ROLL CALENDER OPERATOR Ot G47.10 HYPERSOMNIA, UNSPECIFIED 05/22/2018 DELPHINE MARTINEZINE E FOUR ROLL CALENDER OPERATOR Ot I48.0 PAROXYSMAL ATRIAL FIBRILLATION 05/22/2018 DELPHINE MARTINEZINE E FOUR ROLL CALENDER OPERATOR Ot R06.83 SNORING 05/25/2018 DELPHINE MARTINEZINE E FOUR ROLL CALENDER OPERATOR Ot G47.10 HYPERSOMNIA, UNSPECIFIED 05/25/2018 DELPHINE MARTINEZINE E FOUR ROLL CALENDER OPERATOR Ot I48.0 PAROXYSMAL ATRIAL FIBRILLATION 05/25/2018 DELPHINE MARTINEZINE E FOUR ROLL CALENDER OPERATOR Ot R06.83 SNORING 05/27/2018 DELIA MARTINEZ FOUR ROLL CALENDER OPERATOR Ot G47.10 HYPERSOMNIA, UNSPECIFIED 05/27/2018 DELIA MARTINEZ FOUR ROLL CALENDER OPERATOR Ot I48.0 PAROXYSMAL ATRIAL FIBRILLATION 05/27/2018 DELIA MARTINEZ FOUR ROLL CALENDER OPERATOR Ot R06.83 SNORING 05/31/2018 JUAN DELIA Juarez FOUR ROLL CALENDER OPERATOR Ot F17.200 NICOTINE DEPENDENCE, UNSPECIFIED, UNCOMP 05/31/2018 DELIA MARTINEZ FOUR ROLL CALENDER OPERATOR Ot G47.10 HYPERSOMNIA, UNSPECIFIED 06/23/2018 JUAN DELIA Juarez FOUR ROLL CALENDER OPERATOR Ot F17.200 NICOTINE DEPENDENCE, UNSPECIFIED, UNCOMP 06/23/2018 JUAN DELIA Ann FOUR ROLL CALENDER OPERATOR Ot G47.10 HYPERSOMNIA, UNSPECIFIED Procedures Code Description [place] [address] ROUT INE VENIPUNCTURE 05/25/2013 48339 CBC 05/25/2013 87324 CMP 05/25/2013 28982 LIPI D PANEL 05/25/2013 0618626 GF R CALC (RESULT ONLY) 05/25/2013 68772 A1C (RML) 05/25/2013 40741 TSH 05/25/2013 95763 US P ELVIC COMPL (REFLEX CPT- 12744) 02/15/2014 89965 URIN E DRUG SCREEN (IN-HOUSE) 02/23/[address] [facility] 02/24/2014 Results Test Result Range Genital Culture, Routine - 09/15/16 17:1 2 Genital Culture, Routine Note Complete blood count (CBC) with automate d white blood cell (WBC) differential - 01/12/17 17:34 Blood leukocytes automated count (number/volume) 7.9 10*3/uL 4.3-11.0 Blood erythrocytes automated count (number/volume) 4.07 10*6/uL 4.35-5.85 Venous blood hemoglobin measurement (mass/volume) 12.7 g/dL 11.5-16.0 Blood hematocrit (volume fraction) 37 % 35-52 Automated erythrocyte mean corpuscular volume 91 [ foz_us] 80-99 Automated erythrocyte mean corpuscular h emoglobin (mass per erythrocyte) 31 pg 25-34 Automated erythrocyte mean corpuscular h emoglobin concentration measurement (mass/volume) 34 g/dL 32-36 Automated erythrocyte distribution width ratio 12. 2 % 10.0- 14.5 Automated blood platelet count (count/volume) 253 10*3/uL [...] 10*3 1.0-4.0 Blood monocytes automated count (number/volume) 0. 5 10*3 0.0-1.0 Automated eosinophil count 0.2 10*3/uL 0 .0-0.3 Automated blood basophil count (count/volume) 0.0 10*3/uL 0.0-0.1 Serum or plasma choriogonadotropin (preg jigar test) detection - 01/12/17 17:34 Serum or plasma choriogonadotropin ( test) de tection NEGATIVE NEGATIVE Comprehensive metabolic panel - 01/12/17 17:34 Serum or plasma sodium measurement (moles/volume) 143 mmol/L 135-145 Serum or plasma potassium measurement (moles/volume) 3.6 mmol/L 3.6-5.0 Serum or plasma chloride measurement (moles/volume) 115 mmol/L 98-107 Carbon dioxide 20 mmol/L 21-32 Serum or plasma anion gap determination (moles/volume) 8 mmol/L 5-14 Serum or plasma urea nitrogen measurement (mass/volume ) 15 mg/dL 7-18 Serum or plasma creatinine measurement (mass/volume) 0.82 mg/dL 0.60-1.30 Serum or plasma urea nitrogen/creatinine mass ratio 18 NRG Serum or plasma creatinine measurement w ith calculation of estimated glomerular filtration rate > NRG Serum or plasma glucose measurement (mass/volume) 93 mg/dL 70-105 Serum or plasma calcium measurement (mass/volume) 8.4 mg/dL 8.5-10.1 Serum or plasma total bilirubin measurement (mass/volu me) 0.3 mg/dL 0.1-1.0 Serum or plasma alkaline phosphatase sylvia surement (enzymatic activity/volume) 68 U/L 40-136 Serum or plasma aspartate aminotransfera se measurement (enzymatic activity/volume) 13 U/L 5-34 Serum or plasma alanine aminotransferase measurement (enzymatic activity/volume) 15 U/L 0-55 Serum or plasma protein measurement (mass/volume) 6.6 g/dL 6.4-8.2 Serum or plasma albumin measurement (mass/volume) 3.8 g/dL 3.2-4.5 Magnesium - 01/12/17 17:34 Magnesium 1.9 mg/dL 1.8-2.4 Serum or plasma amylase measurement (enz ymatic activity/volume) - 01/12/17 17:34 Serum or plasma amylase measurement (enzymatic activit y/volume) 47 U/L 25-125 Lipase - 01/12/17 17:34 Lipase 21 U/L 8-78 Serum or plasma salicylates measurement (mass/volume) - 01/12/17 17:34 Serum or plasma salicylates measurement (mass/volume) < mg/dL 5.0-20.0 Serum or plasma acetaminophen measuremen t (mass/volume) - 01/12/17 17:34 Serum or plasma acetaminophen measurement (mass/volume ) 54 ug/mL 10-30 Serum or plasma ethanol measurement (mas s/volume) - 01/12/17 17:34 Serum or plasma ethanol measurement (mass/volume) < mg/dL <10 Complete urinalysis with reflex to cultu re - 01/12/17 18:09 Urine color determination YELLOW NRG Urine clarity determination CLEAR NR G Urine pH measurement by test strip 7 5-9 Specific gravity of urine by test strip 1.005 1.016-1.022 Urine protein assay by test strip, semi-quantitative NEGATIVE NEGATIVE Urine glucose detection by automated test strip NE GATIVE NEGATIVE Erythrocytes detection in urine sediment by light micr oscopy NEGATIVE NEGATIVE Urine ketones detection by automated test strip NE GATIVE NEGATIVE Urine nitrite detection by test strip NEGATIVE NEGATIVE Urine total bilirubin detection by test strip NEGA TIVE NEGATIVE Urine urobilinogen measurement by automated test strip (mass/volume) NORMAL NORMAL Urine leukocyte esterase detection by dipstick NEG ATIVE NEGATIVE Automated urine sediment erythrocyte cou nt by microscopy (number/high power field) NONE NRG Automated urine sediment leukocyte count by microscopy (number/high power field) NONE NRG Bacteria detection in urine sediment by light microsco py FEW NRG Squamous epithelial cells detection in u rine sediment by light microscopy RARE NRG Crystals detection in urine sediment by light microsco py NONE NRG Casts detection in urine sediment by light microscopy NONE NRG Mucus detection in urine sediment by light microscopy NEGATIVE NRG Complete urinalysis with reflex to culture NO NRG Urine drug screening test - 01/12/17 18: 09 Urine phencyclidine detection by screening method NEGATIVE NEGATIVE Urine benzodiazepines detection by screening method NEGATIVE NEGATIVE Urine cocaine detection NEGATIVE NEGATI VE Urine amphetamines detection by screening method P OSITIVE NEGATIVE Urine methamphetamine detection by screening method NEGATIVE NEGATIVE Urine cannabinoids detection by screening method N EGATIVE NEGATIVE Urine opiates detection by screening method POSITI VE NEGATIVE Urine barbiturates detection NEGATIVE N EGATIVE Screening urine tricyclic antidepressants detection NEGATIVE NEGATIVE Urine methadone detection by screening method NEGA TIVE NEGATIVE Urine oxycodone detection NEGATIVE NEGA TIVE Urine propoxyphene detection NEGATIVE N EGATIVE Methicillin resistant Staphylococcus aur eus (MRSA) screening culture - 01/12/17 19:15 Methicillin resistant Staphylococcus aureus (MRSA) scr eening culture NEG NRG Serum or plasma acetaminophen measuremen t (mass/volume) - 01/12/17 20:26 Serum or plasma acetaminophen measurement (mass/volume ) 81 ug/mL 10-30 Serum or plasma acetaminophen measuremen t (mass/volume) - 01/12/17 22:26 Serum or plasma acetaminophen measurement (mass/volume ) 93 ug/mL 10-30 Serum or plasma acetaminophen measuremen t (mass/volume) - 01/13/17 00:46 Serum or plasma acetaminophen measurement (mass/volume ) 96 ug/mL 10-30 Complete blood count (CBC) with automate d white blood cell (WBC) differential - 01/13/17 03:45 Blood leukocytes automated count (number/volume) 7.2 10*3/uL 4.3-11.0 Blood erythrocytes automated count (number/volume) 4.05 10*6/uL 4.35-5.85 Venous blood hemoglobin measurement (mass/volume) 12.4 g/dL 11.5-16.0 Blood hematocrit (volume fraction) 37 % 35-52 Automated erythrocyte mean corpuscular volume 92 [ foz_us] 80-99 Automated erythrocyte mean corpuscular h emoglobin (mass per erythrocyte) 31 pg 25-34 Automated erythrocyte mean corpuscular h emoglobin concentration measurement (mass/volume) 33 g/dL 32-36 Automated erythrocyte distribution width ratio 12. 2 % 10.0- 14.5 Automated blood platelet count (count/volume) 234 10*3/uL [...] 10*3 1.0-4.0 Blood monocytes automated count (number/volume) 0. 1 10*3 0.0-1.0 Automated eosinophil count 0.0 10*3/uL 0 .0-0.3 Automated blood basophil count (count/volume) 0.0 10*3/uL 0.0-0.1 Comprehensive metabolic panel - 01/13/17 03:45 Serum or plasma sodium measurement (moles/volume) 141 mmol/L 135-145 Serum or plasma potassium measurement (moles/volume) 4.1 mmol/L 3.6-5.0 Serum or plasma chloride measurement (moles/volume) 114 mmol/L 98-107 Carbon dioxide 19 mmol/L 21-32 Serum or plasma anion gap determination (moles/volume) 8 mmol/L 5-14 Serum or plasma urea nitrogen measurement (mass/volume ) 16 mg/dL 7-18 Serum or plasma creatinine measurement (mass/volume) 0.80 mg/dL 0.60-1.30 Serum or plasma urea nitrogen/creatinine mass ratio 20 NRG Serum or plasma creatinine measurement w ith calculation of estimated glomerular filtration rate > NRG Serum or plasma glucose measurement (mass/volume) 108 mg/dL 70-105 Serum or plasma calcium measurement (mass/volume) 8.3 mg/dL 8.5-10.1 Serum or plasma total bilirubin measurement (mass/volu me) 0.6 mg/dL 0.1-1.0 Serum or plasma alkaline phosphatase sylvia surement (enzymatic activity/volume) 90 U/L 40-136 Serum or plasma aspartate aminotransfera se measurement (enzymatic activity/volume) 156 U/L 5-34 Serum or plasma alanine aminotransferase measurement (enzymatic activity/volume) 152 U/L 0-55 Serum or plasma protein measurement (mass/volume) 6.4 g/dL 6.4-8.2 Serum or plasma albumin measurement (mass/volume) 3.7 g/dL 3.2-4.5 Serum or plasma phosphate measurement (m ass/volume) - 01/13/17 03:45 Serum or plasma phosphate measurement (mass/volume) 3.5 mg/dL 2.3-4.7 Magnesium - 01/13/17 03:45 Magnesium 2.2 mg/dL 1.8-2.4 Serum or plasma acetaminophen measuremen t (mass/volume) - 01/13/17 03:45 Serum or plasma acetaminophen measurement (mass/volume ) 84 ug/mL 10-30 PT panel in platelet poor plasma by coag ulation assay - 01/13/17 07:55 Prothrombin time (PT) in platelet poor plasma by coagu lation assay 14.3 s 12.2-14.7 INR in platelet poor plasma or blood by coagulation as say 1.1 0.8-1.4 Serum or plasma aspartate aminotransfera se measurement (enzymatic activity/volume) - 01/13/17 07:55 Serum or plasma aspartate aminotransfera se measurement (enzymatic activity/volume) 120 U/L 5-34 Serum or plasma alanine aminotransferase measurement (enzymatic activity/volume) - 01/13/17 07:55 Serum or plasma alanine aminotransferase measurement (enzymatic activity/volume) 146 U/L 0-55 Comprehensive metabolic panel - 01/13/17 12:15 Serum or plasma sodium measurement (moles/volume) 141 mmol/L 135-145 Serum or plasma potassium measurement (moles/volume) 3.3 mmol/L 3.6-5.0 Serum or plasma chloride measurement (moles/volume) 113 mmol/L 98-107 Carbon dioxide 19 mmol/L 21-32 Serum or plasma anion gap determination (moles/volume) 9 mmol/L 5-14 Serum or plasma urea nitrogen measurement (mass/volume ) 14 mg/dL 7-18 Serum or plasma creatinine measurement (mass/volume) 0.71 mg/dL 0.60-1.30 Serum or plasma urea nitrogen/creatinine mass ratio 20 NRG Serum or plasma creatinine measurement w ith calculation of estimated glomerular filtration rate > NRG Serum or plasma glucose measurement (mass/volume) 135 mg/dL 70-105 Serum or plasma calcium measurement (mass/volume) 7.6 mg/dL 8.5-10.1 Serum or plasma total bilirubin measurement (mass/volu me) 0.4 mg/dL 0.1-1.0 Serum or plasma alkaline phosphatase sylvia surement (enzymatic activity/volume) 74 U/L 40-136 Serum or plasma aspartate aminotransfera se measurement (enzymatic activity/volume) 80 U/L 5-34 Serum or plasma alanine aminotransferase measurement (enzymatic activity/volume) 122 U/L 0-55 Serum or plasma protein measurement (mass/volume) 5.9 g/dL 6.4-8.2 Serum or plasma albumin measurement (mass/volume) 3.4 g/dL 3.2-4.5 Serum or plasma acetaminophen measuremen t (mass/volume) - 01/13/17 12:15 Serum or plasma acetaminophen measurement (mass/volume ) 26 ug/mL 10-30 Complete blood count (CBC) with automate d white blood cell (WBC) differential - 01/14/17 05:20 Blood leukocytes automated count (number/volume) 8.6 10*3/uL 4.3-11.0 Blood erythrocytes automated count (number/volume) 3.99 10*6/uL 4.35-5.85 Venous blood hemoglobin measurement (mass/volume) 12.2 g/dL 11.5-16.0 Blood hematocrit (volume fraction) 36 % 35-52 Automated erythrocyte mean corpuscular volume 91 [ foz_us] 80-99 Automated erythrocyte mean corpuscular h emoglobin (mass per erythrocyte) 31 pg 25-34 Automated erythrocyte mean corpuscular h emoglobin concentration measurement (mass/volume) 34 g/dL 32-36 Automated erythrocyte distribution width ratio 12. 7 % 10.0- 14.5 Automated blood platelet count (count/volume) 267 10*3/uL [...] 10*3 1.0-4.0 Blood monocytes automated count (number/volume) 0. 5 10*3 0.0-1.0 Automated eosinophil count 0.1 10*3/uL 0 .0-0.3 Automated blood basophil count (count/volume) 0.0 10*3/uL 0.0-0.1 PT panel in platelet poor plasma by coag ulation assay - 01/14/17 05:20 Prothrombin time (PT) in platelet poor plasma by coagu lation assay 14.6 s 12.2-14.7 INR in platelet poor plasma or blood by coagulation as say 1.2 0.8-1.4 Serum or plasma phosphate measurement (m ass/volume) - 01/14/17 05:20 Serum or plasma phosphate [...] 5-14 Serum or plasma urea nitrogen measurement (mass/volume ) 7 mg/dL 7-18 Serum or plasma creatinine measurement (mass/volume) 0.73 mg/dL 0.60-1.30 Serum or plasma urea nitrogen/creatinine mass ratio 10 NRG Serum or plasma creatinine measurement w ith calculation of estimated glomerular filtration rate > NRG Serum or plasma glucose measurement (mass/volume) 100 mg/dL 70-105 Serum or plasma calcium measurement (mass/volume) 8.1 mg/dL 8.5-10.1 Serum or plasma total bilirubin measurement (mass/volu me) 0.3 mg/dL 0.1-1.0 Serum or plasma alkaline phosphatase sylvia surement (enzymatic activity/volume) 67 U/L 40-136 Serum or plasma aspartate aminotransfera se measurement (enzymatic activity/volume) 35 U/L 5-34 Serum or plasma alanine aminotransferase measurement (enzymatic activity/volume) 83 U/L 0-55 Serum or plasma protein measurement (mass/volume) 5.7 g/dL 6.4-8.2 Serum or plasma albumin measurement (mass/volume) 3.3 g/dL 3.2-4.5 Serum or plasma acetaminophen measuremen t (mass/volume) - 01/14/17 05:20 Serum or plasma acetaminophen measurement (mass/volume ) < ug/mL 10 Comprehensive metabolic panel - 01/14/17 11:45 Serum or plasma sodium measurement (moles/volume) 144 mmol/L 135-145 Serum or plasma potassium measurement (moles/volume) 3.5 mmol/L 3.6-5.0 Serum or plasma chloride measurement (moles/volume) 116 mmol/L 98-107 Carbon dioxide 20 mmol/L 21-32 Serum or plasma anion gap determination (moles/volume) 8 mmol/L 5-14 Serum or plasma urea nitrogen measurement (mass/volume ) 5 mg/dL 7-18 Serum or plasma creatinine measurement (mass/volume) 0.77 mg/dL 0.60-1.30 Serum or plasma urea nitrogen/creatinine mass ratio 6 NRG Serum or plasma creatinine measurement w ith calculation of estimated glomerular filtration rate > NRG Serum or plasma glucose measurement (mass/volume) 108 mg/dL 70-105 Serum or plasma calcium measurement (mass/volume) 8.6 mg/dL 8.5-10.1 Serum or plasma total bilirubin measurement (mass/volu me) 0.3 mg/dL 0.1-1.0 Serum or plasma alkaline phosphatase sylvia surement (enzymatic activity/volume) 75 U/L 40-136 Serum or plasma aspartate aminotransfera se measurement (enzymatic activity/volume) 32 U/L 5-34 Serum or plasma alanine aminotransferase measurement (enzymatic activity/volume) 87 U/L 0-55 Serum or plasma protein measurement (mass/volume) 6.7 g/dL 6.4-8.2 Serum or plasma albumin measurement (mass/volume) 3.8 g/dL 3.2-4.5 CMP - 02/26/17 09:15 Glucose, Serum 82 mg/dL 65-99 BUN 10 mg/dL 6-24 Creatinine, Serum 0.72 mg/dL 0.57-1.00 eGFR If NonAfricn Am 105 mL/min/1.73 >59 eGFR If Africn Am 121 mL/min/1.73 >5 9 BUN/Creatinine Ratio 14 9-23 Sodium, Serum 143 [...] Status Pt. Type Provider Facility Loc./Unit Complaint [id number] 09/18/2016 12:09:00 Document Registration [id number] 09/09/2014 10:18:00 09/09/2014 23:59: 59 CLS Outpatient RADHA EISENBERG DO [id number] 02/23/2014 15:43:00 02/23/2014 23:59: 59 CLS Outpatient RADHA EISENBERG DO [id number] 02/15/2014 14:05:00 02/15/2014 23:59: 59 CLS Outpatient SUE MILLER APRN [id number] 06/01/2013 07:35:00 06/01/2013 23:59: 59 CLS Outpatient DAVID GOLDSTEIN DDS [id number] 05/25/2013 07:46:00 05/25/2013 23:59: 59 CLS Outpatient RADHA EISENBERG DO [id number] 11/02/2015 10:05:01 ACT Unknown [id number] 11/16/2018 18:50:00 11/16/2018 23:59:5 9 CLS Outpatient TIMBO GUILLEN [facility] [id number] 02/26/2017 09:00:00 Document Registration [id number] 05/21/2018 20:46:00 06:53:00 DIS Outpatient DELIA MARTINEZ APRN [facility] SLEEP SLEEP DISORDER,HYPERSOMNIA,SUSPECTED SLEEP APNEA [id number] 05/10/2018 16:03:00 23:59:59 CLS Outpatient DELIA MARTINEZ APRN [facility] RT SLEEP DISORDER, SUSPECTED SLEEP APNEA [id number] 04/11/2018 18:50:00 20:19:00 DIS Emergency MARCIA BARFIELD APRN [facility] ER HEADACHE [id number] 03/28/2017 17:37:00 18:48:00 DIS Emergency DEBO HAAS DO [facility] ER L HAND PAIN AFTER FALL [id number] 01/12/2017 18:30:00 017 16:00:00 DIS Inpatient ANHTONY PATRICK, WESLEY Stahl [facility] ICU OVERDOSE HYDROCODONE/ACETAMINOPHEN,SUICIDE [id number] 01/06/2015 02:05:00 015 04:53:00 DIS Emergency MANJIT PATRICK, EARL Duncan [facility] ER CHEST PAIN [id number] 07/29/2014 10:39:00 015 14:13:00 DIS Emergency DEBO HAAS DO [facility] ER HEADACHE FROM SPINAL TA P AND SORE THROAT [id number] 07/27/2014 19:31:00 015 23:40:00 DIS Emergency MARCIA BARFIELD APRN [facility] ER FEVER [id number] 05/09/2014 08:53:00 014 16:45:00 DIS [id number] 05/02/2014 09:09:00 014 23:59:59 CLS Outpatient BERTIN SHAH DO [facility] PREOP [id number] 02/25/2014 10:58:00 014 13:15:00 DIS Emergency EILEEN CLARK [facility] ER [id number] 02/21/2014 13:26:00 014 23:59:59 CLS Outpatient SUE MILLER APRN [facility] RAD [id number] 02/01/2014 14:17:00 014 23:59:59 CLS Outpatient ADRIEN VALENTIN [facility] RAD [id number] 09/14/2014 14:49:00 Document Registration [id number] 07/05/2012 21:37:00 Document Registration
[2019-10-12] MEDS ORDERED: AMPH20TA2 PO (07:27)
[2019-10-12] MEDS ORDERED: LACTATED RINGERS 1,000 ML IV ONE (07:34)
[2019-10-12] MEDS ORDERED: ORPHENADRINE 60 MG/2 ML (NORFLEX) AMP IV ONE (07:45)
[2019-10-12] MEDS ORDERED: ONDANSETRON 4 MG/2 ML (SDV) Z0FRAN IVP ONE (07:45)
[2019-10-12] MEDS ORDERED: KETOROLAC 30 MG/ML VIAL IVP ONE (07:45)
--- NOTE | 2019-10-12 07:58 | ED Headache ---
General Chief Complaint: Head/Cervical Problems Stated Complaint: MIGRAINE Nursing Triage Note: PT CO OF MIGRAINE EDGE SINCE THURSDAY, HAS HX OF MIGRAINES, STATES TAKES FLEXERIL. BUT HAS NO WORKED, DENIES NAUSEA FROM MIGRAINE Nursing Sepsis Screen: No Definite Risk Source: patient Exam Limitations: no limitations History of Present Illness Date Seen by Provider: Oct 12, 2019 Time Seen by Provider: 07:23 Initial Comments This 43-year-old woman presents to the emergency room with her third day of headache. She has a history of migraines which she normally treats with Flexeril and Aleve. She has taken her maximum doses of Aleve with the last dose being last night. She last took Flexeril around 02:00. She rates her pain as 9/10. She took a leftover hydrocodone 2 days ago. She took a monster drink this morning. She is having trouble concentrating but she states she did not take her usual Adderall this morning. She reports a history of pseudotumor cerebri and fibromyalgia. She is not on maintenance medications for either of these conditions. She denies as she has had a hysterectomy. She has mild chronic nausea but no recent vomiting. She has light sensitivity but no aura. Neck muscles are sore and stiff. Head movement exacerbates her headache. These are typical migraine symptoms for her, but symptoms are lasting longer than usual. She has been afebrile. Allergies and Home Medications Allergies Coded Allergies: fluconazole (Verified Allergy, Mild, 07/05/12) morphine (Verified Allergy, Mild, 07/05/12) gabapentin (Verified Adverse Reaction, Unknown, 04/11/18) topiramate (Verified Adverse Reaction, Unknown, 04/11/18) Uncoded Allergies: TAPE (Allergy, Mild, 07/05/12) Home Medications Dextroamphetamine/Amphetamine 20 Mg Tablet, 20 MG PO BID, (Reported) Estradiol 1 Mg Tablet, 1 MG PO DAILY, (Reported) Loratadine 10 Mg Tab.rapdis, 10 MG PO DAILY, (Reported) Ondansetron 4 Mg Tab.rapdis, 4 MG SL Q4H PRN for NAUSEA/VOMITING Prescribed by: EARL MICHELLE on 10/12/19 0939 Prednisone 20 Mg Tab, 20 MG PO DAILY May start evening of 10/12/19 or morning of 10/13/19 Prescribed by: EARL MICHELLE on 10/12/19 0939 Patient Home Medication List Home Medication List Reviewed: Yes Review of Systems Review of Systems Constitutional: no symptoms reported Eyes: See HPI Ears, Nose, Mouth, Throat: no symptoms reported Respiratory: no symptoms reported Cardiovascular: no symptoms reported Gastrointestinal: see HPI Genitourinary: no symptoms reported : No Musculoskeletal: see HPI Skin: no symptoms reported Psychiatric/Neurological: See HPI Past Hmovguz-Nojpfg-Germtn Hx Past Med/Social Hx: Reviewed and Corrections made Patient Social History Alcohol Use: Regular Use Number of Drinks Today: 0 Alcohol Beverage of Choice: Rum, Vodka Recreational Drug Use: No Smoking Status: Never a Smoker Type Used: Cigarettes, Electronic/Vapor 2nd Hand Smoke Exposure: Yes Recent Foreign Travel: No Contact w/Someone Who Travel: No Recent Infectious Disease Expo: No Recent Hopitalizations: No Physical Abuse: No Sexual Abuse: No Mistreated: No Immunizations Up To Date Tetanus Booster (TDap): Unknown Date of Influenza Vaccine: Mar 15, 2014 Seasonal Allergies Seasonal Allergies: No Past Medical History Surgeries: Yes Section, Gallbladder, Hysterectomy Respiratory: No Cardiac: Yes High Cholesterol Neurological: Yes (reported history of pseudotumor cerebri) Headaches /Migraines, Meningitis Reproductive Disorders: Yes (CPP) [employer] History: Hysterectomy Sexually Transmitted Disease: No Genitourinary: No Gastrointestinal: No Gall Bladder Disease Musculoskeletal: Yes Fibromyalgia Endocrine: No HEENT: No Loss of Vision: Denies Hearing Impairment: Denies Cancer: No Psychosocial: Yes Suicide Attempts, Depression Integumentary: No Blood Disorders: Yes Adverse Reaction/Blood Tranf: No Family Medical History Patient reports no known family medical history. No Pertinent Family Hx Physical Exam Vital Signs Vital Signs - First Documented 10/12/19 07:05 Temp 36.5 Pulse 88 Resp 18 B/P (MAP) 140/96 (111) Pulse Ox 98 Capillary Refill : Less Than 3 Seconds Height, Weight, BMI Height: 5'8.00" Weight: 211lbs. 0oz. [id number]; 33.00 BMI Method:Stated General Appearance: WD/WN, no apparent distress HEENT: PERRL/EOMI, normal ENT inspection, TMs normal, pharynx normal Neck: normal inspection Cardiovascular: regular rate, rhythm, no edema, no murmur Respiratory: lungs clear, normal breath sounds, no respiratory distress, no accessory muscle use Extremities: normal inspection, no pedal edema Crainal Nerves: normal hearing, normal speech, PERRL Motor/Sensory: no motor deficit, no sensory deficit Skin: normal color, warm/dry Progress/Results/Core Measures Results/Orders Lab Results Laboratory Tests Test 10/12/19 07:45 Range/Units Sodium Level 140 135-145 MMOL/L Potassium Level 3.7 3.6-5.0 MMOL/L Chloride Level 107 98-107 MMOL/L Carbon Dioxide Level 23 21-32 MMOL/L Anion Gap 10 5-14 MMOL/L Blood Urea Nitrogen 11 7-18 MG/DL Creatinine 0.78 0.60-1.30 MG/DL Estimat Glomerular Filtration Rate > 60 BUN/Creatinine Ratio 14 Glucose Level 90 70-105 MG/DL Calcium Level 8.3 L 8.5-10.1 MG/DL Magnesium Level 2.0 1.6-2.4 MG/DL My Orders Orders - EARL SARAVIA MD Orphenadrine Injection (Norflex Injectio (10/12/19 07:45) Ketorolac Injection (Toradol Injection) (10/12/19 07:45) Ondansetron Injection (Zofran Injectio (10/12/19 07:45) Ed Iv/Invasive Line Start (10/12/19 07:34) Basic Metabolic Panel (10/12/19 07:34) Magnesium (10/12/19 07:34) Ed Iv/Invasive Line Start (10/12/19 07:34) Lactated Ringers (Lr 1000 Ml Iv Solution (10/12/19 07:34) Magnesium 1 Gm/100 Ml Ivpb (Magnesium Herring (10/12/19 08:15) Methylprednisolone Sod Succ (Solu-Medrol (10/12/19 08:15) Medications Given in ED Current Medications Medications Dose Ordered Sig/Latia Route Start Time Stop Time Status Last Admin Dose Admin Ketorolac Tromethamine 15 mg ONCE ONCE IVP 10/12/19 07:45 10/12/19 07:46 DC 10/12/19 07:40 15 MG Lactated Ringer's 1,000 ml @ 0 mls/hr Q0M ONCE IV 10/12/19 07:34 10/12/19 07:37 DC 10/12/19 07:40 1,000 MLS/HR Magnesium Sulfate/ Dextrose 100 ml @ 100 mls/hr ONCE ONCE IV 10/12/19 08:15 10/12/19 09:14 DC 10/12/19 08:27 100 MLS/HR Methylprednisolone Sodium Succinate 125 mg ONCE ONCE IVP 10/12/19 08:15 10/12/19 08:18 DC 10/12/19 08:27 125 MG Ondansetron HCl 4 mg ONCE ONCE IVP 10/12/19 07:45 10/12/19 07:46 DC 10/12/19 07:40 4 MG Orphenadrine Citrate 60 mg ONCE ONCE IV 10/12/19 07:45 10/12/19 07:46 DC 10/12/19 07:40 60 MG Vital Signs/I&O 10/12/19 10/12/19 07:05 10:09 Temp 36.5 36.5 Pulse 88 78 Resp 18 14 B/P (MAP) 140/96 (111) 145/99 (111) Pulse Ox 98 98 Blood Pressure Mean: 111 Progress Progress Note #1: Time: 08:01 Progress Note Patient is being treated with Toradol, Zofran, Norflex, and IV fluids. Progress Note #2: Time: 08:22 Progress Note Patient reports symptoms are not much improved except her usual fibromyalgia bodyaches have improved. I am trying to avoid sedating medications as patient has known to drive her home. We will add Solu-Medrol and magnesium. Labs are unremarkable. IV fluids are still infusing. Departure Impression Primary Impression: Migraine Qualified Codes: G43.009 - Migraine without aura, not intractable, without status migrainosus Additional Impression: Muscle tension headache Disposition: 01 HOME, SELF-CARE Condition: Improved Departure-Patient Inst. Decision time for Depature: 09:33 Referrals: ARCELIA ARTEAGA MD (PCP/Family) Primary Care Physician Patient Instructions: Migraine Headache (DC) Add. Discharge Instructions: Drink plenty of clear liquids to stay well-hydrated. Rest in a quiet, calm, dark environment until your symptoms resolved. Gentle heat applied to the neck muscles may help him relax. You may continue taking Aleve (naproxen) up to 500 mg twice daily. You may add Tylenol (acetaminophen) up to 1000 mg every 6 hours as needed. Use Zofran as prescribed for nausea and vomiting. Follow-up with your primary care provider as soon as possible to discuss further management and prevention of migraines. Consider screening for vitamin D deficiency. Return to the ER if symptoms worsen despite following these instructions. All discharge instructions reviewed with patient and/or family. Voiced understanding. Scripts Prednisone (Prednisone) 20 Mg Tab 20 MG PO DAILY, #4 TAB 0 Refills May start evening of 10/12/19 or morning of 10/13/19 Prov: EARL SARAVIA MD 10/12/19 Ondansetron (Ondansetron Odt) 4 Mg Tab.rapdis 4 MG SL Q4H PRN for NAUSEA/VOMITING, #10 TAB Prov: EARL SARAVIA MD 10/12/19 Copy Copies To 1: ARCELIA ARTEAGA MD, JOSHUA T MD Oct 12, 2019 07:58
[2019-10-12] MEDS ORDERED: MAGNESIUM 1 GM/100 ML IVPB 100 ML IV ONE (08:15)
[2019-10-12] MEDS ORDERED: methylPREDNISolone 125 MG (Solu-MEDROL) VIAL IVP ONE (08:15)
[2019-10-12 08:16] LABS: BUN/CREATININE RATIO 14; CALCIUM 8.3 MG/DL (8.5-10.1); CARBON DIOXIDE 23 MMOL/L (21-32); CHLORIDE 107 MMOL/L (98-107); CREATININE SERUM 0.78 MG/DL (0.60-1.30); GFR ESTIMATED > 60; GLUCOSE 90 MG/DL (70-105); POTASSIUM 3.7 MMOL/L (3.6-5.0); SODIUM 140 MMOL/L (135-145)
[2019-10-12] MEDS ORDERED: ONDA4TAB11 SL (09:39)
[2019-10-12] MEDS ORDERED: PRD20T PO (09:39)
[2019-10-12 10:09] VITALS: BP 145/99
== END 2019-10-12 10:11 | disposition home or self-care (01) ==
LOC: EDUNIT# 07:04 → ER 07:06
DX: G43.009 Migraine without aura, not intractable, without status migrainosus (principal); G44.209 Tension-type headache, unspecified, not intractable; F32.9 Major depressive disorder, single episode, unspecified; M79.7 Fibromyalgia; E78.00 Pure hypercholesterolemia, unspecified; F17.210 Nicotine dependence, cigarettes, uncomplicated; Z79.899 Other long term (current) drug therapy
CPT/HCPCS: 36415; 80048; 83735